=== PATIENT | female | born 1935 | race Caucasian/White ===

== ENCOUNTER 2020-01-01 08:32 | Day surgery (SDC) | payer OTHER ==
--- OUTSIDE RECORDS SUMMARY | 2020-01-01 08:39 | XMS ---
:1935 Author Organization [facility] Care Team Providers Name Role Phone Androne, Mare S Unavailable Unavailable Androne, S Unavailable Unavailable Androne, S Unavailable Unavailable Androne, S Unavailable Unavailable Androne, S Unavailable Unavailable Androne, S Unavailable Unavailable Androne, S Unavailable Unavailable Androne, S Unavailable Unavailable Digiorno Unavailable Unavailable Digiorno Unavailable Unavailable Digiorno Unavailable Unavailable Digiorno Unavailable Unavailable Re-disclosure Warning The records that you are about to access may contain information from federally- assisted alcohol or drug abuse programs. If such information is present, then the following federally mandated warning applies: This information has been disclosed to you from records protected by federal confidentiality rules (42 CFR part 2). The federal rules prohibit you from making any further disclosure of this information unless further disclosure is expressly permitted by the written consent of the person to whom it pertains or as otherwise permitted by 42 CFR part 2. A general authorization for the release of medical or other information is NOT sufficient for this purpose. The Federal rules restrict any use of the information to criminally investigate or prosecute any alcohol or drug abuse patient.The records that you are about to access may contain highly sensitive health information, the redisclosure of which is protected by Article 27-F of the [facility] Public Health law. If you continue you may haveaccess to information: Regarding HIV / AIDS; Provided by facilities licensed or operated by the [facility] Office of Mental Health; or Provided by the [place] State Office for People With Developmental Disabilities. If such information is present, then the following [facility] mandated warning applies: This information has been disclosed to you from confidential records which are protected by state law. State law prohibits you from making any further disclosure of this information without the specific written consent of the person to whom it pertains, or as otherwise permitted by law. Any unauthorized further disclosure in violation of state law may result in a fine or intermediate sentence or both. A general authorization for the release of medical or other information is NOT sufficient authorization for further disclosure. Encounters Encounter Providers Location Date Indications Data Source(s ) Attender: Mare 12/12/2019 [facility] ([facility] 12:00:00 AM EDT Medical, ) Office Attender: Mare Mcarthur 12/12/2019 12:00:00 AM ED T [facility] ([facility] [place], ) Office Outpatient 12/11/2019 10:16:00 AM RIGHT LUNG CA 230LBS [facility] EDT NOT DIABETIC RIGHT LUNG CA 230LBS NOT DIABETIC Outpatient 09/27/2019 10:33:00 AM LUNG MASS NOT DIABETIC [facility] EDT 230LBS LUNG MASS NOT DIABETIC 230LBS Attender: Carlos López 09/12/2019 12:00:00 AM EDT MEDGEN ([facility] [place], ) Office Attender: Carlos López 09/12/2019 12:00:00 AM EDT MEDGEN ([facility] [place], ) Office Attender: Carlos López 09/12/2019 12:00:00 AM EDT MEDGEN ([facility], ) Office Attender: Carlos López 09/12/2019 12:00:00 AM EDT MEDGEN ([facility] [place], ) Office Immunizations Vaccine Date Status Description Data Source(s) pneumococcal 12/12/2019 completed MEDGEN ([facility] polysaccharide PPV23 12:00:00 AM EDT [facility] kapil, ) Medications Medication Brand Start Product Dose Route Administrative Pharmacy [facility] Indications Reaction Description Data Name Date Form Instructions Instructions Source(s) homatropine HOMATR 07/31/ SYRUP 600 complet HOMAT ROPINE- MEDGEN ( methylbromi OPIN2019 ed HYDROCODONE [facility] de 0.3 HYDROC 12:00: Medical, MG/ML / ODONE: 00 AM PC) Hydrocodone [id number] EDT Bitartrate 1 MG/ML Oral Solution HOMATROPINE -HYDROCODON [id number] homatropine HOMATR 05/19/ SYRUP 600 complet HOMAT ROPINE- MEDGEN (St methylbromi OPINE2019 ed HYDROCODONE Rick's de 0.3 HYDROC 12:00: Medical, MG/ML / ODONE: 00 AM PC) Hydrocodone [id number] EDT Bitartrate 1 MG/ML Oral Solution HOMATROPINE -HYDROCODON [id number] Acetaminoph ACETAM 05/19/ TABLET 30 complet ACET AMINOPHE MEDGEN (St en 300 MG / INOPHE 2019 ed N-CODEINE J [facility] Codeine N-CODE 12:00: Medical, Phosphate INE:99 00 AM PC) 15 MG Oral 3770 EDT Tablet ACETAMINOPH EN-CODEINE: [id number] homatropine HOMATR 05/19/ SYRUP 1 complet HOMAT ROPINE- MEDGEN (St methylbromi OPINE2019 ed HYDROCODONE Rick's de 0.3 HYDROC 12:00: Medical, MG/ML / ODONE: 00 AM PC) Hydrocodone [id number] EDT Bitartrate 1 MG/ML Oral Solution HOMATROPINE -HYDROCODON E:[id number] Acetaminoph ACETAM 05/19/ TABLET 30 complet ACET AMINOPHE MED[facility] (St en 300 MG / INOPHE 2019 ed N-CODEINE J ohn's Codeine N-CODE 12:00: Medical, Phosphate INE:99 00 AM PC) 15 MG Oral 3770 EDT Tablet ACETAMINOPH EN-CODEINE: [id number] homatropine HOMATR 05/19/ SYRUP 1 complet HOMAT ROPINE- MEDGEN (St methylbromi OPINE2019 ed HYDROCODONE Rick's de 0.3 HYDROC 12:00: Medical, MG/ML / ODONE: 00 AM PC) Hydrocodone [id number] EDT Bitartrate 1 MG/ML Oral Solution HOMATROPINE -HYDROCODON E:[id number] homatropine HOMATR 05/19/ SYRUP 1 complet HOMAT ROPINE- MEDGEN (St methylbromi OPINE2019 ed HYDROCODONE Rick's de 0.3 HYDROC 12:00: Medical, MG/ML / ODONE: 00 AM PC) Hydrocodone [id number] EDT Bitartrate 1 MG/ML Oral Solution HOMATROPINE -HYDROCODON E:[id number] homatropine HOMATR 19/ SYRUP 1 complet HOMAT ROPINE- MEDGEN (St methylbromi OPINE2019 ed HYDROCODONE Rick's de 0.3 HYDROC 12:00: Medical, MG/ML / ODONE: 00 AM PC) Hydrocodone 199953 EDT Bitartrate 1 MG/ML Oral Solution HOMATROPINE -HYDROCODON E:[id number] homatropine HOMATR 19/ SYRUP 1 complet HOMAT ROPINE- MEDGEN (St methylbromi OPINE2019 ed HYDROCODONE Rick's de 0.3 HYDROC 12:00: Medical, MG/ML / ODONE: 00 AM PC) Hydrocodone 436385 EDT Bitartrate 1 MG/ML Oral Solution HOMATROPINE -HYDROCODON E:[id number] homatropine HOMATR 07/31/ SYRUP 1 complet HOMAT ROPINE- MEDGEN (St methylbromi OPINE2019 ed HYDROCODONE Rick's de 0.3 HYDROC 12:00: Medical, MG/ML / ODONE: 00 AM PC) Hydrocodone 580305 EDT Bitartrate 1 MG/ML Oral Solution HOMATROPINE -HYDROCODON E:[id number] Acetaminoph ACETAM 07/31/ TABLET 30 complet ACET AMINOPHE [facility] (St en 300 MG / INOPHE 2019 ed N-CODEINE J ohn's Codeine N-CODE 12:00: Medical, Phosphate INE:99 00 AM PC) 15 MG Oral 3770 EDT Tablet ACETAMINOPH EN-CODEINE: [id number] homatropine HOMATR 19/ SYRUP 600 complet HOMAT ROPINE- MEDGEN (St methylbromi OPINE2019 ed HYDROCODONE Rick's de 0.3 HYDROC 12:00: Medical, MG/ML / ODONE: 00 AM PC) Hydrocodone [id number] EDT Bitartrate 1 MG/ML Oral Solution HOMATROPINE -HYDROCODON E:[id number] Allopurinol ALLOPU 05/30/ TABLET 90 complet ALLO PURINOL [facility] (St 100 MG Oral RINOL: 2019 ed Rick's Tablet [id number] 12:00: Medical, ALLOPURINOL 00 AM PC) :[id number] EDT Allopurinol ALLOPU 05/30/ TABLET 90 complet ALLO PURINOL MED[facility] (St 100 MG Oral RINOL: 2019 ed Rick's Tablet [id number] 12:00: Medical, ALLOPURINOL 00 AM PC) :[id number] EDT Allopurinol ALLOPU 05/30/ TABLET 90 complet ALLO PURINOL MED[facility] (St 100 MG Oral RINOL: 2019 ed Rick's Tablet [id number] 12:00: Medical, ALLOPURINOL 00 AM PC) :[id number] EDT benzonatate BENZON 04/26/ CAPSULE 30 complet AMARIS ZONATATE [facility] (St 200 MG Oral ATATE: 2019 ed Rick's Capsule [id number] 12:00: Medical, BENZONATATE 00 AM PC) :[id number] EST benzonatate BENZON 04/26/ CAPSULE 30 complet AMARIS ZONATATE MED[facility] (St 200 MG Oral ATATE: 2019 ed Rick's Capsule [id number] 12:00: Medical, BENZONATATE 00 AM PC) :[id number] EST benzonatate BENZON 04/26/ CAPSULE 30 complet AMARIS ZONATATE MED[facility] (St 200 MG Oral ATATE: 2019 ed Rick's Capsule [id number] 12:00: Medical, BENZONATATE 00 AM PC) :[id number] EST Amoxicillin AMOXIC 01/18/ CAPSULE 10 complet RHETT XICILLIN [facility] (St 500 MG Oral ILLIN: 2018 ed Rick's Capsule [id number] 12:00: Medical, AMOXICILLIN 00 AM PC) :[id number] EST Amoxicillin AMOXIC 01/18/ CAPSULE 10 complet RHETT XICILLIN MED[facility] (St 500 MG Oral ILLIN: 2018 ed Rick's Capsule [id number] 12:00: Medical, AMOXICILLIN 00 AM PC) :[id number] EST Amoxicillin AMOXIC 01/18/ CAPSULE 10 complet RHETT XICILLIN MED[facility] (St 500 MG Oral ILLIN: 2018 ed Rick's Capsule [id number] 12:00: Medical, AMOXICILLIN 00 AM PC) :[id number] EST Insurance Providers Payer name Policy type Policy ID Covered Covered democrat's Policy P tonio / Coverage democrat ID relationship to Wylie Inf ormation type wylie TROY [id number] SP [id number] HEALTHCARE PPO MEDICARE [id number] SP [id number] TROY [id number] PT [id number] HEATHCARE OTHER MEDICARE [id number] PT [id number] [facility] [id number] CARE [place] [id number] PART B DOWNSTATE [facility] [id number] SP [id number] 999 CARE HMO/POS/EPO MEDICARE [id number] SP [id number] A [facility] [id number] SP [id number] 999 CARE HMO/POS/EPO MEDICARE [id number] SP [id number] [employer] [id number] PT [id number] OTHER [facility] [id number] CARE OPTIONS PPO Problems, Conditions, and Diagnoses Code Display Name Description Problem Type Effective Data Sour ce(s) Dates E78.5 Hyperlipidemia, HYPERLIPIDEMIA, Problem 08/01/2019 MEDG EN (St unspecified UNSPECIFIED 12:00:00 AM [facility], ) E66.9 Obesity, unspecified OBESITY, Problem 08/01/2019 MEDG EN (St UNSPECIFIED 12:00:00 AM [facility], ) 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 08/01/2019 MEDGEN (St uncertain behavior UNCERTAIN 12:00:00 AM Rick' s of trachea, bronchus BEHAVIOR OF [facility] ica, ) and lung TRACHEA, BRONCHUS AND LUNG M25.50 Pain in unspecified PAIN IN Problem 08/01/2019 MEDGE N (St joint UNSPECIFIED JOINT 12:00:00 AM [facility], ) I10 Essential (primary) ESSENTIAL Problem 08/01/2019 MEDGE N (St hypertension (PRIMARY) 12:00:00 AM [facility] HYPERTENSION [facility], ) E03.9 Hypothyroidism, HYPOTHYROIDISM, Problem 08/01/2019 MEDG EN (St unspecified UNSPECIFIED 12:00:00 AM [facility], ) E78.5 Hyperlipidemia, HYPERLIPIDEMIA, Problem 08/01/2019 MEDG EN (St unspecified UNSPECIFIED 12:00:00 AM [facility], ) E66.9 Obesity, unspecified OBESITY, Problem 08/01/2019 MEDG EN (St UNSPECIFIED 12:00:00 AM [facility], ) 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 08/01/2019 MEDGEN (St uncertain behavior UNCERTAIN 12:00:00 AM Rick' s of trachea, bronchus BEHAVIOR OF [facility], ) and lung TRACHEA, BRONCHUS AND LUNG M25.50 Pain in unspecified PAIN IN Problem 08/01/2019 MEDGE N (St joint UNSPECIFIED JOINT 12:00:00 AM [facility], ) I10 Essential (primary) ESSENTIAL Problem 08/01/2019 MEDGE N (St hypertension (PRIMARY) 12:00:00 AM [facility]'s HYPERTENSION [facility], ) E03.9 Hypothyroidism, HYPOTHYROIDISM, Problem 08/01/2019 MEDG EN (St unspecified UNSPECIFIED 12:00:00 AM [facility], ) E78.5 Hyperlipidemia, HYPERLIPIDEMIA, Problem 08/01/2019 MEDG EN (St unspecified UNSPECIFIED 12:00:00 AM [facility], ) E66.9 Obesity, unspecified OBESITY, Problem 08/01/2019 MEDG EN (St UNSPECIFIED 12:00:00 AM [facility], ) 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 08/01/2019 MEDGEN (St uncertain behavior UNCERTAIN 12:00:00 AM Rick' s of trachea, bronchus BEHAVIOR OF [facility], ) and lung TRACHEA, BRONCHUS AND LUNG M25.50 Pain in unspecified PAIN IN Problem 08/01/2019 MEDGE N (St joint UNSPECIFIED JOINT 12:00:00 AM [facility], ) I10 Essential (primary) ESSENTIAL Problem 08/01/2019 MEDGE N (St hypertension (PRIMARY) 12:00:00 AM Rick's HYPERTENSION [facility], ) E03.9 Hypothyroidism, HYPOTHYROIDISM, Problem 08/01/2019 MEDG EN (St unspecified UNSPECIFIED 12:00:00 AM [facility], ) R00.1 Bradycardia, BRADYCARDIA, Problem 04/04/2019 MEDGEN (St unspecified UNSPECIFIED 12:00:00 AM [facility], ) R00.1 Bradycardia, BRADYCARDIA, Problem 04/04/2019 MEDGEN (St unspecified UNSPECIFIED 12:00:00 AM [facility], ) R00.1 Bradycardia, BRADYCARDIA, Problem 04/04/2019 MEDGEN (St unspecified UNSPECIFIED 12:00:00 AM [facility], ) I51.7 Cardiomegaly I51.7 Diagnosis 12/11/2019 [facility] 10:16:00 AM Hospital EDT I70.0 Atherosclerosis of I70.0 Diagnosis 12/11/2019 [facility] aorta 10:16:00 AM Hospital EDT 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:00 AM [facility] 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 R91.8 Other nonspecific R91.8 Diagnosis 12/11/2019 [place] [facility] abnormal finding of 10:16:00 AM Hosp ital lung field EDT C34.90 Malignant neoplasm C34.90 Diagnosis 12/11/2019 [place] of unspecified part 10:16:00 AM Hosp ital of unspecified EDT bronchus or lung K57.30 Diverticulosis of K57.30 Diagnosis 09/27/2019 [facility] large intestine 10:33:00 AM Hospital without perforation EDT or abscess without bleeding K44.9 Diaphragmatic hernia K44.9 Diagnosis 09/27/2019 [place] without obstruction 10:33:00 AM Hosp ital or gangrene EDT Surgeries/Procedures Procedure Description Date Indications Data Source(s) Documentation of current 12/12/2019 MED GEN ([facility] medications (procedure) 12:00:00 AM EDT [facility], ) Administration of 12/12/2019 MEDGEN ([facility] pneumococcal vaccine 12:00:00 AM EDT [facility], ) OFFICE OUTPATIENT VISIT 10 12/12/2019 Gita NELSON ([facility] MINUTES 12:00:00 AM [facility] Medical, PC) Documentation of current 09/12/2019 MED GEN ([facility] medications (procedure) 12:00:00 AM EDT [facility], PC) Documentation of current 09/12/2019 MED GEN ([facility] medications (procedure) 12:00:00 AM EDT [facility], PC) Documentation of current 09/12/2019 MED GEN ([facility] medications (procedure) 12:00:00 AM EDT [facility], ) OFFICE OUTPATIENT VISIT 15 09/12/2019 Gita NELSON ([facility] MINUTES 12:00:00 AM [facility] Medical, PC) COLLECTION VENOUS BLOOD 09/12/2019 MEDG EN ([facility] VENIPUNCTURE 12:00:00 AM EDT Medical, ) Documentation of current 09/12/2019 MED GEN ([facility] medications (procedure) 12:00:00 AM EDT edical, ) Documentation of current 09/12/2019 MED GEN ([facility] medications (procedure) 12:00:00 AM EDT edical, ) Documentation of current 09/12/2019 MED GEN ([facility] medications (procedure) 12:00:00 AM EDT edical, ) OFFICE OUTPATIENT VISIT 15 09/12/2019 M EDGEN ([facility] MINUTES 12:00:00 AM EDT Medical, ) COLLECTION VENOUS BLOOD 09/12/2019 MEDG EN ([facility] VENIPUNCTURE 12:00:00 AM [facility] Medical, ) Documentation of current 09/12/2019 MED GEN ([facility] medications (procedure) 12:00:00 AM EDT edical, ) OFFICE OUTPATIENT VISIT 15 09/12/2019 M EDGEN ([facility] MINUTES 12:00:00 AM T Medical, ) COLLECTION VENOUS BLOOD 09/12/2019 MEDG EN ([facility] VENIPUNCTURE 12:00:00 AM [facility], ) Documentation of current 08/01/2019 MED GEN ([facility] medications (procedure) 12:00:00 AM EDT edical, PC) Documentation of current 08/01/2019 MED GEN ([facility] medications (procedure) 12:00:00 AM EDT edical, PC) Documentation of current 08/01/2019 MED GEN ([facility] medications (procedure) 12:00:00 AM EDT edical, PC) Documentation of current 08/01/2019 MED GEN ([facility] medications (procedure) 12:00:00 AM EDT edical, PC) Documentation of current 08/01/2019 MED GEN ([facility] medications (procedure) 12:00:00 AM EDT edical, PC) OFFICE OUTPATIENT VISIT 15 08/01/2019 M EDGEN ([facility] MINUTES 12:00:00 AM EDT Medical, ) Documentation of current 08/01/2019 MED GEN ([facility] medications (procedure) 12:00:00 AM EDT edical, ) Documentation of current 08/01/2019 MED GEN ([facility] medications (procedure) 12:00:00 AM EDT edical, PC) Documentation of current 08/01/2019 MED GEN ([facility] medications (procedure) 12:00:00 AM EDT edical, PC) Documentation of current 08/01/2019 MED GEN ([facility] medications (procedure) 12:00:00 AM EDT edical, PC) Documentation of current 08/01/2019 MED GEN ([facility] medications (procedure) 12:00:00 AM EDT edical, ) OFFICE OUTPATIENT VISIT 15 08/01/2019 Gita NELSON ([facility] MINUTES 12:00:00 AM EDT Medical, PC) Documentation of current 08/01/2019 MED GEN ([facility] medications (procedure) 12:00:00 AM EDT edical, PC) Documentation of current 08/01/2019 MED GEN ([facility] medications (procedure) 12:00:00 AM EDT ernaical, PC) Documentation of current 08/01/2019 MED GEN ([facility] medications (procedure) 12:00:00 AM EDT edical, PC) Documentation of current 08/01/2019 MED GEN ([facility] medications (procedure) 12:00:00 AM EDT ernaical, PC) Documentation of current 08/01/2019 MED GEN ([facility] medications (procedure) 12:00:00 AM EDT edical, PC) OFFICE OUTPATIENT VISIT 15 08/01/2019 Gita NELSON ([facility] MINUTES 12:00:00 AM EDT Medical, PC) Documentation of current 04/26/2019 MED GEN ([facility] medications (procedure) 12:00:00 AM EST edical, PC) OFFICE OUTPATIENT VISIT 15 04/26/2019 Gita NELSON ([facility] MINUTES 12:00:00 AM EST Medical, PC) Documentation of current 04/26/2019 MED GEN ([facility] medications (procedure) 12:00:00 AM EST edical, PC) OFFICE OUTPATIENT VISIT 15 04/26/2019 Gita NELSON ([facility] MINUTES 12:00:00 AM EST Medical, PC) Documentation of current 04/26/2019 MED GEN ([facility] medications (procedure) 12:00:00 AM EST Gita ross, ) OFFICE OUTPATIENT VISIT 15 04/26/2019 Gita LESLIE ([facility] MINUTES 12:00:00 AM EST Medical, ) Documentation of current 04/04/2019 MED GEN ([facility] medications (procedure) 12:00:00 AM EST [facility]orical, PC) Documentation of current 04/04/2019 MED GEN ([facility] medications (procedure) 12:00:00 AM EST Gita umanzorical, PC) Documentation of current 04/04/2019 MED GEN ([facility] medications (procedure) 12:00:00 AM EST Gita ross, PC) Documentation of current 04/04/2019 MED GEN ([facility] medications (procedure) 12:00:00 AM EST Gita ross, PC) Documentation of current 04/04/2019 MED GEN ([facility] medications (procedure) 12:00:00 AM EST Gita umanzorical, ) OFFICE OUTPATIENT VISIT 15 04/04/2019 Gita NELSON ([facility] MINUTES 12:00:00 AM [facility] Medical, ) ECG ROUTINE ECG W/LEAST 12 04/04/2019 Gita NELSON ([facility] LDS TRCG ONLY W/O I&R 12:00:00 AM EST [facility] ica, ) COLLECTION VENOUS BLOOD 04/04/2019 MEDG EN ([facility] VENIPUNCTURE 12:00:00 AM [facility] Medical, ) Documentation of current 04/04/2019 MED GEN ([facility] medications (procedure) 12:00:00 AM EST [facility] ross, PC) Documentation of current 04/04/2019 MED GEN ([facility] medications (procedure) 12:00:00 AM EST [facility]ita ross, PC) Documentation of current 04/04/2019 MED GEN ([facility] medications (procedure) 12:00:00 AM EST Gita ross, PC) Documentation of current 04/04/2019 MED GEN ([facility] medications (procedure) 12:00:00 AM EST [facility]ita um[facility]orical, PC) Documentation of current 04/04/2019 MED GEN ([facility] medications (procedure) 12:00:00 AM EST [facility] um[facility]orical, PC) OFFICE OUTPATIENT VISIT 15 04/04/2019 Gita NELSON ([facility] MINUTES 12:00:00 AM EST Medical, PC) ECG ROUTINE ECG W/LEAST 12 04/04/2019 Gita YOVANAN ([facility] LDS TRCG ONLY W/O I&R 12:00:00 AM EST [facility] ical, PC) COLLECTION VENOUS BLOOD 04/04/2019 MEDG EN ([facility] VENIPUNCTURE 12:00:00 AM EST Medical, PC) Documentation of current 04/04/2019 MED GEN ([facility] medications (procedure) 12:00:00 AM EST Gita umanzorical, PC) Documentation of current 04/04/2019 MED GEN ([facility] medications (procedure) 12:00:00 AM EST Gita umanzorical, PC) Documentation of current 04/04/2019 MED GEN ([facility] medications (procedure) 12:00:00 AM EST Gita umanzorical, PC) Documentation of current 04/04/2019 MED GEN ([facility] medications (procedure) 12:00:00 AM EST Gita umanzorical, PC) Documentation of current 04/04/2019 MED GEN ([facility] medications (procedure) 12:00:00 AM EST [facility]ita umanzorical, PC) OFFICE OUTPATIENT VISIT 15 04/04/2019 Gita LESLIE ([facility] MINUTES 12:00:00 AM EST Medical, PC) ECG ROUTINE ECG W/LEAST 12 04/04/2019 Gita LESLIE ([facility] LDS TRCG ONLY W/O I&R 12:00:00 AM EST [facility] ical, PC) COLLECTION VENOUS BLOOD 04/04/2019 MEDG EN ([facility] VENIPUNCTURE 12:00:00 AM EST Medical, PC) Documentation of current 01/18/2019 MED GEN ([facility] medications (procedure) 12:00:00 AM EST [facility]ita ross, PC) Documentation of current 01/18/2019 MED GEN ([facility] medications (procedure) 12:00:00 AM EST [facility]ita ross, PC) Documentation of current 01/18/2019 MED GEN ([facility] medications (procedure) 12:00:00 AM EST [facility]ita ross, PC) Documentation of current 01/18/2019 MED GEN ([facility] medications (procedure) 12:00:00 AM EST Gita ross, PC) Documentation of current 01/18/2019 MED GEN ([facility] medications (procedure) 12:00:00 AM EST Gita umanzorical, PC) Documentation of current 01/18/2019 MED GEN ([facility] medications (procedure) 12:00:00 AM [facility] ross, PC) Documentation of current 01/18/2019 MED GEN ([facility] medications (procedure) 12:00:00 AM [facility] ross PC) Documentation of current 01/18/2019 MED GEN ([facility] medications (procedure) 12:00:00 AM [facility] ross, PC) Documentation of current 01/18/2019 MED GEN ([facility] medications (procedure) 12:00:00 AM [facility] ross, PC) OFFICE OUTPATIENT VISIT 25 01/18/2019 Gita NELSON ([facility] MINUTES 12:00:00 AM [facility]NE Avilez, PC) Documentation of current 01/18/2019 MED GEN ([facility] medications (procedure) 12:00:00 AM LUANNE ross PC) Documentation of current 01/18/2019 MED GEN ([facility] medications (procedure) 12:00:00 AM [facility]ANNE ross PC) Documentation of current 01/18/2019 MED GEN ([facility] medications (procedure) 12:00:00 AM [facility]ANNE ross, PC) Documentation of current 01/18/2019 MED GEN ([facility] medications (procedure) 12:00:00 AM LUANNE ross, PC) Documentation of current 01/18/2019 MED GEN ([facility] medications (procedure) 12:00:00 AM LUANNE ross, PC) Documentation of current 01/18/2019 MED GEN ([facility] medications (procedure) 12:00:00 AM LUANNE ross PC) Documentation of current 01/18/2019 MED GEN ([facility] medications (procedure) 12:00:00 AM [facility]ANNE ross, PC) Documentation of current 01/18/2019 MED GEN ([facility] medications (procedure) 12:00:00 AM LUANNE ross, PC) Documentation of current 01/18/2019 MED GEN ([facility] medications (procedure) 12:00:00 AM [facility]NE ross, PC) OFFICE OUTPATIENT VISIT 25 01/18/2019 Gita YENN ([facility] MINUTES 12:00:00 AM LUANNE Avilez, PC) Documentation of current 01/18/2019 MED GEN ([facility] medications (procedure) 12:00:00 AM EST M edical, PC) Documentation of current 01/18/2019 MED GEN ([facility] medications (procedure) 12:00:00 AM EST Gita ross PC) Documentation of current 01/18/2019 MED GEN ([facility] medications (procedure) 12:00:00 AM WIL Wheatley) Documentation of current 01/18/2019 MED GEN ([facility] medications (procedure) 12:00:00 AM LUANNE ross PC) Documentation of current 01/18/2019 MED GEN ([facility] medications (procedure) 12:00:00 AM LUANNE ross, PC) Documentation of current 01/18/2019 MED GEN ([facility] medications (procedure) 12:00:00 AM LUANNE ross PC) Documentation of current 01/18/2019 MED GEN ([facility] medications (procedure) 12:00:00 AM LUANNE ross PC) Documentation of current 01/18/2019 MED GEN ([facility] medications (procedure) 12:00:00 AM LUANNE ross PC) Documentation of current 01/18/2019 MED GEN ([facility] medications (procedure) 12:00:00 AM WIL Wheatley) OFFICE OUTPATIENT VISIT 25 01/18/2019 Gita NELSON ([facility] MINUTES 12:00:00 AM LUANNE Avilez, PC) Documentation of current 12/06/2018 MED GEN ([facility] medications (procedure) 12:00:00 AM LÓPEZ ross, PC) Documentation of current 12/06/2018 MED GEN ([facility] medications (procedure) 12:00:00 AM LÓPEZ ross, PC) Documentation of current 12/06/2018 MED GEN ([facility] medications (procedure) 12:00:00 AM LÓPEZ ross, PC) OFFICE OUTPATIENT VISIT 15 12/06/2018 Gita YENN ([facility] MINUTES 12:00:00 AM [facility] COLLECTION VENOUS BLOOD 12/06/2018 MEDG EN ([facility] VENIPUNCTURE 12:00:00 AM EDT Medical, PC) Documentation of current 12/06/2018 MED GEN ([facility] medications (procedure) 12:00:00 AM EDMaria Teresa ross, PC) Documentation of current 12/06/2018 MED GEN ([facility] (procedure) 12:00:00 AM EDT edical, PC) Documentation of current 12/06/2018 MED GEN ([facility] medications (procedure) 12:00:00 AM EDT edical, PC) OFFICE OUTPATIENT VISIT 15 12/06/2018 Gita LESLIE ([facility] MINUTES 12:00:00 AM EDT Medical, ) COLLECTION VENOUS BLOOD 12/06/2018 MEDG EN ([facility] VENIPUNCTURE 12:00:00 AM EDT Medical, PC) Documentation of current 12/06/2018 MED GEN ([facility] medications (procedure) 12:00:00 AM EDT edical, PC) Documentation of current 12/06/2018 MED GEN ([facility] medications (procedure) 12:00:00 AM EDT edical, PC) Documentation of current 12/06/2018 MED GEN ([facility] medications (procedure) 12:00:00 AM EDT edical, PC) OFFICE OUTPATIENT VISIT 15 12/06/2018 Gita NELSON ([facility] MINUTES 12:00:00 AM EDT Medical, PC) COLLECTION VENOUS BLOOD 12/06/2018 MEDG EN ([facility] VENIPUNCTURE 12:00:00 AM EDT Medical, PC) Documentation of current 11/07/2018 MED GEN ([facility] medications (procedure) 12:00:00 AM EDT ernaical, PC) Documentation of current 11/07/2018 MED GEN ([facility] medications (procedure) 12:00:00 AM EDT erna[facility], PC) Documentation of current 11/07/2018 MED GEN ([facility] medications (procedure) 12:00:00 AM EDT edical, PC) Documentation of current 11/07/2018 MED GEN ([facility] medications (procedure) 12:00:00 AM EDT edical, PC) Documentation of current 11/07/2018 MED GEN ([facility] medications (procedure) 12:00:00 AM EDT edical, PC) OFFICE OUTPATIENT VISIT 25 11/07/2018 Gita NELSON ([facility] MINUTES 12:00:00 AM EDT Medical, PC) Documentation of current 11/07/2018 MED GEN ([facility] medications (procedure) 12:00:00 AM EDT edical, PC) Documentation of current 11/07/2018 MED GEN ([facility] medications (procedure) 12:00:00 AM EDT edical, PC) Documentation of current 11/07/2018 MED GEN ([facility] medications (procedure) 12:00:00 AM EDT edical, PC) Documentation of current 11/07/2018 MED GEN ([facility] medications (procedure) 12:00:00 AM EDT edical, PC) Documentation of current 11/07/2018 MED GEN ([facility] medications (procedure) 12:00:00 AM EDT edical, PC) OFFICE OUTPATIENT VISIT 25 11/07/2018 Gita EDGEN ([facility] MINUTES 12:00:00 AM EDT Medical, PC) Documentation of current 11/07/2018 MED GEN ([facility] medications (procedure) 12:00:00 AM EDT edical, PC) Documentation of current 11/07/2018 MED GEN ([facility] medications (procedure) 12:00:00 AM EDT edical, PC) Documentation of current 11/07/2018 MED GEN ([facility] medications (procedure) 12:00:00 AM EDT edical, PC) Documentation of current 11/07/2018 MED GEN ([facility] medications (procedure) 12:00:00 AM EDT edical, PC) Documentation of current 11/07/2018 MED GEN ([facility] medications (procedure) 12:00:00 AM EDT edical, PC) OFFICE OUTPATIENT VISIT 25 11/07/2018 Gita YOVANAN ([facility] MINUTES 12:00:00 AM EDT Medical, PC) Results ID Date Data Source [id number] 12/28/2019 10:05:00 AM EDT [facility] Name Value Range Interpretation Description Data Sup porting Code Source(s) Document(s ) SARS [facility] coronavirus 2 RNA This lab was ordered by [facility] and reported by [facility]. ID Date Data Source [id number] 10/26/2019 08:38:00 AM EDT [facility] Name Value Range Interpretation Description Data Sup porting Code Source(s) Document(s ) SARS [facility] Coronavirus 2 RNA Presence Respiratory Specimen DAWNA Probe Detection This lab was ordered by [place] and rep orted by [facility]. ID Date Data Source [id number] 09/12/2019 12:00:00 AM EDT [facility] ([facility] Name Value Range Interpretation Code Description Data Supporting Source(s) Document(s ) PTH, Intact 93 pg/mL Above high normal [facility] ([facility]) ID Date Data Source [id number] 09/12/2019 12:00:00 AM EDT [facility] ([facility] Name Value Range Interpretation Code Description Data Supporting Source(s) Document(s ) Ferritin, 235 ng/mL Above high normal [facility] ([facility], [facility]) ID Date Data Source [id number] 09/12/2019 12:00:00 AM EDT [facility] ([facility]) Name Value Range Interpretation Description Data Sup porting Code Source(s) Document(s ) Magnesium 1.8 mg/dL Normal (applies [facility] (St [Mass/volume] to non-numeric Rick's in Urine results) Medical, ) collected for unspecified duration ID Date Data Source [id number] 09/12/2019 12:00:00 AM EDT [facility] ([facility]) Name Value Range Interpretation Description Data Sup porting Code Source(s) Document(s ) Deprecated 3.3 mg/dL Normal (applies to [facility] (St Phosphorus non-numeric Rick's [Mass/time] in results) Medical, PC) 24 hour Urine ID Date Data Source [id number] 09/12/2019 12:00:00 AM EDT [facility] ([facility]) Name Value Range Interpretation Code Description Data Astrid rce(s) Supporting Document(s ) Uric Acid 6.6 mg/dL Normal (applies to [facility] (St non-numeric Rick's results) Medical, PC) ID Date Data Source [id number] 09/12/2019 12:00:00 AM EDT [facility] ([facility]) Name Value Range Interpretation Description Data Sup porting Code Source(s) Document(s ) Vitamin D, 41.2 Normal (applies to [facility] (St 25-Hydroxy ng/mL non-numeric Rick's results) Medical, PC) ID Date Data Source [id number] 09/12/2019 12:00:00 AM EDT [facility] Name Value Range Interpretation Code Description Data Supporting Source(s) Document(s ) Creatinine 70.3 mg/dL Normal (applies to [facility] (S t , Urine non-numeric [facility]'s results) Medical, ) Protein,To 6.5 mg/dL Normal (applies to [facility] (St baldemar,Urine non-numeric Rick's results) Medical, ) Protein/Cr 92 mg/g Normal (applies to [facility] (St eat Ratio creat non-numeric Rick's results) [facility], ) ID Date Data Source [id number] 09/12/2019 12:00:00 AM EDT [facility] ([facility], ) Name Value Range Interpretation Description Data Sup porting Code Source(s) Document(s ) Iron 237 ug/dL Below low normal [facility] (St Bind.Cap.(TIBC Rick's ) Medical, ) UIBC 163 ug/dL Normal (applies to [facility] (St non-numeric Rick's results) [facility], ) Iron 74 ug/dL Normal (applies to [facility] (St [Mass/volume] non-numeric Rick's in Serum or results) Medical, ) Plasma Iron 31 % Normal (applies to [facility] (St saturation non-numeric Rick's [Mass results) [facility], ) Fraction] in Serum or Plasma ID Date Data Source [id number] 09/12/2019 12:00:00 AM EDT [facility] ([facility], ) Name Value Range Interpretation Description Data Sup porting Code Source(s) Document(s ) WBC 0-5 Normal (applies to [facility] (St non-numeric [facility]'s results) Medical, ) RBC 0-2 Normal (applies to [facility] (St non-numeric Rick's results) [facility], ) Epithelial >10 Abnormal (applies [facility] (St Cells (non to non-numeric Rick's renal) results) [facility], ) Mucus Threads Present Normal (applies to [facility] (St non-numeric Rick's results) [facility], ) Bacteria Few Normal (applies to [facility] (St [Presence] in non-numeric Rick's Prostatic results) [facility], ) fluid by Light microscopy ID Date Data Source [id number] 09/12/2019 12:00:00 AM EDT [facility] ([facility]) Name Value Range Interpretation Description Data Sup porting Code Source(s) Document(s ) Specific gravity 1.015 Normal (applies [facility] (St of Pericardial to non-numeric Rick's fluid by results) Medical, Refractometry PC) pH of Lower 5.0 Normal (applies [facility] (St respiratory to non-numeric Rick's specimen results) Medical, PC) Urine-Color Yellow Normal (applies [facility] (St to non-numeric Rick's results) Medical, PC) Appearance of Clear Normal (applies [facility] (St Abdomen to non-numeric [facility]'s results) Medical, PC) WBC Esterase Negative Normal (applies [facility] (St to non-numeric [facility]'s results) Medical, PC) Protein Negative Normal (applies [facility] (St [Mass/volume] in to non-numeric Rick's Lower results) Medical, respiratory PC) specimen Glucose Negative Normal (applies [facility] (St [Mass/volume] in to non-numeric Rick's Urine collected results) Medical, for unspecified PC) duration Ketones Negative Normal (applies [facility] (St [Presence] in to non-numeric [facility]'s Blood by Tablet results) Medical, PC) Occult Blood Negative Normal (applies [facility] (St to non-numeric [facility]'s results) Medical, PC) Bilirubin Negative Normal (applies [facility] (St [Presence] in to non-numeric Rick's Peritoneal fluid results) Medical, PC) Urobilinogen,Sunil 0.2 mg/dL Normal (applies [facility] (St i-Qn to non-numeric Rick's results) Medical, PC) Nitrite, Urine Negative Normal (applies [facility] (S t to non-numeric [facility]'s results) Medical, PC) Microscopic Normal (applies [facility] (St Examination to non-numeric [facility]'s results) Medical, PC) Microscopic See below: Normal (applies [facility] (St Examination to non-numeric [facility]'s results) Medical, PC) ID Date Data Source [id number] 09/12/2019 12:00:00 AM EDT [facility] ([facility]) Name Value Range Interpretation Description Data Sup porting Code Source(s) Document(s ) Glucose 92 mg/dL Normal (applies [facility] (St [Mass/volume] in to non-numeric Rick's Urine collected for results) Medical, unspecified PC) duration Urea nitrogen 26 mg/dL Normal (applies [facility] (St [Mass/volume] in to non-numeric Rick's Serum or Plasma results) Medical, ) Creatinine 1.31 Above high [facility] (St [Interpretation] in mg/dL normal Rick's Urine Medical, ) eGFR If NonAfricn 38 Below low normal [facility] N (St Am mL/min/1 [facility]'s 73 [facility], ) eGFR If Africn Am 43 Below low normal [facility] N (St mL/min/1 [facility]'s .73 [facility], ) BUN/Creatinine 20 Normal (applies [facility] (S t Ratio to non-numeric Rick's results) Medical, ) Sodium 140 Normal (applies [facility] (St [Moles/volume] in mmol/L to non-numeric Rick's Serum or Plasma results) Medical, ) Potassium 4.1 Normal (applies [facility] (St [Mass/volume] in mmol/L to non-numeric Rick's Blood results) Medical, ) Chloride 106 Normal (applies [facility] (St [Moles/volume] in mmol/L to non-numeric Rick's Serum or Plasma results) Medical, ) Carbon dioxide, 23 Normal (applies [facility] ( St total mmol/L to non-numeric Rick's [Moles/volume] in results) Medical, Serum or Plasma PC) Calcium 9.6 Normal (applies [facility] (St [Moles/volume] in mg/dL to non-numeric Rick's Urine collected for results) Medical, unspecified PC) duration Protein 5.8 g/dL Below low normal [facility] (St [Mass/volume] in Rick's Serum or Plasma Medical, ) Microalbumin 3.7 g/dL Normal (applies [facility] (St [Mass/time] in to non-numeric Rick's Urine collected for results) Medical, unspecified PC) duration Globulin, Total 2.1 g/dL Normal (applies [facility] ( St to non-numeric Rick's results) Medical, ) A/G Ratio 1.8 Normal (applies [facility] (St to non-numeric Rick's results) Medical, ) Bilirubin.total 0.6 Normal (applies [facility] ( St [Mass/volume] in mg/dL to non-numeric Rick's Serum or Plasma results) Medical, ) Alkaline 66 IU/L Normal (applies [facility] (St phosphatase to non-numeric Rick's [Enzymatic results) Medical, activity/volume] in ) Serum, Plasma or Blood Aspartate 15 IU/L Normal (applies [facility] (St aminotransferase to non-numeric Rick's [Enzymatic results) Medical, activity/volume] in ) Serum or Plasma Alanine 14 IU/L Normal (applies [facility] (St aminotransferase to non-numeric Rick's [Enzymatic results) Medical, activity/volume] in ) Serum or Plasma ID Date Data Source [id number] 09/12/2019 12:00:00 AM EDT [facility] ([facility], ) Name Value Range Interpretation Description Data Sup porting Code Source(s) Document(s ) Leukocytes 6.9 Normal (applies [facility] (St [#/volume] in x10E3/uL to non-numeric Rick's Blood by results) [facility], ) Automated count Erythrocytes 3.48 Below low normal [facility] (St [#/volume] in x10E6/uL Rick's Blood by [facility], ) Automated count Hemoglobin 11.6 Normal (applies [facility] (St [Mass/volume] in g/dL to non-numeric Rick's Blood results) [facility], ) Hematocrit 34.7 % Normal (applies [facility] (St [Volume to non-numeric Rick's Fraction] of results) [facility], ) Blood by Automated count MCV 100 fL Above high normal [facility] ([facility], ) MCH 33.3 pg Above high normal [facility] ([facility], ) MCHC 33.4 Normal (applies [facility] (St g/dL to non-numeric Rick's results) [facility], ) RDW 13.7 % Normal (applies [facility] (St to non-numeric Rick's results) Medical, ) Platelets 191 Normal (applies [facility] (St [#/area] in x10E3/uL to non-numeric Rick's Blood by results) [facility], ) Microscopy high power field Neutrophils [#] 65 % Normal (applies [facility] ( St in Body fluid by to non-numeric Rick's Manual count results) [facility], ) Lymphs 22 % Normal (applies [facility] (St to non-numeric Rick's results) [facility], ) Monocytes 9 % Normal (applies [facility] (St [#/volume] in to non-numeric Rick's Cord blood results) [facility], ) Basos 1 % Normal (applies [facility] (St to non-numeric Rick's results) [facility], ) Eos 3 % Normal (applies [facility] (St to non-numeric Rick's results) [facility], ) Neutrophils 4.5 Normal (applies [facility] (St (Absolute) x10E3/uL to non-numeric Rick's results) [facility], ) Lymphs 1.5 Normal (applies [facility] (St (Absolute) x10E3/uL to non-numeric Rick's results) [facility], ) Monocytes(Absolu 0.6 Normal (applies [facility] (St te) x10E3/uL to non-numeric Rick's results) [facility], ) Eos (Absolute) 0.2 Normal (applies [facility] (S t x10E3/uL to non-numeric Rick's results) [facility], ) Immature 0 % Normal (applies [facility] (St Granulocytes to non-numeric Rick's results) [facility], ) Baso (Absolute) 0.1 Normal (applies [facility] ( St x10E3/uL to non-numeric Rick's results) [facility], ) Immature Grans 0.0 Normal (applies [facility] (S t (Abs) x10E3/uL to non-numeric Rick's results) [facility], ) NRBC 1 % Above high normal [facility] ([facility], ) ID Date Data Source [id number] 09/12/2019 12:00:00 AM EDT [facility] ([facility], ) Name Value Range Interpretation Code Description Data Supporting Source(s) Document(s ) PTH, Intact 93 pg/mL Above high normal [facility] ([facility], ) ID Date Data Source [id number] 09/12/2019 12:00:00 AM EDT [facility] ([facility], ) Name Value Range Interpretation Code Description Data Supporting Source(s) Document(s ) Ferritin, 235 ng/mL Above high normal [facility] ([facility], ) ID Date Data Source [id number] 09/12/2019 12:00:00 AM EDT [facility] ([facility], ) Name Value Range Interpretation Description Data Sup porting Code Source(s) Document(s ) Magnesium 1.8 mg/dL Normal (applies [facility] (St [Mass/volume] to non-numeric Rick's in Urine results) [facility], ) collected for unspecified duration ID Date Data Source [id number] 09/12/2019 12:00:00 AM EDT [facility] ([facility], ) Name Value Range Interpretation Description Data Sup porting Code Source(s) Document(s ) Deprecated 3.3 mg/dL Normal (applies to [facility] (St Phosphorus non-numeric Rick's [Mass/time] in results) [facility], ) 24 hour Urine ID Date Data Source [id number] 09/12/2019 12:00:00 AM EDT [facility] ([facility], ) Name Value Range Interpretation Code Description Data Astrid rce(s) Supporting Document(s ) Uric Acid 6.6 mg/dL Normal (applies to [facility] (St non-numeric Rick's results) [facility], ) ID Date Data Source [id number] 09/12/2019 12:00:00 AM EDT [facility] ([facility], ) Name Value Range Interpretation Description Data Sup porting Code Source(s) Document(s ) Vitamin D, 41.2 Normal (applies to [facility] (St 25-Hydroxy ng/mL non-numeric Rick's results) [facility], ) ID Date Data Source [id number] 09/12/2019 12:00:00 AM EDT [facility] ([facility], ) Name Value Range Interpretation Code Description Data Supporting Source(s) Document(s ) Creatinine 70.3 mg/dL Normal (applies to [facility] (S t , Urine non-numeric Rick's results) Medical, ) Protein,To 6.5 mg/dL Normal (applies to [facility] (St baldemar,Urine non-numeric Rick's results) [facility], ) Protein/Cr 92 mg/g Normal (applies to [facility] (St eat Ratio creat non-numeric Rick's results) [facility], ) ID Date Data Source [id number] 09/12/2019 12:00:00 AM EDT [facility] ([facility], ) Name Value Range Interpretation Description Data Sup porting Code Source(s) Document(s ) Iron 237 ug/dL Below low normal [facility] (St Bind.Cap.(TIBC Rick's ) [facility], ) UIBC 163 ug/dL Normal (applies to [facility] (St non-numeric Rick's results) Medical, PC) Iron 74 ug/dL Normal (applies to [facility] (St [Mass/volume] non-numeric Rick's in Serum or results) Medical, PC) Plasma Iron 31 % Normal (applies to [facility] (St saturation non-numeric Rick's [Mass results) Medical, PC) Fraction] in Serum or Plasma ID Date Data Source [id number] 09/12/2019 12:00:00 AM EDT [facility] ([facility], ) Name Value Range Interpretation Description Data Sup porting Code Source(s) Document(s ) WBC 0-5 Normal (applies to [facility] (St non-numeric Rick's results) Medical, PC) RBC 0-2 Normal (applies to [facility] (St non-numeric Rick's results) Medical, PC) Epithelial >10 Abnormal (applies [facility] (St Cells (non to non-numeric Rick's renal) results) Medical, PC) Mucus Threads Present Normal (applies to [facility] (St non-numeric Rick's results) Medical, PC) Bacteria Few Normal (applies to [facility] (St [Presence] in non-numeric Rick's Prostatic results) Medical, PC) fluid by Light microscopy ID Date Data Source [id number] 09/12/2019 12:00:00 AM EDT [facility], ) Name Value Range Interpretation Description Data Sup porting Code Source(s) Document(s ) Specific gravity 1.015 Normal (applies [facility] (St of Pericardial to non-numeric Rick's fluid by results) Medical, Refractometry PC) pH of Lower 5.0 Normal (applies [facility] (St respiratory to non-numeric Rick's specimen results) Medical, PC) Urine-Color Yellow Normal (applies [facility] (St to non-numeric Rick's results) Medical, PC) Appearance of Clear Normal (applies [facility] (St Abdomen to non-numeric Rick's results) Medical, PC) WBC Esterase Negative Normal (applies [facility] (St to non-numeric Rick's results) Medical, PC) Protein Negative Normal (applies [facility] (St [Mass/volume] in to non-numeric Rick's Lower results) Medical, respiratory PC) specimen Glucose Negative Normal (applies [facility] (St [Mass/volume] in to non-numeric Rick's Urine collected results) Medical, for unspecified PC) duration Ketones Negative Normal (applies [facility] (St [Presence] in to non-numeric Rick's Blood by Tablet results) Medical, ) Occult Blood Negative Normal (applies [facility] (St to non-numeric Rick's results) Medical, ) Bilirubin Negative Normal (applies [facility] (St [Presence] in to non-numeric Rick's Peritoneal fluid results) Medical, ) Urobilinogen,Sunil 0.2 mg/dL Normal (applies [facility] (St i-Qn to non-numeric Rick's results) Medical, ) Microscopic See below: Normal (applies [facility] (St Examination to non-numeric Rick's results) Medical, ) Nitrite, Urine Negative Normal (applies [facility] (S t to non-numeric Rick's results) Medical, ) ID Date Data Source [id number] 09/12/2019 12:00:00 AM EDT [facility] ([facility], ) Name Value Range Interpretation Description Data Sup porting Code Source(s) Document(s ) Glucose 92 mg/dL Normal (applies [facility] (St [Mass/volume] in to non-numeric Rick's Urine collected for results) Medical, unspecified PC) duration Urea nitrogen 26 mg/dL Normal (applies [facility] (St [Mass/volume] in to non-numeric Rick's Serum or Plasma results) Medical, ) Creatinine 1.31 Above high [facility] (St [Interpretation] in mg/dL normal Rick's Urine Medical, ) eGFR If NonAfricn 38 Below low normal [facility] N (St Am mL/min/1 [facility]'s .73 Medical, ) eGFR If Africn Am 43 Below low normal [facility] N (St mL/min/1 [facility]'s .73 Medical, ) BUN/Creatinine 20 Normal (applies [facility] (S t Ratio to non-numeric Rick's results) Medical, ) Sodium 140 Normal (applies [facility] (St [Moles/volume] in mmol/L to non-numeric Rick's Serum or Plasma results) Medical, ) Potassium 4.1 Normal (applies [facility] (St [Mass/volume] in mmol/L to non-numeric Rick's Blood results) Medical, ) Carbon dioxide, 23 Normal (applies [facility] ( St total mmol/L to non-numeric Rick's [Moles/volume] in results) Medical, Serum or Plasma PC) Chloride 106 Normal (applies [facility] (St [Moles/volume] in mmol/L to non-numeric Rick's Serum or Plasma results) Medical, ) Calcium 9.6 Normal (applies [facility] (St [Moles/volume] in mg/dL to non-numeric Rick's Urine collected for results) Medical, unspecified PC) duration Protein 5.8 g/dL Below low normal [facility] (St [Mass/volume] in Rick's Serum or Plasma Medical, ) Microalbumin 3.7 g/dL Normal (applies [facility] (St [Mass/time] in to non-numeric Rick's Urine collected for results) Medical, unspecified ) duration Globulin, Total 2.1 g/dL Normal (applies [facility] ( St to non-numeric Rick's results) Medical, ) Bilirubin.total 0.6 Normal (applies [facility] ( St [Mass/volume] in mg/dL to non-numeric Rick's Serum or Plasma results) Medical, ) A/G Ratio 1.8 Normal (applies [facility] (St to non-numeric Rick's results) Medical, ) Alkaline 66 IU/L Normal (applies [facility] (St phosphatase to non-numeric Rick's [Enzymatic results) Medical, activity/volume] in PC) Serum, Plasma or Blood Aspartate 15 IU/L Normal (applies [facility] (St aminotransferase to non-numeric Rick's [Enzymatic results) Medical, activity/volume] in PC) Serum or Plasma Alanine 14 IU/L Normal (applies [facility] (St aminotransferase to non-numeric Rick's [Enzymatic results) Medical, activity/volume] in PC) Serum or Plasma ID Date Data Source [id number] 09/12/2019 12:00:00 AM EDT [facility] ([facility], ) Name Value Range Interpretation Description Data Sup porting Code Source(s) Document(s ) Leukocytes 6.9 Normal (applies [facility] (St [#/volume] in x10E3/uL to non-numeric Rick's Blood by results) Medical, ) Automated count Hemoglobin 11.6 Normal (applies [facility] (St [Mass/volume] in g/dL to non-numeric Rick's Blood results) Medical, ) Erythrocytes 3.48 Below low normal [facility] (St [#/volume] in x10E6/uL Rick's Blood by [facility], ) Automated count Hematocrit 34.7 % Normal (applies [facility] (St [Volume to non-numeric Rick's Fraction] of results) [facility], ) Blood by Automated count MCV 100 fL Above high normal [facility] ([facility], ) MCH 33.3 pg Above high normal [facility] ([facility], ) MCHC 33.4 Normal (applies [facility] (St g/dL to non-numeric Rick's results) [facility], ) RDW 13.7 % Normal (applies [facility] (St to non-numeric Rick's results) [facility], ) Neutrophils [#] 65 % Normal (applies [facility] ( St in Body fluid by to non-numeric Rick's Manual count results) [facility], ) Platelets 191 Normal (applies [facility] (St [#/area] in x10E3/uL to non-numeric Rick's Blood by results) [facility], ) Microscopy high power field Lymphs 22 % Normal (applies [facility] (St to non-numeric Rick's results) [facility], ) Eos 3 % Normal (applies [facility] (St to non-numeric Rick's results) [facility], ) Monocytes 9 % Normal (applies [facility] (St [#/volume] in to non-numeric Rick's Cord blood results) [facility], ) Basos 1 % Normal (applies [facility] (St to non-numeric Rick's results) [facility], ) Lymphs 1.5 Normal (applies [facility] (St (Absolute) x10E3/uL to non-numeric Rick's results) [facility], ) Neutrophils 4.5 Normal (applies [facility] (St (Absolute) x10E3/uL to non-numeric Rick's results) [facility], ) Monocytes(Absolu 0.6 Normal (applies MEDGEN (St te) x10E3/uL to non-numeric Rick's results) [facility], ) Baso (Absolute) 0.1 Normal (applies MEDGEN ( St x10E3/uL to non-numeric Rick's results) [facility], ) Eos (Absolute) 0.2 Normal (applies MEDGEN (S t x10E3/uL to non-numeric Rick's results) [facility], ) Immature 0 % Normal (applies MEDGEN (St Granulocytes to non-numeric Rick's results) [facility], ) Immature Grans 0.0 Normal (applies MEDGEN (S t (Abs) x10E3/uL to non-numeric Rick's results) [facility], ) NRBC 1 % Above high normal MEDGEN ([facility]) ID Date Data Source [id number] 04/04/2019 12:00:00 AM EST MED[facility] ([facility]) Name Value Range Interpretation Code Description Data Supporting Source(s) Document(s ) PTH, Intact 99 pg/mL Above high normal MEDGEN ([facility]) ID Date Data Source [id number] 04/04/2019 12:00:00 AM EST [facility] ([facility]) Name Value Range Interpretation Description Data Sup porting Code Source(s) Document(s ) Magnesium 2.0 mg/dL Normal (applies MEDGEN (St [Mass/volume] to non-numeric Rick's in Urine results) [facility], ) collected for unspecified duration ID Date Data Source [id number] 04/04/2019 12:00:00 AM EST MEDGEN ([facility], ) Name Value Range Interpretation Description Data Sup porting Code Source(s) Document(s ) Deprecated 3.0 mg/dL Normal (applies to MEDGEN (St Phosphorus non-numeric Rick's [Mass/time] in results) [facility], ) 24 hour Urine ID Date Data Source [id number] 04/04/2019 12:00:00 AM EST MEDGEN ([facility]) Name Value Range Interpretation Code Description Data Astrid rce(s) Supporting Document(s ) Uric Acid 7.2 mg/dL Above high normal MEDGEN ([facility]) ID Date Data Source [id number] 04/04/2019 12:00:00 AM EST MEDGEN ([facility]) Name Value Range Interpretation Description Data Sup porting Code Source(s) Document(s ) Vitamin D, 49.4 Normal (applies to MEDGEN (St 25-Hydroxy ng/mL non-numeric Rick's results) [facility], ) ID Date Data Source [id number] 04/04/2019 12:00:00 AM EST MEDGEN ([facility]) Name Value Range Interpretation Code Description Data Supporting Source(s) Document(s ) Creatinine 98.7 mg/dL Normal (applies to MEDGEN (S t , Urine non-numeric Rick's results) [facility], PC) Protein,To 9.2 mg/dL Normal (applies to MEDGEN (St baldemar,Urine non-numeric Rick's results) [facility], PC) Protein/Cr 93 mg/g Normal (applies to MEDGEN (St eat Ratio creat non-numeric Rick's results) [facility], [facility]) ID Date Data Source [id number] 04/04/2019 12:00:00 AM EST [facility] ([facility], ) Name Value Range Interpretation Description Data Sup porting Code Source(s) Document(s ) WBC 0-5 Normal (applies MEDGEN (St to non-numeric Rick's results) [facility], PC) RBC 0-2 Normal (applies MEDGEN (St to non-numeric Rick's results) [facility], PC) Mucus Threads Present Normal (applies MEDGEN (St to non-numeric Rick's results) [facility], [facility]) Epithelial >10 Abnormal (applies MEDGEN (St Cells (non to non-numeric Rick's renal) results) [facility], PC) Bacteria None seen Normal (applies MEDGEN (St [Presence] in to non-numeric Rick's Prostatic results) Medical, PC) fluid by Light microscopy ID Date Data Source [id number] 04/04/2019 12:00:00 AM EST [facility] ([facility], ) Name Value Range Interpretation Description Data Sup porting Code Source(s) Document(s ) Specific gravity 1.013 Normal (applies MEDGEN (St of Pericardial to non-numeric Rick's fluid by results) Medical, Refractometry PC) pH of Lower 5.5 Normal (applies MEDGEN (St respiratory to non-numeric Rick's specimen results) [facility], PC) Urine-Color Yellow Normal (applies MEDGEN (St to non-numeric Rick's results) [facility], PC) Appearance of Clear Normal (applies MEDGEN (St Abdomen to non-numeric Rick's results) [facility], PC) WBC Esterase Negative Normal (applies MEDGEN (St to non-numeric Rick's results) [facility], PC) Protein Negative Normal (applies MEDGEN (St [Mass/volume] in to non-numeric Rick's Lower results) Medical, respiratory PC) specimen Glucose Negative Normal (applies MEDGEN (St [Mass/volume] in to non-numeric Rick's Urine collected results) Medical, for unspecified PC) duration Ketones Negative Normal (applies MEDGEN (St [Presence] in to non-numeric Rick's Blood by Tablet results) Medical, ) Occult Blood Negative Normal (applies MEDGEN (St to non-numeric Rick's results) Medical, ) Bilirubin Negative Normal (applies MEDGEN (St [Presence] in to non-numeric Rick's Peritoneal fluid results) Medical, ) Nitrite, Urine Negative Normal (applies MEDGEN (S t to non-numeric Rick's results) Medical, ) Urobilinogen,Sunil 0.2 mg/dL Normal (applies MEDGEN (St i-Qn to non-numeric Rick's results) Medical, ) Microscopic Normal (applies MEDGEN (St Examination to non-numeric Rick's results) Medical, ) Microscopic See below: Normal (applies MEDGEN (St Examination to non-numeric Rick's results) Medical, ) ID Date Data Source [id number] 04/04/2019 12:00:00 AM EST [facility] ([facility], ) Name Value Range Interpretation Description Data Sup porting Code Source(s) Document(s ) Glucose 92 mg/dL Normal (applies MEDGEN (St [Mass/volume] in to non-numeric Rick's Urine collected for results) Medical, unspecified PC) duration Urea nitrogen 20 mg/dL Normal (applies MEDGEN (St [Mass/volume] in to non-numeric Rick's Serum or Plasma results) Medical, ) Creatinine 1.42 Above high MEDGEN (St [Interpretation] in mg/dL normal Rick's Urine Medical, ) eGFR If NonAfricn 34 Below low normal MEDGE N (St Am mL/min/1 Rick's .73 [facility], ) eGFR If Africn Am 40 Below low normal MEDGE N (St mL/min/1 Rikc's .73 [facility], ) BUN/Creatinine 14 Normal (applies MEDGEN (S t Ratio to non-numeric Rick's results) Medical, ) Sodium 140 Normal (applies MEDGEN (St [Moles/volume] in mmol/L to non-numeric Rick's Serum or Plasma results) Medical, ) Potassium 4.6 Normal (applies MEDGEN (St [Mass/volume] in mmol/L to non-numeric Rick's Blood results) Medical, PC) Chloride 104 Normal (applies MEDGEN (St [Moles/volume] in mmol/L to non-numeric Rick's Serum or Plasma results) Medical, ) Carbon dioxide, 20 Normal (applies MEDGEN ( St total mmol/L to non-numeric Rick's [Moles/volume] in results) Medical, Serum or Plasma PC) Calcium 10.1 Normal (applies MEDGEN (St [Moles/volume] in mg/dL to non-numeric Rick's Urine collected for results) Medical, unspecified PC) duration Protein 6.1 g/dL Normal (applies MEDGEN (St [Mass/volume] in to non-numeric Rick's Serum or Plasma results) Medical, ) Microalbumin 3.9 g/dL Normal (applies MEDGEN (St [Mass/time] in to non-numeric Rick's Urine collected for results) Medical, unspecified PC) duration Globulin, Total 2.2 g/dL Normal (applies MEDGEN ( St to non-numeric Rick's results) Medical, PC) A/G Ratio 1.8 Normal (applies MEDGEN (St to non-numeric Rick's results) Medical, PC) Bilirubin.total 0.6 Normal (applies MEDGEN ( St [Mass/volume] in mg/dL to non-numeric Rick's Serum or Plasma results) Medical, PC) Alkaline 74 IU/L Normal (applies MEDGEN (St phosphatase to non-numeric Rick's [Enzymatic results) Medical, activity/volume] in PC) Serum, Plasma or Blood Alanine 18 IU/L Normal (applies MEDGEN (St aminotransferase to non-numeric Rick's [Enzymatic results) Medical, activity/volume] in PC) Serum or Plasma Aspartate 21 IU/L Normal (applies MEDGEN (St aminotransferase to non-numeric Rick's [Enzymatic results) Medical, activity/volume] in PC) Serum or Plasma ID Date Data Source [id number] 04/04/2019 12:00:00 AM EST [facility] ([facility], ) Name Value Range Interpretation Description Data Sup porting Code Source(s) Document(s ) Leukocytes 7.0 Normal (applies MEDGEN (St [#/volume] in x10E3/uL to non-numeric Rick's Blood by results) Medical, ) Automated count Erythrocytes 3.75 Below low normal MEDGEN (St [#/volume] in x10E6/uL Rick's Blood by [facility], ) Automated count Hemoglobin 12.3 Normal (applies MEDGEN (St [Mass/volume] in g/dL to non-numeric Rick's Blood results) [facility], ) Hematocrit 36.6 % Normal (applies MEDGEN (St [Volume to non-numeric Rick's Fraction] of results) [facility], ) Blood by Automated count MCV 98 fL Above high normal MEDGEN ([facility], ) MCH 32.8 pg Normal (applies MEDGEN (St to non-numeric Rick's results) [facility], ) MCHC 33.6 Normal (applies MEDGEN (St g/dL to non-numeric Rick's results) [facility], ) RDW 14.3 % Normal (applies MEDGEN (St to non-numeric Rick's results) [facility], ) Platelets 258 Normal (applies MEDGEN (St [#/area] in x10E3/uL to non-numeric Rick's Blood by results) [facility], ) Microscopy high power field Neutrophils [#] 69 % Normal (applies MEDGEN ( St in Body fluid by to non-numeric Rick's Manual count results) [facility], ) Lymphs 19 % Normal (applies MEDGEN (St to non-numeric Rick's results) [facility], ) Monocytes 9 % Normal (applies MEDGEN (St [#/volume] in to non-numeric Rick's Cord blood results) [facility], ) Eos 3 % Normal (applies MEDGEN (St to non-numeric Rick's results) [facility], ) Basos 0 % Normal (applies MEDGEN (St to non-numeric Rick's results) [facility], ) Lymphs 1.3 Normal (applies MEDGEN (St (Absolute) x10E3/uL to non-numeric Rick's results) [facility], ) Neutrophils 4.8 Normal (applies MEDGEN (St (Absolute) x10E3/uL to non-numeric Rick's results) [facility], ) Eos (Absolute) 0.2 Normal (applies MEDGEN (S t x10E3/uL to non-numeric Rick's results) [facility], ) Monocytes(Absolu 0.6 Normal (applies MEDGEN (St te) x10E3/uL to non-numeric Rick's results) [facility], ) Baso (Absolute) 0.0 Normal (applies MEDGEN ( St x10E3/uL to non-numeric Rick's results) [facility], ) Immature 0 % Normal (applies MEDGEN (St Granulocytes to non-numeric Rick's results) Medical, ) Immature Grans 0.0 Normal (applies MEDGEN (S t (Abs) x10E3/uL to non-numeric Rick's results) [facility], ) ID Date Data Source [id number] 04/04/2019 12:00:00 AM EST MED[facility] ([facility]) Name Value Range Interpretation Code Description Data Supporting Source(s) Document(s ) PTH, Intact 99 pg/mL Above high normal MEDGEN ([facility]) ID Date Data Source [id number] 04/04/2019 12:00:00 AM EST MEDGEN ([facility]) Name Value Range Interpretation Description Data Sup porting Code Source(s) Document(s ) Magnesium 2.0 mg/dL Normal (applies MEDGEN (St [Mass/volume] to non-numeric Rick's in Urine results) [facility], ) collected for unspecified duration ID Date Data Source [id number] 04/04/2019 12:00:00 AM EST MEDGEN ([facility]) Name Value Range Interpretation Description Data Sup porting Code Source(s) Document(s ) Deprecated 3.0 mg/dL Normal (applies to MEDGEN (St Phosphorus non-numeric Rick's [Mass/time] in results) Medical, ) 24 hour Urine ID Date Data Source [id number] 04/04/2019 12:00:00 AM EST MEDGEN ([facility]) Name Value Range Interpretation Code Description Data Astrid rce(s) Supporting Document(s ) Uric Acid 7.2 mg/dL Above high normal MEDGEN ([facility]) ID Date Data Source [id number] 04/04/2019 12:00:00 AM EST MED[facility] ([facility]) Name Value Range Interpretation Description Data Sup porting Code Source(s) Document(s ) Vitamin D, 49.4 Normal (applies to MEDGEN (St 25-Hydroxy ng/mL non-numeric Rick's results) [facility], ) ID Date Data Source [id number] 04/04/2019 12:00:00 AM EST [facility] ([facility], ) Name Value Range Interpretation Code Description Data Supporting Source(s) Document(s ) Creatinine 98.7 mg/dL Normal (applies to MEDGEN (S t , Urine non-numeric Rick's results) Medical, PC) Protein,To 9.2 mg/dL Normal (applies to MEDGEN (St baldemar,Urine non-numeric Rick's results) Medical, PC) Protein/Cr 93 mg/g Normal (applies to MEDGEN (St eat Ratio creat non-numeric Rick's results) Medical, PC) ID Date Data Source [id number] 04/04/2019 12:00:00 AM EST MEDGEN ([facility], ) Name Value Range Interpretation Description Data Sup porting Code Source(s) Document(s ) WBC 0-5 Normal (applies MEDGEN (St to non-numeric Rick's results) Medical, PC) RBC 0-2 Normal (applies MEDGEN (St to non-numeric Rick's results) Medical, PC) Epithelial >10 Abnormal (applies MEDGEN (St Cells (non to non-numeric Rick's renal) results) Medical, PC) Mucus Threads Present Normal (applies MEDGEN (St to non-numeric Rick's results) Medical, PC) Bacteria None seen Normal (applies MEDGEN (St [Presence] in to non-numeric Rick's Prostatic results) Medical, PC) fluid by Light microscopy ID Date Data Source [id number] 04/04/2019 12:00:00 AM EST [facility] ([facility], ) Name Value Range Interpretation Description Data Sup porting Code Source(s) Document(s ) Specific gravity 1.013 Normal (applies MEDGEN (St of Pericardial to non-numeric Rick's fluid by results) Medical, Refractometry PC) pH of Lower 5.5 Normal (applies MEDGEN (St respiratory to non-numeric Rick's specimen results) Medical, PC) Urine-Color Yellow Normal (applies MEDGEN (St to non-numeric Rick's results) Medical, PC) Appearance of Clear Normal (applies MEDGEN (St Abdomen to non-numeric Rick's results) Medical, PC) Protein Negative Normal (applies MEDGEN (St [Mass/volume] in to non-numeric Rick's Lower results) Medical, respiratory PC) specimen WBC Esterase Negative Normal (applies MEDGEN (St to non-numeric Rick's results) Medical, ) Glucose Negative Normal (applies MEDGEN (St [Mass/volume] in to non-numeric Rick's Urine collected results) [facility], for unspecified PC) duration Ketones Negative Normal (applies MEDGEN (St [Presence] in to non-numeric Rick's Blood by Tablet results) Medical, ) Occult Blood Negative Normal (applies MEDGEN (St to non-numeric Rick's results) Medical, ) Bilirubin Negative Normal (applies MEDGEN (St [Presence] in to non-numeric Rick's Peritoneal fluid results) Medical, ) Urobilinogen,Sunil 0.2 mg/dL Normal (applies MEDGEN (St i-Qn to non-numeric Rick's results) Medical, ) Nitrite, Urine Negative Normal (applies MEDGEN (S t to non-numeric Rick's results) Medical, ) Microscopic See below: Normal (applies MEDGEN (St Examination to non-numeric Rick's results) Medical, ) ID Date Data Source [id number] 04/04/2019 12:00:00 AM EST [facility] ([facility], ) Name Value Range Interpretation Description Data Sup porting Code Source(s) Document(s ) Glucose 92 mg/dL Normal (applies MEDGEN (St [Mass/volume] in to non-numeric Rick's Urine collected for results) [facility], unspecified ) duration Urea nitrogen 20 mg/dL Normal (applies MEDGEN (St [Mass/volume] in to non-numeric Irck's Serum or Plasma results) Medical, ) Creatinine 1.42 Above high MEDGEN (St [Interpretation] in mg/dL normal Rick's Urine Medical, ) eGFR If NonAfricn 34 Below low normal MEDGE N (St Am mL/min/1 Rick's .73 [facility], ) BUN/Creatinine 14 Normal (applies MEDGEN (S t Ratio to non-numeric Rick's results) Medical, ) eGFR If Africn Am 40 Below low normal MEDGE N (St mL/min/1 Rick's .73 [facility], ) Sodium 140 Normal (applies MEDGEN (St [Moles/volume] in mmol/L to non-numeric Rick's Serum or Plasma results) Medical, ) Chloride 104 Normal (applies MEDGEN (St [Moles/volume] in mmol/L to non-numeric Rick's Serum or Plasma results) Medical, ) Potassium 4.6 Normal (applies MEDGEN (St [Mass/volume] in mmol/L to non-numeric Rick's Blood results) Medical, ) Carbon dioxide, 20 Normal (applies MEDGEN ( St total mmol/L to non-numeric Rick's [Moles/volume] in results) Medical, Serum or Plasma PC) Calcium 10.1 Normal (applies MEDGEN (St [Moles/volume] in mg/dL to non-numeric Rick's Urine collected for results) Medical, unspecified PC) duration Protein 6.1 g/dL Normal (applies MEDGEN (St [Mass/volume] in to non-numeric Rick's Serum or Plasma results) Medical, ) Microalbumin 3.9 g/dL Normal (applies MEDGEN (St [Mass/time] in to non-numeric Rick's Urine collected for results) Medical, unspecified PC) duration Globulin, Total 2.2 g/dL Normal (applies MEDGEN ( St to non-numeric Rick's results) Medical, ) A/G Ratio 1.8 Normal (applies MEDGEN (St to non-numeric Rick's results) Medical, ) Bilirubin.total 0.6 Normal (applies MEDGEN ( St [Mass/volume] in mg/dL to non-numeric Rick's Serum or Plasma results) Medical, ) Aspartate 21 IU/L Normal (applies MEDGEN (St aminotransferase to non-numeric Rick's [Enzymatic results) Medical, activity/volume] in PC) Serum or Plasma Alkaline 74 IU/L Normal (applies MEDGEN (St phosphatase to non-numeric Rick's [Enzymatic results) Medical, activity/volume] in PC) Serum, Plasma or Blood Alanine 18 IU/L Normal (applies MEDGEN (St aminotransferase to non-numeric Rick's [Enzymatic results) Medical, activity/volume] in PC) Serum or Plasma ID Date Data Source [id number] 04/04/2019 12:00:00 AM EST [facility] ([facility], ) Name Value Range Interpretation Description Data Sup porting Code Source(s) Document(s ) Leukocytes 7.0 Normal (applies MEDGEN (St [#/volume] in x10E3/uL to non-numeric Rick's Blood by results) Medical, ) Automated count Erythrocytes 3.75 Below low normal MEDGEN (St [#/volume] in x10E6/uL Rick's Blood by [facility], ) Automated count Hemoglobin 12.3 Normal (applies MEDGEN (St [Mass/volume] in g/dL to non-numeric Rick's Blood results) [facility], ) Hematocrit 36.6 % Normal (applies MEDGEN (St [Volume to non-numeric Rick's Fraction] of results) [facility], ) Blood by Automated count MCV 98 fL Above high normal [facility] ([facility], ) MCHC 33.6 Normal (applies MEDGEN (St g/dL to non-numeric Rick's results) [facility], ) MCH 32.8 pg Normal (applies MEDGEN (St to non-numeric Rick's results) [facility], ) RDW 14.3 % Normal (applies MEDGEN (St to non-numeric Rick's results) [facility], ) Neutrophils [#] 69 % Normal (applies MEDGEN ( St in Body fluid by to non-numeric Rick's Manual count results) [facility], ) Platelets 258 Normal (applies MEDGEN (St [#/area] in x10E3/uL to non-numeric Rick's Blood by results) [facility], ) Microscopy high power field Lymphs 19 % Normal (applies MEDGEN (St to non-numeric Rick's results) [facility], ) Eos 3 % Normal (applies MEDGEN (St to non-numeric Rick's results) [facility], ) Monocytes 9 % Normal (applies MEDGEN (St [#/volume] in to non-numeric Rick's Cord blood results) [facility], ) Basos 0 % Normal (applies MEDGEN (St to non-numeric Rick's results) [facility], ) Neutrophils 4.8 Normal (applies MEDGEN (St (Absolute) x10E3/uL to non-numeric Rick's results) [facility], ) Lymphs 1.3 Normal (applies MEDGEN (St (Absolute) x10E3/uL to non-numeric Rick's results) [facility], ) Monocytes(Absolu 0.6 Normal (applies MEDGEN (St te) x10E3/uL to non-numeric Rick's results) [facility], ) Baso (Absolute) 0.0 Normal (applies MEDGEN ( St x10E3/uL to non-numeric Rick's results) Medical, ) Eos (Absolute) 0.2 Normal (applies MEDGEN (S t x10E3/uL to non-numeric Rick's results) Medical, ) Immature 0 % Normal (applies MEDGEN (St Granulocytes to non-numeric Rick's results) Medical, ) Immature Grans 0.0 Normal (applies MEDGEN (S t (Abs) x10E3/uL to non-numeric Rick's results) Medical, ) ID Date Data Source [id number] 04/04/2019 12:00:00 AM EST MEDGEN ([facility], ) Name Value Range Interpretation Code Description Data Supporting Source(s) Document(s ) PTH, Intact 99 pg/mL Above high normal [facility] ([facility], ) ID Date Data Source [id number] 04/04/2019 12:00:00 AM EST MEDGEN ([facility], ) Name Value Range Interpretation Description Data Sup porting Code Source(s) Document(s ) Magnesium 2.0 mg/dL Normal (applies MEDGEN (St [Mass/volume] to non-numeric Rick's in Urine results) Medical, ) collected for unspecified duration ID Date Data Source [id number] 04/04/2019 12:00:00 AM EST MEDGEN ([facility], ) Name Value Range Interpretation Description Data Sup porting Code Source(s) Document(s ) Deprecated 3.0 mg/dL Normal (applies to MEDGEN (St Phosphorus non-numeric Rick's [Mass/time] in results) Medical, ) 24 hour Urine ID Date Data Source [id number] 04/04/2019 12:00:00 AM EST MEDGEN ([facility], ) Name Value Range Interpretation Code Description Data Astrid rce(s) Supporting Document(s ) Uric Acid 7.2 mg/dL Above high normal [facility] ([facility], ) ID Date Data Source [id number] 04/04/2019 12:00:00 AM EST MEDGEN ([facility], ) Name Value Range Interpretation Description Data Sup porting Code Source(s) Document(s ) Vitamin D, 49.4 Normal (applies to MEDGEN (St 25-Hydroxy ng/mL non-numeric Rick's results) Medical, ) ID Date Data Source [id number] 04/04/2019 12:00:00 AM EST [facility] ([facility], ) Name Value Range Interpretation Code Description Data Supporting Source(s) Document(s ) Creatinine 98.7 mg/dL Normal (applies to MEDGEN (S t , Urine non-numeric Rick's results) Medical, PC) Protein,To 9.2 mg/dL Normal (applies to MEDGEN (St baldemar,Urine non-numeric Rick's results) Medical, PC) Protein/Cr 93 mg/g Normal (applies to MEDGEN (St eat Ratio creat non-numeric Rick's results) Medical, PC) ID Date Data Source [id number] 04/04/2019 12:00:00 AM EST [facility] ([facility], ) Name Value Range Interpretation Description Data Sup porting Code Source(s) Document(s ) WBC 0-5 Normal (applies MEDGEN (St to non-numeric Rick's results) Medical, PC) RBC 0-2 Normal (applies MEDGEN (St to non-numeric Rick's results) Medical, PC) Epithelial >10 Abnormal (applies MEDGEN (St Cells (non to non-numeric Rick's renal) results) Medical, PC) Bacteria None seen Normal (applies MEDGEN (St [Presence] in to non-numeric Rick's Prostatic results) Medical, PC) fluid by Light microscopy Mucus Threads Present Normal (applies MEDGEN (St to non-numeric Rick's results) Medical, ) ID Date Data Source [id number] 04/04/2019 12:00:00 AM EST [facility] ([facility], ) Name Value Range Interpretation Description Data Sup porting Code Source(s) Document(s ) Specific gravity 1.013 Normal (applies MEDGEN (St of Pericardial to non-numeric Rick's fluid by results) Medical, Refractometry PC) Urine-Color Yellow Normal (applies MEDGEN (St to non-numeric Rick's results) Medical, PC) pH of Lower 5.5 Normal (applies MEDGEN (St respiratory to non-numeric Rick's specimen results) Medical, PC) Appearance of Clear Normal (applies MEDGEN (St Abdomen to non-numeric Rick's results) Medical, PC) Protein Negative Normal (applies MEDGEN (St [Mass/volume] in to non-numeric Rick's Lower results) Medical, respiratory PC) specimen WBC Esterase Negative Normal (applies MEDGEN (St to non-numeric Rick's results) [facility], ) Ketones Negative Normal (applies MEDGEN (St [Presence] in to non-numeric Rick's Blood by Tablet results) [facility], ) Glucose Negative Normal (applies MEDGEN (St [Mass/volume] in to non-numeric Rick's Urine collected results) [facility], for unspecified PC) duration Occult Blood Negative Normal (applies MEDGEN (St to non-numeric Rick's results) [facility], ) Bilirubin Negative Normal (applies MEDGEN (St [Presence] in to non-numeric Rick's Peritoneal fluid results) Medical, ) Urobilinogen,Sunil 0.2 mg/dL Normal (applies MEDGEN (St i-Qn to non-numeric Rick's results) [facility], ) Microscopic See below: Normal (applies MEDGEN (St Examination to non-numeric Rcik's results) Medical, ) Nitrite, Urine Negative Normal (applies MEDGEN (S t to non-numeric Rick's results) [facility], ) ID Date Data Source [id number] 04/04/2019 12:00:00 AM EST [facility] ([facility], ) Name Value Range Interpretation Description Data Sup porting Code Source(s) Document(s ) Glucose 92 mg/dL Normal (applies [facility] (St [Mass/volume] in to non-numeric Rick's Urine collected for results) [facility], unspecified ) duration Urea nitrogen 20 mg/dL Normal (applies [facility] (St [Mass/volume] in to non-numeric Rick's Serum or Plasma results) Medical, ) Creatinine 1.42 Above high [facility] (St [Interpretation] in mg/dL normal Rick's Urine [facility], ) eGFR If NonAfricn 34 Below low normal MEDGE N (St Am mL/min/1 Rick's .73 [facility], ) BUN/Creatinine 14 Normal (applies [facility] (S t Ratio to non-numeric Rick's results) [facility], ) eGFR If Africn Am 40 Below low normal [facility] N (St mL/min/1 Rick's .73 [facility], ) Sodium 140 Normal (applies [facility] (St [Moles/volume] in mmol/L to non-numeric Rick's Serum or Plasma results) [facility], ) Potassium 4.6 Normal (applies [facility] (St [Mass/volume] in mmol/L to non-numeric Rick's Blood results) Medical, ) Chloride 104 Normal (applies [facility] (St [Moles/volume] in mmol/L to non-numeric Rick's Serum or Plasma results) Medical, ) Calcium 10.1 Normal (applies [facility] (St [Moles/volume] in mg/dL to non-numeric Rick's Urine collected for results) Medical, unspecified PC) duration Carbon dioxide, 20 Normal (applies [facility] ( St total mmol/L to non-numeric Rick's [Moles/volume] in results) Medical, Serum or Plasma PC) Microalbumin 3.9 g/dL Normal (applies [facility] (St [Mass/time] in to non-numeric Rick's Urine collected for results) Medical, unspecified PC) duration Protein 6.1 g/dL Normal (applies [facility] (St [Mass/volume] in to non-numeric Rick's Serum or Plasma results) Medical, ) Globulin, Total 2.2 g/dL Normal (applies [facility] ( St to non-numeric Rick's results) Medical, ) A/G Ratio 1.8 Normal (applies [facility] (St to non-numeric Rick's results) Medical, ) Bilirubin.total 0.6 Normal (applies [facility] ( St [Mass/volume] in mg/dL to non-numeric Rick's Serum or Plasma results) Medical, ) Alkaline 74 IU/L Normal (applies [facility] (St phosphatase to non-numeric Rick's [Enzymatic results) Medical, activity/volume] in PC) Serum, Plasma or Blood Aspartate 21 IU/L Normal (applies [facility] (St aminotransferase to non-numeric Rick's [Enzymatic results) Medical, activity/volume] in PC) Serum or Plasma Alanine 18 IU/L Normal (applies [facility] (St aminotransferase to non-numeric Rick's [Enzymatic results) Medical, activity/volume] in PC) Serum or Plasma ID Date Data Source [id number] 04/04/2019 12:00:00 AM EST [facility] ([facility], ) Name Value Range Interpretation Description Data Sup porting Code Source(s) Document(s ) Leukocytes 7.0 Normal (applies [facility] (St [#/volume] in x10E3/uL to non-numeric Rick's Blood by results) Medical, ) Automated count Hemoglobin 12.3 Normal (applies [facility] (St [Mass/volume] in g/dL to non-numeric Rick's Blood results) [facility], ) Erythrocytes 3.75 Below low normal [facility] (St [#/volume] in x10E6/uL Rick's Blood by [facility], ) Automated count Hematocrit 36.6 % Normal (applies [facility] (St [Volume to non-numeric Rick's Fraction] of results) [facility], ) Blood by Automated count MCV 98 fL Above high normal [facility] ([facility], ) MCH 32.8 pg Normal (applies [facility] (St to non-numeric Rick's results) [facility], ) RDW 14.3 % Normal (applies [facility] (St to non-numeric Rick's results) [facility], ) MCHC 33.6 Normal (applies [facility] (St g/dL to non-numeric Rick's results) [facility], ) Platelets 258 Normal (applies [facility] (St [#/area] in x10E3/uL to non-numeric Rick's Blood by results) [facility], ) Microscopy high power field Neutrophils [#] 69 % Normal (applies [facility] ( St in Body fluid by to non-numeric Rick's Manual count results) [facility], ) Lymphs 19 % Normal (applies [facility] (St to non-numeric Rick's results) [facility], ) Eos 3 % Normal (applies [facility] (St to non-numeric Rick's results) [facility], ) Monocytes 9 % Normal (applies [facility] (St [#/volume] in to non-numeric Rick's Cord blood results) [facility], ) Neutrophils 4.8 Normal (applies [facility] (St (Absolute) x10E3/uL to non-numeric Rick's results) [facility], ) Basos 0 % Normal (applies [facility] (St to non-numeric Rick's results) [facility], ) Lymphs 1.3 Normal (applies [facility] (St (Absolute) x10E3/uL to non-numeric Rick's results) [facility], ) Monocytes(Absolu 0.6 Normal (applies [facility] (St te) x10E3/uL to non-numeric Rick's results) [facility], ) Eos (Absolute) 0.2 Normal (applies [facility] (S t x10E3/uL to non-numeric Rick's results) [facility], ) Immature 0 % Normal (applies [facility] (St Granulocytes to non-numeric Rick's results) [facility]) Baso (Absolute) 0.0 Normal (applies [facility] ( St x10E3/uL to non-numeric Rick's results) [facility]) Immature Grans 0.0 Normal (applies [facility] (S t (Abs) x10E3/uL to non-numeric Rick's results) [facility]) ID Date Data Source [id number] 12/06/2018 12:00:00 AM EDT [facility] ([facility]) Name Value Range Interpretation Description Data Sup porting Code Source(s) Document(s ) PTH, Intact 131 pg/mL Above high normal [facility] ([facility]) ID Date Data Source [id number] 12/06/2018 12:00:00 AM EDT [facility] ([facility]) Name Value Range Interpretation Description Data Sup porting Code Source(s) Document(s ) Deprecated 3.1 mg/dL Normal (applies to [facility] (St Phosphorus non-numeric Rick's [Mass/time] in results) [facility], ) 24 hour Urine ID Date Data Source [id number] 12/06/2018 12:00:00 AM EDT [facility]) Name Value Range Interpretation Code Description Data Astrid rce(s) Supporting Document(s ) Uric Acid 7.4 mg/dL Above high normal [facility] ([facility]) ID Date Data Source [id number] 12/06/2018 12:00:00 AM EDT [facility] ([facility]) Name Value Range Interpretation Description Data Sup porting Code Source(s) Document(s ) Vitamin D, 47.3 Normal (applies to [facility] (St 25-Hydroxy ng/mL non-numeric Rick's results) [facility]) ID Date Data Source [id number] 12/06/2018 12:00:00 AM EDT [facility] ([facility]) Name Value Range Interpretation Code Description Data Supporting Source(s) Document(s ) Creatinine 55.9 mg/dL Normal (applies to [facility] (S t , Urine non-numeric Rick's results) [facility]) Protein,To 4.9 mg/dL Normal (applies to [facility] (St baldemar,Urine non-numeric Rick's results) Medical, ) Protein/Cr 88 mg/g Normal (applies to [facility] (St eat Ratio creat non-numeric Rick's results) [facility], ) ID Date Data Source [id number] 12/06/2018 12:00:00 AM EDT [facility] ([facility], ) Name Value Range Interpretation Description Data Sup porting Code Source(s) Document(s ) Iron 267 ug/dL Normal (applies to [facility] (St Bind.Cap.(TIBC non-numeric Rick's ) results) Medical, ) UIBC 169 ug/dL Normal (applies to [facility] (St non-numeric Rick's results) Medical, PC) Iron 98 ug/dL Normal (applies to [facility] (St [Mass/volume] non-numeric Rick's in Serum or results) Medical, ) Plasma Iron 37 % Normal (applies to [facility] (St saturation non-numeric Rick's [Mass results) Medical, ) Fraction] in Serum or Plasma ID Date Data Source [id number] 12/06/2018 12:00:00 AM EDT [facility] ([facility], ) Name Value Range Interpretation Description Data Sup porting Code Source(s) Document(s ) Platelets 204 Normal (applies to [facility] (St [#/area] in x10E3/uL non-numeric Rick's Blood by results) Medical, ) Microscopy high power field ID Date Data Source [id number] 12/06/2018 12:00:00 AM EDT [facility] ([facility], ) Name Value Range Interpretation Description Data Sup porting Code Source(s) Document(s ) Specific gravity 1.010 Normal (applies [facility] (St of Pericardial to non-numeric Rick's fluid by results) Medical, Refractometry ) pH of Lower 6.0 Normal (applies [facility] (St respiratory to non-numeric Rick's specimen results) [facility], ) Urine-Color Yellow Normal (applies [facility] (St to non-numeric Rick's results) Medical, ) Appearance of Clear Normal (applies [facility] (St Abdomen to non-numeric Rick's results) Medical, ) WBC Esterase Negative Normal (applies [facility] (St to non-numeric Rick's results) Medical, PC) Protein Negative Normal (applies [facility] (St [Mass/volume] in to non-numeric Rick's Lower results) Medical, respiratory PC) specimen Glucose Negative Normal (applies [facility] (St [Mass/volume] in to non-numeric Rick's Urine collected results) [facility], for unspecified PC) duration Ketones Negative Normal (applies [facility] (St [Presence] in to non-numeric Rick's Blood by Tablet results) Medical, ) Occult Blood Negative Normal (applies [facility] (St to non-numeric Rick's results) Medical, ) Bilirubin Negative Normal (applies [facility] (St [Presence] in to non-numeric Rick's Peritoneal fluid results) Medical, ) Urobilinogen,Sunil 0.2 mg/dL Normal (applies [facility] (St i-Qn to non-numeric Rick's results) Medical, ) Nitrite, Urine Negative Normal (applies [facility] (S t to non-numeric Rick's results) Medical, ) Microscopic Normal (applies [facility] (St Examination to non-numeric Rick's results) Medical, ) ID Date Data Source [id number] 12/06/2018 12:00:00 AM EDT [facility] ([facility], ) Name Value Range Interpretation Description Data Sup porting Code Source(s) Document(s ) Glucose 93 mg/dL Normal (applies [facility] (St [Mass/volume] in to non-numeric Rick's Urine collected for results) Medical, unspecified PC) duration Urea nitrogen 22 mg/dL Normal (applies [facility] (St [Mass/volume] in to non-numeric Rick's Serum or Plasma results) Medical, ) Creatinine 1.45 Above high [facility] (St [Interpretation] in mg/dL normal Rick's Urine Medical, ) eGFR If NonAfricn 34 Below low normal [facility] N (St Am mL/min/1 Rick's .73 [facility], ) eGFR If Africn Am 39 Below low normal [facility] N (St mL/min/1 Rick's .73 [facility], ) BUN/Creatinine 15 Normal (applies [facility] (S t Ratio to non-numeric Rick's results) Medical, ) Sodium 139 Normal (applies [facility] (St [Moles/volume] in mmol/L to non-numeric Rick's Serum or Plasma results) Medical, ) Potassium 4.6 Normal (applies [facility] (St [Mass/volume] in mmol/L to non-numeric Rick's Blood results) Medical, ) Chloride 103 Normal (applies [facility] (St [Moles/volume] in mmol/L to non-numeric Rick's Serum or Plasma results) Medical, ) Carbon dioxide, 21 Normal (applies [facility] ( St total mmol/L to non-numeric Rick's [Moles/volume] in results) Medical, Serum or Plasma PC) Calcium 10.3 Normal (applies [facility] (St [Moles/volume] in mg/dL to non-numeric Rick's Urine collected for results) Medical, unspecified PC) duration Protein 6.1 g/dL Normal (applies [facility] (St [Mass/volume] in to non-numeric Rick's Serum or Plasma results) Medical, ) Microalbumin 4.0 g/dL Normal (applies [facility] (St [Mass/time] in to non-numeric Rick's Urine collected for results) Medical, unspecified PC) duration Globulin, Total 2.1 g/dL Normal (applies [facility] ( St to non-numeric Rick's results) Medical, PC) A/G Ratio 1.9 Normal (applies [facility] (St to non-numeric Rick's results) Medical, ) Bilirubin.total 0.8 Normal (applies [facility] ( St [Mass/volume] in mg/dL to non-numeric Rick's Serum or Plasma results) Medical, PC) Alkaline 63 IU/L Normal (applies [facility] (St phosphatase to non-numeric Rick's [Enzymatic results) Medical, activity/volume] in PC) Serum, Plasma or Blood Aspartate 22 IU/L Normal (applies [facility] (St aminotransferase to non-numeric Rick's [Enzymatic results) Medical, activity/volume] in PC) Serum or Plasma Alanine 18 IU/L Normal (applies [facility] (St aminotransferase to non-numeric Rick's [Enzymatic results) Medical, activity/volume] in PC) Serum or Plasma ID Date Data Source [id number] 12/06/2018 12:00:00 AM EDT [facility] ([facility], ) Name Value Range Interpretation Description Data Sup porting Code Source(s) Document(s ) Leukocytes 7.3 Normal (applies [facility] (St [#/volume] in x10E3/uL to non-numeric Rick's Blood by results) Medical, ) Automated count Erythrocytes 3.78 Normal (applies [facility] (St [#/volume] in x10E6/uL to non-numeric Rick's Blood by results) [facility], ) Automated count Hemoglobin 12.9 Normal (applies [facility] (St [Mass/volume] in g/dL to non-numeric Rick's Blood results) [facility], ) Hematocrit 36.8 % Normal (applies [facility] (St [Volume to non-numeric Rick's Fraction] of results) [facility], ) Blood by Automated count MCV 97 fL Normal (applies [facility] (St to non-numeric Rick's results) [facility], ) MCH 34.1 pg Above high normal [facility] ([facility], ) MCHC 35.1 Normal (applies [facility] (St g/dL to non-numeric Rick's results) [facility], ) RDW 14.8 % Normal (applies [facility] (St to non-numeric Rick's results) [facility], ) Neutrophils [#] 67 % Normal (applies [facility] ( St in Body fluid by to non-numeric Rick's Manual count results) [facility], ) Lymphs 22 % Normal (applies [facility] (St to non-numeric Rick's results) [facility]) Monocytes 8 % Normal (applies [facility] (St [#/volume] in to non-numeric Rick's Cord blood results) [facility]) Eos 3 % Normal (applies [facility] (St to non-numeric Rick's results) [facility], ) Basos 0 % Normal (applies [facility] (St to non-numeric Rick's results) [facility], ) Neutrophils 4.8 Normal (applies [facility] (St (Absolute) x10E3/uL to non-numeric Rick's results) [facility]) Lymphs 1.6 Normal (applies [facility] (St (Absolute) x10E3/uL to non-numeric Rick's results) [facility], ) Eos (Absolute) 0.2 Normal (applies [facility] (S t x10E3/uL to non-numeric Rick's results) [facility], ) Monocytes(Absolu 0.6 Normal (applies [facility] (St te) x10E3/uL to non-numeric Rick's results) [facility], ) Baso (Absolute) 0.0 Normal (applies [facility] ( St x10E3/uL to non-numeric Rick's results) [facility], ) Immature 0 % Normal (applies [facility] (St Granulocytes to non-numeric Rick's results) [facility], ) Immature Grans 0.0 Normal (applies [facility] (S t (Abs) x10E3/uL to non-numeric Rick's results) [facility]) ID Date Data Source [id number] 12/06/2018 12:00:00 AM EDT [facility] ([facility], ) Name Value Range Interpretation Description Data Sup porting Code Source(s) Document(s ) PTH, Intact 131 pg/mL Above high normal [facility] ([facility], ) ID Date Data Source [id number] 12/06/2018 12:00:00 AM EDT [facility] ([facility]) Name Value Range Interpretation Description Data Sup porting Code Source(s) Document(s ) Deprecated 3.1 mg/dL Normal (applies to [facility] (St Phosphorus non-numeric Rick's [Mass/time] in results) [facility], ) 24 hour Urine ID Date Data Source [id number] 12/06/2018 12:00:00 AM EDT [facility] ([facility], ) Name Value Range Interpretation Code Description Data Astrid rce(s) Supporting Document(s ) Uric Acid 7.4 mg/dL Above high normal [facility] ([facility], ) ID Date Data Source [id number] 12/06/2018 12:00:00 AM EDT [facility] ([facility], ) Name Value Range Interpretation Description Data Sup porting Code Source(s) Document(s ) Vitamin D, 47.3 Normal (applies to [facility] (St 25-Hydroxy ng/mL non-numeric Rick's results) [facility], ) ID Date Data Source [id number] 12/06/2018 12:00:00 AM EDT [facility] [place] [place] [facility], ) Name Value Range Interpretation Code Description Data Supporting Source(s) Document(s ) Creatinine 55.9 mg/dL Normal (applies to [facility] (S t , Urine non-numeric Rick's results) [facility], ) Protein,To 4.9 mg/dL Normal (applies to [facility] (St baldemar,Urine non-numeric Rick's results) [facility], ) Protein/Cr 88 mg/g Normal (applies to [facility] (St eat Ratio creat non-numeric Rick's results) Medical, ) ID Date Data Source [id number] 12/06/2018 12:00:00 AM EDT [facility] ([facility], ) Name Value Range Interpretation Description Data Sup porting Code Source(s) Document(s ) Iron 267 ug/dL Normal (applies to [facility] (St Bind.Cap.(TIBC non-numeric Rick's ) results) Medical, ) UIBC 169 ug/dL Normal (applies to [facility] (St non-numeric Rick's results) Medical, PC) Iron 98 ug/dL Normal (applies to [facility] (St [Mass/volume] non-numeric Rick's in Serum or results) Medical, PC) Plasma Iron 37 % Normal (applies to [facility] (St saturation non-numeric Rick's [Mass results) Medical, ) Fraction] in Serum or Plasma ID Date Data Source [id number] 12/06/2018 12:00:00 AM EDT [facility] ([facility], ) Name Value Range Interpretation Description Data Sup porting Code Source(s) Document(s ) Platelets 204 Normal (applies to [facility] (St [#/area] in x10E3/uL non-numeric Rick's Blood by results) Medical, ) Microscopy high power field ID Date Data Source [id number] 12/06/2018 12:00:00 AM EDT [facility] ([facility], ) Name Value Range Interpretation Description Data Sup porting Code Source(s) Document(s ) Specific gravity 1.010 Normal (applies [facility] (St of Pericardial to non-numeric Rick's fluid by results) Medical, Refractometry ) pH of Lower 6.0 Normal (applies [facility] (St respiratory to non-numeric Rick's specimen results) Medical, ) Urine-Color Yellow Normal (applies [facility] (St to non-numeric Rick's results) Medical, ) WBC Esterase Negative Normal (applies [facility] (St to non-numeric Rick's results) Medical, ) Appearance of Clear Normal (applies [facility] (St Abdomen to non-numeric Rick's results) Medical, ) Protein Negative Normal (applies [facility] (St [Mass/volume] in to non-numeric Rick's Lower results) Medical, respiratory PC) specimen Glucose Negative Normal (applies [facility] (St [Mass/volume] in to non-numeric Rick's Urine collected results) [facility], for unspecified PC) duration Ketones Negative Normal (applies [facility] (St [Presence] in to non-numeric Rick's Blood by Tablet results) Medical, ) Occult Blood Negative Normal (applies [facility] (St to non-numeric Rick's results) Medical, ) Bilirubin Negative Normal (applies [facility] (St [Presence] in to non-numeric Rick's Peritoneal fluid results) Medical, ) Urobilinogen,Sunil 0.2 mg/dL Normal (applies [facility] (St i-Qn to non-numeric Rick's results) Medical, ) Nitrite, Urine Negative Normal (applies [facility] (S t to non-numeric Rick's results) [facility], ) ID Date Data Source [id number] 12/06/2018 12:00:00 AM EDT [facility] ([facility], ) Name Value Range Interpretation Description Data Sup porting Code Source(s) Document(s ) Glucose 93 mg/dL Normal (applies [facility] (St [Mass/volume] in to non-numeric Rick's Urine collected for results) Medical, unspecified PC) duration Urea nitrogen 22 mg/dL Normal (applies [facility] (St [Mass/volume] in to non-numeric Rick's Serum or Plasma results) [facility], ) Creatinine 1.45 Above high [facility] (St [Interpretation] in mg/dL normal Rick's Urine [facility], ) eGFR If NonAfricn 34 Below low normal MEDGE N (St Am mL/min/1 Rick's .73 [facility], ) BUN/Creatinine 15 Normal (applies [facility]GEN (S t Ratio to non-numeric Rick's results) Medical, ) eGFR If Africn Am 39 Below low normal [facility]GE N (St mL/min/1 Rick's .73 [facility], ) Sodium 139 Normal (applies [facility] (St [Moles/volume] in mmol/L to non-numeric Rick's Serum or Plasma results) Medical, ) Chloride 103 Normal (applies [facility] (St [Moles/volume] in mmol/L to non-numeric Rick's Serum or Plasma results) Medical, ) Potassium 4.6 Normal (applies [facility] (St [Mass/volume] in mmol/L to non-numeric Rick's Blood results) Medical, ) Carbon dioxide, 21 Normal (applies [facility] ( St total mmol/L to non-numeric Rick's [Moles/volume] in results) Medical, Serum or Plasma PC) Calcium 10.3 Normal (applies [facility] (St [Moles/volume] in mg/dL to non-numeric Rick's Urine collected for results) Medical, unspecified PC) duration Protein 6.1 g/dL Normal (applies [facility] (St [Mass/volume] in to non-numeric Rick's Serum or Plasma results) Medical, ) Microalbumin 4.0 g/dL Normal (applies [facility] (St [Mass/time] in to non-numeric Rick's Urine collected for results) Medical, unspecified PC) duration A/G Ratio 1.9 Normal (applies [facility] (St to non-numeric Rick's results) Medical, ) Globulin, Total 2.1 g/dL Normal (applies [facility] ( St to non-numeric Rick's results) Medical, ) Bilirubin.total 0.8 Normal (applies [facility] ( St [Mass/volume] in mg/dL to non-numeric Rick's Serum or Plasma results) Medical, ) Alkaline 63 IU/L Normal (applies [facility] (St phosphatase to non-numeric Rick's [Enzymatic results) Medical, activity/volume] in PC) Serum, Plasma or Blood Aspartate 22 IU/L Normal (applies [facility] (St aminotransferase to non-numeric Rick's [Enzymatic results) Medical, activity/volume] in PC) Serum or Plasma Alanine 18 IU/L Normal (applies [facility] (St aminotransferase to non-numeric Rick's [Enzymatic results) Medical, activity/volume] in PC) Serum or Plasma ID Date Data Source [id number] 12/06/2018 12:00:00 AM EDT [facility] ([facility], ) Name Value Range Interpretation Description Data Sup porting Code Source(s) Document(s ) Leukocytes 7.3 Normal (applies [facility] (St [#/volume] in x10E3/uL to non-numeric Rick's Blood by results) Medical, ) Automated count Erythrocytes 3.78 Normal (applies [facility] (St [#/volume] in x10E6/uL to non-numeric Rick's Blood by results) Medical, ) Automated count Hemoglobin 12.9 Normal (applies [facility] (St [Mass/volume] in g/dL to non-numeric Rick's Blood results) [facility], ) MCV 97 fL Normal (applies [facility] (St to non-numeric Rick's results) [facility], ) Hematocrit 36.8 % Normal (applies [facility] (St [Volume to non-numeric Rick's Fraction] of results) [facility], ) Blood by Automated count MCH 34.1 pg Above high normal [facility] ([facility], ) MCHC 35.1 Normal (applies [facility] (St g/dL to non-numeric Rick's results) [facility], ) RDW 14.8 % Normal (applies [facility] (St to non-numeric Rick's results) [facility], ) Neutrophils [#] 67 % Normal (applies [facility] ( St in Body fluid by to non-numeric Rick's Manual count results) [facility], ) Lymphs 22 % Normal (applies [facility] (St to non-numeric Rick's results) [facility], ) Monocytes 8 % Normal (applies [facility]GEN (St [#/volume] in to non-numeric Rick's Cord blood results) [facility], ) Eos 3 % Normal (applies [facility] (St to non-numeric Rick's results) [facility], ) Neutrophils 4.8 Normal (applies MEDGEN (St (Absolute) x10E3/uL to non-numeric Rick's results) [facility], ) Basos 0 % Normal (applies [facility]GEN (St to non-numeric Rick's results) [facility], ) Lymphs 1.6 Normal (applies MEDGEN (St (Absolute) x10E3/uL to non-numeric Rick's results) [facility], ) Monocytes(Absolu 0.6 Normal (applies MEDGEN (St te) x10E3/uL to non-numeric Rick's results) [facility], ) Baso (Absolute) 0.0 Normal (applies MEDGEN ( St x10E3/uL to non-numeric Rick's results) [facility], ) Eos (Absolute) 0.2 Normal (applies MEDGEN (S t x10E3/uL to non-numeric Rick's results) [facility], ) Immature 0 % Normal (applies [facility] (St Granulocytes to non-numeric Rick's results) [facility], ) Immature Grans 0.0 Normal (applies MEDGEN (S t (Abs) x10E3/uL to non-numeric Rick's results) [facility], ) ID Date Data Source [id number] 12/06/2018 12:00:00 AM EDT [facility] ([facility], ) Name Value Range Interpretation Description Data Sup porting Code Source(s) Document(s ) PTH, Intact 131 pg/mL Above high normal [facility] ([facility], ) ID Date Data Source [id number] 12/06/2018 12:00:00 AM EDT [facility] ([facility], ) Name Value Range Interpretation Description Data Sup porting Code Source(s) Document(s ) Deprecated 3.1 mg/dL Normal (applies to MEDGEN (St Phosphorus non-numeric Rick's [Mass/time] in results) [facility], ) 24 hour Urine ID Date Data Source [id number] 12/06/2018 12:00:00 AM EDT [facility], ) Name Value Range Interpretation Code Description Data Astrid rce(s) Supporting Document(s ) Uric Acid 7.4 mg/dL Above high normal [facility] ([facility], ) ID Date Data Source [id number] 12/06/2018 12:00:00 AM EDT [facility] ([facility], ) Name Value Range Interpretation Description Data Sup porting Code Source(s) Document(s ) Vitamin D, 47.3 Normal (applies to MEDGEN (St 25-Hydroxy ng/mL non-numeric Rick's results) [facility], ) ID Date Data Source [id number] 12/06/2018 12:00:00 AM EDT [facility] [place] [facility], ) Name Value Range Interpretation Code Description Data Supporting Source(s) Document(s ) Creatinine 55.9 mg/dL Normal (applies to MEDGEN (S t , Urine non-numeric Rick's results) [facility], ) Protein/Cr 88 mg/g Normal (applies to [facility] (St eat Ratio creat non-numeric Rick's results) [facility], ) Protein,To 4.9 mg/dL Normal (applies to MED[facility] (St baldemar,Urine non-numeric Rick's results) [facility], ) ID Date Data Source [id number] 12/06/2018 12:00:00 AM EDT [facility] ([facility] [facility], ) Name Value Range Interpretation Description Data Sup porting Code Source(s) Document(s ) Iron 267 ug/dL Normal (applies to MEDGEN (St Bind.Cap.(TIBC non-numeric Rick's ) results) Medical, ) UIBC 169 ug/dL Normal (applies to [facility] (St non-numeric Rick's results) Medical, PC) Iron 98 ug/dL Normal (applies to [facility] (St [Mass/volume] non-numeric Rick's in Serum or results) Medical, PC) Plasma Iron 37 % Normal (applies to [facility] (St saturation non-numeric Rick's [Mass results) Medical, ) Fraction] in Serum or Plasma ID Date Data Source [id number] 12/06/2018 12:00:00 AM EDT [facility] ([facility] [place], ) Name Value Range Interpretation Description Data Sup porting Code Source(s) Document(s ) Platelets 204 Normal (applies to MEDGEN (St [#/area] in x10E3/uL non-numeric [facility] Blood by results) Medical, ) Microscopy high power field ID Date Data Source [id number] 12/06/2018 12:00:00 AM EDT [facility] ([facility] [place], ) Name Value Range Interpretation Description Data Sup porting Code Source(s) Document(s ) pH of Lower 6.0 Normal (applies [facility] (St respiratory to non-numeric Rick's specimen results) Medical, PC) Specific gravity 1.010 Normal (applies [facility] (St of Pericardial to non-numeric Rick's fluid by results) Medical, Refractometry PC) Urine-Color Yellow Normal (applies [facility] (St to non-numeric Rick's results) Medical, PC) Appearance of Clear Normal (applies [facility] (St Abdomen to non-numeric Rick's results) Medical, PC) WBC Esterase Negative Normal (applies [facility] (St to non-numeric Rick's results) Medical, PC) Protein Negative Normal (applies [facility] (St [Mass/volume] in to non-numeric Rick's Lower results) Medical, respiratory PC) specimen Glucose Negative Normal (applies [facility] (St [Mass/volume] in to non-numeric Rick's Urine collected results) Medical, for unspecified PC) duration Occult Blood Negative Normal (applies [facility] (St to non-numeric Rick's results) Medical, PC) Ketones Negative Normal (applies [facility] (St [Presence] in to non-numeric Rick's Blood by Tablet results) Medical, PC) Bilirubin Negative Normal (applies [facility] (St [Presence] in to non-numeric Rick's Peritoneal fluid results) Medical, PC) Urobilinogen,Sunil 0.2 mg/dL Normal (applies [facility] (St i-Qn to non-numeric Rick's results) Medical, PC) Nitrite, Urine Negative Normal (applies [facility] (S t to non-numeric Rick's results) Medical, PC) ID Date Data Source [id number] 12/06/2018 12:00:00 AM EDT [facility] ([facility] ) Name Value Range Interpretation Description Data Sup porting Code Source(s) Document(s ) Glucose 93 mg/dL Normal (applies [facility] (St [Mass/volume] in to non-numeric Rick's Urine collected for results) Medical, unspecified PC) duration Urea nitrogen 22 mg/dL Normal (applies [facility] (St [Mass/volume] in to non-numeric Rick's Serum or Plasma results) Medical, PC) Creatinine 1.45 Above high MEDGEN (St [Interpretation] in mg/dL normal [facility] Urine Medical, PC) eGFR If Africn Am 39 Below low normal MEDGE N (St mL/min/1 [facility] .73 Medical, PC) eGFR If NonAfricn 34 Below low normal MEDGE N (St Am mL/min/1 [facility] .73 [facility], PC) Sodium 139 Normal (applies [facility] (St [Moles/volume] in mmol/L to non-numeric Rick's Serum or Plasma results) Medical, PC) BUN/Creatinine 15 Normal (applies [facility] (S t Ratio to non-numeric Rick's results) Medical, PC) Potassium 4.6 Normal (applies [facility] (St [Mass/volume] in mmol/L to non-numeric Rick's Blood results) Medical, PC) Chloride 103 Normal (applies [facility] (St [Moles/volume] in mmol/L to non-numeric Rick's Serum or Plasma results) Medical, PC) Carbon dioxide, 21 Normal (applies [facility] ( St total mmol/L to non-numeric Rick's [Moles/volume] in results) Medical, Serum or Plasma PC) Calcium 10.3 Normal (applies [facility] (St [Moles/volume] in mg/dL to non-numeric Rick's Urine collected for results) Medical, unspecified PC) duration Protein 6.1 g/dL Normal (applies [facility] (St [Mass/volume] in to non-numeric Rick's Serum or Plasma results) Medical, ) Microalbumin 4.0 g/dL Normal (applies [facility]GEN (St [Mass/time] in to non-numeric Rick's Urine collected for results) Medical, unspecified ) duration Globulin, Total 2.1 g/dL Normal (applies [facility]GEN ( St to non-numeric Rick's results) Medical, ) Bilirubin.total 0.8 Normal (applies [facility] ( St [Mass/volume] in mg/dL to non-numeric Rick's Serum or Plasma results) Medical, ) A/G Ratio 1.9 Normal (applies [facility] (St to non-numeric Rick's results) Medical, ) Alkaline 63 IU/L Normal (applies MEDGEN (St phosphatase to non-numeric Rick's [Enzymatic results) Medical, activity/volume] in PC) Serum, Plasma or Blood Aspartate 22 IU/L Normal (applies MEDGEN (St aminotransferase to non-numeric Rick's [Enzymatic results) Medical, activity/volume] in PC) Serum or Plasma Alanine 18 IU/L Normal (applies [facility] (St aminotransferase to non-numeric Rick's [Enzymatic results) Medical, activity/volume] in PC) Serum or Plasma ID Date Data Source [id number] 12/06/2018 12:00:00 AM EDT [facility] ([facility], ) Name Value Range Interpretation Description Data Sup porting Code Source(s) Document(s ) Erythrocytes 3.78 Normal (applies MEDGEN (St [#/volume] in x10E6/uL to non-numeric [facility] Blood by results) Medical, ) Automated count Leukocytes 7.3 Normal (applies MEDGEN (St [#/volume] in x10E3/uL to non-numeric [facility]'s Blood by results) Medical, ) Automated count Hemoglobin 12.9 Normal (applies [facility] (St [Mass/volume] in g/dL to non-numeric Rick's Blood results) Medical, ) MCV 97 fL Normal (applies [facility]GEN (St to non-numeric Rick's results) Medical, ) Hematocrit 36.8 % Normal (applies MEDGEN (St [Volume to non-numeric Rick's Fraction] of results) [facility], ) Blood by Automated count MCH 34.1 pg Above high normal [facility] ([facility], ) MCHC 35.1 Normal (applies MEDGEN (St g/dL to non-numeric Rick's results) [facility], ) Neutrophils [#] 67 % Normal (applies MEDGEN ( St in Body fluid by to non-numeric Rick's Manual count results) [facility], ) RDW 14.8 % Normal (applies [facility]GEN (St to non-numeric Rick's results) [facility], ) Lymphs 22 % Normal (applies [facility]GEN (St to non-numeric Rick's results) [facility], ) Monocytes 8 % Normal (applies MEDGEN (St [#/volume] in to non-numeric Rick's Cord blood results) [facility], ) Eos 3 % Normal (applies [facility]GEN (St to non-numeric Rick's results) [facility], ) Neutrophils 4.8 Normal (applies MEDGEN (St (Absolute) x10E3/uL to non-numeric Rick's results) [facility], ) Basos 0 % Normal (applies [facility] (St to non-numeric Rick's results) [facility], ) Lymphs 1.6 Normal (applies MEDGEN (St (Absolute) x10E3/uL to non-numeric Rick's results) [facility], ) Monocytes(Absolu 0.6 Normal (applies MEDGEN (St te) x10E3/uL to non-numeric Rick's results) [facility], ) Eos (Absolute) 0.2 Normal (applies [facility]GEN (S t x10E3/uL to non-numeric Rick's results) [facility], ) Baso (Absolute) 0.0 Normal (applies MEDGEN ( St x10E3/uL to non-numeric Rick's results) [facility], ) Immature 0 % Normal (applies [facility] (St Granulocytes to non-numeric Rick's results) [facility], ) Immature Grans 0.0 Normal (applies [facility]GEN (S t (Abs) x10E3/uL to non-numeric Rick's results) [facility], ) Procedure Social History Code Duration Value Status Description Data Source(s ) Smoking 12/12/2019 denies etoh, no completed denies etoh, no MEDG EN (St 12:00:00 AM EDT tob, no IVDU; tob, no IVDU; n o Rick[facility], no chemical chemical exposure; PC) exposure; average average estimated estimated fluid fluid intake 1-1.5 intake 1-1.5 L/daily, 1 cup L/daily, 1 cup coffee daily, coffee daily, follows follows lower sodium diet lower sodium 30 year pack diet history 30 year pack cigarettes: quit history 30 years ago. cigarettes: quit 30 years ago. Smoking 12/12/2019 Unknown if ever completed Unknown if ever MEDG EN (St 12:00:00 AM EDT smoked smoked [facility]) Smoking 09/14/2019 denies etoh, no completed denies etoh, no MEDG EN (St 12:00:00 AM EDT tob, no IVDU; tob, no IVDU; n o [facility], no chemical chemical exposure; PC) exposure; average average estimated estimated fluid fluid intake 1-1.5 intake 1-1.5 L/daily, 1 cup L/daily, 1 cup coffee daily, coffee daily, follows follows lower sodium diet lower sodium 30 year pack diet history 30 year pack cigarettes: quit history 30 years ago. cigarettes: quit 30 years ago. Smoking 09/14/2019 Unknown if ever completed Unknown if ever MEDG EN (St 12:00:00 AM EDT smoked smoked [facility]) Smoking 09/12/2019 denies etoh, no completed denies etoh, no MEDG EN (St 12:00:00 AM EDT tob, no IVDU; tob, no IVDU; n o [facility], no chemical chemical exposure; PC) exposure; average average estimated estimated fluid fluid intake 1-1.5 intake 1-1.5 L/daily, 1 cup L/daily, 1 cup coffee daily, coffee daily, follows follows lower sodium diet lower sodium 30 year pack diet history 30 year pack cigarettes: quit history 30 years ago. cigarettes: quit 30 years ago. Smoking 09/12/2019 Unknown if ever completed Unknown if ever MEDG EN (St 12:00:00 AM EDT smoked smoked [facility]) Vital Signs ID Date Data Source UNK Name Value Range Interpretation Code Description Data Source(s) Heart rate 80 /min 80 /min [facility] ([facility]) Respiratory rate 16 /min 16 /min [facility] ( [facility]) Body mass index 36 kg/m2 36 kg/m2 MEDGEN (S t (BMI) [Ratio] [facility] [place]) Diastolic blood 82 mm[Hg] 82 mm[Hg] MEDGEN (S t pressure [facility] [place] [place]) Systolic blood 126 mm[Hg] 126 mm[Hg] [facility] ([facility]) Body weight 230 lb 230 lb [facility] ([facility]) Body height 67 in 67 in [facility] ([facility]) Heart rate 59 /min 59 /min [facility] ([facility]) Inhaled oxygen 97 % 97 % [facility] ([facility]) Body mass index 36 kg/m2 36 kg/m2 [facility] (S t (BMI) [Ratio[place] [facility] [place] Diastolic blood 80 mm[Hg] 80 mm[Hg] MEDGEN (S t pressure [facility] [place] [place]) Systolic blood 128 mm[Hg] 128 mm[Hg] [facility] ([facility]) Body weight 230 lb 230 lb [facility] ([facility]) Body height 67 in 67 in [facility] ([facility]) Heart rate 59 /min 59 /min [facility] ([facility]) Inhaled oxygen 97 % 97 % [facility] ([facility]) Body mass index 36 kg/m2 36 kg/m2 [facility] (S t (BMI) [Ratio] [facility] [place] Diastolic blood 80 mm[Hg] 80 mm[Hg] MEDGEN (S t pressure [facility] [place] [place]) Systolic blood 128 mm[Hg] 128 mm[Hg] [facility] ([facility]) Body weight 230 lb 230 lb [facility] ([facility]) Body height 67 in 67 in [facility] ([facility]) Heart rate 59 /min 59 /min [facility] ([facility]) Inhaled oxygen 97 % 97 % [facility] ([facility], ) Body mass index 36 kg/m2 36 kg/m2 [facility] (S t (BMI) [Ratio] [facility] [place] [place] Diastolic blood 80 mm[Hg] 80 mm[Hg] MEDGEN (S t pressure [facility] [place] , ) Systolic blood 128 mm[Hg] 128 mm[Hg] [facility] ([facility] [place] , ) Body weight 230 lb 230 lb [facility] ([facility]) Body height 67 in 67 in [facility] ([facility]) Heart rate 103 /min 103 /min [facility] ([facility] , ) Respiratory rate 18 /min 18 /min [facility] ( [facility] , ) Body temperature 98 F 98 F [facility] ( [facility]) Inhaled oxygen 97 % 97 % [facility] ([facility], ) Body mass index 37.9 kg/m2 37.9 kg/m2 [facility] (S t (BMI) [Ratio[place] [facility] [place] Diastolic blood 84 mm[Hg] 84 mm[Hg] MEDGEN (S t pressure [facility] [place] , ) Systolic blood 126 mm[Hg] 126 mm[Hg] [facility] ([facility] [place] , ) Body weight 242 lb 242 lb [facility] ([facility]) Body height 67 in 67 in [facility] ([facility]) Heart rate 103 /min 103 /min [facility] ([facility] , ) Respiratory rate 18 /min 18 /min [facility] ( [facility] , ) Body temperature 98 F 98 F [facility] ( [facility]) Inhaled oxygen 97 % 97 % [facility] ([facility], ) Body mass index 37.9 kg/m2 37.9 kg/m2 [facility] (S t (BMI) [Ratio] [facility] [place] Diastolic blood 84 mm[Hg] 84 mm[Hg] MEDGEN (S t pressure [facility] [place] , ) Systolic blood 126 mm[Hg] 126 mm[Hg] [facility] ([facility] [place] , ) Body weight 242 lb 242 lb [facility] ([facility]) Body height 67 in 67 in [facility] ([facility]) Heart rate 103 /min 103 /min [facility] ([facility]) Respiratory rate 18 /min 18 /min [facility] ( [facility]) Body temperature 98 F 98 F [facility] ( [facility]) Inhaled oxygen 97 % 97 % [facility] ([facility]) Body mass index 37.9 kg/m2 37.9 kg/m2 [facility] (S t (BMI) [Ratio] [facility] [place] Diastolic blood 84 mm[Hg] 84 mm[Hg] MEDGEN (S t pressure [facility] [place] [place]) Systolic blood 126 mm[Hg] 126 mm[Hg] [facility] ([facility]) Body weight 242 lb 242 lb [facility] ([facility]) Body height 67 in in [facility] ([facility]) Heart rate 70 /min 70 /min [facility] ([facility]) Respiratory rate 12 /min 12 /min [facility] ( [facility]) Inhaled oxygen 95 % 95 % [facility] ([facility]) Body mass index 37.9 kg/m2 37.9 kg/m2 [facility] (S t (BMI) [Ratio] [facility] [place] Diastolic blood 70 mm[Hg] 70 mm[Hg] [facility] (S t [facility] [place] Systolic blood 122 mm[Hg] 122 mm[Hg] [facility] ([facility]) Body weight 242 lb 242 lb [facility] ([facility]) Body height 67 in in [facility] ([facility]) Heart rate 70 /min 70 /min [facility] ([facility]) Respiratory rate 12 /min 12 /min [facility] ( [facility]) Inhaled oxygen 95 % 95 % [facility] ([facility], ) Body mass index 37.9 kg/m2 37.9 kg/m2 MEDGEN (S t (BMI) [Ratio] [facility] [place] [place] Diastolic blood 70 mm[Hg] 70 mm[Hg] MEDGEN (S pressure [facility] [place] [place]) Systolic blood 122 mm[Hg] 122 mm[Hg] [facility] ([facility]) Body weight 242 lb 242 lb [facility] ([facility]) Body height 67 in 67 in [facility] ([facility]) Heart rate 70 /min 70 /min [facility] ([facility]) Respiratory rate 12 /min 12 /min [facility] ( [facility]) Inhaled oxygen 95 % 95 % [facility] ([facility]) Body mass index 37.9 kg/m2 37.9 kg/m2 [facility]GEN (S t (BMI) [Ratio] [facility] [place] [place] Diastolic blood 70 mm[Hg] 70 mm[Hg] MEDGEN (S t pressure [facility] [place] [place]) Systolic blood 122 mm[Hg] 122 mm[Hg] [facility] ([facility]) Body weight 242 lb 242 lb [facility] ([facility]) Body height 67 in 67 in [facility] ([facility]) Heart rate 46 /min 46 /min [facility] ([facility]) Body temperature 97.4 F 97.4 F [facility] ( [facility]) Inhaled oxygen 96 % 96 % [facility] ([facility]) Body mass index 37.9 kg/m2 37.9 kg/m2 MEDGEN (S t (BMI) [Ratio] [facility] [place]) Diastolic blood 88 mm[Hg] 88 mm[Hg] MEDGEN (S t pressure [facility] [place] [place]) Systolic blood 138 mm[Hg] 138 mm[Hg] [facility] ([facility]) Body weight 242 lb 242 lb [facility] ([facility]) Body height 67 in in [facility] ([facility]) Heart rate 46 /min 46 /min [facility] ([facility]) Body temperature 97.4 F 97.4 F [facility] ( [facility]) Inhaled oxygen 96 % 96 % [facility] ([facility]) Body mass index 37.9 kg/m2 37.9 kg/m2 MEDGEN (S t (BMI) [Ratio] [facility] [place]) Diastolic blood 88 mm[Hg] 88 mm[Hg] MEDGEN (S t pressure [facility] [place] [place]) Systolic blood 138 mm[Hg] 138 mm[Hg] [facility] ([facility]) Body weight 242 lb 242 lb [facility] ([facility]) Body height 67 in in [facility] ([facility]) Heart rate 46 /min 46 /min [facility] ([facility]) Body temperature 97.4 F 97.4 F MED[facility] ( [facility]) Inhaled oxygen 96 % 96 % [facility] ([facility]) Body mass index 37.9 kg/m2 37.9 kg/m2 MEDGEN (S t (BMI) [Ratio] [facility] [place] Diastolic blood 88 mm[Hg] 88 mm[Hg] MEDGEN (S t [facility] [place]) Systolic blood 138 mm[Hg] 138 mm[Hg] [facility] ([facility]) Body weight 242 lb 242 lb [facility] ([facility]) Body height 67 in in [facility] ([facility]) Heart rate 70 /min 70 /min [facility] ([facility]) Respiratory rate 12 /min 12 /min [facility] ( [facility]) Body mass index 38.2 kg/m2 38.2 kg/m2 MEDGEN (S t (BMI) [Ratio] [facility] [place]) Diastolic blood 90 mm[Hg] 90 mm[Hg] MEDGEN (S t [facility] [place]) Systolic blood 148 mm[Hg] 148 mm[Hg] [facility] ([facility]) Body weight 244 lb 244 lb [facility] ([facility]) Body height 67 in in [facility] ([facility]) Heart rate 70 /min 70 /min [facility] ([facility]) Respiratory rate 12 /min 12 /min [facility] ( [facility]) Body mass index 38.2 kg/m2 38.2 kg/m2 MEDGEN (S t (BMI) [Ratio] [facility] [place]) Diastolic blood 90 mm[Hg] 90 mm[Hg] MEDGEN (S t pressure [facility] [place] [place]) Systolic blood 148 mm[Hg] 148 mm[Hg] [facility] ([facility]) Body weight 244 lb 244 lb [facility] ([facility]) Body height 67 in 67 in [facility] ([facility]) Heart rate 70 /min 70 /min [facility] ([facility]) Respiratory rate 12 /min 12 /min [facility] ( [facility]) Body mass index 38.2 kg/m2 38.2 kg/m2 MEDGEN (S t (BMI) [Ratio] [facility] [place] Diastolic blood 90 mm[Hg] 90 mm[Hg] MEDGEN (S t pressure [facility] [place] [place]) Systolic blood 148 mm[Hg] 148 mm[Hg] [facility] ([facility]) Body weight 244 lb 244 lb [facility] ([facility]) Body height 67 in in [facility]GEN ([facility]) Heart rate 53 /min 53 /min [facility] ([facility]) Inhaled oxygen 95 % 95 % MEDGEN ([facility], ) Body mass index 38.2 kg/m2 38.2 kg/m2 MEDGEN (S t (BMI) [Ratio] [facility] [place] [place] Diastolic blood 76 mm[Hg] 76 mm[Hg] MEDGEN (S t pressure [facility] [place] [place]) Systolic blood 140 mm[Hg] 140 mm[Hg] MEDGEN ([facility]) Body weight 244 lb 244 lb [facility] ([facility]) Body height 67 in in [facility]GEN ([facility]) Heart rate 53 /min 53 /min [facility] ([facility]) Inhaled oxygen 95 % 95 % MEDGEN ([facility], ) Body mass index 38.2 kg/m2 38.2 kg/m2 MEDGEN (S t (BMI) [Ratio] [facility] [place] [place] Diastolic blood 76 mm[Hg] 76 mm[Hg] MEDGEN (S t [facility] [place]) Systolic blood 140 mm[Hg] 140 mm[Hg] [facility] ([facility]) Body weight 244 lb 244 lb [facility] ([facility]) Body height 67 in in [facility]GEN ([facility]) Heart rate 53 /min 53 /min [facility] ([facility]) Inhaled oxygen 95 % 95 % MEDGEN ([facility], ) Body mass index 38.2 kg/m2 38.2 kg/m2 MEDGEN (S t (BMI) [Ratio] [facility] [place] [place] Diastolic blood 76 mm[Hg] 76 mm[Hg] MEDGEN (S t pressure [facility] [place] [place]) Systolic blood 140 mm[Hg] 140 mm[Hg] [facility] ([facility]) Body weight 244 lb 244 lb [facility] ([facility]) Body height 67 in in [facility] ([facility]) Heart rate 53 /min 53 /min [facility] ([facility]) Inhaled oxygen 95 % 95 % MEDGEN ([facility], ) Body mass index 38.2 kg/m2 38.2 kg/m2 MEDGEN (S t (BMI) [Ratio] [facility] [place] [place] Diastolic blood 76 mm[Hg] 76 mm[Hg] MEDGEN (S t pressure [facility] [place] [place]) Systolic blood 140 mm[Hg] 140 mm[Hg] [facility] ([facility]) Body weight 244 lb 244 lb [facility] ([facility]) Body height 67 in in [facility]GEN ([facility]) Heart rate 53 /min 53 /min [facility] ([facility]) Inhaled oxygen 95 % 95 % MEDGEN ([facility], ) Body mass index 38.2 kg/m2 38.2 kg/m2 MEDGEN (S t (BMI) [Ratio] [facility] [place] [place] Diastolic blood 76 mm[Hg] 76 mm[Hg] MEDGEN (S t pressure [facility] [place] [place]) Systolic blood 140 mm[Hg] 140 mm[Hg] [facility] ([facility]) Body weight 244 lb 244 lb [facility] [facility] Body height 67 in 67 in [facility] ([facility]) Heart rate 53 /min 53 /min [facility] ([facility]) Inhaled oxygen 95 % 95 % [facility] ([facility], ) Body mass index 38.2 kg/m2 38.2 kg/m2 [facility] ([place]) [place] [facility] [place] [place] Diastolic blood 76 mm[Hg] 76 mm[Hg] [facility] (S t pressure [facility] [place], [place]) Systolic blood 140 mm[Hg] 140 mm[Hg] [facility] ([facility] [place]) Body weight 244 lb 244 lb [facility] ([facility]) Body height 67 in 67 in [facility] ([facility]) Heart rate 84 /min 84 /min [facility] ([facility]) Respiratory rate 12 /min 12 /min [facility] ( [facility]) Inhaled oxygen 97 % 97 % [facility] ([facility], ) Body mass index 40.4 kg/m2 40.4 kg/m2 [facility] ([place] ([place]) [place] [facility] [place] [place] Diastolic blood 80 mm[Hg] 80 mm[Hg] [facility] ([facility] [place]) Systolic blood 132 mm[Hg] 132 mm[Hg] [facility] ([facility] [place]) Body weight 258 lb 258 lb [facility] ([facility]) Body height 67 in in [facility] ([facility]) Systolic blood 132 mm[Hg] 132 mm[Hg] [facility] ([facility] [place]) Body weight 258 lb 258 lb [facility] ([facility]) Body height 67 in 67 in [facility] ([facility]) Heart rate 84 /min 84 /min [facility] ([facility]) Respiratory rate 12 /min 12 /min [facility] ( [facility]) Inhaled oxygen 97 % 97 % [facility] ([facility], ) Body mass index 40.4 kg/m2 40.4 kg/m2 [facility] ([place]BMI) [place] [facility] [place] Diastolic blood 80 mm[Hg] 80 mm[Hg] [facility] (S pressure [facility] [place] [place]) Heart rate 84 /min 84 /min [facility] ([facility]) Respiratory rate 12 /min 12 /min [facility] ( [facility]) Inhaled oxygen 97 % 97 % [facility] ([facility], ) Body mass index 40.4 kg/m2 40.4 kg/m2 [facility] ([facility] (BMI) [Ratio] [facility] [place]) Diastolic blood 80 mm[Hg] 80 mm[Hg] [facility] ([facility] [place]) Systolic blood 132 mm[Hg] 132 mm[Hg] [facility] ([facility] [place]) Body weight 258 lb 258 lb [facility] ([facility]) Body height 67 in 67 in [facility] ([facility])
[2020-01-01 10:38] VITALS: BMI 38.4
[2020-01-01 15:23] VITALS: BP 154/76; PULSE 86
[2020-01-01 16:27] VITALS: TEMP 98
== END 2020-01-01 16:29 | disposition home or self-care (01) ==
LOC: JRADIR 08:32
PROVIDERS: ATTEND Internal Medicine Hematology & Oncology
PROC: 02HV33Z Insertion of Infusion Device into Superior Vena Cava, Percutaneous Approach (ICD-10-PCS; principal; 2020-01-01)
PROC: B518ZZA Fluoroscopy of Superior Vena Cava, Guidance (ICD-10-PCS; 2020-01-01)
DX: C34.90 Malignant neoplasm of unspecified part of unspecified bronchus or lung (principal)
CPT/HCPCS: 36561; C1788; 77001-TC-FY

== ENCOUNTER 2020-01-03 07:04 | Day surgery (SDC) | payer OTHER ==
--- OUTSIDE RECORDS SUMMARY | 2020-01-03 07:11 | XMS ---
:1935 Author Organization [facility] Care Team Providers Name Role Phone Androne, [...] is protected by Article 27-F of the [facility] Public Health law. If you continue you may haveaccess to information: Regarding HIV / AIDS; Provided by facilities licensed or operated by the [facility] Office of Mental Health; or Provided by the [place] State Office for People With Developmental Disabilities. If such information is present, then the following [facility] mandated warning applies: This information has been [...] law may result in a fine or fci sentence or both. A general authorization for the release of medical or other information is NOT sufficient authorization for further disclosure. 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 NOT DIABETIC Outpatient 09/27/2019 10:33:00 AM LUNG MASS NOT DIABETIC [facility] EDT 230LBS LUNG MASS NOT DIABETIC 230LBS Attender: Carlos López 09/12/2019 12:00:00 AM EDT MEDGEN ([facility], ) Office Attender: Carlos López 09/12/2019 12:00:00 AM EDT MEDGEN ([facility], ) Office Attender: Carlos López 09/12/2019 12:00:00 AM EDT MEDGEN ([facility], ) Office Attender: Carlos López 09/12/2019 12:00:00 AM EDT MEDGEN ([facility], ) Office Immunizations Vaccine Date Status Description Data Source(s) pneumococcal 12/12/2019 completed MEDGEN ([facility] polysaccharide PPV23 12:00:00 AM EDT [facility] kapil, ) Medications Medication Brand Start Product Dose Route Administrative Pharmacy [facility] Indications Reaction Description Data Name Date Form Instructions Instructions Source(s) homatropine HOMATR 07/31/ SYRUP 600 complet HOMAT ROPINE- MEDGEN ( methylbromi OPIN2019 ed HYDROCODONE Rick's de 0.3 HYDROC 12:00: Medical, MG/ML / ODONE: 00 AM PC) Hydrocodone [id number] EDT Bitartrate 1 MG/ML Oral Solution HOMATROPINE -HYDROCODON [id number] homatropine HOMATR 05/19/ SYRUP 600 complet HOMAT ROPINE- MEDGEN (St methylbromi OPINE2019 ed HYDROCODONE Rick's de 0.3 HYDROC 12:00: Medical, MG/ML / ODONE: 00 AM PC) Hydrocodone [id number] EDT Bitartrate 1 MG/ML Oral Solution HOMATROPINE -HYDROCODON E:[id number] Acetaminoph ACETAM 05/19/ TABLET 30 complet ACET AMINOPHE MEDGEN (St en 300 MG / INOPHE 2019 ed N-CODEINE J ohn's Codeine N-CODE 12:00: Medical, Phosphate INE:99 00 AM PC) 15 MG Oral 3770 EDT Tablet ACETAMINOPH EN-CODEINE: [id number] homatropine HOMATR 05/19/ SYRUP 1 complet HOMAT ROPINE- MEDGEN (St methylbromi OPINE2019 ed HYDROCODONE Rick's de 0.3 HYDROC 12:00: Medical, MG/ML / ODONE: 00 AM PC) Hydrocodone 150223 EDT Bitartrate 1 MG/ML Oral Solution HOMATROPINE -HYDROCODON E:[id number] Acetaminoph ACETAM 05/19/ TABLET 30 complet ACET AMINOPHE MEDGEN (St en 300 MG / INOPHE 2019 ed N-CODEINE J ohn's Codeine N-CODE 12:00: Medical, Phosphate INE:99 00 AM PC) 15 MG Oral 3770 EDT Tablet ACETAMINOPH EN-CODEINE: 727697 homatropine HOMATR 05/19/ SYRUP 1 complet HOMAT ROPINE- MEDGEN (St methylbromi OPINE2019 ed HYDROCODONE Rick's de 0.3 HYDROC 12:00: Medical, MG/ML / ODONE: 00 AM PC) Hydrocodone 157874 EDT Bitartrate 1 MG/ML Oral Solution HOMATROPINE -HYDROCODON E:[id number] homatropine HOMATR 05/19/ SYRUP 1 complet HOMAT ROPINE- MEDGEN (St methylbromi OPINE2019 ed HYDROCODONE Rick's de 0.3 HYDROC 12:00: Medical, MG/ML / ODONE: 00 AM PC) Hydrocodone [id number] EDT Bitartrate 1 MG/ML Oral Solution HOMATROPINE -HYDROCODON E:[id number] homatropine HOMATR 19/ SYRUP 1 complet HOMAT ROPINE- MEDGEN (St methylbromi OPINE2019 ed HYDROCODONE Rick's de 0.3 HYDROC 12:00: Medical, MG/ML / ODONE: 00 AM PC) Hydrocodone 073610 EDT Bitartrate 1 MG/ML Oral Solution HOMATROPINE -HYDROCODON E:[id number] homatropine HOMATR 19/ SYRUP 1 complet HOMAT ROPINE- MEDGEN (St methylbromi OPINE2019 ed HYDROCODONE Rick's de 0.3 HYDROC 12:00: Medical, MG/ML / ODONE: 00 AM PC) Hydrocodone [id number] EDT Bitartrate 1 MG/ML Oral Solution HOMATROPINE -HYDROCODON E:[id number] homatropine HOMATR 07/31/ SYRUP 1 complet HOMAT ROPINE- MEDGEN (St methylbromi OPINE2019 ed HYDROCODONE Rick's de 0.3 HYDROC 12:00: Medical, MG/ML / ODONE: 00 AM PC) Hydrocodone 280591 EDT Bitartrate 1 MG/ML Oral Solution HOMATROPINE -HYDROCODON E:[id number] Acetaminoph ACETAM 07/31/ TABLET 30 complet ACET AMINOPHE MEDGEN (St en 300 MG / INOPHE 2019 ed N-CODEINE J ohn's Codeine N-CODE 12:00: Medical, Phosphate INE:99 00 AM PC) 15 MG Oral 3770 EDT Tablet ACETAMINOPH EN-CODEINE: [id number] homatropine HOMATR 19/ SYRUP 600 complet HOMAT ROPINE- MEDGEN (St methylbromi OPINE2019 ed HYDROCODONE Rick's de 0.3 HYDROC 12:00: Medical, MG/ML / ODONE: 00 AM PC) Hydrocodone [id number] EDT Bitartrate 1 MG/ML Oral Solution HOMATROPINE -HYDROCODON E:[id number] Allopurinol ALLOPU 05/30/ TABLET 90 complet ALLO [...] MG Oral ATATE: 2019 ed Rick's Capsule [id number] 12:00: Medical, BENZONATATE 00 AM PC) :[id number] EST benzonatate BENZON 04/26/ CAPSULE 30 complet AMARIS ZONATATE MEDGEN (St 200 MG Oral ATATE: 2019 ed Rick's Capsule [id number] 12:00: Medical, BENZONATATE 00 AM PC) :[id number] EST benzonatate BENZON 04/26/ CAPSULE 30 complet AMARIS ZONATATE MEDGEN (St 200 MG Oral ATATE: 2019 ed Rick's Capsule [id number] 12:00: Medical, BENZONATATE 00 AM PC) :[id number] EST Amoxicillin AMOXIC 01/18/ CAPSULE 10 complet RHETT XICILLIN MEDGEN (St 500 MG Oral ILLIN: 2018 ed Rick's Capsule 105339 12:00: Medical, AMOXICILLIN 00 AM PC) :[id number] EST Amoxicillin AMOXIC 01/18/ CAPSULE 10 complet RHETT XICILLIN MEDGEN (St 500 MG Oral ILLIN: 2018 ed Rick's Capsule [id number] 12:00: Medical, AMOXICILLIN 00 AM PC) :[id number] EST Amoxicillin AMOXIC 01/18/ CAPSULE 10 complet RHETT XICILLIN MEDGEN (St 500 MG Oral ILLIN: 2018 ed Rick's Capsule [id number] 12:00: Medical, AMOXICILLIN 00 AM PC) :[id number] EST Insurance Providers Payer name Policy type Policy ID Covered Covered libertarian's Policy P tonio / Coverage libertarian ID relationship to Wylie Inf ormation type wylie MEDICARE [id number] SP [id number] [id number] [facility] [id number] SP [id number] [id number] PT [id number] HEATHCARE OTHER MEDICARE [id number] PT [id number] [id number] [facility] [id number] [place] [place] [id number] PART B [facility] [id number] SP [id number] 999 CARE HMO/POS/EPO MEDICARE [id number] SP [id number] A [facility] [id number] SP [id number] 999 CARE HMO/POS/EPO MEDICARE [id number] SP [id number] [id number] [employer] [id number] PT [id number] OTHER [facility] [id number] CARE OPTIONS PPO Problems, Conditions, and Diagnoses Code Display Name Description Problem Type Effective Data Sour ce(s) Dates E78.5 Hyperlipidemia, HYPERLIPIDEMIA, Problem 08/01/2019 MEDG EN (St unspecified UNSPECIFIED 12:00:00 AM [facility], ) E66.9 Obesity, unspecified OBESITY, Problem 08/01/2019 MEDG EN (St UNSPECIFIED 12:00:00 AM [facility], ) 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 08/01/2019 MEDGEN (St uncertain behavior UNCERTAIN 12:00:00 AM Rick' s of trachea, bronchus BEHAVIOR OF EDT [facility], ) and lung TRACHEA, BRONCHUS AND LUNG M25.50 Pain in unspecified PAIN IN Problem 08/01/2019 MEDGE N (St joint UNSPECIFIED JOINT 12:00:00 AM [facility]'s [facility], ) I10 Essential (primary) ESSENTIAL Problem 08/01/2019 MEDGE N (St hypertension (PRIMARY) 12:00:00 AM [facility] HYPERTENSION [facility], ) E03.9 Hypothyroidism, HYPOTHYROIDISM, Problem 08/01/2019 MEDG EN (St unspecified UNSPECIFIED 12:00:00 AM [facility], ) E78.5 Hyperlipidemia, HYPERLIPIDEMIA, Problem 08/01/2019 MEDG EN (St unspecified UNSPECIFIED 12:00:00 AM [facility]'s [facility], ) E66.9 Obesity, unspecified OBESITY, Problem 08/01/2019 MEDG EN (St UNSPECIFIED 12:00:00 AM [facility]'s [facility], ) 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 08/01/2019 MEDGEN (St uncertain behavior UNCERTAIN 12:00:00 AM Rick' s of trachea, bronchus BEHAVIOR OF T [facility], ) and lung TRACHEA, BRONCHUS AND LUNG M25.50 Pain in unspecified PAIN IN Problem 08/01/2019 MEDGE N (St joint UNSPECIFIED JOINT 12:00:00 AM [facility]'s [facility], ) I10 Essential (primary) ESSENTIAL Problem 08/01/2019 MEDGE N (St hypertension (PRIMARY) 12:00:00 AM [facility] HYPERTENSION [facility], ) E03.9 Hypothyroidism, HYPOTHYROIDISM, Problem 08/01/2019 MEDG EN (St unspecified UNSPECIFIED 12:00:00 AM [facility]'s [facility], ) R00.1 Bradycardia, BRADYCARDIA, Problem 04/04/2019 MEDGEN (St unspecified UNSPECIFIED 12:00:00 AM [facility]'s [facility], ) R00.1 Bradycardia, BRADYCARDIA, Problem 04/04/2019 MEDGEN (St unspecified UNSPECIFIED 12:00:00 AM [facility], ) R00.1 Bradycardia, BRADYCARDIA, Problem 04/04/2019 MEDGEN (St unspecified UNSPECIFIED 12:00:00 AM [facility], ) I51.7 Cardiomegaly I51.7 Diagnosis 12/11/2019 [place] 10:16:00 AM Hospital EDT I70.0 Atherosclerosis of I70.0 Diagnosis 12/11/2019 [place] aorta 10:16:00 AM Hospital EDT 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:00 AM [facility] 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 R91.8 Other nonspecific R91.8 Diagnosis 12/11/2019 [place] abnormal finding of 10:16:00 AM Hosp ital lung field EDT C34.90 Malignant neoplasm C34.90 Diagnosis 12/11/2019 [place] of unspecified part 10:16:00 AM Hosp ital of unspecified EDT bronchus or lung K57.30 Diverticulosis of K57.30 Diagnosis 09/27/2019 [place] large intestine 10:33:00 AM Hospital without perforation EDT or abscess without bleeding K44.9 Diaphragmatic hernia K44.9 Diagnosis 09/27/2019 [place] without obstruction 10:33:00 AM Hosp ital or gangrene EDT Surgeries/Procedures Procedure Description Date Indications Data Source(s) Documentation of current 12/12/2019 MED GEN ([facility] medications (procedure) 12:00:00 AM EDT Gita ross, WIL) Administration of 12/12/2019 MEDGEN ([facility] pneumococcal vaccine 12:00:00 AM EDT [facility], ) OFFICE OUTPATIENT VISIT 10 12/12/2019 Gita NELSON ([facility] MINUTES 12:00:00 AM ED Medical, PC) Documentation of current 09/12/2019 MED GEN ([facility] medications (procedure) 12:00:00 AM EDT WIL [place]) Documentation of current 09/12/2019 MED GEN ([facility] medications (procedure) 12:00:00 AM EDT Gita ross PC) Documentation of current 09/12/2019 MED GEN ([facility] medications (procedure) 12:00:00 AM EDT WIL ross) OFFICE OUTPATIENT VISIT 15 09/12/2019 M EDGEN ([facility] MINUTES 12:00:00 AM EDT Medical, ) COLLECTION VENOUS BLOOD 09/12/2019 MEDG EN ([facility] VENIPUNCTURE 12:00:00 AM [facility], ) Documentation of current 09/12/2019 MED GEN ([facility] medications (procedure) [facility]00:00 [facility] Documentation of current 09/12/2019 MED GEN ([facility] medications (procedure) 12:00:00 [facility] Documentation of current 09/12/2019 MED GEN ([facility] medications (procedure) 12:00:00 AM EDT [facility], ) OFFICE OUTPATIENT VISIT 15 09/12/2019 Gita EDGEN ([facility] MINUTES 12:00:00 AM [facility] Medical, ) COLLECTION VENOUS BLOOD 09/12/2019 MEDG EN ([facility] VENIPUNCTURE 12:00:00 AM [facility], ) Documentation of current 09/12/2019 MED GEN ([facility] medications (procedure) 12:00:00 AM [facility] OFFICE OUTPATIENT VISIT 15 09/12/2019 Gita EDGEN ([facility] MINUTES 12:00:00 AM [facility] Medical, ) COLLECTION VENOUS BLOOD 09/12/2019 MEDG EN ([facility] VENIPUNCTURE 12:00:00 AM [facility], ) Documentation of current 08/01/2019 MED GEN ([facility] medications (procedure) 12:00:00 AM [facility] Documentation of current 08/01/2019 MED GEN ([facility] medications (procedure) 12:00:00 AM [facility] ) Documentation of current 08/01/2019 MED GEN ([facility] medications (procedure) 12:00:00 AM EDT edical, ) Documentation of current 08/01/2019 MED GEN ([facility] medications (procedure) 12:00:00 AM EDT edical, ) Documentation of current 08/01/2019 MED GEN ([facility] medications (procedure) 12:00:00 AM EDT edical, ) OFFICE OUTPATIENT VISIT 15 08/01/2019 M EDGEN ([facility] MINUTES 12:00:00 AM EDT Medical, PC) Documentation of current 08/01/2019 MED GEN ([facility] medications (procedure) 12:00:00 AM EDT edical, PC) Documentation of current 08/01/2019 MED GEN ([facility] medications (procedure) 12:00:00 AM EDT edical, PC) Documentation of current 08/01/2019 MED GEN ([facility] medications (procedure) 12:00:00 AM EDT edical, PC) Documentation of current 08/01/2019 MED GEN ([facility] medications (procedure) 12:00:00 AM EDT edical, PC) Documentation of current 08/01/2019 MED GEN ([facility] medications (procedure) 12:00:00 AM EDT edical, PC) OFFICE OUTPATIENT VISIT 15 08/01/2019 Gita YENN ([facility] MINUTES 12:00:00 AM EDT Medical, PC) [...] medications (procedure) 12:00:00 AM EDT ernaical, PC) OFFICE OUTPATIENT VISIT 15 08/01/2019 Gita YENN ([facility] MINUTES 12:00:00 AM EDT Medical, PC) Documentation of current 04/26/2019 MED GEN ([facility] medications (procedure) 12:00:00 AM EST edical, PC) OFFICE OUTPATIENT VISIT 15 04/26/2019 Gita YENN ([facility] MINUTES 12:00:00 AM EST Medical, PC) Documentation of current 04/26/2019 MED GEN ([facility] medications (procedure) 12:00:00 AM EST edical, PC) OFFICE OUTPATIENT VISIT 15 04/26/2019 Gita YENN ([facility] MINUTES 12:00:00 AM EST Medical, PC) Documentation of current 04/26/2019 MED GEN ([facility] medications (procedure) 12:00:00 AM EST ernaical, PC) OFFICE OUTPATIENT VISIT 15 04/26/2019 M LESLIE ([facility] MINUTES 12:00:00 AM EST Medical, PC) Documentation of current 04/04/2019 MED GEN ([facility] medications (procedure) 12:00:00 AM EST ernaical, PC) Documentation of current 04/04/2019 MED GEN ([facility] medications (procedure) 12:00:00 AM EST ernaical, PC) Documentation of current 04/04/2019 MED GEN ([facility] medications (procedure) 12:00:00 AM EST ernaical, PC) Documentation of current 04/04/2019 MED GEN ([facility] medications (procedure) 12:00:00 AM EST ernaical, PC) Documentation of current 04/04/2019 MED GEN ([facility] medications (procedure) 12:00:00 AM EST ernaical, ) OFFICE OUTPATIENT VISIT 15 04/04/2019 Gita LESLIE ([facility] MINUTES 12:00:00 AM [facility] Medical, PC) ECG ROUTINE ECG W/LEAST 12 04/04/2019 Gita NELSON ([facility] LDS TRCG ONLY W/O I&R 12:00:00 AM EST [facility] ica, ) COLLECTION VENOUS BLOOD 04/04/2019 MEDG EN ([facility] VENIPUNCTURE 12:00:00 AM [facility] Medical, PC) Documentation of current 04/04/2019 MED GEN ([facility] medications (procedure) 12:00:00 AM EST Gita ross, ) Documentation of current 04/04/2019 MED GEN ([facility] medications (procedure) 12:00:00 AM EST ernaical, PC) Documentation of current 04/04/2019 MED GEN ([facility] medications (procedure) 12:00:00 AM EST ernaical, PC) Documentation of current 04/04/2019 MED GEN ([facility] medications (procedure) 12:00:00 AM EST ernaical, PC) Documentation of current 04/04/2019 MED GEN ([facility] medications (procedure) 12:00:00 AM EST ernaical, PC) OFFICE OUTPATIENT VISIT 15 04/04/2019 Gita YENN ([facility] MINUTES 12:00:00 AM EST Medical, PC) ECG ROUTINE ECG W/LEAST 12 04/04/2019 Gita NELSON ([facility] LDS TRCG ONLY W/O I&R 12:00:00 AM EST [facility] ical, PC) COLLECTION VENOUS BLOOD 04/04/2019 MEDG EN ([facility] VENIPUNCTURE 12:00:00 AM EST Medical, PC) Documentation of current 04/04/2019 MED GEN ([facility] medications (procedure) 12:00:00 AM EST edical, PC) Documentation of current 04/04/2019 MED GEN ([facility] medications (procedure) 12:00:00 AM EST ernaical, PC) Documentation of current 04/04/2019 MED GEN ([facility] medications (procedure) 12:00:00 AM EST ernaical, PC) Documentation of current 04/04/2019 MED GEN ([facility] medications (procedure) 12:00:00 AM EST ernaical, PC) Documentation of current 04/04/2019 MED GEN ([facility] medications (procedure) 12:00:00 AM EST edical, PC) OFFICE OUTPATIENT VISIT 15 04/04/2019 Gita LESLIE ([facility] MINUTES 12:00:00 AM EST Medical, PC) ECG ROUTINE ECG W/LEAST 12 04/04/2019 Gtia NELSON ([facility] LDS TRCG ONLY W/O I&R 12:00:00 AM EST [facility] ica, PC) COLLECTION VENOUS BLOOD 04/04/2019 MEDG EN ([facility] VENIPUNCTURE 12:00:00 AM EST Medical, PC) Documentation of current 01/18/2019 MED GEN ([facility] medications (procedure) 12:00:00 AM EST v[facility]ana, PC) Documentation of current 01/18/2019 MED GEN ([facility] medications (procedure) 12:00:00 AM EST ernaical, PC) Documentation of current 01/18/2019 MED GEN ([facility] medications (procedure) 12:00:00 AM EST ernaical, PC) Documentation of current 01/18/2019 MED GEN ([facility] medications (procedure) 12:00:00 AM EST ernaical, PC) Documentation of current 01/18/2019 MED GEN [...] Gita NELSON ([facility] MINUTES 12:00:00 AM [facility] Medical, PC) Documentation of current 01/18/2019 MED [...] (procedure) 12:00:00 AM EST Gita ross, PC) OFFICE OUTPATIENT VISIT 25 01/18/2019 Gita NELSON ([facility] MINUTES 12:00:00 AM EST Medical, PC) Documentation of current 12/06/2018 MED GEN ([facility] medications (procedure) 12:00:00 AM EDMaria Teresa ross, PC) Documentation of current 12/06/2018 MED GEN ([facility] medications (procedure) 12:00:00 AM EDMaria Teresa ross, PC) Documentation of current 12/06/2018 MED GEN ([facility] medications (procedure) 12:00:00 AM EDMaria Teresa ross, PC) OFFICE OUTPATIENT VISIT 15 12/06/2018 Gita NELSON ([facility] MINUTES 12:00:00 AM ED Medical, PC) COLLECTION VENOUS BLOOD 12/06/2018 MEDG EN ([facility] VENIPUNCTURE 12:00:00 AM ED Medical, PC) Documentation of current 12/06/2018 MED GEN ([facility] medications (procedure) 12:00:00 AM EDT M edical, PC) Documentation of current 12/06/2018 MED GEN ([facility] medications (procedure) 12:00:00 AM EDT edical, PC) Documentation of current 12/06/2018 MED GEN ([facility] medications (procedure) 12:00:00 AM EDT edical, PC) OFFICE OUTPATIENT VISIT 15 12/06/2018 Gita LESLIE ([facility] MINUTES 12:00:00 AM EDT Medical, PC) COLLECTION VENOUS BLOOD 12/06/2018 MEDG EN ([facility] VENIPUNCTURE 12:00:00 AM EDT Medical, PC) Documentation of current 12/06/2018 MED GEN ([facility] medications (procedure) 12:00:00 AM EDT vandana, PC) Documentation of current 12/06/2018 MED GEN ([facility] medications (procedure) 12:00:00 AM EDT ernaical, PC) Documentation of current 12/06/2018 MED GEN ([facility] medications (procedure) 12:00:00 AM EDT avndana, PC) OFFICE OUTPATIENT VISIT 15 12/06/2018 Gita LESLIE ([facility] MINUTES 12:00:00 AM EDT Medical, PC) COLLECTION VENOUS BLOOD 12/06/2018 MEDG EN ([facility] VENIPUNCTURE 12:00:00 AM EDT Medical, PC) Documentation of current 11/07/2018 MED GEN ([facility] medications (procedure) 12:00:00 AM EDT vandana, PC) Documentation of current 11/07/2018 MED GEN ([facility] medications (procedure) 12:00:00 AM EDT vandana, PC) Documentation of current 11/07/2018 MED GEN ([facility] medications (procedure) 12:00:00 AM EDT edical, PC) Documentation of current 11/07/2018 MED GEN ([facility] medications (procedure) 12:00:00 AM EDT edical, PC) Documentation of current 11/07/2018 MED GEN ([facility] medications (procedure) 12:00:00 AM EDT ernaical, PC) OFFICE OUTPATIENT VISIT 25 11/07/2018 Gita LESLIE ([facility] MINUTES 12:00:00 AM EDT Medical, PC) [...] PC) OFFICE OUTPATIENT VISIT 25 11/07/2018 Gita LESLIE ([facility] MINUTES 12:00:00 AM EDT Medical, ) Documentation of current 11/07/2018 MED GEN ([facility] [...] PC) OFFICE OUTPATIENT VISIT 25 11/07/2018 Gita LESLIE ([facility] MINUTES 12:00:00 AM EDT Medical, ) Results ID Date Data Source [id number] 12/28/2019 10:05:00 AM EDT [facility] Name Value Range Interpretation Description Data Sup porting Code Source(s) Document(s ) SARS [facility] coronavirus 2 RNA This lab was ordered by [facility] and reported by [facility]. ID Date Data Source [id number] 10/26/2019 08:38:00 AM EDT [facility] Name Value Range Interpretation Description Data Sup porting Code Source(s) Document(s ) SARS [facility] Coronavirus 2 RNA Presence Respiratory Specimen DAWNA Probe Detection This lab was ordered by [place] and rep orted by [facility]. ID Date Data Source [id number] 09/12/2019 12:00:00 AM EDT [facility], ) Name Value Range Interpretation Code Description Data Supporting Source(s) Document(s ) PTH, Intact 93 pg/mL Above high normal MEDGEN ([facility], ) ID Date Data Source [id number] 09/12/2019 12:00:00 AM EDT [facility] ([facility], ) Name Value Range Interpretation Code Description Data Supporting Source(s) Document(s ) Ferritin, 235 ng/mL Above high normal MEDGEN ([facility], ) ID Date Data Source [id number] 09/12/2019 12:00:00 AM EDT [facility] ([facility], ) Name Value Range Interpretation Description Data Sup porting Code Source(s) Document(s ) Magnesium 1.8 mg/dL Normal (applies MEDGEN (St [Mass/volume] to non-numeric Rick's in Urine results) Medical, ) collected for unspecified duration ID Date Data Source [id number] 09/12/2019 12:00:00 AM EDT [facility] ([facility], ) Name Value Range Interpretation Description Data Sup porting Code Source(s) Document(s ) Deprecated 3.3 mg/dL Normal (applies to MEDGEN (St Phosphorus non-numeric Rick's [Mass/time] in results) Medical, ) 24 hour Urine ID Date Data Source [id number] 09/12/2019 12:00:00 AM EDT [facility] ([facility], ) Name Value Range Interpretation Code Description Data Astrid rce(s) Supporting Document(s ) Uric Acid 6.6 mg/dL Normal (applies to MEDGEN (St non-numeric Rick's results) Medical, ) ID Date Data Source [id number] 09/12/2019 12:00:00 AM EDT [facility] ([facility], ) Name Value Range Interpretation Description Data Sup porting Code Source(s) Document(s ) Vitamin D, 41.2 Normal (applies to MEDGEN (St 25-Hydroxy ng/mL non-numeric Rick's results) Medical, ) ID Date Data Source [id number] 09/12/2019 12:00:00 AM EDT [facility], ) Name Value Range Interpretation Code Description Data Supporting Source(s) Document(s ) Creatinine 70.3 mg/dL Normal (applies to MEDGEN (S t , Urine non-numeric Irck's results) [facility], ) Protein,To 6.5 mg/dL Normal (applies to MEDGEN (St baldemar,Urine non-numeric Rick's results) [facility], ) Protein/Cr 92 mg/g Normal (applies to [facility] (St eat Ratio creat non-numeric Rick's results) [facility], ) ID Date Data Source [id number] 09/12/2019 12:00:00 AM EDT [facility] ([facility], ) Name Value Range Interpretation Description Data Sup porting Code Source(s) Document(s ) Iron 237 ug/dL Below low normal [facility] (St Bind.Cap.(TIBC Rick's ) [facility], ) UIBC 163 ug/dL Normal (applies to [facility] (St non-numeric Rick's results) [facility], ) Iron 74 ug/dL Normal (applies to [facility] (St [Mass/volume] non-numeric Rick's in Serum or results) [facility], ) Plasma Iron 31 % Normal (applies to [facility] (St saturation non-numeric Rick's [Mass results) [facility], ) Fraction] in Serum or Plasma ID Date Data Source [id number] 09/12/2019 12:00:00 AM EDT [facility] ([facility], ) Name Value Range Interpretation Description Data Sup porting Code Source(s) Document(s ) WBC 0-5 Normal (applies to [facility] (St non-numeric Rick's results) Medical, ) RBC 0-2 Normal (applies to [facility] (St non-numeric Rick's results) [facility], ) Epithelial >10 Abnormal (applies [facility] (St Cells (non to non-numeric Rick's renal) results) [facility], ) Mucus Threads Present Normal (applies to [facility] (St non-numeric Rick's results) [facility], ) Bacteria Few Normal (applies to [facility] (St [Presence] in non-numeric Rick's Prostatic results) [facility], ) fluid by Light microscopy ID Date Data Source [id number] 09/12/2019 12:00:00 AM EDT [facility] ([facility] [...] results) [facility], PC) ID Date Data Source [id number] 09/12/2019 12:00:00 AM EDT [facility] ([facility] [...] low normal MEDGE N (St Am mL/min/1 [facility] .73 [facility], ) eGFR If Africn Am 43 Below low normal MEDGE N (St mL/min/1 [facility] .[facility], ) BUN/Creatinine 20 Normal (applies [facility] (S [...] Normal (applies [facility] (St aminotransferase to non-numeric Rikc's [Enzymatic results) Medical, activity/volume] in ) Serum or Plasma ID Date Data Source [id number] 09/12/2019 12:00:00 AM EDT [facility] ([facility], ) Name Value Range Interpretation Description Data Sup porting Code Source(s) Document(s ) Leukocytes 6.9 Normal (applies [facility] (St [#/volume] in x10E3/uL to non-numeric Rick's Blood by results) Medical, ) Automated count Erythrocytes 3.48 Below low normal [facility] (St [#/volume] in x10E6/uL Rick's Blood by [facility], ) Automated count Hemoglobin 11.6 Normal (applies [facility] (St [Mass/volume] in g/dL to non-numeric Rick's Blood results) [facility], ) Hematocrit 34.7 % Normal (applies [facility] (St [Volume to non-numeric Rick's Fraction] of results) [facility], ) Blood by Automated count MCV 100 fL Above high normal [facility] ([facility], ) MCH 33.3 pg Above high normal [facility] ([facility], ) MCHC 33.4 Normal (applies [facility] (St g/dL to non-numeric Rick's results) [facility], ) RDW 13.7 % Normal (applies [facility] (St to non-numeric Rick's results) [facility], ) Platelets 191 Normal (applies [facility] (St [#/area] in x10E3/uL to non-numeric Rick's Blood by results) [facility], ) Microscopy high power field Neutrophils [#] 65 % Normal (applies [facility] ( St in Body fluid by to non-numeric Rick's Manual count results) [facility], ) Lymphs 22 % Normal (applies [facility] (St to non-numeric Rick's results) [facility], ) Monocytes 9 % Normal (applies [facility] (St [#/volume] in to non-numeric Rick's Cord blood results) [facility], ) Basos 1 % Normal (applies [facility] (St to non-numeric Rick's results) [facility], ) Eos 3 % Normal (applies [facility] (St to non-numeric Rick's results) [facility], ) Neutrophils 4.5 Normal (applies [facility] (St (Absolute) x10E3/uL to non-numeric Rick's results) [facility], ) Lymphs 1.5 Normal (applies [facility] (St (Absolute) x10E3/uL to non-numeric Rick's results) [facility], ) Monocytes(Absolu 0.6 Normal (applies [facility] (St te) x10E3/uL to non-numeric Rick's results) [facility], ) Eos (Absolute) 0.2 Normal (applies [facility] (S t x10E3/uL to non-numeric Rick's results) [facility], ) Immature 0 % Normal (applies [facility] (St Granulocytes to non-numeric Rick's results) [facility], ) Baso (Absolute) 0.1 Normal (applies [facility] ( St x10E3/uL to non-numeric Rick's results) [facility], ) Immature Grans 0.0 Normal (applies [facility] (S t (Abs) x10E3/uL to non-numeric Rick's results) [facility], ) NRBC 1 % Above high normal [facility] ([facility], ) ID Date Data Source [id number] 09/12/2019 12:00:00 AM EDT [facility] ([facility], ) Name Value Range Interpretation Code Description Data Supporting Source(s) Document(s ) PTH, Intact 93 pg/mL Above high normal [facility] ([facility], ) ID Date Data Source [id number] 09/12/2019 12:00:00 AM EDT [facility] ([facility], ) Name Value Range Interpretation Code Description Data Supporting Source(s) Document(s ) Ferritin, 235 ng/mL Above high normal [facility] ([facility], ) ID Date Data Source [id number] 09/12/2019 12:00:00 AM EDT [facility] ([facility], ) Name Value Range Interpretation Description Data Sup porting Code Source(s) Document(s ) Magnesium 1.8 mg/dL Normal (applies [facility] (St [Mass/volume] to non-numeric Rick's in Urine results) Medical, ) collected for unspecified duration ID Date Data Source [id number] 09/12/2019 12:00:00 AM EDT [facility] ([facility], ) Name Value Range Interpretation Description Data Sup porting Code Source(s) Document(s ) Deprecated 3.3 mg/dL Normal (applies to [facility] (St Phosphorus non-numeric Rick's [Mass/time] in results) Medical, ) 24 hour Urine ID Date Data Source [id number] 09/12/2019 12:00:00 AM EDT [facility] ([facility], ) Name Value Range Interpretation Code Description Data Astrid rce(s) Supporting Document(s ) Uric Acid 6.6 mg/dL Normal (applies to [facility] (St non-numeric Rick's results) [facility], ) ID Date Data Source [id number] 09/12/2019 12:00:00 AM EDT [facility] ([facility], ) Name Value Range Interpretation Description Data Sup porting Code Source(s) Document(s ) Vitamin D, 41.2 Normal (applies to [facility] (St 25-Hydroxy ng/mL non-numeric Rick's results) Medical, ) ID Date Data Source [id number] 09/12/2019 12:00:00 AM EDT [facility] ([facility], ) Name Value Range Interpretation Code Description Data Supporting Source(s) Document(s ) Creatinine 70.3 mg/dL Normal (applies to [facility] (S t , Urine non-numeric Rick's results) Medical, ) Protein,To 6.5 mg/dL Normal (applies to [facility] (St baldemar,Urine non-numeric Rick's results) Medical, ) Protein/Cr 92 mg/g Normal (applies to [facility] (St eat Ratio creat non-numeric Rick's results) [facility], ) ID Date Data Source [id number] 09/12/2019 12:00:00 AM EDT [facility] ([facility], ) Name Value Range Interpretation Description Data Sup porting Code Source(s) Document(s ) Iron 237 ug/dL Below low normal [facility] (St Bind.Cap.(TIBC Rick's ) [facility], [facility]) UIBC 163 ug/dL Normal (applies to [facility] (St non-numeric Rick's results) [facility], [facility]) Iron 74 ug/dL Normal (applies to [facility] (St [Mass/volume] non-numeric Rick's in Serum or results) [facility], [facility]) Plasma Iron 31 % Normal (applies to [facility] (St saturation non-numeric Rick's [Mass results) [facility], PC) Fraction] in Serum or Plasma ID Date Data Source [id number] 09/12/2019 12:00:00 AM EDT [facility] ([facility] [...] by Light microscopy ID Date Data Source [id number] 09/12/2019 12:00:00 AM EDT [facility] ([facility] [...] in to non-numeric Rick's Urine collected results) [facility], for unspecified PC) duration Ketones Negative Normal [...] results) Medical, ) ID Date Data Source [id number] 09/12/2019 12:00:00 AM EDT [facility] ([facility], ) Name Value Range Interpretation Description Data [...] to non-numeric Rick's Blood results) [facility], PC) Carbon dioxide, 23 Normal (applies [facility] ( St total mmol/L to non-numeric Rick's [Moles/volume] in results) Medical, Serum or Plasma PC) Chloride 106 Normal (applies [facility] (St [Moles/volume] in mmol/L to non-numeric Rick's Serum or Plasma results) Medical, ) Calcium 9.6 Normal (applies [facility] (St [Moles/volume] in mg/dL to non-numeric Rick's Urine collected for results) Medical, unspecified ) duration Protein 5.8 g/dL Below low normal [facility] (St [Mass/volume] in Rick's Serum or Plasma Medical, ) Microalbumin 3.7 g/dL Normal (applies [facility] (St [Mass/time] in to non-numeric Rick's Urine collected for results) [facility], unspecified ) duration Globulin, Total 2.1 g/dL [...] Serum or Plasma ID Date Data Source [id number] 09/12/2019 12:00:00 AM EDT [facility] ([facility] [...] (St [#/volume] in x10E6/uL Rick's Blood by [facility], ) Automated count Hematocrit 34.7 % Normal (applies [facility] (St [Volume to non-numeric Rick's Fraction] of results) [facility], ) Blood by Automated count MCV 100 fL Above high normal [facility] ([facility], ) MCH 33.3 pg Above high normal [facility] ([facility], ) MCHC 33.4 Normal (applies [facility] (St g/dL to non-numeric Rick's results) [facility], ) RDW 13.7 % Normal (applies [facility] (St to non-numeric Rick's results) [facility], ) Neutrophils [#] 65 % Normal (applies [facility] ( St in Body fluid by to non-numeric Rick's Manual count results) [facility], ) Platelets 191 Normal (applies [facility] (St [#/area] in x10E3/uL to non-numeric Rick's Blood by results) [facility], ) Microscopy high power field Lymphs 22 % Normal (applies [facility] (St to non-numeric Rick's results) [facility], ) Eos 3 % Normal (applies [facility] (St to non-numeric Rick's results) [facility], ) Monocytes 9 % Normal (applies [facility] (St [#/volume] in to non-numeric Rick's Cord blood results) [facility], ) Basos 1 % Normal (applies [facility] (St to non-numeric Rick's results) [facility], ) Lymphs 1.5 Normal (applies [facility] (St (Absolute) x10E3/uL to non-numeric Rick's results) [facility], ) Neutrophils 4.5 Normal (applies [facility] (St (Absolute) x10E3/uL to non-numeric Rick's results) [facility], ) Monocytes(Absolu 0.6 Normal (applies [facility] (St te) x10E3/uL to non-numeric Rick's results) [facility], ) Baso (Absolute) 0.1 Normal (applies [facility] ( St x10E3/uL to non-numeric Rick's results) [facility], ) Eos (Absolute) 0.2 Normal (applies [facility] (S t x10E3/uL to non-numeric Rick's results) [facility], ) Immature 0 % Normal (applies [facility] (St Granulocytes to non-numeric Rick's results) Medical, ) Immature Grans 0.0 Normal (applies [facility] (S t (Abs) x10E3/uL to non-numeric Rick's results) [facility], ) NRBC 1 % Above high normal [facility] ([facility], ) ID Date Data Source [id number] 04/04/2019 12:00:00 AM EST [facility] ([facility], ) Name Value Range Interpretation Code Description Data Supporting Source(s) Document(s ) PTH, Intact 99 pg/mL Above high normal [facility] ([facility], ) ID Date Data Source [id number] 04/04/2019 12:00:00 AM EST [facility] ([facility], ) Name Value Range Interpretation Description Data Sup porting Code Source(s) Document(s ) Magnesium 2.0 mg/dL Normal (applies [facility] (St [Mass/volume] to non-numeric Rick's in Urine results) Medical, ) collected for unspecified duration ID Date Data Source [id number] 04/04/2019 12:00:00 AM EST [facility] ([facility], ) Name Value Range Interpretation Description Data Sup porting Code Source(s) Document(s ) Deprecated 3.0 mg/dL Normal (applies to [facility] (St Phosphorus non-numeric Rick's [Mass/time] in results) Medical, ) 24 hour Urine ID Date Data Source [id number] 04/04/2019 12:00:00 AM EST [facility] ([facility], ) Name Value Range Interpretation Code Description Data Astrid rce(s) Supporting Document(s ) Uric Acid 7.2 mg/dL Above high normal [facility] ([facility], ) ID Date Data Source [id number] 04/04/2019 12:00:00 AM EST [facility] ([facility], ) Name Value Range Interpretation Description Data Sup porting Code Source(s) Document(s ) Vitamin D, 49.4 Normal (applies to [facility] (St 25-Hydroxy ng/mL non-numeric Rick's results) Medical, ) ID Date Data Source [id number] 04/04/2019 12:00:00 AM EST [facility] ([facility], ) Name Value Range Interpretation Code Description Data Supporting Source(s) Document(s ) Creatinine 98.7 mg/dL Normal (applies to [facility] (S t , Urine non-numeric Rick's results) Medical, PC) Protein,To 9.2 mg/dL Normal (applies to [facility] (St baldemar,Urine non-numeric Rick's results) Medical, PC) Protein/Cr 93 mg/g Normal (applies to [facility] (St eat Ratio creat non-numeric Rick's results) [facility], PC) ID Date Data Source [id number] 04/04/2019 12:00:00 AM EST [facility] ([facility], ) Name Value Range Interpretation Description Data [...] by Light microscopy ID Date Data Source [id number] 04/04/2019 12:00:00 AM EST [facility] ([facility], ) Name Value Range Interpretation Description Data [...] results) Medical, ) ID Date Data Source [id number] 04/04/2019 12:00:00 AM EST [facility] ([facility] [...] .73 [facility], ) eGFR If Africn Am 40 Below low normal [facility] N (St mL/min/1 Rick's .73 [facility], ) BUN/Creatinine 14 Normal (applies [facility] (S [...] or Plasma results) Medical, PC) Carbon dioxide, 20 Normal (applies [facility] ( St total mmol/L to non-numeric Rick's [Moles/volume] in results) Medical, Serum or Plasma PC) Calcium 10.1 Normal (applies [facility] (St [Moles/volume] in mg/dL to non-numeric Rick's Urine collected for results) Medical, unspecified PC) duration Protein 6.1 g/dL Normal (applies [facility] (St [Mass/volume] in to non-numeric Rick's Serum or Plasma results) Medical, PC) Microalbumin 3.9 g/dL Normal (applies [facility] [...] Serum or Plasma ID Date Data Source [id number] 04/04/2019 12:00:00 AM EST [facility]) Name Value Range Interpretation Description Data Sup porting Code Source(s) Document(s ) Leukocytes 7.0 Normal (applies [facility] (St [#/volume] in x10E3/uL to non-numeric Rick's Blood by results) [facility], ) Automated count Erythrocytes 3.75 Below low normal [facility] (St [#/volume] in x10E6/uL Rick's Blood by [facility], ) Automated count Hemoglobin 12.3 Normal (applies [facility] (St [Mass/volume] in g/dL to non-numeric Rick's Blood results) [facility], ) Hematocrit 36.6 % Normal (applies [facility] (St [Volume to non-numeric Rick's Fraction] of results) [facility], ) Blood by Automated count MCV 98 fL Above high normal [facility] ([facility], ) MCH 32.8 pg Normal (applies [facility] (St to non-numeric Rick's results) [facility], ) MCHC 33.6 Normal (applies [facility] (St g/dL to non-numeric Rick's results) [facility], ) RDW 14.3 % Normal (applies [facility] (St to non-numeric Rick's results) [facility], ) Platelets 258 Normal (applies [facility] (St [#/area] in x10E3/uL to non-numeric Rick's Blood by results) [facility], ) Microscopy high power field Neutrophils [#] 69 % Normal (applies [facility] ( St in Body fluid by to non-numeric Rick's Manual count results) [facility], ) Lymphs 19 % Normal (applies [facility] (St to non-numeric Rick's results) [facility], ) Monocytes 9 % Normal (applies [facility] (St [#/volume] in to non-numeric Rick's Cord blood results) [facility], ) Eos 3 % Normal (applies [facility] (St to non-numeric Rick's results) [facility], ) Basos 0 % Normal (applies [facility] (St to non-numeric Rick's results) [facility], ) Lymphs 1.3 Normal (applies [facility] (St (Absolute) x10E3/uL to non-numeric Rick's results) [facility], ) Neutrophils 4.8 Normal (applies [facility] (St (Absolute) x10E3/uL to non-numeric Rick's results) [facility], ) Eos (Absolute) 0.2 Normal (applies [facility] (S t x10E3/uL to non-numeric Rick's results) [facility], ) Monocytes(Absolu 0.6 Normal (applies [facility] (St te) x10E3/uL to non-numeric Rick's results) Medical, ) Baso (Absolute) 0.0 Normal (applies [facility] ( St x10E3/uL to non-numeric Rick's results) Medical, ) Immature 0 % Normal (applies [facility] (St Granulocytes to non-numeric Rick's results) Medical, ) Immature Grans 0.0 Normal (applies [facility] (S t (Abs) x10E3/uL to non-numeric Rick's results) Medical, ) ID Date Data Source [id number] 04/04/2019 12:00:00 AM EST [facility] ([facility]) Name Value Range Interpretation Code Description Data Supporting Source(s) Document(s ) PTH, Intact 99 pg/mL Above high normal [facility] ([facility]) ID Date Data Source [id number] 04/04/2019 12:00:00 AM EST [facility] ([facility]) Name Value Range Interpretation Description Data Sup porting Code Source(s) Document(s ) Magnesium 2.0 mg/dL Normal (applies [facility] (St [Mass/volume] to non-numeric Rick's in Urine results) Medical, ) collected for unspecified duration ID Date Data Source [id number] 04/04/2019 12:00:00 AM EST [facility] ([facility]) Name Value Range Interpretation Description Data Sup porting Code Source(s) Document(s ) Deprecated 3.0 mg/dL Normal (applies to [facility] (St Phosphorus non-numeric Rick's [Mass/time] in results) Medical, ) 24 hour Urine ID Date Data Source [id number] 04/04/2019 12:00:00 AM EST [facility] ([facility]) Name Value Range Interpretation Code Description Data Astrid rce(s) Supporting Document(s ) Uric Acid 7.2 mg/dL Above high normal [facility] ([facility]) ID Date Data Source [id number] 04/04/2019 12:00:00 AM EST [facility] ([facility]) Name Value Range Interpretation Description Data Sup porting Code Source(s) Document(s ) Vitamin D, 49.4 Normal (applies to [facility] (St 25-Hydroxy ng/mL non-numeric Rick's results) Medical, ) ID Date Data Source [id number] 04/04/2019 12:00:00 AM EST [facility] ([facility], ) Name Value Range Interpretation Code Description Data Supporting Source(s) Document(s ) Creatinine 98.7 mg/dL Normal (applies to [facility] (S t , Urine non-numeric Rick's results) Medical, PC) Protein,To 9.2 mg/dL Normal (applies to [facility] (St baldemar,Urine non-numeric Rick's results) [facility], PC) Protein/Cr 93 mg/g Normal (applies to [facility] (St eat Ratio creat non-numeric Rick's results) [facility], PC) ID Date Data Source [id number] 04/04/2019 12:00:00 AM EST [facility] ([facility], ) Name Value Range Interpretation Description Data [...] by Light microscopy ID Date Data Source [id number] 04/04/2019 12:00:00 AM EST [facility] ([facility] [...] in to non-numeric Rick's Urine collected results) [facility], for unspecified PC) duration Ketones Negative Normal [...] results) Medical, ) ID Date Data Source [id number] 04/04/2019 12:00:00 AM EST [facility] ([facility] [...] (St Am mL/min/1 [facility] .73 [facility], PC) BUN/Creatinine 14 Normal (applies [facility] (S t Ratio to non-numeric Rick's results) Medical, ) eGFR If Africn Am 40 Below low normal [facility] N (St mL/min/1 [facility]'s .73 [facility], ) Sodium 140 Normal (applies [facility] (St [Moles/volume] in mmol/L to non-numeric Rick's Serum or Plasma results) Medical, PC) Chloride 104 Normal (applies [facility] (St [Moles/volume] in mmol/L to non-numeric Rick's Serum or Plasma results) Medical, PC) Potassium 4.6 Normal (applies [...] Serum or Plasma ID Date Data Source [id number] 04/04/2019 12:00:00 AM EST [facility] ([facility] ) Name Value Range Interpretation Description Data Sup porting Code Source(s) Document(s ) Leukocytes 7.0 Normal (applies [facility] (St [#/volume] in x10E3/uL to non-numeric Rick's Blood by results) [facility], ) Automated count Erythrocytes 3.75 Below low normal [facility] (St [#/volume] in x10E6/uL Rick's Blood by [facility], ) Automated count Hemoglobin 12.3 Normal (applies [facility] (St [Mass/volume] in g/dL to non-numeric Rick's Blood results) [facility], ) Hematocrit 36.6 % Normal (applies [facility] (St [Volume to non-numeric Rick's Fraction] of results) [facility], ) Blood by Automated count MCV 98 fL Above high normal [facility] ([facility], ) MCHC 33.6 Normal (applies [facility] (St g/dL to non-numeric Rick's results) [facility], ) MCH 32.8 pg Normal (applies [facility] (St to non-numeric Rick's results) [facility], ) RDW 14.3 % Normal (applies [facility] (St to non-numeric Rick's results) [facility], ) Neutrophils [#] 69 % Normal (applies [facility] ( St in Body fluid by to non-numeric Rick's Manual count results) [facility], ) Platelets 258 Normal (applies [facility] (St [#/area] in x10E3/uL to non-numeric Rick's Blood by results) [facility], ) Microscopy high power field Lymphs 19 % Normal (applies [facility] (St to non-numeric Rick's results) [facility], ) Eos 3 % Normal (applies [facility] (St to non-numeric Rick's results) [facility], ) Monocytes 9 % Normal (applies [facility] (St [#/volume] in to non-numeric Rick's Cord blood results) [facility], ) Basos 0 % Normal (applies [facility] (St to non-numeric Rick's results) [facility], ) Neutrophils 4.8 Normal (applies [facility] (St (Absolute) x10E3/uL to non-numeric Rick's results) [facility], ) Lymphs 1.3 Normal (applies [facility] (St (Absolute) x10E3/uL to non-numeric Rick's results) [facility], ) Monocytes(Absolu 0.6 Normal (applies [facility] (St te) x10E3/uL to non-numeric Rick's results) [facility], ) Baso (Absolute) 0.0 Normal (applies [facility] ( St x10E3/uL to non-numeric Rick's results) Medical, ) Eos (Absolute) 0.2 Normal (applies [facility] (S t x10E3/uL to non-numeric Rick's results) Medical, ) Immature 0 % Normal (applies [facility] (St Granulocytes to non-numeric Rick's results) Medical, ) Immature Grans 0.0 Normal (applies [facility] (S t (Abs) x10E3/uL to non-numeric Rick's results) [facility], ) ID Date Data Source [id number] 04/04/2019 12:00:00 AM EST [facility] ([facility]) Name Value Range Interpretation Code Description Data Supporting Source(s) Document(s ) PTH, Intact 99 pg/mL Above high normal [facility] ([facility], ) ID Date Data Source [id number] 04/04/2019 12:00:00 AM EST [facility] ([facility]) Name Value Range Interpretation Description Data Sup porting Code Source(s) Document(s ) Magnesium 2.0 mg/dL Normal (applies [facility] (St [Mass/volume] to non-numeric Rick's in Urine results) Medical, ) collected for unspecified duration ID Date Data Source [id number] 04/04/2019 12:00:00 AM EST [facility] ([facility], ) Name Value Range Interpretation Description Data Sup porting Code Source(s) Document(s ) Deprecated 3.0 mg/dL Normal (applies to [facility] (St Phosphorus non-numeric Rick's [Mass/time] in results) Medical, ) 24 hour Urine ID Date Data Source [id number] 04/04/2019 12:00:00 AM EST [facility] ([facility]) Name Value Range Interpretation Code Description Data Astrid rce(s) Supporting Document(s ) Uric Acid 7.2 mg/dL Above high normal [facility] ([facility]) ID Date Data Source [id number] 04/04/2019 12:00:00 AM EST [facility] ([facility]) Name Value Range Interpretation Description Data Sup porting Code Source(s) Document(s ) Vitamin D, 49.4 Normal (applies to [facility] (St 25-Hydroxy ng/mL non-numeric Rick's results) [facility], ) ID Date Data Source [id number] 04/04/2019 12:00:00 AM EST [facility] ([facility], ) Name Value Range Interpretation Code Description Data Supporting Source(s) Document(s ) Creatinine 98.7 mg/dL Normal (applies to [facility] (S t , Urine non-numeric Rick's results) Medical, PC) Protein,To 9.2 mg/dL Normal (applies to [facility] (St baldemar,Urine non-numeric Rick's results) Medical, PC) Protein/Cr 93 mg/g Normal (applies to [facility] (St eat Ratio creat non-numeric Rick's results) Medical, PC) ID Date Data Source [id number] 04/04/2019 12:00:00 AM EST MEDGEN ([facility], ) Name Value Range Interpretation Description Data [...] (St to non-numeric Rick's results) Medical, PC) ID Date Data Source [id number] 04/04/2019 12:00:00 AM EST MED[facility] ([facility] [...] (St to non-numeric Rick's results) Medical, ) Ketones Negative Normal (applies MEDGEN (St [Presence] in to non-numeric Rick's Blood by Tablet results) Medical, ) Glucose Negative Normal (applies MEDGEN (St [Mass/volume] in to non-numeric Rick's Urine collected results) [facility], for unspecified PC) duration Occult Blood Negative [...] results) Medical, ) ID Date Data Source [id number] 04/04/2019 12:00:00 AM EST [facility] ([facility] [...] (St Am mL/min/1 Rick's .73 Medical, ) BUN/Creatinine 14 Normal (applies MEDGEN (S [...] to non-numeric Rick's Urine collected for results) [facility], unspecified PC) duration Protein 6.1 g/dL Normal [...] Serum or Plasma ID Date Data Source [id number] 04/04/2019 12:00:00 AM EST [facility] ([facility], ) Name Value Range Interpretation Description Data Sup porting Code Source(s) Document(s ) Leukocytes 7.0 Normal (applies MEDGEN (St [#/volume] in x10E3/uL to non-numeric Rick's Blood by results) [facility], ) Automated count Hemoglobin 12.3 Normal (applies MEDGEN (St [Mass/volume] in g/dL to non-numeric Rick's Blood results) [facility], ) Erythrocytes 3.75 Below low normal MEDGEN (St [#/volume] in x10E6/uL Rick's Blood by [facility], ) Automated count Hematocrit 36.6 % Normal (applies MEDGEN (St [Volume to non-numeric Rick's Fraction] of results) [facility], ) Blood by Automated count MCV 98 fL Above high normal [facility] ([facility], ) MCH 32.8 pg Normal (applies MEDGEN (St to non-numeric Rick's results) [facility], ) RDW 14.3 % Normal (applies MEDGEN (St to non-numeric Rick's results) [facility], ) MCHC 33.6 Normal (applies MEDGEN (St g/dL to non-numeric Rick's results) [facility], ) Platelets 258 Normal (applies MEDGEN (St [#/area] in x10E3/uL to non-numeric Rick's Blood by results) [facility], ) Microscopy high power field Neutrophils [#] 69 % Normal (applies MEDGEN ( St in Body fluid by to non-numeric Rick's Manual count results) [facility], ) Lymphs 19 % Normal (applies MEDGEN (St to non-numeric Rick's results) [facility], ) Eos 3 % Normal (applies MEDGEN (St to non-numeric Rick's results) [facility], ) Monocytes 9 % Normal (applies MEDGEN (St [#/volume] in to non-numeric Rick's Cord blood results) [facility], ) Neutrophils 4.8 Normal (applies MEDGEN (St (Absolute) x10E3/uL to non-numeric Rick's results) [facility], ) Basos 0 % Normal (applies MEDGEN (St to non-numeric Rick's results) [facility], ) Lymphs 1.3 Normal (applies MEDGEN (St (Absolute) x10E3/uL to non-numeric Rick's results) [facility], ) Monocytes(Absolu 0.6 Normal (applies MEDGEN (St te) x10E3/uL to non-numeric Rick's results) [facility], ) Eos (Absolute) 0.2 Normal (applies MEDGEN (S t x10E3/uL to non-numeric Rick's results) [facility], ) Immature 0 % Normal (applies MEDGEN (St Granulocytes to non-numeric Rick's results) [facility], ) Baso (Absolute) 0.0 Normal (applies MEDGEN ( St x10E3/uL to non-numeric Rick's results) [facility], ) Immature Grans 0.0 Normal (applies MEDGEN (S t (Abs) x10E3/uL to non-numeric Rick's results) [facility], ) ID Date Data Source [id number] 12/06/2018 12:00:00 AM EDT [facility] ([facility], ) Name Value Range Interpretation Description Data Sup porting Code Source(s) Document(s ) PTH, Intact 131 pg/mL Above high normal MEDGEN ([facility], ) ID Date Data Source [id number] 12/06/2018 12:00:00 AM EDT [facility] ([facility], ) Name Value Range Interpretation Description Data Sup porting Code Source(s) Document(s ) Deprecated 3.1 mg/dL Normal (applies to MEDGEN (St Phosphorus non-numeric Rick's [Mass/time] in results) [facility], ) 24 hour Urine ID Date Data Source [id number] 12/06/2018 12:00:00 AM EDT [facility] ([facility], ) Name Value Range Interpretation Code Description Data Astrid rce(s) Supporting Document(s ) Uric Acid 7.4 mg/dL Above high normal MED[facility] ([facility], ) ID Date Data Source [id number] 12/06/2018 12:00:00 AM EDT [facility] ([facility], ) Name Value Range Interpretation Description Data Sup porting Code Source(s) Document(s ) Vitamin D, 47.3 Normal (applies to MEDGEN (St 25-Hydroxy ng/mL non-numeric Rick's results) [facility], ) ID Date Data Source [id number] 12/06/2018 12:00:00 AM EDT [facility] ([facility], ) Name Value Range Interpretation Code Description Data Supporting Source(s) Document(s ) Creatinine 55.9 mg/dL Normal (applies to MEDGEN (S t , Urine non-numeric Rick's results) [facility], ) Protein,To 4.9 mg/dL Normal (applies to MEDGEN (St baldemar,Urine non-numeric Rick's results) Medical, ) Protein/Cr 88 mg/g Normal (applies to MEDGEN (St eat Ratio creat non-numeric Rick's results) [facility], ) ID Date Data Source [id number] 12/06/2018 12:00:00 AM EDT [facility] ([facility], ) Name Value Range Interpretation Description Data Sup porting Code Source(s) Document(s ) Iron 267 ug/dL Normal (applies to MEDGEN (St Bind.Cap.(TIBC non-numeric Rick's ) results) Medical, ) UIBC 169 ug/dL Normal (applies to MEDGEN (St non-numeric Rick's results) [facility], ) Iron 98 ug/dL Normal (applies to MEDGEN (St [Mass/volume] non-numeric Rick's in Serum or results) Medical, ) Plasma Iron 37 % Normal (applies to MEDGEN (St saturation non-numeric Rick's [Mass results) Medical, ) Fraction] in Serum or Plasma ID Date Data Source [id number] 12/06/2018 12:00:00 AM EDT [facility] ([facility], ) Name Value Range Interpretation Description Data Sup porting Code Source(s) Document(s ) Platelets 204 Normal (applies to MEDGEN (St [#/area] in x10E3/uL non-numeric Rick's Blood by results) Medical, ) Microscopy high power field ID Date Data Source [id number] 12/06/2018 12:00:00 AM EDT [facility] ([facility], ) Name Value Range Interpretation Description Data Sup porting Code Source(s) Document(s ) Specific gravity 1.010 Normal (applies MEDGEN (St of Pericardial to non-numeric Rick's fluid by results) Medical, Refractometry ) pH of Lower 6.0 Normal (applies MEDGEN (St respiratory to non-numeric Rick's specimen results) [facility], ) Urine-Color Yellow Normal (applies MEDGEN (St to non-numeric Rick's results) [facility], ) Appearance of Clear Normal (applies MEDGEN (St Abdomen to non-numeric Rick's results) Medical, ) WBC Esterase Negative Normal (applies MEDGEN (St to non-numeric Rick's results) Medical, ) Protein Negative Normal (applies MEDGEN (St [Mass/volume] in to non-numeric Rick's Lower results) Medical, respiratory PC) specimen Glucose Negative Normal (applies MEDGEN (St [Mass/volume] in to non-numeric Rick's Urine collected results) [facility], for unspecified PC) duration Ketones Negative Normal [...] results) Medical, ) ID Date Data Source [id number] 12/06/2018 12:00:00 AM EDT [facility] ([facility], ) Name Value Range Interpretation Description Data [...] .73 Medical, ) eGFR If Africn Am 39 Below low normal MEDGE N (St mL/min/1 Rick's .73 [facility], ) BUN/Creatinine 15 Normal (applies MEDGEN (S t Ratio to non-numeric Rick's results) Medical, ) Sodium 139 Normal (applies MEDGEN (St [Moles/volume] in mmol/L to non-numeric Rick's Serum or Plasma results) Medical, PC) Potassium 4.6 Normal (applies [...] to non-numeric Rick's results) Medical, PC) Bilirubin.total 0.8 Normal (applies MEDGEN ( St [...] Serum or Plasma ID Date Data Source [id number] 12/06/2018 12:00:00 AM EDT [facility] ([facility], ) Name Value Range Interpretation Description Data Sup porting Code Source(s) Document(s ) Leukocytes 7.3 Normal (applies MEDGEN (St [#/volume] in x10E3/uL to non-numeric Rick's Blood by results) [facility], ) Automated count Erythrocytes 3.78 Normal (applies MEDGEN (St [#/volume] in x10E6/uL to non-numeric Rick's Blood by results) [facility], ) Automated count Hemoglobin 12.9 Normal (applies MEDGEN (St [Mass/volume] in g/dL to non-numeric Rick's Blood results) [facility], ) Hematocrit 36.8 % Normal (applies MEDGEN (St [Volume to non-numeric Rick's Fraction] of results) [facility], ) Blood by Automated count MCV 97 fL Normal (applies MEDGEN (St to non-numeric Rick's results) [facility], ) MCH 34.1 pg Above high normal [facility] ([facility], ) MCHC 35.1 Normal (applies MEDGEN (St g/dL to non-numeric Rick's results) [facility], ) RDW 14.8 % Normal (applies MEDGEN (St to non-numeric Rick's results) [facility], ) Neutrophils [#] 67 % Normal (applies MEDGEN ( St in Body fluid by to non-numeric Rick's Manual count results) [facility], ) Lymphs 22 % Normal (applies MEDGEN (St to non-numeric Rick's results) [facility], ) Monocytes 8 % Normal (applies MEDGEN (St [#/volume] in to non-numeric Rick's Cord blood results) [facility], ) Eos 3 % Normal (applies MEDGEN (St to non-numeric Rick's results) [facility], ) Basos 0 % Normal (applies MEDGEN (St to non-numeric Rick's results) [facility], ) Neutrophils 4.8 Normal (applies MEDGEN (St (Absolute) x10E3/uL to non-numeric Rick's results) [facility], ) Lymphs 1.6 Normal (applies MEDGEN (St (Absolute) x10E3/uL to non-numeric Rick's results) [facility], ) Eos (Absolute) 0.2 Normal (applies MEDGEN (S t x10E3/uL to non-numeric Rick's results) [facility], ) Monocytes(Absolu 0.6 Normal (applies MEDGEN (St te) x10E3/uL to non-numeric Rick's results) [facility], ) Baso (Absolute) 0.0 Normal (applies MEDGEN ( St x10E3/uL to non-numeric Rick's results) [facility], ) Immature 0 % Normal (applies MEDGEN (St Granulocytes to non-numeric Rick's results) [facility]) Immature Grans 0.0 Normal (applies MEDGEN (S t (Abs) x10E3/uL to non-numeric Rick's results) [facility]) ID Date Data Source [id number] 12/06/2018 12:00:00 AM EDT MED[facility] ([facility], ) Name Value Range Interpretation Description Data Sup porting Code Source(s) Document(s ) PTH, Intact 131 pg/mL Above high normal [facility] ([facility]) ID Date Data Source [id number] 12/06/2018 12:00:00 AM EDT [facility]) Name Value Range Interpretation Description Data Sup porting Code Source(s) Document(s ) Deprecated 3.1 mg/dL Normal (applies to MEDGEN (St Phosphorus non-numeric Rick's [Mass/time] in results) [facility], ) 24 hour Urine ID Date Data Source [id number] 12/06/2018 12:00:00 AM EDT [facility]) Name Value Range Interpretation Code Description Data Astrid rce(s) Supporting Document(s ) Uric Acid 7.4 mg/dL Above high normal [facility] ([facility]) ID Date Data Source [id number] 12/06/2018 12:00:00 AM EDT [facility] ([facility]) Name Value Range Interpretation Description Data Sup porting Code Source(s) Document(s ) Vitamin D, 47.3 Normal (applies to MEDGEN (St 25-Hydroxy ng/mL non-numeric Rick's results) [facility]) ID Date Data Source [id number] 12/06/2018 12:00:00 AM EDT [facility] ([facility]) Name Value Range Interpretation Code Description Data Supporting Source(s) Document(s ) Creatinine 55.9 mg/dL Normal (applies to MEDGEN (S t , Urine non-numeric Rick's results) [facility]) Protein,To 4.9 mg/dL Normal (applies to MEDGEN (St baldemar,Urine non-numeric Rick's results) Medical, ) Protein/Cr 88 mg/g Normal (applies to MEDGEN (St eat Ratio creat non-numeric Rick's results) Medical, ) ID Date Data Source [id number] 12/06/2018 12:00:00 AM EDT [facility] ([facility], ) Name Value Range Interpretation Description Data [...] Serum or Plasma ID Date Data Source [id number] 12/06/2018 12:00:00 AM EDT [facility] ( [facility], ) Name Value Range Interpretation Description Data Sup porting Code Source(s) Document(s ) Platelets 204 Normal (applies to MEDGEN (St [#/area] in x10E3/uL non-numeric Rick's Blood by results) Medical, ) Microscopy high power field ID Date Data Source [id number] 12/06/2018 12:00:00 AM EDT [facility] ([facility], ) Name Value Range Interpretation Description Data Sup porting Code Source(s) Document(s ) Specific gravity 1.010 Normal (applies MEDGEN (St of Pericardial to non-numeric Rick's fluid by results) Medical, Refractometry PC) pH of Lower 6.0 Normal (applies MEDGEN (St respiratory to non-numeric Rick's specimen results) Medical, PC) Urine-Color Yellow Normal (applies MEDGEN (St to non-numeric Rick's results) Medical, PC) WBC [...] results) Medical, ) ID Date Data Source [id number] 12/06/2018 12:00:00 AM EDT [facility] ([facility], ) Name [...] (St Am mL/min/1 Rick's .73 Medical, PC) BUN/Creatinine 15 Normal (applies MEDGEN (S t Ratio to non-numeric Rick's results) Medical, PC) eGFR If Africn Am 39 Below low normal MEDGE N (St mL/min/1 Rick's .73 Medical, PC) Sodium 139 Normal (applies MEDGEN (St [Moles/volume] in mmol/L to non-numeric Rick's Serum or Plasma results) Medical, PC) Chloride 103 Normal (applies MEDGEN (St [Moles/volume] in mmol/L to non-numeric Rick's Serum or Plasma results) Medical, PC) Potassium 4.6 Normal (applies [...] collected for results) Medical, unspecified ) duration A/G Ratio 1.9 Normal (applies MEDGEN [...] Serum or Plasma ID Date Data Source [id number] 12/06/2018 12:00:00 AM EDT [facility] ([facility], ) Name Value Range Interpretation Description Data Sup porting Code Source(s) Document(s ) Leukocytes 7.3 Normal (applies MEDGEN (St [#/volume] in x10E3/uL to non-numeric Rick's Blood by results) Medical, ) Automated count Erythrocytes 3.78 Normal (applies MEDGEN (St [#/volume] in x10E6/uL to non-numeric Rick's Blood by results) [facility], ) Automated count Hemoglobin 12.9 Normal (applies MEDGEN (St [Mass/volume] in g/dL to non-numeric Rick's Blood results) [facility], ) MCV 97 fL Normal (applies MEDGEN (St to non-numeric Rick's results) [facility], ) Hematocrit 36.8 % Normal (applies MEDGEN (St [Volume to non-numeric Rick's Fraction] of results) [facility], ) Blood by Automated count MCH 34.1 pg Above high normal [facility] ([facility], ) MCHC 35.1 Normal (applies MEDGEN (St g/dL to non-numeric Rick's results) [facility], ) RDW 14.8 % Normal (applies MEDGEN (St to non-numeric Rick's results) [facility], ) Neutrophils [#] 67 % Normal (applies MEDGEN ( St in Body fluid by to non-numeric Rick's Manual count results) [facility], ) Lymphs 22 % Normal (applies MEDGEN (St to non-numeric Rick's results) [facility], ) Monocytes 8 % Normal (applies MEDGEN (St [#/volume] in to non-numeric Rick's Cord blood results) [facility], ) Eos 3 % Normal (applies MEDGEN (St to non-numeric Rick's results) [facility], ) Neutrophils 4.8 Normal (applies MEDGEN (St (Absolute) x10E3/uL to non-numeric Rick's results) [facility], ) Basos 0 % Normal (applies MEDGEN (St to non-numeric Rick's results) [facility], ) Lymphs 1.6 Normal (applies MEDGEN (St (Absolute) x10E3/uL to non-numeric Rick's results) [facility], ) Monocytes(Absolu 0.6 Normal (applies MEDGEN (St te) x10E3/uL to non-numeric Rick's results) [facility], ) Baso (Absolute) 0.0 Normal (applies MEDGEN ( St x10E3/uL to non-numeric Rick's results) [facility], ) Eos (Absolute) 0.2 Normal (applies MEDGEN (S t x10E3/uL to non-numeric Rick's results) [facility], ) Immature 0 % Normal (applies MEDGEN (St Granulocytes to non-numeric Rick's results) [facility], ) Immature Grans 0.0 Normal (applies MEDGEN (S t (Abs) x10E3/uL to non-numeric Rick's results) [facility], ) ID Date Data Source [id number] 12/06/2018 12:00:00 AM EDT [facility]) Name Value Range Interpretation Description Data Sup porting Code Source(s) Document(s ) PTH, Intact 131 pg/mL Above high normal [facility] ([facility]) ID Date Data Source [id number] 12/06/2018 12:00:00 AM EDT [facility] ([facility]) Name Value Range Interpretation Description Data Sup porting Code Source(s) Document(s ) Deprecated 3.1 mg/dL Normal (applies to MEDGEN (St Phosphorus non-numeric Rick's [Mass/time] in results) [facility], ) 24 hour Urine ID Date Data Source [id number] 12/06/2018 12:00:00 AM EDT [facility] ([facility]) Name Value Range Interpretation Code Description Data Astrid rce(s) Supporting Document(s ) Uric Acid 7.4 mg/dL Above high normal [facility] ([facility]) ID Date Data Source [id number] 12/06/2018 12:00:00 AM EDT [facility] ([facility]) Name Value Range Interpretation Description Data Sup porting Code Source(s) Document(s ) Vitamin D, 47.3 Normal (applies to MEDGEN (St 25-Hydroxy ng/mL non-numeric Rick's results) Medical, ) ID Date Data Source [id number] 12/06/2018 12:00:00 AM EDT [facility] ([facility]) Name Value Range Interpretation Code Description Data Supporting Source(s) Document(s ) Creatinine 55.9 mg/dL Normal (applies to MEDGEN (S t , Urine non-numeric Rick's results) Medical, ) Protein/Cr 88 mg/g Normal (applies to MEDGEN (St eat Ratio creat non-numeric Rick's results) Medical, ) Protein,To 4.9 mg/dL Normal (applies to MEDGEN (St baldemar,Urine non-numeric Rick's results) [facility], ) ID Date Data Source [id number] 12/06/2018 12:00:00 AM EDT [facility] ([facility], ) Name Value Range Interpretation Description Data Sup porting Code Source(s) Document(s ) Iron 267 ug/dL Normal (applies to MEDGEN (St Bind.Cap.(TIBC non-numeric Rick's ) results) Medical, PC) UIBC 169 ug/dL Normal (applies to MEDGEN (St non-numeric Rick's results) Medical, PC) Iron 98 ug/dL Normal (applies to MEDGEN (St [Mass/volume] non-numeric Rick's in Serum or results) Medical, PC) Plasma Iron 37 % Normal (applies to MEDGEN (St saturation non-numeric Rick's [Mass results) Medical, ) Fraction] in Serum or Plasma ID Date Data Source [id number] 12/06/2018 12:00:00 AM EDT [facility] ([facility], ) Name Value Range Interpretation Description Data Sup porting Code Source(s) Document(s ) Platelets 204 Normal (applies to MEDGEN (St [#/area] in x10E3/uL non-numeric Rick's Blood by results) Medical, PC) Microscopy high power field ID Date Data Source [id number] 12/06/2018 12:00:00 AM EDT [facility] ([facility], ) Name Value Range Interpretation Description Data [...] (St to non-numeric Rick's results) Medical, ) Ketones Negative Normal (applies MEDGEN (St [Presence] in to non-numeric Rick's Blood by Tablet results) Medical, ) Bilirubin Negative Normal (applies MEDGEN (St [Presence] in to non-numeric Rick's Peritoneal fluid results) Medical, ) Urobilinogen,Sunil 0.2 mg/dL Normal (applies MEDGEN (St i-Qn to non-numeric Rick's results) Medical, ) Nitrite, Urine Negative Normal (applies MEDGEN (S t to non-numeric Rick's results) Medical, ) ID Date Data Source [id number] 12/06/2018 12:00:00 AM EDT [facility] ([facility], ) Name Value Range Interpretation Description Data Sup porting Code Source(s) Document(s ) Glucose 93 mg/dL Normal (applies MEDGEN (St [Mass/volume] in to non-numeric Rick's Urine collected for results) [facility], unspecified PC) duration Urea nitrogen 22 mg/dL Normal (applies MEDGEN (St [Mass/volume] in to non-numeric Rick's Serum or Plasma results) Medical, ) Creatinine 1.45 Above high MEDGEN (St [Interpretation] in mg/dL normal Rick's Urine [facility], ) eGFR If Africn Am 39 Below low normal MEDGE N (St mL/min/1 Rick's .73 [facility], ) eGFR If NonAfricn 34 Below low normal MEDGE N (St Am mL/min/1 [facility]'s .73 [facility], ) Sodium 139 Normal (applies MEDGEN (St [Moles/volume] in mmol/L to non-numeric Rick's Serum or Plasma results) Medical, ) BUN/Creatinine 15 Normal (applies MEDGEN (S t Ratio to non-numeric Rick's results) [facility], ) Potassium 4.6 Normal (applies MEDGEN (St [Mass/volume] in mmol/L to non-numeric Rick's Blood results) [facility], ) Chloride 103 Normal (applies MEDGEN (St [...] Serum or Plasma ID Date Data Source [id number] 12/06/2018 12:00:00 AM EDT [facility] ([facility] [...] [Volume to non-numeric Rick's Fraction] of results) [facility], ) Blood by Automated count MCH 34.1 pg Above high normal [facility] ([facility], ) MCHC 35.1 Normal (applies MEDGEN (St g/dL to non-numeric Rick's results) [facility], ) Neutrophils [#] 67 % Normal (applies MEDGEN ( St in Body fluid by to non-numeric Rick's Manual count results) [facility], ) RDW 14.8 % Normal (applies MEDGEN (St to non-numeric Rick's results) [facility], ) Lymphs 22 % Normal (applies MEDGEN (St to non-numeric Rick's results) [facility], ) Monocytes 8 % Normal (applies MEDGEN (St [#/volume] in to non-numeric Rick's Cord blood results) [facility], ) Eos 3 % Normal (applies MEDGEN (St to non-numeric Rick's results) [facility], ) Neutrophils 4.8 Normal (applies MEDGEN (St (Absolute) x10E3/uL to non-numeric Rick's results) Medical, ) Basos 0 % Normal (applies MEDGEN (St to non-numeric Rick's results) [facility], ) Lymphs 1.6 Normal (applies MEDGEN (St (Absolute) x10E3/uL to non-numeric Rick's results) Medical, ) Monocytes(Absolu 0.6 Normal (applies MEDGEN (St te) x10E3/uL to non-numeric Rick's results) [facility], ) Eos (Absolute) 0.2 Normal (applies MEDGEN (S t x10E3/uL to non-numeric Rick's results) Medical, ) Baso (Absolute) 0.0 Normal (applies MEDGEN ( St x10E3/uL to non-numeric Rick's results) [facility], ) Immature 0 % Normal (applies MEDGEN (St Granulocytes to non-numeric Rick's results) [facility], ) Immature Grans 0.0 Normal (applies MEDGEN (S t (Abs) x10E3/uL to non-numeric Rick's results) [facility], ) Procedure Social History Code Duration Value [...] Heart rate 80 /min 80 /min MED[facility] ([facility] , ) Respiratory rate 16 /min 16 /min [facility] ( [facility]) Body mass index 36 kg/m2 36 kg/m2 MEDGEN (S t (BMI) [Ratio] [facility], ) Diastolic blood 82 mm[Hg] 82 mm[Hg] MEDGEN (S t pressure [facility]) Systolic blood 126 mm[Hg] 126 mm[Hg] MEDGEN ([facility] , ) Body weight 230 lb 230 lb MED[facility] ([facility]) Body height 67 in 67 in MED[facility] ([facility]) Heart rate 59 /min 59 /min [facility] ([facility]) Inhaled oxygen 97 % 97 % MEDGEN ([facility], ) Body mass index 36 kg/m2 36 kg/m2 MEDGEN (S t (BMI) [Ratio] [facility], ) Diastolic blood 80 mm[Hg] 80 mm[Hg] MEDGEN (S t pressure [facility] , ) Systolic blood 128 mm[Hg] 128 mm[Hg] [facility] ([facility]) Body weight 230 lb 230 lb MED[facility] ([facility]) Body height 67 in 67 in MEDGEN ([facility]) Heart rate 59 /min 59 /min MED[facility] ([facility]) Inhaled oxygen 97 % 97 % MED[facility] ([facility], ) Body mass index 36 kg/m2 36 kg/m2 MEDGEN (S t (BMI) [Ratio] [facility], ) Diastolic blood 80 mm[Hg] 80 mm[Hg] [facility] (S t pressure [facility] [facility] [place] [facility] ) Systolic blood 128 mm[Hg] 128 mm[Hg] MED[facility] ([facility] , ) Body weight 230 lb 230 lb MED[facility] ([facility] [place]) Body height 67 in 67 in [facility] ([facility]) Heart rate 59 /min 59 /min [facility] ([facility] [place]) Inhaled oxygen 97 % 97 % [facility] ([facility], ) Body mass index 36 kg/m2 36 kg/m2 MED[facility] (S t (BMI) [Ratio] [facility], ) Diastolic blood 80 mm[Hg] 80 mm[Hg] MED[facility] (S t pressure [facility] [place]) Systolic blood 128 mm[Hg] 128 mm[Hg] [facility] ([facility]) Body weight 230 lb 230 lb [facility] ([facility]) Body height 67 in 67 in [facility] ([facility]) Heart rate 103 /min 103 /min [facility] ([facility]) Respiratory rate 18 /min 18 /min [facility] ( [facility]) Body temperature 98 F 98 F MED[facility] ( [facility]) Inhaled oxygen 97 % 97 % [facility] ([facility], ) Body mass index 37.9 kg/m2 37.9 kg/m2 MEDGEN (S t (BMI) [Ratio] [facility], ) Diastolic blood 84 mm[Hg] 84 mm[Hg] [facility] (S t [facility]) Systolic blood 126 mm[Hg] 126 mm[Hg] [facility] ([facility]) Body weight 242 lb 242 lb [facility] ([facility]) Body height 67 in 67 in [facility] ([facility]) Heart rate 103 /min 103 /min [facility] ([facility]) Respiratory rate 18 /min 18 /min MED[facility] ( [facility]) Body temperature 98 F 98 F MED[facility] ( [facility]) Inhaled oxygen 97 % 97 % MED[facility] ([facility], ) Body mass index 37.9 kg/m2 37.9 kg/m2 MEDGEN (S t (BMI) [Ratio] [facility], ) Diastolic blood 84 mm[Hg] 84 mm[Hg] [facility] (S t pressure [facility] [place]) Systolic blood 126 mm[Hg] 126 mm[Hg] [facility] ([facility]) Body weight 242 lb 242 lb MED[facility] ([facility]) Body height 67 in 67 in [facility] ([facility]) Heart rate 103 /min 103 /min [facility] ([facility]) Respiratory rate 18 /min 18 /min MED[facility] ( [facility]) Body temperature 98 F 98 F [facility] ( [facility]) Inhaled oxygen 97 % 97 % MED[facility] ([facility], ) Body mass index 37.9 kg/m2 37.9 kg/m2 MED[facility] (S t (BMI) [Ratio] [facility], ) Diastolic blood 84 mm[Hg] 84 mm[Hg] [facility] (S t pressure [facility]) Systolic blood 126 mm[Hg] 126 mm[Hg] [facility] ([facility]) Body weight 242 lb 242 lb [facility] ([facility]) Body height 67 in 67 in [facility] ([facility]) Heart rate 70 /min 70 /min [facility] ([facility]) Respiratory rate 12 /min 12 /min MED[facility] ( [facility]) Inhaled oxygen 95 % 95 % MED[facility] ([facility], ) Body mass index 37.9 kg/m2 37.9 kg/m2 MED[facility] (S t (BMI) [Ratio] [facility], ) Diastolic blood 70 mm[Hg] 70 mm[Hg] [facility] (S t [facility]) Systolic blood 122 mm[Hg] 122 mm[Hg] [facility] ([facility]) Body weight 242 lb 242 lb MED[facility] ([facility]) Body height 67 in 67 in [facility] ([facility]) Heart rate 70 /min 70 /min [facility] ([facility]) Respiratory rate 12 /min 12 /min MED[facility] ( [facility]) Inhaled oxygen 95 % 95 % MED[facility] ([facility], ) Body mass index 37.9 kg/m2 37.9 kg/m2 MEDGEN (S t (BMI) [Ratio] [facility], ) Diastolic blood 70 mm[Hg] 70 mm[Hg] [facility] (S t pressure [facility] [place]) Systolic blood 122 mm[Hg] 122 mm[Hg] [facility] ([facility]) Body weight 242 lb 242 lb MED[facility] ([facility]) Body height 67 in in [facility] ([facility]) Heart rate 70 /min 70 /min [facility] ([facility]) Respiratory rate 12 /min 12 /min MED[facility] ( [facility]) Inhaled oxygen 95 % 95 % MED[facility] ([facility]) Body mass index 37.9 kg/m2 37.9 kg/m2 MEDGEN (S t (BMI) [Ratio] [facility], ) Diastolic blood 70 mm[Hg] 70 mm[Hg] MED[facility] (S t pressure [facility] [place]) Systolic blood 122 mm[Hg] 122 mm[Hg] [facility] ([facility]) Body weight 242 lb 242 lb MED[facility] ([facility]) Body height 67 in in MED[facility] ([facility]) Heart rate 46 /min 46 /min [facility] ([facility]) Body temperature 97.4 F 97.4 F MED[facility] ( [facility]) Inhaled oxygen 96 % 96 % MED[facility] ([facility]) Body mass index 37.9 kg/m2 37.9 kg/m2 MED[facility] (S t (BMI) [Ratio] [facility], ) Diastolic blood 88 mm[Hg] 88 mm[Hg] MED[facility] (S t pressure [facility]) Systolic blood 138 mm[Hg] 138 mm[Hg] [facility] ([facility]) Body weight 242 lb 242 lb [facility] ([facility]) Body height 67 in in MED[facility] ([facility]) Heart rate 46 /min 46 /min [facility] ([facility]) Body temperature 97.4 F 97.4 F [facility] ( [facility]) Inhaled oxygen 96 % 96 % [facility] ([facility]) Body mass index 37.9 kg/m2 37.9 kg/m2 MED[facility] (S t (BMI) [Ratio] [facility], ) Diastolic blood 88 mm[Hg] 88 mm[Hg] MED[facility] (S t pressure [facility]) Systolic blood 138 mm[Hg] 138 mm[Hg] [facility] ([facility]) Body weight 242 lb 242 lb MED[facility] ([facility]) Body height 67 in in MED[facility] ([facility]) Heart rate 46 /min 46 /min [facility] ([facility]) Body temperature 97.4 F 97.4 F MED[facility] ( [facility]) Inhaled oxygen 96 % 96 % MED[facility] ([facility], ) Body mass index 37.9 kg/m2 37.9 kg/m2 MEDGEN (S t (BMI) [Ratio] [facility]) Diastolic blood 88 mm[Hg] 88 mm[Hg] [facility] (S t [facility]) Systolic blood 138 mm[Hg] 138 mm[Hg] [facility] ([facility]) Body weight 242 lb 242 lb MED[facility] ([facility]) Body height 67 in in MED[facility] ([facility]) Heart rate 70 /min 70 /min [facility] ([facility]) Respiratory rate 12 /min 12 /min [facility] ( [facility]) Body mass index 38.2 kg/m2 38.2 kg/m2 MED[facility] (S t (BMI) [Ratio] [facility]) Diastolic blood 90 mm[Hg] 90 mm[Hg] MED[facility] (S t [facility]) Systolic blood 148 mm[Hg] 148 mm[Hg] [facility] ([facility]) Body weight 244 lb 244 lb MED[facility] ([facility]) Body height 67 in in MED[facility] ([facility]) Heart rate 70 /min 70 /min [facility] ([facility]) Respiratory rate 12 /min 12 /min MED[facility] ( [facility]) Body mass index 38.2 kg/m2 38.2 kg/m2 MED[facility] (S t (BMI) [Ratio] [facility]) Diastolic blood 90 mm[Hg] 90 mm[Hg] MEDGEN (S t pressure [facility]) Systolic blood 148 mm[Hg] 148 mm[Hg] MED[facility] ([facility]) Body weight 244 lb 244 lb MED[facility] ([facility]) Body height 67 in in MED[facility] ([facility]) Heart rate 70 /min 70 /min [facility] ([facility]) Respiratory rate 12 /min 12 /min MED[facility] ( [facility]) Body mass index 38.2 kg/m2 38.2 kg/m2 MED[facility] (S t (BMI) [Ratio] [facility], ) Diastolic blood 90 mm[Hg] 90 mm[Hg] MEDGEN (S [facility]) Systolic blood 148 mm[Hg] 148 mm[Hg] MED[facility] ([facility]) Body weight 244 lb 244 lb MED[facility] ([facility]) Body height 67 in in MEDGEN ([facility]) Heart rate 53 /min 53 /min MED[facility] ([facility]) Inhaled oxygen 95 % 95 % MED[facility] ([facility], ) Body mass index 38.2 kg/m2 38.2 kg/m2 MEDGEN (S t (BMI) [Ratio] [facility], ) Diastolic blood 76 mm[Hg] 76 mm[Hg] MED[facility] (S [facility]) Systolic blood 140 mm[Hg] 140 mm[Hg] MED[facility] ([facility]) Body weight 244 lb 244 lb MED[facility] ([facility]) Body height 67 in in MEDGEN ([facility]) Heart rate 53 /min 53 /min MED[facility] ([facility]) Inhaled oxygen 95 % 95 % MED[facility] ([facility], ) Body mass index 38.2 kg/m2 38.2 kg/m2 MEDGEN (S t (BMI) [Ratio] [facility], ) Diastolic blood 76 mm[Hg] 76 mm[Hg] MED[facility] (S [facility]) Systolic blood 140 mm[Hg] 140 mm[Hg] MED[facility] ([facility]) Body weight 244 lb 244 lb MED[facility] ([facility]) Body height 67 in 67 in MED[facility] ([facility]) Heart rate 53 /min 53 /min MED[facility] ([facility]) Inhaled oxygen 95 % 95 % MEDGEN ( concentration [facility], ) Body mass index 38.2 kg/m2 38.2 kg/m2 MEDGEN (S t (BMI) [Ratio] [facility], ) Diastolic blood 76 mm[Hg] 76 mm[Hg] MEDGEN (S t pressure [facility] [place] , ) Systolic blood 140 mm[Hg] 140 mm[Hg] MEDGEN ([facility] , ) Body weight 244 lb 244 lb MEDGEN ([facility]) Body height 67 in in MEDGEN ([facility]) Heart rate 53 /min 53 /min MED[facility] ([facility]) Inhaled oxygen 95 % 95 % MED[facility] ([facility], ) Body mass index 38.2 kg/m2 38.2 kg/m2 MEDGEN (S t (BMI) [Ratio] [facility], ) Diastolic blood 76 mm[Hg] 76 mm[Hg] MEDGEN (S t pressure [facility]) Systolic blood 140 mm[Hg] 140 mm[Hg] MEDGEN ([facility] , ) Body weight 244 lb 244 lb MED[facility] ([facility]) Body height 67 in in MEDGEN ([facility]) Heart rate 53 /min 53 /min [facility] ([facility]) Inhaled oxygen 95 % 95 % MEDGEN ([facility], ) Body mass index 38.2 kg/m2 38.2 kg/m2 MEDGEN (S t (BMI) [Ratio] [facility], ) Diastolic blood 76 mm[Hg] 76 mm[Hg] MEDGEN (S t pressure [facility] [place] , ) Systolic blood 140 mm[Hg] 140 mm[Hg] MEDGEN ([facility] , ) Body weight 244 lb 244 lb MED[facility] ([facility]) Body height 67 in 67 in [facility] ([facility]) Heart rate 53 /min 53 /min [facility] ([facility]) Inhaled oxygen 95 % 95 % MED[facility] ([facility], ) Body mass index 38.2 kg/m2 38.2 kg/m2 MEDGEN (S t (BMI) [Ratio] [facility], ) Diastolic blood 76 mm[Hg] 76 mm[Hg] MEDGEN (S t pressure [facility] [place] , ) Systolic blood 140 mm[Hg] 140 mm[Hg] MEDGEN ([facility] , ) Body weight 244 lb 244 lb MED[facility] ([facility]) Body height 67 in 67 in MED[facility] ([facility]) Heart rate 84 /min 84 /min MED[facility] ([facility]) Respiratory rate 12 /min 12 /min MEDGEN ( [facility]) Inhaled oxygen 97 % 97 % MEDGEN ([facility], ) Body mass index 40.4 kg/m2 40.4 kg/m2 MEDGEN (S t (BMI) [Ratio] [facility], ) Diastolic blood 80 mm[Hg] 80 mm[Hg] MEDGEN (S t pressure [facility]) Systolic blood 132 mm[Hg] 132 mm[Hg] MEDGEN ([facility]) Body weight 258 lb 258 lb MED[facility] ([facility]) Body height 67 in 67 in MEDGEN ([facility]) Systolic blood 132 mm[Hg] 132 mm[Hg] [facility]GEN ([facility]) Body weight 258 lb 258 lb MED[facility] ([facility]) Body height 67 in 67 in MED[facility] ([facility]) Heart rate 84 /min 84 /min [facility] ([facility]) Respiratory rate 12 /min 12 /min MEDGEN ( [facility]) Inhaled oxygen 97 % 97 % MEDGEN ([facility], ) Body mass index 40.4 kg/m2 40.4 kg/m2 MEDGEN (S t (BMI) [Ratio] [facility], ) Diastolic blood 80 mm[Hg] 80 mm[Hg] MEDGEN (S t pressure [facility]) Heart rate 84 /min 84 /min MED[facility] ([facility]) Respiratory rate 12 /min 12 /min MED[facility] ( [facility]) Inhaled oxygen 97 % 97 % [facility] ([facility]) Body mass index 40.4 kg/m2 40.4 kg/m2 [facility] ([facility] (BMI) [Ratio] [facility]) Diastolic blood 80 mm[Hg] 80 mm[Hg] [facility] (S t pressure [facility]) Systolic blood 132 mm[Hg] 132 mm[Hg] [facility] ([facility]) Body weight 258 lb 258 lb [facility] ([facility]) Body height 67 in 67 in [facility] ([facility])
[2020-01-03] MEDS ORDERED: amLODIPine BESYLATE 10 MG TABLET (FP) PO ONE (09:45)
[2020-01-03] MEDS ORDERED: DEXAMETHASONE SODIUM PHOSPHATE IVPB ONE (10:00)
[2020-01-03] MEDS ORDERED: [UNRECOGNIZED DRUG - OTHER] IVPB ONE (10:00)
[2020-01-03] MEDS ORDERED: FAMOTIDINE 20 MG/50 ML IVPB 20 MG/50 ML MG IVPB ONE (10:00)
[2020-01-03] MEDS ORDERED: ACETAMINOPHEN 325 MG TABLET (FP) PO ONE (10:00)
[2020-01-03] MEDS ORDERED: ONDANSETRON IVPB ONE (10:00)
[2020-01-03] MEDS ORDERED: amLODIPine BESYLATE 5 MG TABLET (FP) PO ONE (10:00)
[2020-01-03 10:26] LABS: BASO % 0.7 % (0-2.0); EOS % 0.2 % (0-4.5); HEMATOCRIT 40.1 % (32.4-45.2); LYMPH % 10.5 % (8-40); MCH 32.8 pg (25.7-33.7); MCHC 32.5 g/dl (32.0-36.0); MEAN CELL VOLUME 100.9 fl (80-96); MEAN PLT VOLUME 7.9 fl (7.5-11.1); NEUT % 87.6 % (42.8-82.8); PLATELET COUNT 179 K/MM3 (134-434); RBC 3.97 M/mm3 (3.60-5.2); RDW 14.4 % (11.6-15.6); WHITE BLOOD COUNT 5.1 K/mm3 (4.0-10.0)
[2020-01-03] MEDS ORDERED: PEMBROLIZUMAB 200 MG in SODIUM CHLORIDE 50 ML IV ONE (10:30)
[2020-01-03 10:54] LABS: POTASSIUM 4.4 mmol/L (3.5-5.1)
[2020-01-03 10:56] LABS: ALBUMIN 3.4 g/dl (3.4-5.0); BLOOD UREA NITROGEN 31.3 mg/dL (7-18); MAGNESIUM 2.1 mg/dL (1.8-2.4)
[2020-01-03 10:59] LABS: BILIRUBIN,DIRECT 0.3 mg/dL (0.0-0.2); CREATININE 1.5 mg/dL (0.55-1.3)
[2020-01-03] MEDS ORDERED: PACLITAXEL IVPB ONE (11:00)
[2020-01-03] MEDS ORDERED: SODIUM CHLORIDE 0.9% IVPB ONE (11:00)
[2020-01-03 11:01] LABS: BILIRUBIN,TOTAL 0.7 mg/dL (0.2-1); TOT PROT 6.6 g/dl (6.4-8.2)
[2020-01-03] MEDS ORDERED: SODIUM CHLORIDE 0.9% 500 ML INFUS.BAG IV ONE (11:06)
[2020-01-03] MEDS ORDERED: INSULIN (NOVOLOG) ASPART 100 UNITS/ML 10ML VIAL SQ ONE (11:07)
[2020-01-03] MEDS ORDERED: CARBOPLATIN IVPB ONE (13:00)
[2020-01-03] MEDS ORDERED: SODIUM CHLORIDE IVPB ONE (13:00)
[2020-01-03 17:04] VITALS: TEMP 98.7
[2020-01-03 17:24] VITALS: BP 157/71; PULSE 89
== END 2020-01-03 17:34 | disposition home or self-care (01) ==
LOC: JONCCHEMO 07:04
PROVIDERS: ATTEND Internal Medicine Hematology & Oncology
DX: Z51.11 Encounter for antineoplastic chemotherapy (principal); C34.90 Malignant neoplasm of unspecified part of unspecified bronchus or lung
CPT/HCPCS: 36415; 80048; 80076; 82962; 83735; 85025; 96361; 96367; 96413; 96415; 96417; J9271

== ENCOUNTER 2020-01-31 07:54 | Day surgery (SDC) | payer OTHER ==
[2020-01-31] MEDS ORDERED: LORATADINE 10 MG TABLET PO ONE (10:41)
[2020-01-31] MEDS ORDERED: SODIUM CHLORIDE 250 ML IV ONE (12:15)
[2020-01-31] MEDS ORDERED: ACETAMINOPHEN 325 MG TABLET (FP) PO ONE (12:30)
[2020-01-31] MEDS ORDERED: ONDANSETRON IVPB ONE (12:30)
[2020-01-31] MEDS ORDERED: [UNRECOGNIZED DRUG - OTHER] IVPB ONE (12:30)
[2020-01-31] MEDS ORDERED: DEXAMETHASONE SODIUM PHOSPHATE IVPB ONE (12:30)
[2020-01-31] MEDS ORDERED: FAMOTIDINE 20 MG/50 ML IVPB 20 MG/50 ML MG IVPB ONE (12:30)
[2020-01-31] MEDS ORDERED: INSULIN SLIDING SCALE (NOVOLOG) 1 VIAL SQ SCH (12:45)
[2020-01-31] MEDS ORDERED: PACLITAXEL IVPB ONE (13:00)
[2020-01-31] MEDS ORDERED: SODIUM CHLORIDE IVPB ONE ×2 (13:00→16:00)
[2020-01-31] MEDS ORDERED: SODIUM CHLORIDE 0.45% 250 ML IVPB ONE (13:00)
[2020-01-31] MEDS ORDERED: DEXAMETHASONE INJECTION 20 MG in SODIUM CHLORIDE 50 ML IVPB ONE ×2 (13:00→15:00)
[2020-01-31 13:12] LABS: BASO % 0.7 % (0-2.0); EOS % 1.4 % (0-4.5); HEMATOCRIT 24.8 % (32.4-45.2); HEMOGLOBIN 8.3 GM/dL (10.7-15.3); LYMPH % 15.4 % (8-40); MCH 34.3 pg (25.7-33.7); MCHC 33.5 g/dl (32.0-36.0); MEAN CELL VOLUME 102.4 fl (80-96); MEAN PLT VOLUME 8.1 fl (7.5-11.1); MONO % 10.9 % (3.8-10.2); NEUT % 71.6 % (42.8-82.8); PLATELET COUNT 221 K/MM3 (134-434); RBC 2.43 M/mm3 (3.60-5.2); RDW 17.1 % (11.6-15.6); WHITE BLOOD COUNT 6.8 K/mm3 (4.0-10.0)
[2020-01-31 13:18] LABS: POTASSIUM 4.1 mmol/L (3.5-5.1)
[2020-01-31 13:20] LABS: CALCIUM 8.6 mg/dL (8.5-10.1)
[2020-01-31 13:21] LABS: ALBUMIN 2.7 g/dl (3.4-5.0)
[2020-01-31 13:22] LABS: BLOOD UREA NITROGEN 23.4 mg/dL (7-18); MAGNESIUM 1.7 mg/dL (1.8-2.4)
[2020-01-31 13:24] LABS: CREATININE 1.5 mg/dL (0.55-1.3)
[2020-01-31 13:25] LABS: BILIRUBIN,DIRECT 0.4 mg/dL (0.0-0.2)
[2020-01-31 13:27] LABS: TOT PROT 5.4 g/dl (6.4-8.2)
[2020-01-31] MEDS ORDERED: MAGNESIUM OXIDE 400 MG TABLET (FP) PO ONE (13:58)
[2020-01-31] MEDS ORDERED: SODIUM CHLORIDE 0.45% 150 ML IVPB ONE (15:15)
[2020-01-31] MEDS ORDERED: CARBOPLATIN IVPB ONE (16:00)
[2020-01-31 17:54] VITALS: TEMP 98.1
[2020-01-31] MEDS ORDERED: PORTA CATH FLUSH 10 ML IVPUSH ONE (17:54)
[2020-01-31 20:45] VITALS: BP 141/78; PULSE 79
== END 2020-01-31 20:48 | disposition home or self-care (01) ==
LOC: JINFUSION 07:54 → JONCCHEMO 07:54
PROVIDERS: ATTEND Internal Medicine Hematology & Oncology
DX: Z51.11 Encounter for antineoplastic chemotherapy (principal); C34.90 Malignant neoplasm of unspecified part of unspecified bronchus or lung
CPT/HCPCS: 36415; 80048; 80076; 82962; 83735; 85025; 96361; 96367; 96375; 96413; 96415; 96417; J1100; J2405

== ENCOUNTER 2020-02-01 07:17 | Day surgery (SDC) | payer OTHER ==
[2020-02-01] MEDS ORDERED: POTASSIUM CHLORIDE IV ONE (09:00)
[2020-02-01] MEDS ORDERED: [UNRECOGNIZED DRUG - OTHER] IV ONE (09:00)
[2020-02-01] MEDS ORDERED: MAGNESIUM SULFATE IV ONE (09:00)
[2020-02-01] MEDS ORDERED: DEXAMETHASONE SODIUM PHOSPHATE 8 MG, ONDANSETRON INJECTION 8 MG in SODIUM CHLORIDE 100 ML IVPB ONE ×2 (09:30→10:00)
[2020-02-01] MEDS ORDERED: LORATADINE 10 MG TABLET PO ONE (10:00)
[2020-02-01] MEDS ORDERED: FUROSEMIDE 40 MG/4 ML INJECTABLE VIAL IVPUSH SCH (10:30)
[2020-02-01] MEDS ORDERED: PEGFILGRASTIM-CBQV (UDENYCA) 6 MG/0.6 ML SYRINGE SQ ONE (12:00)
[2020-02-01 14:54] VITALS: BP 127/52; PULSE 48; TEMP 97.9
[2020-02-01 18:20] LABS: HEMATOCRIT 27.4 % (32.4-45.2); HEMOGLOBIN 9.3 GM/dL (10.7-15.3); MCH 33.7 pg (25.7-33.7); MCHC 33.9 g/dl (32.0-36.0); MEAN CELL VOLUME 99.3 fl (80-96); MEAN PLT VOLUME 8.8 fl (7.5-11.1); PLATELET COUNT 212 K/MM3 (134-434); RBC 2.75 M/mm3 (3.60-5.2); RDW 18.4 % (11.6-15.6)
== END 2020-02-01 16:29 | disposition home or self-care (01) ==
LOC: JONCCHEMO 07:17
PROVIDERS: ATTEND Internal Medicine Hematology & Oncology
PROC: 30233N1 Transfusion of Nonautologous Red Blood Cells into Peripheral Vein, Percutaneous Approach (ICD-10-PCS; principal; 2020-02-01)
DX: D69.6 Thrombocytopenia, unspecified (principal); C34.31 Malignant neoplasm of lower lobe, right bronchus or lung; D64.9 Anemia, unspecified
CPT/HCPCS: 36415; 36430; 85027; 86850; 86900; 86901; 86922; J2405; P9058

== ENCOUNTER 2020-02-02 07:11 | Day surgery (SDC) | payer OTHER ==
[2020-02-02] MEDS ORDERED: POTASSIUM CHLORIDE IV ONE (09:00)
[2020-02-02] MEDS ORDERED: MAGNESIUM SULFATE IV ONE (09:00)
[2020-02-02] MEDS ORDERED: [UNRECOGNIZED DRUG - OTHER] IV ONE (09:00)
[2020-02-02] MEDS ORDERED: LORATADINE 10 MG TABLET PO ONE (10:00)
[2020-02-02] MEDS ORDERED: DEXAMETHASONE SODIUM PHOSPHATE 6 MG, ONDANSETRON INJECTION 8 MG in SODIUM CHLORIDE 100 ML IVPB ONE (10:00)
[2020-02-02] MEDS ORDERED: PEGFILGRASTIM-CBQV (UDENYCA) 6 MG/0.6 ML SYRINGE SQ ONE (12:30)
[2020-02-02 16:23] VITALS: BP 116/47; PULSE 56; TEMP 98.2
[2020-02-02] MEDS ORDERED: PORTA CATH FLUSH 10 ML IVPUSH ONE (16:23)
== END 2020-02-02 16:37 | disposition home or self-care (01) ==
LOC: JONCCHEMO 07:11
PROVIDERS: ATTEND Internal Medicine Hematology & Oncology
PROC: 3E013GC Introduction of Other Therapeutic Substance into Subcutaneous Tissue, Percutaneous Approach (ICD-10-PCS; principal; 2020-02-02)
PROC: 3E0437Z Introduction of Electrolytic and Water Balance Substance into Central Vein, Percutaneous Approach (ICD-10-PCS; 2020-02-02)
DX: C34.90 Malignant neoplasm of unspecified part of unspecified bronchus or lung (principal); Z76.89 Persons encountering health services in other specified circumstances
CPT/HCPCS: 96361; 96365; 96372; J2405; Q5111

== ENCOUNTER 2020-02-15 05:07 | Day surgery (SDC) | payer OTHER ==
[2020-02-14 11:34] VITALS: BMI 38.2
[2020-02-15] MEDS ORDERED: MIDAZOLAM HCL 2 MG/2 ML SINGLE DOSE VIAL ONE (07:34)
[2020-02-15] MEDS ORDERED: PROPOFOL 20 ML ONE (07:34)
[2020-02-15] MEDS ORDERED: LIDOCAINE 1%/EPI 1:100000 (50 ML MULTI DOSE VIAL) ONE (07:52)
[2020-02-15] MEDS ORDERED: ceFAZolin SODIUM 1 GM VIAL ONE (08:07)
[2020-02-15] MEDS ORDERED: ACETAMINOPHEN 500 MG TABLET (FP) PO ONE (08:58)
[2020-02-15] MEDS ORDERED: LACTATED RINGERS SOLUTION 1,000 ML IV SCH (09:00)
[2020-02-15] MEDS ORDERED: ACETAMINOPHEN 325 MG TABLET (FP) ONE (09:27)
[2020-02-15] MEDS ORDERED: ACETAMINOPHEN 325 MG TABLET (FP) PO PRN (10:47)
[2020-02-15 11:01] VITALS: TEMP 97.8
[2020-02-15 11:15] VITALS: BP 120/60; PULSE 84
== END 2020-02-15 11:30 | disposition home or self-care (01) ==
LOC: JASU-SURG 05:07
PROVIDERS: ATTEND Orthopaedic Surgery
PROC: 0J9N0ZZ Drainage of Right Lower Leg Subcutaneous Tissue and Fascia, Open Approach (ICD-10-PCS; principal; 2020-02-15 08:00)
DX: S80.01XA Contusion of right knee, initial encounter (principal); X58.XXXA Exposure to other specified factors, initial encounter; Y93.9 Activity, unspecified; Y92.9 Unspecified place or not applicable; Y99.9 Unspecified external cause status
CPT/HCPCS: 94760

== ENCOUNTER 2020-02-20 05:41 | Day surgery (SDC) | payer OTHER ==
[2020-02-20] MEDS ORDERED: SODIUM CHLORIDE 250 ML IV ONE (09:00)
[2020-02-20] MEDS ORDERED: FAMOTIDINE 20 MG/50 ML IVPB 20 MG/50 ML MG IVPB ONE (10:00)
[2020-02-20] MEDS ORDERED: [UNRECOGNIZED DRUG - OTHER] IVPB ONE (10:00)
[2020-02-20] MEDS ORDERED: DEXAMETHASONE SODIUM PHOSPHATE IVPB ONE (10:00)
[2020-02-20] MEDS ORDERED: ACETAMINOPHEN 325 MG TABLET (FP) PO ONE (10:00)
[2020-02-20] MEDS ORDERED: LORATADINE 10 MG TABLET PO ONE (10:00)
[2020-02-20] MEDS ORDERED: ONDANSETRON IVPB ONE (10:00)
[2020-02-20] MEDS ORDERED: SODIUM CHLORIDE 0.9% IVPB ONE (10:30)
[2020-02-20] MEDS ORDERED: PACLITAXEL IVPB ONE (10:30)
[2020-02-20 11:38] LABS: BASO % 0.2 % (0-2.0); HEMATOCRIT 28.6 % (32.4-45.2); HEMOGLOBIN 9.4 GM/dL (10.7-15.3); LYMPH % 5.7 % (8-40); MCH 33.6 pg (25.7-33.7); MCHC 32.9 g/dl (32.0-36.0); MEAN CELL VOLUME 102.3 fl (80-96); MEAN PLT VOLUME 8.1 fl (7.5-11.1); MONO % 0.6 % (3.8-10.2); NEUT % 93.5 % (42.8-82.8); PLATELET COUNT 223 K/MM3 (134-434); RBC 2.79 M/mm3 (3.60-5.2); RDW 19.7 % (11.6-15.6); WHITE BLOOD COUNT 8.1 K/mm3 (4.0-10.0)
[2020-02-20 11:51] LABS: POTASSIUM 4.4 mmol/L (3.5-5.1)
[2020-02-20 11:52] LABS: CALCIUM 8.7 mg/dL (8.5-10.1)
[2020-02-20 11:53] LABS: ALBUMIN 2.7 g/dl (3.4-5.0); BLOOD UREA NITROGEN 25.3 mg/dL (7-18); MAGNESIUM 1.4 mg/dL (1.8-2.4)
[2020-02-20 11:56] LABS: BILIRUBIN,DIRECT 0.4 mg/dL (0.0-0.2); CREATININE 1.7 mg/dL (0.55-1.3)
[2020-02-20 11:58] LABS: BILIRUBIN,TOTAL 0.9 mg/dL (0.2-1); TOT PROT 5.8 g/dl (6.4-8.2)
[2020-02-20] MEDS ORDERED: MAGNESIUM 2GM/50ML STERILE WATER IVPB IVPB ONE (13:12)
[2020-02-20] MEDS ORDERED: POTASSIUM CHLORIDE TABS 20 MEQ TABLET.ER (FP) PO ONE (13:20)
[2020-02-20] MEDS ORDERED: FUROSEMIDE 40 MG/4 ML INJECTABLE VIAL IVPUSH ONE (13:20)
[2020-02-20] MEDS ORDERED: DEXTROSE 5% IVPB ONE (13:30)
[2020-02-20] MEDS ORDERED: MAGNESIUM OXIDE 400 MG TABLET (FP) PO ONE (13:30)
[2020-02-20] MEDS ORDERED: WATER IVPB ONE (13:30)
[2020-02-20] MEDS ORDERED: CARBOPLATIN IVPB ONE (13:30)
[2020-02-20 14:51] LABS: ANISOCYTOSIS 1+; MACROCYTOSIS 1+; PLATELET ESTIMATE NORMAL
[2020-02-20] MEDS ORDERED: INSULIN SLIDING SCALE (NOVOLOG) 1 VIAL SQ SCH (16:30)
[2020-02-20 18:32] VITALS: TEMP 97.5
[2020-02-20 18:34] VITALS: BP 131/78; PULSE 84
== END 2020-02-20 18:37 | disposition home or self-care (01) ==
LOC: JONCCHEMO 05:41
PROVIDERS: ATTEND Internal Medicine Hematology & Oncology
DX: Z51.11 Encounter for antineoplastic chemotherapy (principal); C34.90 Malignant neoplasm of unspecified part of unspecified bronchus or lung
CPT/HCPCS: 36415; 80048; 80076; 82962; 83735; 85025; 96361; 96366; 96367; 96413; 96415; 96417

== ENCOUNTER 2020-02-21 07:45 | Day surgery (SDC) | payer OTHER ==
[2020-02-21] MEDS ORDERED: LORATADINE 10 MG TABLET PO ONE (10:00)
[2020-02-21] MEDS ORDERED: MAGNESIUM SULFATE IVPB ONE (10:00)
[2020-02-21] MEDS ORDERED: DEXAMETHASONE SODIUM PHOSPHATE 8 MG, ONDANSETRON INJECTION 8 MG in SODIUM CHLORIDE 100 ML IVPB ONE (10:00)
[2020-02-21] MEDS ORDERED: [UNRECOGNIZED DRUG - OTHER] IVPB ONE (10:00)
[2020-02-21] MEDS ORDERED: DEXTROSE IVPB ONE (10:00)
[2020-02-21] MEDS ORDERED: PEGFILGRASTIM-CBQV (UDENYCA) 6 MG/0.6 ML SYRINGE SQ ONE (10:00)
[2020-02-21] MEDS ORDERED: POTASSIUM CHLORIDE IVPB ONE (10:00)
[2020-02-21 17:02] VITALS: BP 132/71; PULSE 88; TEMP 98.1
== END 2020-02-21 16:45 | disposition home or self-care (01) ==
LOC: JONCCHEMO 07:45
PROVIDERS: ATTEND Internal Medicine Hematology & Oncology
PROC: 3E043GC Introduction of Other Therapeutic Substance into Central Vein, Percutaneous Approach (ICD-10-PCS; principal; 2020-02-21)
PROC: 3E043GC Introduction of Other Therapeutic Substance into Central Vein, Percutaneous Approach (ICD-10-PCS; 2020-02-21)
PROC: 3E013GC Introduction of Other Therapeutic Substance into Subcutaneous Tissue, Percutaneous Approach (ICD-10-PCS; 2020-02-21)
DX: C34.90 Malignant neoplasm of unspecified part of unspecified bronchus or lung (principal); Z76.89 Persons encountering health services in other specified circumstances
CPT/HCPCS: 96361; 96365; 96372; Q5111

== ENCOUNTER 2020-02-22 13:21 | Day surgery (SDC) | payer OTHER ==
[~2020-02-22 13:21] MED LIST: DEXAMETHASONE SODIUM PHOSPHATE 6 MG, ONDANSETRON INJECTION 8 MG in SODIUM CHLORIDE 100 ML IVPB ONE; DEXTROSE IVPB ONE; LORATADINE 10 MG TABLET PO ONE; MAGNESIUM SULFATE IVPB ONE; POTASSIUM CHLORIDE IVPB ONE; [UNRECOGNIZED DRUG - OTHER] IVPB ONE
[2020-02-22 15:31] VITALS: BP 134/62; PULSE 78; TEMP 98.1
[2020-02-22] MEDS ORDERED: PORTA CATH FLUSH 10 ML IVPUSH ONE (15:31)
== END 2020-02-22 14:05 | disposition home or self-care (01) ==
LOC: JONCNONCHE 13:21
PROVIDERS: ATTEND Internal Medicine Hematology & Oncology
PROC: 3E043GC Introduction of Other Therapeutic Substance into Central Vein, Percutaneous Approach (ICD-10-PCS; principal; 2020-02-22)
PROC: 3E043GC Introduction of Other Therapeutic Substance into Central Vein, Percutaneous Approach (ICD-10-PCS; 2020-02-22)
DX: C34.90 Malignant neoplasm of unspecified part of unspecified bronchus or lung (principal); Z76.89 Persons encountering health services in other specified circumstances
CPT/HCPCS: 96365; 96366; 96367

== ENCOUNTER 2020-04-03 07:59 | Day surgery (SDC) | payer OTHER ==
[2020-04-03] MEDS ORDERED: SODIUM CHLORIDE 250 ML IV ONE ×2 (09:00→11:00)
[2020-04-03] MEDS ORDERED: DEXAMETHASONE SODIUM PHOSPHATE 4 MG, DIPHENHYDRAMINE 25 MG in SODIUM CHLORIDE 100 ML IVPB ONE (10:00)
[2020-04-03] MEDS ORDERED: NIVOLUMAB 240 MG in SODIUM CHLORIDE 100 ML IVPB ONE (10:30)
[2020-04-03 12:28] LABS: BASO % 1.2 % (0-2.0); EOS % 1.5 % (0-4.5); HEMATOCRIT 31.5 % (32.4-45.2); HEMOGLOBIN 10.6 GM/dL (10.7-15.3); LYMPH % 18.2 % (8-40); MCH 36.2 pg (25.7-33.7); MCHC 33.5 g/dl (32.0-36.0); MEAN CELL VOLUME 108.1 fl (80-96); MEAN PLT VOLUME 7.8 fl (7.5-11.1); MONO % 8.8 % (3.8-10.2); NEUT % 70.3 % (42.8-82.8); PLATELET COUNT 147 K/MM3 (134-434); RBC 2.92 M/mm3 (3.60-5.2); RDW 18.4 % (11.6-15.6); WHITE BLOOD COUNT 4.9 K/mm3 (4.0-10.0)
[2020-04-03 13:16] LABS: POTASSIUM 3.6 mmol/L (3.5-5.1)
[2020-04-03 13:17] LABS: MAGNESIUM 1.5 mg/dL (1.8-2.4)
[2020-04-03 13:18] LABS: CALCIUM 9.8 mg/dL (8.5-10.1)
[2020-04-03 13:19] LABS: ALBUMIN 3.4 g/dl (3.4-5.0); BLOOD UREA NITROGEN 25.5 mg/dL (7-18)
[2020-04-03 13:21] LABS: BILIRUBIN,DIRECT 0.4 mg/dL (0.0-0.2); CREATININE 1.5 mg/dL (0.55-1.3)
[2020-04-03 13:23] LABS: TOT PROT 5.7 g/dl (6.4-8.2)
[2020-04-03 13:24] LABS: BILIRUBIN,TOTAL 0.9 mg/dL (0.2-1)
[2020-04-03] MEDS ORDERED: MAGNESIUM SULF 50% (8.12 MEQ/2 ML-1 GM VIAL) IVPB ONE (13:46)
[2020-04-03] MEDS ORDERED: MAGNESIUM OXIDE 400 MG TABLET (FP) PO ONE (13:46)
[2020-04-03 18:21] VITALS: BP 162/87; PULSE 77; TEMP 97.6
== END 2020-04-03 17:45 | disposition home or self-care (01) ==
LOC: JONCCHEMO 07:59
PROVIDERS: ATTEND Internal Medicine Hematology & Oncology
DX: Z51.11 Encounter for antineoplastic chemotherapy (principal); C34.90 Malignant neoplasm of unspecified part of unspecified bronchus or lung
CPT/HCPCS: 36415; 80048; 80076; 82150; 83690; 83735; 84439; 84443; 85025; 86707; 86803; 87340; 96361; 96366; 96367; 96413; J9299

== ENCOUNTER 2020-04-24 07:39 | Day surgery (SDC) | payer OTHER ==
[2020-04-24] MEDS ORDERED: SODIUM CHLORIDE 250 ML IV ONE ×2 (09:00→11:00)
[2020-04-24] MEDS ORDERED: DEXAMETHASONE SODIUM PHOSPHATE 4 MG, DIPHENHYDRAMINE 25 MG in SODIUM CHLORIDE 100 ML IVPB ONE (10:00)
[2020-04-24] MEDS ORDERED: NIVOLUMAB 240 MG in SODIUM CHLORIDE 100 ML IVPB ONE (10:30)
[2020-04-24 11:09] LABS: BASO % 0.9 % (0-2.0); EOS % 1.8 % (0-4.5); HEMATOCRIT 32.6 % (32.4-45.2); HEMOGLOBIN 11.1 GM/dL (10.7-15.3); LYMPH % 21.1 % (8-40); MCH 36.1 pg (25.7-33.7); MEAN CELL VOLUME 106.2 fl (80-96); MEAN PLT VOLUME 7.4 fl (7.5-11.1); MONO % 8.4 % (3.8-10.2); NEUT % 67.8 % (42.8-82.8); PLATELET COUNT 165 K/MM3 (134-434); RBC 3.07 M/mm3 (3.60-5.2); RDW 15.5 % (11.6-15.6); WHITE BLOOD COUNT 5.1 K/mm3 (4.0-10.0)
[2020-04-24 11:37] LABS: MAGNESIUM 1.9 mg/dL (1.8-2.4)
[2020-04-24 11:38] LABS: CALCIUM 9.5 mg/dL (8.5-10.1)
[2020-04-24 11:39] LABS: ALBUMIN 3.1 g/dl (3.4-5.0); BLOOD UREA NITROGEN 27.4 mg/dL (7-18)
[2020-04-24 11:41] LABS: CREATININE 1.4 mg/dL (0.55-1.3)
[2020-04-24 11:42] LABS: TOT PROT 5.5 g/dl (6.4-8.2)
[2020-04-24 11:44] LABS: BILIRUBIN,TOTAL 0.6 mg/dL (0.2-1)
[2020-04-24 11:49] LABS: BILIRUBIN,DIRECT 0.3 mg/dL (0.0-0.2)
[2020-04-24 12:13] LABS: ANISOCYTOSIS 2+; MACROCYTOSIS 2+; PLATELET ESTIMATE NORMAL
[2020-04-24 17:35] VITALS: TEMP 98.1
[2020-04-24] MEDS ORDERED: PORTA CATH FLUSH 10 ML IVPUSH ONE (17:35)
[2020-04-24 18:01] VITALS: BP 147/68; PULSE 72
== END 2020-04-24 15:35 | disposition home or self-care (01) ==
LOC: JONCCHEMO 07:39
PROVIDERS: ATTEND Internal Medicine Hematology & Oncology
DX: Z51.11 Encounter for antineoplastic chemotherapy (principal); C34.90 Malignant neoplasm of unspecified part of unspecified bronchus or lung
CPT/HCPCS: 36415; 80053; 80076; 82150; 82533; 82607; 83690; 83735; 84439; 84443; 85025; 86704; 96361; 96367; 96413; J9299

== ENCOUNTER 2020-05-08 12:49 | Day surgery (SDC) | payer OTHER ==
[2020-05-08 10:22] LABS: BASO % 0.7 % (0-2.0); EOS % 2.2 % (0-4.5); HEMATOCRIT 33.3 % (32.4-45.2); LYMPH % 22.7 % (8-40); MCH 34.9 pg (25.7-33.7); MCHC 32.9 g/dl (32.0-36.0); MEAN CELL VOLUME 106.2 fl (80-96); MEAN PLT VOLUME 7.8 fl (7.5-11.1); NEUT % 66.4 % (42.8-82.8); PLATELET COUNT 174 K/MM3 (134-434); RBC 3.14 M/mm3 (3.60-5.2); RDW 15.1 % (11.6-15.6); WHITE BLOOD COUNT 4.3 K/mm3 (4.0-10.0)
[2020-05-08 10:39] LABS: POTASSIUM 4.3 mmol/L (3.5-5.1)
[2020-05-08 10:42] LABS: CALCIUM 9.1 mg/dL (8.5-10.1)
[2020-05-08 10:43] LABS: BLOOD UREA NITROGEN 27.4 mg/dL (7-18); MAGNESIUM 1.8 mg/dL (1.8-2.4)
[2020-05-08 10:45] LABS: BILIRUBIN,DIRECT 0.3 mg/dL (0.0-0.2); CREATININE 1.3 mg/dL (0.55-1.3)
[2020-05-08 10:47] LABS: BILIRUBIN,TOTAL 0.7 mg/dL (0.2-1); TOT PROT 5.8 g/dl (6.4-8.2)
[2020-05-08 12:16] LABS: ANISOCYTOSIS 2+; MACROCYTOSIS 2+; OVALOCYTE 1+; PLATELET ESTIMATE NORMAL
[~2020-05-08 12:49] MED LIST changes: +DEXAMETHASONE SODIUM PHOSPHATE 4 MG, DIPHENHYDRAMINE 25 MG in SODIUM CHLORIDE 100 ML IVPB ONE; -DEXAMETHASONE SODIUM PHOSPHATE 6 MG, ONDANSETRON INJECTION 8 MG in SODIUM CHLORIDE 100 ML IVPB ONE; -DEXTROSE IVPB ONE; -LORATADINE 10 MG TABLET PO ONE; -MAGNESIUM SULFATE IVPB ONE; +NIVOLUMAB 240 MG in SODIUM CHLORIDE 100 ML IVPB ONE; -POTASSIUM CHLORIDE IVPB ONE; +SODIUM CHLORIDE 250 ML IV ONE; -[UNRECOGNIZED DRUG - OTHER] IVPB ONE
[2020-05-08 14:24] VITALS: TEMP 98.2
[2020-05-08] MEDS ORDERED: PORTA CATH FLUSH 10 ML IVPUSH ONE (15:52)
[2020-05-08 16:08] VITALS: BP 136/67; PULSE 50
== END 2020-05-08 14:15 | disposition home or self-care (01) ==
LOC: JONCCHEMO 12:49
PROVIDERS: ATTEND Internal Medicine Hematology & Oncology
DX: Z51.11 Encounter for antineoplastic chemotherapy (principal); C34.90 Malignant neoplasm of unspecified part of unspecified bronchus or lung
CPT/HCPCS: 36415; 80048; 80076; 82150; 82378; 83690; 83735; 84439; 84443; 85025; 96361; 96367; 96413; J9299

== ENCOUNTER 2020-05-20 07:06 | Day surgery (SDC) | payer OTHER ==
[2020-05-20] MEDS ORDERED: SODIUM CHLORIDE 250 ML IV ONE ×2 (09:00→11:00)
[2020-05-20] MEDS ORDERED: DIPHENHYDRAMINE IVPB ONE (09:30)
[2020-05-20] MEDS ORDERED: DEXAMETHASONE SODIUM PHOSPHATE IVPB ONE (09:30)
[2020-05-20] MEDS ORDERED: SODIUM CHLORIDE IVPB ONE (09:30)
[2020-05-20] MEDS ORDERED: NIVOLUMAB 240 MG in SODIUM CHLORIDE 100 ML IVPB ONE (10:00)
[2020-05-20 12:27] LABS: BASO % 0.7 % (0-2.0); EOS % 1.6 % (0-4.5); HEMATOCRIT 33.1 % (32.4-45.2); HEMOGLOBIN 11.2 GM/dL (10.7-15.3); LYMPH % 24.5 % (8-40); MCH 35.3 pg (25.7-33.7); MCHC 33.7 g/dl (32.0-36.0); MEAN CELL VOLUME 104.5 fl (80-96); MONO % 8.7 % (3.8-10.2); NEUT % 64.5 % (42.8-82.8); PLATELET COUNT 200 K/MM3 (134-434); RBC 3.17 M/mm3 (3.60-5.2); RDW 14.8 % (11.6-15.6); WHITE BLOOD COUNT 4.5 K/mm3 (4.0-10.0)
[2020-05-20 12:44] LABS: POTASSIUM 3.9 mmol/L (3.5-5.1)
[2020-05-20 12:46] LABS: ALBUMIN 3.1 g/dl (3.4-5.0)
[2020-05-20 12:49] LABS: BILIRUBIN,DIRECT 0.3 mg/dL (0.0-0.2)
[2020-05-20 12:50] LABS: CREATININE 1.4 mg/dL (0.55-1.3)
[2020-05-20 12:51] LABS: BILIRUBIN,TOTAL 0.6 mg/dL (0.2-1); TOT PROT 5.8 g/dl (6.4-8.2)
[2020-05-20 13:06] LABS: CALCIUM 9.1 mg/dL (8.5-10.1)
[2020-05-20 16:03] VITALS: TEMP 98.1
[2020-05-20 16:29] VITALS: BP 135/72; PULSE 76
== END 2020-05-20 15:35 | disposition home or self-care (01) ==
LOC: JONCCHEMO 07:06
PROVIDERS: ATTEND Internal Medicine Hematology & Oncology
DX: Z51.11 Encounter for antineoplastic chemotherapy (principal); C34.90 Malignant neoplasm of unspecified part of unspecified bronchus or lung
CPT/HCPCS: 36415; 80048; 80076; 82150; 83690; 84439; 84443; 85025; 96361; 96367; 96413; J9299

== ENCOUNTER 2020-06-05 07:41 | Day surgery (SDC) | payer OTHER ==
[2020-06-05] MEDS ORDERED: SODIUM CHLORIDE 250 ML IV ONE ×2 (09:00→11:00)
[2020-06-05] MEDS ORDERED: DEXAMETHASONE SODIUM PHOSPHATE IVPB ONE (10:00)
[2020-06-05] MEDS ORDERED: SODIUM CHLORIDE IVPB ONE (10:00)
[2020-06-05] MEDS ORDERED: DIPHENHYDRAMINE IVPB ONE (10:00)
[2020-06-05] MEDS ORDERED: NIVOLUMAB 240 MG in SODIUM CHLORIDE 100 ML IVPB ONE (10:30)
[2020-06-05 10:47] LABS: BASO % 0.9 % (0-2.0); EOS % 2.6 % (0-4.5); HEMATOCRIT 32.8 % (32.4-45.2); MCH 34.8 pg (25.7-33.7); MCHC 33.7 g/dl (32.0-36.0); MEAN CELL VOLUME 103.3 fl (80-96); MEAN PLT VOLUME 7.9 fl (7.5-11.1); MONO % 9.4 % (3.8-10.2); NEUT % 61.1 % (42.8-82.8); PLATELET COUNT 196 K/MM3 (134-434); RBC 3.18 M/mm3 (3.60-5.2); RDW 15.2 % (11.6-15.6); WHITE BLOOD COUNT 4.2 K/mm3 (4.0-10.0)
[2020-06-05 11:11] LABS: ALBUMIN 3.1 g/dl (3.4-5.0); BLOOD UREA NITROGEN 36.2 mg/dL (7-18); CALCIUM 9.5 mg/dL (8.5-10.1); MAGNESIUM 1.8 mg/dL (1.8-2.4)
[2020-06-05 11:13] LABS: BILIRUBIN,DIRECT 0.3 mg/dL (0.0-0.2)
[2020-06-05 11:14] LABS: CREATININE 1.6 mg/dL (0.55-1.3)
[2020-06-05 11:15] LABS: BILIRUBIN,TOTAL 0.8 mg/dL (0.2-1); TOT PROT 5.7 g/dl (6.4-8.2)
[2020-06-05 16:26] VITALS: TEMP 98.2
[2020-06-05 16:38] VITALS: BP 148/78; PULSE 82
[2020-06-05] MEDS ORDERED: PORTA CATH FLUSH 10 ML IVPUSH ONE (16:38)
== END 2020-06-05 15:10 | disposition home or self-care (01) ==
LOC: JONCCHEMO 07:41
PROVIDERS: ATTEND Internal Medicine Hematology & Oncology
DX: Z51.11 Encounter for antineoplastic chemotherapy (principal); C34.90 Malignant neoplasm of unspecified part of unspecified bronchus or lung
CPT/HCPCS: 36415; 80048; 80076; 82150; 83690; 83735; 84439; 84443; 85025; 96361; 96367; 96413; J9299

== ENCOUNTER 2020-06-19 06:39 | Day surgery (SDC) | payer OTHER ==
[2020-06-19] MEDS ORDERED: SODIUM CHLORIDE 250 ML IV ONE ×2 (09:00→11:30)
[2020-06-19] MEDS ORDERED: DEXAMETHASONE SODIUM PHOSPHATE IVPB ONE (10:00)
[2020-06-19] MEDS ORDERED: DIPHENHYDRAMINE IVPB ONE (10:00)
[2020-06-19] MEDS ORDERED: SODIUM CHLORIDE IVPB ONE (10:00)
[2020-06-19] MEDS ORDERED: NIVOLUMAB 240 MG in SODIUM CHLORIDE 100 ML IVPB ONE (10:30)
[2020-06-19 10:42] LABS: BASO % 0.8 % (0-2.0); EOS % 2.6 % (0-4.5); HEMATOCRIT 31.5 % (32.4-45.2); HEMOGLOBIN 10.7 GM/dL (10.7-15.3); LYMPH % 22.8 % (8-40); MCH 34.2 pg (25.7-33.7); MCHC 33.9 g/dl (32.0-36.0); MEAN CELL VOLUME 100.9 fl (80-96); MEAN PLT VOLUME 7.6 fl (7.5-11.1); MONO % 9.3 % (3.8-10.2); NEUT % 64.5 % (42.8-82.8); PLATELET COUNT 163 K/MM3 (134-434); RBC 3.12 M/mm3 (3.60-5.2); RDW 15.1 % (11.6-15.6)
[2020-06-19 11:03] LABS: POTASSIUM 4.2 mmol/L (3.5-5.1)
[2020-06-19 11:06] LABS: ALBUMIN 2.9 g/dl (3.4-5.0); BLOOD UREA NITROGEN 27.5 mg/dL (7-18); CALCIUM 9.2 mg/dL (8.5-10.1); MAGNESIUM 1.7 mg/dL (1.8-2.4)
[2020-06-19 11:09] LABS: BILIRUBIN,DIRECT 0.3 mg/dL (0.0-0.2); CREATININE 1.4 mg/dL (0.55-1.3)
[2020-06-19 11:10] LABS: BILIRUBIN,TOTAL 0.6 mg/dL (0.2-1); TOT PROT 5.6 g/dl (6.4-8.2)
[2020-06-19] MEDS ORDERED: MAGNESIUM OXIDE 400 MG TABLET (FP) PO ONE (13:00)
[2020-06-19 18:01] VITALS: BP 135/66; PULSE 48
[2020-06-19] MEDS ORDERED: PORTA CATH FLUSH 10 ML IVPUSH ONE (18:01)
[2020-06-19 18:07] VITALS: TEMP 97.9
== END 2020-06-19 15:00 | disposition home or self-care (01) ==
LOC: JONCCHEMO 06:39
PROVIDERS: ATTEND Internal Medicine Hematology & Oncology
DX: Z51.11 Encounter for antineoplastic chemotherapy (principal); C34.90 Malignant neoplasm of unspecified part of unspecified bronchus or lung
CPT/HCPCS: 36415; 80048; 80076; 82150; 83690; 83735; 84439; 84443; 85025; 96361; 96367; 96413; J9299

== ENCOUNTER 2020-07-03 07:55 | Day surgery (SDC) | payer OTHER ==
[2020-07-03] MEDS ORDERED: SODIUM CHLORIDE 250 ML IV ONE ×2 (09:00→10:30)
[2020-07-03] MEDS ORDERED: DIPHENHYDRAMINE IVPB ONE (09:30)
[2020-07-03] MEDS ORDERED: SODIUM CHLORIDE IVPB ONE (09:30)
[2020-07-03] MEDS ORDERED: DEXAMETHASONE SODIUM PHOSPHATE IVPB ONE (09:30)
[2020-07-03] MEDS ORDERED: NIVOLUMAB 240 MG in SODIUM CHLORIDE 100 ML IVPB ONE (10:00)
[2020-07-03 10:46] LABS: BASO % 1.1 % (0-2.0); EOS % 2.3 % (0-4.5); HEMATOCRIT 32.1 % (32.4-45.2); HEMOGLOBIN 10.8 GM/dL (10.7-15.3); LYMPH % 22.3 % (8-40); MCH 33.9 pg (25.7-33.7); MCHC 33.8 g/dl (32.0-36.0); MEAN CELL VOLUME 100.4 fl (80-96); MEAN PLT VOLUME 7.8 fl (7.5-11.1); MONO % 7.9 % (3.8-10.2); NEUT % 66.4 % (42.8-82.8); PLATELET COUNT 203 K/MM3 (134-434); RDW 15.5 % (11.6-15.6); WHITE BLOOD COUNT 4.9 K/mm3 (4.0-10.0)
[2020-07-03 11:06] LABS: BLOOD UREA NITROGEN 29.4 mg/dL (7-18); CALCIUM 9.6 mg/dL (8.5-10.1)
[2020-07-03 11:07] LABS: ALBUMIN 3.1 g/dl (3.4-5.0); MAGNESIUM 1.8 mg/dL (1.8-2.4)
[2020-07-03 11:08] LABS: BILIRUBIN,DIRECT 0.3 mg/dL (0.0-0.2)
[2020-07-03 11:09] LABS: CREATININE 1.5 mg/dL (0.55-1.3)
[2020-07-03 11:10] LABS: BILIRUBIN,TOTAL 0.7 mg/dL (0.2-1); TOT PROT 5.8 g/dl (6.4-8.2)
[2020-07-03 17:26] VITALS: TEMP 98.6
[2020-07-03 17:49] VITALS: BP 133/60; PULSE 52
[2020-07-04 18:07] LABS: FREE KAPPA,SERUM 88.5 mg/L (3.3-19.4)
[2020-07-08 11:24] LABS: FREE KAP CHN UR 19.34; KAPPA LAMBDA RATIO URIN 7.53
== END 2020-07-03 14:20 | disposition home or self-care (01) ==
LOC: JONCCHEMO 07:55
PROVIDERS: ATTEND Internal Medicine Hematology & Oncology
DX: Z51.11 Encounter for antineoplastic chemotherapy (principal); C34.90 Malignant neoplasm of unspecified part of unspecified bronchus or lung
CPT/HCPCS: 36415; 80048; 80076; 82150; 82533; 83615; 83690; 83735; 83883; 84155; 84165; 84439; 84443; 84550; 85025; 96361; 96367; 96413; J9299

== ENCOUNTER 2020-07-18 07:37 | Day surgery (SDC) | payer OTHER ==
[~2020-07-18 07:37] MED LIST changes: -DEXAMETHASONE SODIUM PHOSPHATE 4 MG, DIPHENHYDRAMINE 25 MG in SODIUM CHLORIDE 100 ML IVPB ONE; +DEXAMETHASONE SODIUM PHOSPHATE IVPB ONE; +DIPHENHYDRAMINE IVPB ONE; -NIVOLUMAB 240 MG in SODIUM CHLORIDE 100 ML IVPB ONE; -SODIUM CHLORIDE 250 ML IV ONE; +SODIUM CHLORIDE IVPB ONE
[2020-07-18] MEDS ORDERED: SODIUM CHLORIDE 250 ML IV ONE ×2 (09:00→10:30)
[2020-07-18] MEDS ORDERED: DIPHENHYDRAMINE IVPB ONE (09:30)
[2020-07-18] MEDS ORDERED: SODIUM CHLORIDE IVPB ONE (09:30)
[2020-07-18] MEDS ORDERED: DEXAMETHASONE SODIUM PHOSPHATE IVPB ONE (09:30)
[2020-07-18] MEDS ORDERED: NIVOLUMAB 240 MG in SODIUM CHLORIDE 100 ML IVPB ONE (10:00)
[2020-07-18 11:56] LABS: BASO % 0.9 % (0-2.0); EOS % 2.4 % (0-4.5); HEMOGLOBIN 10.4 GM/dL (10.7-15.3); MCH 34.4 pg (25.7-33.7); MCHC 34.5 g/dl (32.0-36.0); MEAN CELL VOLUME 99.8 fl (80-96); MEAN PLT VOLUME 7.6 fl (7.5-11.1); MONO % 8.8 % (3.8-10.2); NEUT % 68.9 % (42.8-82.8); PLATELET COUNT 192 K/MM3 (134-434); RBC 3.01 M/mm3 (3.60-5.2); RDW 15.7 % (11.6-15.6); WHITE BLOOD COUNT 5.2 K/mm3 (4.0-10.0)
[2020-07-18 12:10] LABS: CALCIUM 9.5 mg/dL (8.5-10.1)
[2020-07-18 12:11] LABS: ALBUMIN 3.1 g/dl (3.4-5.0); BLOOD UREA NITROGEN 30.6 mg/dL (7-18); MAGNESIUM 1.7 mg/dL (1.8-2.4)
[2020-07-18 12:13] LABS: BILIRUBIN,DIRECT 0.3 mg/dL (0.0-0.2)
[2020-07-18 12:14] LABS: CREATININE 1.4 mg/dL (0.55-1.3)
[2020-07-18 12:15] LABS: BILIRUBIN,TOTAL 0.8 mg/dL (0.2-1); TOT PROT 5.8 g/dl (6.4-8.2)
[2020-07-18] MEDS ORDERED: MAGNESIUM OXIDE 400 MG TABLET (FP) PO ONE (12:48)
[2020-07-18 18:33] VITALS: TEMP 97.5
[2020-07-18 18:34] VITALS: BP 144/63; PULSE 72
== END 2020-07-18 15:45 | disposition home or self-care (01) ==
LOC: JONCCHEMO 07:37
PROVIDERS: ATTEND Internal Medicine Hematology & Oncology
DX: Z51.11 Encounter for antineoplastic chemotherapy (principal); C34.90 Malignant neoplasm of unspecified part of unspecified bronchus or lung
CPT/HCPCS: 36415; 80048; 80076; 82150; 82533; 83690; 83735; 84439; 84443; 85025; 96361; 96367; 96413; J9299

== ENCOUNTER 2020-08-06 07:20 | Day surgery (SDC) | payer OTHER ==
[2020-08-06] MEDS ORDERED: SODIUM CHLORIDE 250 ML IV ONE ×2 (09:00→11:00)
[2020-08-06] MEDS ORDERED: DEXAMETHASONE SODIUM PHOSPHATE IVPB ONE (10:00)
[2020-08-06] MEDS ORDERED: DIPHENHYDRAMINE IVPB ONE (10:00)
[2020-08-06] MEDS ORDERED: SODIUM CHLORIDE IVPB ONE (10:00)
[2020-08-06] MEDS ORDERED: NIVOLUMAB 240 MG in SODIUM CHLORIDE 100 ML IVPB ONE (10:30)
[2020-08-06 10:58] LABS: HEMATOCRIT 30.5 % (32.4-45.2); HEMOGLOBIN 10.1 GM/dL (10.7-15.3); LYMPH % 25.5 % (8-40); MCH 33.4 pg (25.7-33.7); MCHC 33.1 g/dl (32.0-36.0); MEAN PLT VOLUME 7.9 fl (7.5-11.1); MONO % 10.2 % (3.8-10.2); NEUT % 60.3 % (42.8-82.8); PLATELET COUNT 179 K/MM3 (134-434); RBC 3.02 M/mm3 (3.60-5.2); RDW 15.6 % (11.6-15.6)
[2020-08-06 11:26] LABS: ALBUMIN 3.1 g/dl (3.4-5.0); BLOOD UREA NITROGEN 34.8 mg/dL (7-18); MAGNESIUM 1.9 mg/dL (1.8-2.4)
[2020-08-06 11:28] LABS: BILIRUBIN,DIRECT 0.3 mg/dL (0.0-0.2)
[2020-08-06 11:29] LABS: CREATININE 1.6 mg/dL (0.55-1.3)
[2020-08-06 11:30] LABS: BILIRUBIN,TOTAL 0.8 mg/dL (0.2-1); TOT PROT 5.8 g/dl (6.4-8.2)
[2020-08-06 17:05] VITALS: BP 124/72; PULSE 86; TEMP 98.2
[2020-08-06] MEDS ORDERED: PORTA CATH FLUSH 10 ML IVPUSH ONE (17:05)
== END 2020-08-06 13:35 | disposition home or self-care (01) ==
LOC: JONCCHEMO 07:20
PROVIDERS: ATTEND Internal Medicine Hematology & Oncology
PROC: XW0DXR5 Introduction of Venetoclax Antineoplastic into Mouth and Pharynx, External Approach, New Technology Group 5 (ICD-10-PCS; principal; 2020-08-06)
DX: Z51.11 Encounter for antineoplastic chemotherapy (principal); C34.90 Malignant neoplasm of unspecified part of unspecified bronchus or lung
CPT/HCPCS: 36415; 80048; 80076; 82150; 82533; 83690; 83735; 84439; 84443; 84481; 85025; 96361; 96367; 96413; J9299

== ENCOUNTER 2020-08-20 07:18 | Day surgery (SDC) | payer OTHER ==
[2020-08-20] MEDS ORDERED: SODIUM CHLORIDE 250 ML IV ONE ×2 (09:00→10:30)
[2020-08-20] MEDS ORDERED: SODIUM CHLORIDE IVPB ONE (09:30)
[2020-08-20] MEDS ORDERED: DIPHENHYDRAMINE IVPB ONE (09:30)
[2020-08-20] MEDS ORDERED: DEXAMETHASONE SODIUM PHOSPHATE IVPB ONE (09:30)
[2020-08-20] MEDS ORDERED: NIVOLUMAB 240 MG in SODIUM CHLORIDE 100 ML IVPB ONE (10:00)
[2020-08-20 10:25] LABS: BASO % 0.9 % (0-2.0); EOS % 2.6 % (0-4.5); HEMATOCRIT 32.4 % (32.4-45.2); HEMOGLOBIN 10.9 GM/dL (10.7-15.3); LYMPH % 17.4 % (8-40); MCH 33.6 pg (25.7-33.7); MCHC 33.5 g/dl (32.0-36.0); MEAN CELL VOLUME 100.2 fl (80-96); MEAN PLT VOLUME 8.1 fl (7.5-11.1); MONO % 8.5 % (3.8-10.2); NEUT % 70.6 % (42.8-82.8); PLATELET COUNT 176 K/MM3 (134-434); RBC 3.23 M/mm3 (3.60-5.2); RDW 15.9 % (11.6-15.6); WHITE BLOOD COUNT 5.6 K/mm3 (4.0-10.0)
[2020-08-20 10:41] LABS: CALCIUM 9.4 mg/dL (8.5-10.1)
[2020-08-20 10:42] LABS: ALBUMIN 3.1 g/dl (3.4-5.0); BLOOD UREA NITROGEN 31.5 mg/dL (7-18)
[2020-08-20 10:44] LABS: BILIRUBIN,DIRECT 0.3 mg/dL (0.0-0.2)
[2020-08-20 10:45] LABS: CREATININE 1.4 mg/dL (0.55-1.3)
[2020-08-20 10:46] LABS: BILIRUBIN,TOTAL 0.7 mg/dL (0.2-1); TOT PROT 5.9 g/dl (6.4-8.2)
[2020-08-20 14:27] VITALS: TEMP 98
[2020-08-20 14:31] VITALS: BP 135/78; PULSE 94
== END 2020-08-20 14:30 | disposition home or self-care (01) ==
LOC: JONCCHEMO 07:18
PROVIDERS: ATTEND Internal Medicine Hematology & Oncology
DX: Z51.11 Encounter for antineoplastic chemotherapy (principal); C34.90 Malignant neoplasm of unspecified part of unspecified bronchus or lung
CPT/HCPCS: 36415; 80048; 80076; 82150; 82533; 83690; 83735; 84439; 84443; 85025; 96361; 96367; 96413; J9299

== ENCOUNTER 2020-09-03 07:52 | Day surgery (SDC) | payer OTHER ==
[2020-09-03] MEDS ORDERED: SODIUM CHLORIDE 250 ML IV ONE ×2 (09:00→10:30)
[2020-09-03] MEDS ORDERED: SODIUM CHLORIDE IVPB ONE (09:30)
[2020-09-03] MEDS ORDERED: DEXAMETHASONE SODIUM PHOSPHATE IVPB ONE (09:30)
[2020-09-03] MEDS ORDERED: DIPHENHYDRAMINE IVPB ONE (09:30)
[2020-09-03] MEDS ORDERED: NIVOLUMAB 240 MG in SODIUM CHLORIDE 100 ML IVPB ONE (10:00)
[2020-09-03 10:03] LABS: EOS % 3.6 % (0-4.5); HEMATOCRIT 30.9 % (32.4-45.2); HEMOGLOBIN 10.2 GM/dL (10.7-15.3); MCH 32.8 pg (25.7-33.7); MEAN CELL VOLUME 99.3 fl (80-96); MEAN PLT VOLUME 7.3 fl (7.5-11.1); MONO % 8.9 % (3.8-10.2); NEUT % 66.5 % (42.8-82.8); PLATELET COUNT 196 10^3/uL (134-434); RBC 3.12 M/mm3 (3.60-5.2); RDW 15.7 % (11.6-15.6); WHITE BLOOD COUNT 4.8 K/mm3 (4.0-10.0)
[2020-09-03 10:32] LABS: CALCIUM 9.2 mg/dL (8.5-10.1)
[2020-09-03 10:33] LABS: MAGNESIUM 1.9 mg/dL (1.8-2.4)
[2020-09-03 10:36] LABS: BILIRUBIN,DIRECT 0.2 mg/dL (0.0-0.2); CREATININE 1.5 mg/dL (0.55-1.3)
[2020-09-03 10:38] LABS: BILIRUBIN,TOTAL 0.5 mg/dL (0.2-1); TOT PROT 5.6 g/dl (6.4-8.2)
[2020-09-03 11:09] LABS: BLOOD UREA NITROGEN 33.4 mg/dL (7-18)
[2020-09-03 18:10] VITALS: BP 116/57; PULSE 72; TEMP 98.9
[2020-09-03] MEDS ORDERED: PORTA CATH FLUSH 10 ML IVPUSH ONE (18:42)
== END 2020-09-03 14:30 | disposition home or self-care (01) ==
LOC: JONCCHEMO 07:52
PROVIDERS: ATTEND Internal Medicine Hematology & Oncology
DX: Z51.11 Encounter for antineoplastic chemotherapy (principal); C34.90 Malignant neoplasm of unspecified part of unspecified bronchus or lung
CPT/HCPCS: 36415; 80048; 80076; 82150; 82533; 83690; 83735; 84439; 84443; 85025; 96361; 96367; 96413; J9299

== ENCOUNTER 2020-09-18 07:04 | Day surgery (SDC) | payer OTHER ==
[2020-09-18] MEDS ORDERED: SODIUM CHLORIDE 250 ML IV ONE ×2 (09:00→11:00)
[2020-09-18] MEDS ORDERED: SODIUM CHLORIDE IVPB ONE (10:00)
[2020-09-18] MEDS ORDERED: DEXAMETHASONE SODIUM PHOSPHATE IVPB ONE (10:00)
[2020-09-18] MEDS ORDERED: DIPHENHYDRAMINE IVPB ONE (10:00)
[2020-09-18] MEDS ORDERED: NIVOLUMAB 240 MG in SODIUM CHLORIDE 100 ML IVPB ONE (10:30)
[2020-09-18 11:04] LABS: EOS % 2.6 % (0-4.5); HEMATOCRIT 32.2 % (32.4-45.2); HEMOGLOBIN 10.6 GM/dL (10.7-15.3); LYMPH % 21.3 % (8-40); MCH 32.8 pg (25.7-33.7); MCHC 32.9 g/dl (32.0-36.0); MEAN CELL VOLUME 99.6 fl (80-96); MEAN PLT VOLUME 7.9 fl (7.5-11.1); MONO % 9.6 % (3.8-10.2); NEUT % 65.5 % (42.8-82.8); PLATELET COUNT 186 10^3/uL (134-434); RBC 3.24 M/mm3 (3.60-5.2); WHITE BLOOD COUNT 5.1 K/mm3 (4.0-10.0)
[2020-09-18 11:17] LABS: CALCIUM 9.4 mg/dL (8.5-10.1)
[2020-09-18 11:18] LABS: BLOOD UREA NITROGEN 38.9 mg/dL (7-18); MAGNESIUM 2.2 mg/dL (1.8-2.4)
[2020-09-18 11:20] LABS: ALBUMIN 3.1 g/dl (3.4-5.0)
[2020-09-18 11:21] LABS: CREATININE 1.6 mg/dL (0.55-1.3)
[2020-09-18 11:22] LABS: BILIRUBIN,DIRECT 0.2 mg/dL (0.0-0.2)
[2020-09-18 11:24] LABS: BILIRUBIN,TOTAL 0.8 mg/dL (0.2-1)
[2020-09-18 11:25] LABS: TOT PROT 5.8 g/dl (6.4-8.2)
[2020-09-18] MEDS ORDERED: PORTA CATH FLUSH 10 ML IVPUSH ONE (17:21)
[2020-09-18 17:22] VITALS: BP 135/67; PULSE 84; TEMP 98.4
== END 2020-09-18 14:15 | disposition home or self-care (01) ==
LOC: JONCCHEMO 07:04
PROVIDERS: ATTEND Internal Medicine Hematology & Oncology
DX: Z51.11 Encounter for antineoplastic chemotherapy (principal); C34.90 Malignant neoplasm of unspecified part of unspecified bronchus or lung
CPT/HCPCS: 36415; 80048; 80076; 82150; 82533; 83690; 83735; 84439; 84443; 85025; 96361; 96367; 96413; J9299

== ENCOUNTER 2020-10-08 06:40 | Day surgery (SDC) | payer OTHER ==
[2020-10-08] MEDS ORDERED: SODIUM CHLORIDE 250 ML IV ONE ×2 (09:00→11:00)
[2020-10-08] MEDS ORDERED: SODIUM CHLORIDE IVPB ONE (10:00)
[2020-10-08] MEDS ORDERED: DEXAMETHASONE SODIUM PHOSPHATE IVPB ONE (10:00)
[2020-10-08] MEDS ORDERED: DIPHENHYDRAMINE IVPB ONE (10:00)
[2020-10-08] MEDS ORDERED: NIVOLUMAB 240 MG in SODIUM CHLORIDE 100 ML IVPB ONE (10:30)
[2020-10-08 10:45] LABS: HEMATOCRIT 31.1 % (32.4-45.2); HEMOGLOBIN 10.5 GM/dL (10.7-15.3); LYMPH % 23.4 % (8-40); MCH 33.5 pg (25.7-33.7); MCHC 33.9 g/dl (32.0-36.0); MEAN CELL VOLUME 98.7 fl (80-96); MEAN PLT VOLUME 7.1 fl (7.5-11.1); MONO % 9.5 % (3.8-10.2); NEUT % 63.1 % (42.8-82.8); PLATELET COUNT 175 10^3/uL (134-434); RBC 3.15 M/mm3 (3.60-5.2); RDW 15.4 % (11.6-15.6); WHITE BLOOD COUNT 3.9 K/mm3 (4.0-10.0)
[2020-10-08 11:09] LABS: ALBUMIN 3.3 g/dl (3.4-5.0); CALCIUM 9.7 mg/dL (8.5-10.1)
[2020-10-08 11:10] LABS: BLOOD UREA NITROGEN 47.2 mg/dL (7-18)
[2020-10-08 11:12] LABS: BILIRUBIN,DIRECT 0.3 mg/dL (0.0-0.2)
[2020-10-08 11:13] LABS: CREATININE 1.7 mg/dL (0.55-1.3)
[2020-10-08 11:14] LABS: BILIRUBIN,TOTAL 0.6 mg/dL (0.2-1); TOT PROT 5.8 g/dl (6.4-8.2)
[2020-10-08 17:29] VITALS: TEMP 99.1
[2020-10-08 17:31] VITALS: BP 118/55; PULSE 82
== END 2020-10-08 15:40 | disposition home or self-care (01) ==
LOC: JONCCHEMO 06:40
PROVIDERS: ATTEND Internal Medicine Hematology & Oncology
DX: Z51.11 Encounter for antineoplastic chemotherapy (principal); C34.90 Malignant neoplasm of unspecified part of unspecified bronchus or lung
CPT/HCPCS: 36415; 80048; 80076; 82150; 82533; 82607; 82746; 83690; 83735; 84439; 84443; 85025; 96361; 96367; 96413; J9299

== ENCOUNTER 2020-10-23 07:35 | Day surgery (SDC) | payer OTHER ==
[2020-10-23] MEDS ORDERED: SODIUM CHLORIDE 250 ML IV ONE ×2 (09:00→11:00)
[2020-10-23] MEDS ORDERED: DEXAMETHASONE SODIUM PHOSPHATE IVPB ONE (09:30)
[2020-10-23] MEDS ORDERED: SODIUM CHLORIDE IVPB ONE (09:30)
[2020-10-23] MEDS ORDERED: CYANOCOBALAMIN (VITAMIN B-12) 1000 MCG/1 ML VIAL IM ONE (09:30)
[2020-10-23] MEDS ORDERED: DIPHENHYDRAMINE IVPB ONE (09:30)
[2020-10-23] MEDS ORDERED: NIVOLUMAB 240 MG in SODIUM CHLORIDE 100 ML IVPB ONE (10:00)
[2020-10-23 12:16] LABS: BASO % 0.8 % (0-2.0); HEMATOCRIT 31.4 % (32.4-45.2); HEMOGLOBIN 10.6 GM/dL (10.7-15.3); LYMPH % 21.8 % (8-40); MCH 33.6 pg (25.7-33.7); MCHC 33.9 g/dl (32.0-36.0); MEAN CELL VOLUME 99.1 fl (80-96); MEAN PLT VOLUME 7.7 fl (7.5-11.1); MONO % 9.2 % (3.8-10.2); NEUT % 65.2 % (42.8-82.8); PLATELET COUNT 184 10^3/uL (134-434); RBC 3.17 M/mm3 (3.60-5.2); RDW 15.5 % (11.6-15.6)
[2020-10-23 12:37] LABS: CALCIUM 9.1 mg/dL (8.5-10.1)
[2020-10-23 12:38] LABS: ALBUMIN 3.2 g/dl (3.4-5.0); BLOOD UREA NITROGEN 39.3 mg/dL (7-18); MAGNESIUM 1.8 mg/dL (1.8-2.4)
[2020-10-23 12:41] LABS: BILIRUBIN,DIRECT 0.2 mg/dL (0.0-0.2); CREATININE 1.7 mg/dL (0.55-1.3)
[2020-10-23 12:42] LABS: BILIRUBIN,TOTAL 0.6 mg/dL (0.2-1)
[2020-10-23 12:43] LABS: TOT PROT 5.7 g/dl (6.4-8.2)
[2020-10-23 17:09] VITALS: BP 140/60; PULSE 72; TEMP 98.2
[2020-10-23] MEDS ORDERED: PORTA CATH FLUSH 10 ML IVPUSH ONE (17:09)
== END 2020-10-23 17:00 | disposition home or self-care (01) ==
LOC: JONCCHEMO 07:35
PROVIDERS: ATTEND Internal Medicine Hematology & Oncology
PROC: 3E04305 Introduction of Other Antineoplastic into Central Vein, Percutaneous Approach (ICD-10-PCS; principal; 2020-10-23)
PROC: 3E013GC Introduction of Other Therapeutic Substance into Subcutaneous Tissue, Percutaneous Approach (ICD-10-PCS; 2020-10-23)
DX: Z51.11 Encounter for antineoplastic chemotherapy (principal); C34.90 Malignant neoplasm of unspecified part of unspecified bronchus or lung
CPT/HCPCS: 36415; 80048; 80076; 82150; 82533; 83690; 83735; 84439; 84443; 85025; 96361; 96367; 96372; 96413; J9299

== ENCOUNTER 2020-11-06 06:56 | Day surgery (SDC) | payer OTHER ==
[2020-11-06] MEDS ORDERED: SODIUM CHLORIDE 250 ML IV ONE ×2 (09:00→11:00)
[2020-11-06] MEDS ORDERED: DIPHENHYDRAMINE IVPB ONE (09:30)
[2020-11-06] MEDS ORDERED: DEXAMETHASONE SODIUM PHOSPHATE IVPB ONE (09:30)
[2020-11-06] MEDS ORDERED: SODIUM CHLORIDE IVPB ONE (09:30)
[2020-11-06] MEDS ORDERED: CYANOCOBALAMIN (VITAMIN B-12) 1000 MCG/1 ML VIAL IM ONE (09:30)
[2020-11-06] MEDS ORDERED: NIVOLUMAB 240 MG in SODIUM CHLORIDE 100 ML IVPB ONE (10:00)
[2020-11-06 10:40] LABS: BASO % 1.1 % (0-2.0); EOS % 3.1 % (0-4.5); HEMATOCRIT 32.1 % (32.4-45.2); HEMOGLOBIN 10.9 GM/dL (10.7-15.3); LYMPH % 20.7 % (8-40); MCH 34.1 pg (25.7-33.7); MCHC 33.9 g/dl (32.0-36.0); MEAN CELL VOLUME 100.3 fl (80-96); MEAN PLT VOLUME 7.4 fl (7.5-11.1); MONO % 8.8 % (3.8-10.2); NEUT % 66.3 % (42.8-82.8); PLATELET COUNT 208 10^3/uL (134-434); RBC 3.19 M/mm3 (3.60-5.2); RDW 15.1 % (11.6-15.6); WHITE BLOOD COUNT 4.8 K/mm3 (4.0-10.0)
[2020-11-06 11:04] LABS: CALCIUM 9.4 mg/dL (8.5-10.1)
[2020-11-06 11:05] LABS: ALBUMIN 3.2 g/dl (3.4-5.0); BLOOD UREA NITROGEN 43.8 mg/dL (7-18)
[2020-11-06 11:07] LABS: BILIRUBIN,DIRECT 0.2 mg/dL (0.0-0.2); CREATININE 1.6 mg/dL (0.55-1.3)
[2020-11-06 11:09] LABS: BILIRUBIN,TOTAL 0.5 mg/dL (0.2-1); TOT PROT 5.9 g/dl (6.4-8.2)
[2020-11-06 17:40] VITALS: TEMP 97.8
[2020-11-06 17:42] VITALS: BP 120/72; PULSE 79
== END 2020-11-06 14:30 | disposition home or self-care (01) ==
LOC: JONCCHEMO 06:56
PROVIDERS: ATTEND Internal Medicine Hematology & Oncology
DX: Z51.11 Encounter for antineoplastic chemotherapy (principal); C34.90 Malignant neoplasm of unspecified part of unspecified bronchus or lung
CPT/HCPCS: 36415; 80048; 80076; 82150; 82533; 83690; 83735; 84443; 85025; 96361; 96367; 96413; J9299

== ENCOUNTER 2020-11-20 07:54 | Day surgery (SDC) | payer OTHER ==
[2020-11-20] MEDS ORDERED: SODIUM CHLORIDE 250 ML IV ONE ×2 (09:00→11:00)
[2020-11-20] MEDS ORDERED: CYANOCOBALAMIN (VITAMIN B-12) 1000 MCG/1 ML VIAL IM ONE (10:00)
[2020-11-20] MEDS ORDERED: SODIUM CHLORIDE IVPB ONE (10:00)
[2020-11-20] MEDS ORDERED: DIPHENHYDRAMINE IVPB ONE (10:00)
[2020-11-20] MEDS ORDERED: DEXAMETHASONE SODIUM PHOSPHATE IVPB ONE (10:00)
[2020-11-20] MEDS ORDERED: NIVOLUMAB 240 MG in SODIUM CHLORIDE 100 ML IVPB ONE (10:30)
[2020-11-20 11:34] LABS: BASO % 1.1 % (0-2.0); EOS % 3.9 % (0-4.5); HEMATOCRIT 30.5 % (32.4-45.2); HEMOGLOBIN 10.7 GM/dL (10.7-15.3); LYMPH % 15.5 % (8-40); MCH 34.5 pg (25.7-33.7); MEAN CELL VOLUME 98.6 fl (80-96); MEAN PLT VOLUME 7.6 fl (7.5-11.1); MONO % 8.9 % (3.8-10.2); NEUT % 70.6 % (42.8-82.8); PLATELET COUNT 216 10^3/uL (134-434); RBC 3.09 M/mm3 (3.60-5.2); RDW 14.4 % (11.6-15.6); WHITE BLOOD COUNT 5.2 K/mm3 (4.0-10.0)
[2020-11-20 11:59] LABS: CALCIUM 9.3 mg/dL (8.5-10.1)
[2020-11-20 12:00] LABS: BLOOD UREA NITROGEN 46.6 mg/dL (7-18)
[2020-11-20 12:02] LABS: BILIRUBIN,DIRECT 0.2 mg/dL (0.0-0.2)
[2020-11-20 12:03] LABS: CREATININE 1.9 mg/dL (0.55-1.3)
[2020-11-20 12:04] LABS: BILIRUBIN,TOTAL 0.7 mg/dL (0.2-1); TOT PROT 5.9 g/dl (6.4-8.2)
[2020-11-20 16:34] VITALS: TEMP 98.2
[2020-11-20 16:41] VITALS: BP 130/61; PULSE 69
[2020-11-20] MEDS ORDERED: PORTA CATH FLUSH 10 ML IVPUSH ONE (16:41)
== END 2020-11-20 15:30 | disposition home or self-care (01) ==
LOC: JONCCHEMO 07:54
PROVIDERS: ATTEND Internal Medicine Hematology & Oncology
PROC: 3E04305 Introduction of Other Antineoplastic into Central Vein, Percutaneous Approach (ICD-10-PCS; principal; 2020-11-20)
PROC: 3E043GC Introduction of Other Therapeutic Substance into Central Vein, Percutaneous Approach (ICD-10-PCS; 2020-11-20)
PROC: 3E0437Z Introduction of Electrolytic and Water Balance Substance into Central Vein, Percutaneous Approach (ICD-10-PCS; 2020-11-20)
DX: Z51.11 Encounter for antineoplastic chemotherapy (principal); C34.31 Malignant neoplasm of lower lobe, right bronchus or lung
CPT/HCPCS: 36415; 80048; 80076; 82150; 82533; 83690; 83735; 84439; 84443; 85025; 96361; 96367; 96413; J9299

== ENCOUNTER 2020-12-03 07:43 | Day surgery (SDC) | payer OTHER ==
[2020-12-03] MEDS ORDERED: SODIUM CHLORIDE 250 ML IV ONE ×2 (09:00→11:00)
[2020-12-03] MEDS ORDERED: SODIUM CHLORIDE IVPB ONE (10:00)
[2020-12-03] MEDS ORDERED: CYANOCOBALAMIN (VITAMIN B-12) 1000 MCG/1 ML VIAL IM ONE (10:00)
[2020-12-03] MEDS ORDERED: DIPHENHYDRAMINE IVPB ONE (10:00)
[2020-12-03] MEDS ORDERED: DEXAMETHASONE SODIUM PHOSPHATE IVPB ONE (10:00)
[2020-12-03] MEDS ORDERED: NIVOLUMAB 240 MG in SODIUM CHLORIDE 100 ML IVPB ONE (10:30)
[2020-12-03 11:05] LABS: BASO % 1.3 % (0-2.0); EOS % 3.8 % (0-4.5); HEMATOCRIT 30.9 % (32.4-45.2); HEMOGLOBIN 10.5 GM/dL (10.7-15.3); LYMPH % 19.4 % (8-40); MCH 33.9 pg (25.7-33.7); MCHC 34.2 g/dl (32.0-36.0); MEAN CELL VOLUME 99.2 fl (80-96); MONO % 9.2 % (3.8-10.2); NEUT % 66.3 % (42.8-82.8); PLATELET COUNT 187 10^3/uL (134-434); RBC 3.11 M/mm3 (3.60-5.2); RDW 15.1 % (11.6-15.6)
[2020-12-03 11:35] LABS: CALCIUM 9.2 mg/dL (8.5-10.1)
[2020-12-03 11:36] LABS: MAGNESIUM 1.9 mg/dL (1.8-2.4)
[2020-12-03 11:38] LABS: BILIRUBIN,DIRECT 0.2 mg/dL (0.0-0.2); CREATININE 1.7 mg/dL (0.55-1.3)
[2020-12-03 11:39] LABS: BILIRUBIN,TOTAL 0.6 mg/dL (0.2-1)
[2020-12-03 16:19] VITALS: TEMP 98.5
[2020-12-03 16:25] VITALS: BP 140/55; PULSE 75
== END 2020-12-03 14:45 | disposition home or self-care (01) ==
LOC: JONCCHEMO 07:43
PROVIDERS: ATTEND Internal Medicine Hematology & Oncology
PROC: 3E04305 Introduction of Other Antineoplastic into Central Vein, Percutaneous Approach (ICD-10-PCS; principal; 2020-12-03)
PROC: 3E013GC Introduction of Other Therapeutic Substance into Subcutaneous Tissue, Percutaneous Approach (ICD-10-PCS; 2020-12-03)
DX: Z51.11 Encounter for antineoplastic chemotherapy (principal); C34.31 Malignant neoplasm of lower lobe, right bronchus or lung
CPT/HCPCS: 36415; 80048; 80076; 82150; 82533; 83690; 83735; 84439; 84443; 85025; 96361; 96367; 96372; 96413; J9299

== ENCOUNTER 2020-12-17 07:36 | Day surgery (SDC) | payer OTHER ==
[2020-12-17] MEDS ORDERED: DEXAMETHASONE IVPB ONE (10:00)
[2020-12-17] MEDS ORDERED: CYANOCOBALAMIN (VITAMIN B-12) 1000 MCG/1 ML VIAL IM ONE (10:00)
[2020-12-17] MEDS ORDERED: SODIUM CHLORIDE 250 ML IV ONE ×2 (10:00→11:30)
[2020-12-17] MEDS ORDERED: SODIUM CHLORIDE IVPB ONE (10:00)
[2020-12-17] MEDS ORDERED: DIPHENHYDRAMINE IVPB ONE (10:00)
[2020-12-17 10:46] LABS: BASO % 0.7 % (0-2.0); EOS % 2.9 % (0-4.5); HEMATOCRIT 32.1 % (32.4-45.2); HEMOGLOBIN 10.9 GM/dL (10.7-15.3); LYMPH % 17.6 % (8-40); MCH 34.2 pg (25.7-33.7); MCHC 34.1 g/dl (32.0-36.0); MEAN CELL VOLUME 100.4 fl (80-96); MEAN PLT VOLUME 7.9 fl (7.5-11.1); MONO % 9.1 % (3.8-10.2); NEUT % 69.7 % (42.8-82.8); PLATELET COUNT 199 10^3/uL (134-434); RDW 14.9 % (11.6-15.6); WHITE BLOOD COUNT 5.3 K/mm3 (4.0-10.0)
[2020-12-17] MEDS ORDERED: NIVOLUMAB 240 MG in SODIUM CHLORIDE 100 ML IVPB ONE (11:00)
[2020-12-17 11:05] LABS: ALBUMIN 3.1 g/dl (3.4-5.0); BLOOD UREA NITROGEN 41.2 mg/dL (7-18); CALCIUM 9.3 mg/dL (8.5-10.1); MAGNESIUM 1.7 mg/dL (1.8-2.4)
[2020-12-17 11:07] LABS: BILIRUBIN,DIRECT 0.2 mg/dL (0.0-0.2)
[2020-12-17 11:08] LABS: CREATININE 1.6 mg/dL (0.55-1.3)
[2020-12-17 11:09] LABS: BILIRUBIN,TOTAL 0.5 mg/dL (0.2-1)
[2020-12-17] MEDS ORDERED: MAGNESIUM OXIDE 400 MG TABLET (FP) PO ONE (11:40)
[2020-12-17 15:44] VITALS: BP 149/65; PULSE 77; TEMP 98.4
[2020-12-17] MEDS ORDERED: PORTA CATH FLUSH 10 ML IVPUSH ONE (15:44)
== END 2020-12-17 16:00 | disposition home or self-care (01) ==
LOC: JONCCHEMO 07:36
PROVIDERS: ATTEND Internal Medicine Hematology & Oncology
DX: Z51.11 Encounter for antineoplastic chemotherapy (principal); C34.31 Malignant neoplasm of lower lobe, right bronchus or lung
CPT/HCPCS: 36415; 80048; 80076; 82150; 82533; 83690; 83735; 84439; 84443; 85025; 96361; 96367; 96413; J9299

== ENCOUNTER 2020-12-31 07:40 | Day surgery (SDC) | payer OTHER ==
[2020-12-31] MEDS ORDERED: SODIUM CHLORIDE 250 ML IV ONE ×2 (09:00→11:00)
[2020-12-31] MEDS ORDERED: DIPHENHYDRAMINE IVPB ONE (09:30)
[2020-12-31] MEDS ORDERED: CYANOCOBALAMIN (VITAMIN B-12) 1000 MCG/1 ML VIAL IM ONE (09:30)
[2020-12-31] MEDS ORDERED: DEXAMETHASONE IVPB ONE (09:30)
[2020-12-31] MEDS ORDERED: SODIUM CHLORIDE IVPB ONE (09:30)
[2020-12-31] MEDS ORDERED: NIVOLUMAB 240 MG in SODIUM CHLORIDE 100 ML IVPB ONE (10:00)
[2020-12-31 11:26] LABS: BASO % 0.7 % (0-2.0); EOS % 3.1 % (0-4.5); HEMATOCRIT 32.5 % (32.4-45.2); HEMOGLOBIN 11.2 GM/dL (10.7-15.3); LYMPH % 17.6 % (8-40); MCH 34.2 pg (25.7-33.7); MCHC 34.5 g/dl (32.0-36.0); MEAN CELL VOLUME 99.3 fl (80-96); MEAN PLT VOLUME 7.2 fl (7.5-11.1); MONO % 9.8 % (3.8-10.2); NEUT % 68.8 % (42.8-82.8); PLATELET COUNT 208 10^3/uL (134-434); RBC 3.27 M/mm3 (3.60-5.2); RDW 15.1 % (11.6-15.6); WHITE BLOOD COUNT 5.3 K/mm3 (4.0-10.0)
[2020-12-31 11:46] LABS: CALCIUM 9.5 mg/dL (8.5-10.1)
[2020-12-31 11:47] LABS: BLOOD UREA NITROGEN 37.5 mg/dL (7-18)
[2020-12-31 11:49] LABS: MAGNESIUM 1.5 mg/dL (1.8-2.4)
[2020-12-31 11:50] LABS: BILIRUBIN,DIRECT 0.3 mg/dL (0.0-0.2); CREATININE 1.4 mg/dL (0.55-1.3)
[2020-12-31] MEDS ORDERED: MAGNESIUM SULF 50% (8.12 MEQ/2 ML-1 GM VIAL) IVPB ONE (11:50)
[2020-12-31 11:51] LABS: BILIRUBIN,TOTAL 0.7 mg/dL (0.2-1)
[2020-12-31] MEDS ORDERED: MAGNESIUM OXIDE 400 MG TABLET (FP) PO ONE (12:30)
[2020-12-31] MEDS ORDERED: MAGNESIUM SULFATE IN WATER 2 GM/50 ML IVPB IVPB ONE (12:30)
[2020-12-31 17:02] VITALS: TEMP 98.1
[2020-12-31 17:34] VITALS: BP 158/71; PULSE 91
== END 2020-12-31 17:15 | disposition home or self-care (01) ==
LOC: JONCCHEMO 07:40
PROVIDERS: ATTEND Internal Medicine Hematology & Oncology
DX: Z51.11 Encounter for antineoplastic chemotherapy (principal); C34.31 Malignant neoplasm of lower lobe, right bronchus or lung
CPT/HCPCS: 36415; 80048; 80076; 82150; 82533; 83690; 83735; 84439; 84443; 85025; 96361; 96367; 96372; 96413; J9299

== ENCOUNTER 2021-01-14 07:40 | Day surgery (SDC) | payer OTHER ==
[2021-01-14] MEDS ORDERED: SODIUM CHLORIDE 250 ML IV ONE ×2 (09:00→10:30)
[2021-01-14] MEDS ORDERED: DEXAMETHASONE SODIUM PHOSPHATE IVPB ONE (09:30)
[2021-01-14] MEDS ORDERED: DIPHENHYDRAMINE IVPB ONE (09:30)
[2021-01-14] MEDS ORDERED: SODIUM CHLORIDE IVPB ONE (09:30)
[2021-01-14] MEDS ORDERED: CYANOCOBALAMIN (VITAMIN B-12) 1000 MCG/1 ML VIAL IM ONE (09:30)
[2021-01-14] MEDS ORDERED: NIVOLUMAB 240 MG in SODIUM CHLORIDE 100 ML IVPB ONE (10:00)
[2021-01-14 10:59] LABS: BASO % 1.2 % (0-2.0); EOS % 2.9 % (0-4.5); HEMATOCRIT 33.7 % (32.4-45.2); HEMOGLOBIN 11.5 GM/dL (10.7-15.3); LYMPH % 19.9 % (8-40); MCH 33.8 pg (25.7-33.7); MCHC 34.1 g/dl (32.0-36.0); MEAN CELL VOLUME 99.2 fl (80-96); MEAN PLT VOLUME 7.6 fl (7.5-11.1); MONO % 8.8 % (3.8-10.2); NEUT % 67.2 % (42.8-82.8); PLATELET COUNT 204 10^3/uL (134-434); WHITE BLOOD COUNT 5.7 K/mm3 (4.0-10.0)
[2021-01-14 11:24] LABS: CALCIUM 9.5 mg/dL (8.5-10.1)
[2021-01-14 11:25] LABS: ALBUMIN 3.1 g/dl (3.4-5.0); BLOOD UREA NITROGEN 36.4 mg/dL (7-18)
[2021-01-14 11:27] LABS: BILIRUBIN,DIRECT 0.2 mg/dL (0.0-0.2)
[2021-01-14 11:28] LABS: CREATININE 1.8 mg/dL (0.55-1.3)
[2021-01-14 11:29] LABS: BILIRUBIN,TOTAL 0.6 mg/dL (0.2-1); TOT PROT 6.1 g/dl (6.4-8.2)
[2021-01-14 16:33] VITALS: TEMP 97.4
[2021-01-14 17:41] VITALS: BP 138/63; PULSE 84
== END 2021-01-14 15:50 | disposition home or self-care (01) ==
LOC: JONCCHEMO 07:40
PROVIDERS: ATTEND Internal Medicine Hematology & Oncology
DX: Z51.11 Encounter for antineoplastic chemotherapy (principal); C34.31 Malignant neoplasm of lower lobe, right bronchus or lung
CPT/HCPCS: 36415; 80048; 80076; 82150; 82378; 82533; 82607; 83690; 83735; 84439; 84443; 85025; 96361; 96367; 96413; J9299

== ENCOUNTER 2021-01-28 07:39 | Day surgery (SDC) | payer OTHER ==
[2021-01-28] MEDS ORDERED: SODIUM CHLORIDE 250 ML IV ONE ×2 (09:00→11:00)
[2021-01-28] MEDS ORDERED: SODIUM CHLORIDE IVPB ONE (10:00)
[2021-01-28] MEDS ORDERED: DEXAMETHASONE SODIUM PHOSPHATE IVPB ONE (10:00)
[2021-01-28] MEDS ORDERED: DIPHENHYDRAMINE IVPB ONE (10:00)
[2021-01-28] MEDS ORDERED: NIVOLUMAB 240 MG in SODIUM CHLORIDE 100 ML IVPB ONE (10:30)
[2021-01-28 12:15] LABS: BASO % 0.8 % (0-2.0); EOS % 3.4 % (0-4.5); HEMATOCRIT 31.3 % (32.4-45.2); HEMOGLOBIN 10.7 GM/dL (10.7-15.3); LYMPH % 20.8 % (8-40); MCHC 34.3 g/dl (32.0-36.0); MEAN CELL VOLUME 99.2 fl (80-96); MEAN PLT VOLUME 7.7 fl (7.5-11.1); MONO % 11.2 % (3.8-10.2); NEUT % 63.8 % (42.8-82.8); PLATELET COUNT 215 10^3/uL (134-434); RBC 3.16 M/mm3 (3.60-5.2); RDW 14.6 % (11.6-15.6); WHITE BLOOD COUNT 4.4 K/mm3 (4.0-10.0)
[2021-01-28 12:34] LABS: BLOOD UREA NITROGEN 40.4 mg/dL (7-18); CALCIUM 9.4 mg/dL (8.5-10.1)
[2021-01-28 12:35] LABS: MAGNESIUM 2.1 mg/dL (1.8-2.4)
[2021-01-28 12:37] LABS: BILIRUBIN,DIRECT 0.2 mg/dL (0.0-0.2); CREATININE 1.8 mg/dL (0.55-1.3)
[2021-01-28 12:39] LABS: BILIRUBIN,TOTAL 0.6 mg/dL (0.2-1); TOT PROT 5.8 g/dl (6.4-8.2)
[2021-01-28 16:50] VITALS: TEMP 98.1
[2021-01-28 17:05] VITALS: BP 133/60; PULSE 60
== END 2021-01-28 16:45 | disposition home or self-care (01) ==
LOC: JONCCHEMO 07:39
PROVIDERS: ATTEND Internal Medicine Hematology & Oncology
DX: Z51.11 Encounter for antineoplastic chemotherapy (principal); C34.31 Malignant neoplasm of lower lobe, right bronchus or lung
CPT/HCPCS: 36415; 80048; 80076; 82150; 82533; 82607; 83690; 83735; 84439; 84443; 85025; 96361; 96367; 96413; J9299

== ENCOUNTER 2021-02-11 07:00 | Day surgery (SDC) | payer OTHER ==
[2021-02-11] MEDS ORDERED: SODIUM CHLORIDE 250 ML IV ONE ×2 (10:00→11:30)
[2021-02-11] MEDS ORDERED: SODIUM CHLORIDE IVPB ONE (10:30)
[2021-02-11] MEDS ORDERED: DIPHENHYDRAMINE IVPB ONE (10:30)
[2021-02-11] MEDS ORDERED: DEXAMETHASONE SODIUM PHOSPHATE IVPB ONE (10:30)
[2021-02-11] MEDS ORDERED: NIVOLUMAB 240 MG in SODIUM CHLORIDE 100 ML IVPB ONE (11:00)
[2021-02-11 11:20] LABS: BASO % 1.1 % (0-2.0); EOS % 3.5 % (0-4.5); HEMATOCRIT 31.4 % (32.4-45.2); HEMOGLOBIN 10.6 GM/dL (10.7-15.3); LYMPH % 18.9 % (8-40); MCH 33.3 pg (25.7-33.7); MCHC 33.9 g/dl (32.0-36.0); MEAN CELL VOLUME 98.4 fl (80-96); MEAN PLT VOLUME 7.2 fl (7.5-11.1); MONO % 10.3 % (3.8-10.2); NEUT % 66.2 % (42.8-82.8); PLATELET COUNT 192 10^3/uL (134-434); RBC 3.19 M/mm3 (3.60-5.2); WHITE BLOOD COUNT 5.4 K/mm3 (4.0-10.0)
[2021-02-11 12:19] LABS: ALBUMIN 2.7 g/dl (3.4-5.0); BLOOD UREA NITROGEN 38.6 mg/dL (7-18); CALCIUM 9.1 mg/dL (8.5-10.1)
[2021-02-11 12:21] LABS: BILIRUBIN,DIRECT 0.2 mg/dL (0.0-0.2); CREATININE 1.6 mg/dL (0.55-1.3)
[2021-02-11 12:23] LABS: BILIRUBIN,TOTAL 0.7 mg/dL (0.2-1); TOT PROT 5.6 g/dl (6.4-8.2)
[2021-02-11 16:13] VITALS: TEMP 97.5
[2021-02-11 16:29] VITALS: BP 140/67; PULSE 80
== END 2021-02-11 16:00 | disposition home or self-care (01) ==
LOC: JONCCHEMO 07:00
PROVIDERS: ATTEND Internal Medicine Hematology & Oncology
DX: Z51.11 Encounter for antineoplastic chemotherapy (principal); C34.31 Malignant neoplasm of lower lobe, right bronchus or lung
CPT/HCPCS: 36415; 80048; 80076; 82150; 82378; 82533; 83690; 83735; 84439; 84443; 85025; 96361; 96367; 96413; J9299

== ENCOUNTER 2021-02-25 07:17 | Day surgery (SDC) | payer OTHER ==
[2021-02-25] MEDS ORDERED: SODIUM CHLORIDE 250 ML IV ONE ×2 (10:00→11:30)
[2021-02-25] MEDS ORDERED: SODIUM CHLORIDE IVPB ONE (10:30)
[2021-02-25] MEDS ORDERED: DIPHENHYDRAMINE IVPB ONE (10:30)
[2021-02-25] MEDS ORDERED: DEXAMETHASONE SODIUM PHOSPHATE IVPB ONE (10:30)
[2021-02-25] MEDS ORDERED: NIVOLUMAB 240 MG in SODIUM CHLORIDE 100 ML IVPB ONE (11:00)
[2021-02-25 11:27] LABS: BASO % 0.9 % (0-2.0); EOS % 3.2 % (0-4.5); HEMATOCRIT 33.8 % (32.4-45.2); HEMOGLOBIN 11.5 GM/dL (10.7-15.3); LYMPH % 17.6 % (8-40); MCH 33.7 pg (25.7-33.7); MCHC 33.9 g/dl (32.0-36.0); MEAN CELL VOLUME 99.2 fl (80-96); MEAN PLT VOLUME 7.5 fl (7.5-11.1); MONO % 9.5 % (3.8-10.2); NEUT % 68.8 % (42.8-82.8); PLATELET COUNT 202 10^3/uL (134-434); RBC 3.41 M/mm3 (3.60-5.2); RDW 14.6 % (11.6-15.6); WHITE BLOOD COUNT 5.2 K/mm3 (4.0-10.0)
[2021-02-25 11:50] LABS: BLOOD UREA NITROGEN 35.5 mg/dL (7-18); CALCIUM 9.6 mg/dL (8.5-10.1); MAGNESIUM 2.1 mg/dL (1.8-2.4)
[2021-02-25 11:51] LABS: BILIRUBIN,DIRECT 0.2 mg/dL (0.0-0.2)
[2021-02-25 11:52] LABS: CREATININE 1.7 mg/dL (0.55-1.3)
[2021-02-25 11:54] LABS: TOT PROT 6.1 g/dl (6.4-8.2)
[2021-02-25 11:58] LABS: BILIRUBIN,TOTAL 0.6 mg/dL (0.2-1)
[2021-02-25 17:42] VITALS: TEMP 98.2
[2021-02-25 17:56] VITALS: BP 135/59; PULSE 61
== END 2021-02-25 16:00 | disposition home or self-care (01) ==
LOC: JONCCHEMO 07:17
PROVIDERS: ATTEND Internal Medicine Hematology & Oncology
DX: Z51.11 Encounter for antineoplastic chemotherapy (principal); C34.31 Malignant neoplasm of lower lobe, right bronchus or lung
CPT/HCPCS: 36415; 80048; 80076; 82150; 82533; 83690; 83735; 84439; 84443; 85025; 96361; 96367; 96413; J9299

== ENCOUNTER 2021-03-19 07:16 | Day surgery (SDC) | payer OTHER ==
[2021-03-19] MEDS ORDERED: DIPHENHYDRAMINE IVPB ONE (10:00)
[2021-03-19] MEDS ORDERED: SODIUM CHLORIDE IVPB ONE (10:00)
[2021-03-19] MEDS ORDERED: SODIUM CHLORIDE 250 ML IV ONE ×2 (10:00→11:00)
[2021-03-19] MEDS ORDERED: DEXAMETHASONE SODIUM PHOSPHATE IVPB ONE (10:00)
[2021-03-19] MEDS ORDERED: NIVOLUMAB 240 MG in SODIUM CHLORIDE 100 ML IVPB ONE (10:30)
[2021-03-19 12:42] LABS: BASO % 1.1 % (0-2.0); EOS % 3.1 % (0-4.5); HEMATOCRIT 34.4 % (32.4-45.2); HEMOGLOBIN 11.1 GM/dL (10.7-15.3); LYMPH % 27.7 % (8-40); MCH 32.4 pg (25.7-33.7); MCHC 32.3 g/dl (32.0-36.0); MEAN CELL VOLUME 100.4 fl (80-96); MEAN PLT VOLUME 7.9 fl (7.5-11.1); MONO % 9.1 % (3.8-10.2); PLATELET COUNT 195 10^3/uL (134-434); RBC 3.42 M/mm3 (3.60-5.2); RDW 15.1 % (11.6-15.6); WHITE BLOOD COUNT 4.9 K/mm3 (4.0-10.0)
[2021-03-19 13:06] LABS: CALCIUM 9.6 mg/dL (8.5-10.1)
[2021-03-19 13:07] LABS: ALBUMIN 2.9 g/dl (3.4-5.0); BLOOD UREA NITROGEN 42.3 mg/dL (7-18); MAGNESIUM 2.1 mg/dL (1.8-2.4)
[2021-03-19 13:09] LABS: BILIRUBIN,DIRECT 0.2 mg/dL (0.0-0.2); CREATININE 1.7 mg/dL (0.55-1.3)
[2021-03-19 13:11] LABS: BILIRUBIN,TOTAL 0.6 mg/dL (0.2-1); TOT PROT 5.8 g/dl (6.4-8.2)
[2021-03-19 16:42] VITALS: BP 114/63; PULSE 73; TEMP 97.4
== END 2021-03-19 16:00 | disposition home or self-care (01) ==
LOC: JONCCHEMO 07:16
PROVIDERS: ATTEND Internal Medicine Hematology & Oncology
DX: Z51.11 Encounter for antineoplastic chemotherapy (principal); C34.31 Malignant neoplasm of lower lobe, right bronchus or lung
CPT/HCPCS: 36415; 80048; 80076; 82150; 82533; 83690; 83735; 84439; 84443; 85025; 96361; 96367; 96413; J9299

== ENCOUNTER 2021-04-01 08:19 | Day surgery (SDC) | payer OTHER ==
[2021-04-01] MEDS ORDERED: SODIUM CHLORIDE 250 ML IV ONE ×2 (10:00→11:30)
[2021-04-01] MEDS ORDERED: DIPHENHYDRAMINE IVPB ONE (10:30)
[2021-04-01] MEDS ORDERED: DEXAMETHASONE SODIUM PHOSPHATE IVPB ONE (10:30)
[2021-04-01] MEDS ORDERED: SODIUM CHLORIDE IVPB ONE (10:30)
[2021-04-01] MEDS ORDERED: NIVOLUMAB 240 MG in SODIUM CHLORIDE 100 ML IVPB ONE (11:00)
[2021-04-01 11:04] LABS: BASO % 1.3 % (0-2.0); EOS % 3.9 % (0-4.5); HEMATOCRIT 34.3 % (32.4-45.2); HEMOGLOBIN 11.1 GM/dL (10.7-15.3); LYMPH % 19.6 % (8-40); MCH 32.4 pg (25.7-33.7); MCHC 32.4 g/dl (32.0-36.0); MEAN PLT VOLUME 7.7 fl (7.5-11.1); MONO % 7.6 % (3.8-10.2); NEUT % 67.6 % (42.8-82.8); PLATELET COUNT 200 10^3/uL (134-434); RBC 3.43 M/mm3 (3.60-5.2); RDW 15.1 % (11.6-15.6); WHITE BLOOD COUNT 4.6 K/mm3 (4.0-10.0)
[2021-04-01 11:22] LABS: ALBUMIN 3.4 g/dl (3.4-5.0)
[2021-04-01 11:24] LABS: MAGNESIUM 2.1 mg/dL (1.8-2.4)
[2021-04-01 11:25] LABS: BILIRUBIN,DIRECT 0.3 mg/dL (0.0-0.2)
[2021-04-01 11:26] LABS: CREATININE 1.6 mg/dL (0.55-1.3)
[2021-04-01 11:28] LABS: BILIRUBIN,TOTAL 0.8 mg/dL (0.2-1)
[2021-04-01 17:09] VITALS: BP 128/57; PULSE 80; TEMP 97.3
== END 2021-04-01 16:00 | disposition home or self-care (01) ==
LOC: JONCCHEMO 08:19
PROVIDERS: ATTEND Internal Medicine Hematology & Oncology
DX: Z51.11 Encounter for antineoplastic chemotherapy (principal); C34.31 Malignant neoplasm of lower lobe, right bronchus or lung
CPT/HCPCS: 36415; 80048; 80076; 82150; 82533; 83690; 83735; 84439; 84443; 85025; 96361; 96367; 96413; J9299

== ENCOUNTER 2021-04-15 08:10 | Day surgery (SDC) | payer OTHER ==
[2021-04-15] MEDS ORDERED: SODIUM CHLORIDE 250 ML IV ONE ×2 (10:00→12:00)
[2021-04-15] MEDS ORDERED: SODIUM CHLORIDE IVPB ONE (10:30)
[2021-04-15] MEDS ORDERED: DEXAMETHASONE SODIUM PHOSPHATE IVPB ONE (10:30)
[2021-04-15] MEDS ORDERED: DIPHENHYDRAMINE IVPB ONE (10:30)
[2021-04-15] MEDS ORDERED: NIVOLUMAB 240 MG in SODIUM CHLORIDE 100 ML IVPB ONE (11:00)
[2021-04-15 11:47] LABS: EOS % 3.3 % (0-4.5); HEMATOCRIT 33.5 % (32.4-45.2); HEMOGLOBIN 11.2 GM/dL (10.7-15.3); LYMPH % 19.6 % (8-40); MCH 32.9 pg (25.7-33.7); MCHC 33.5 g/dl (32.0-36.0); MEAN CELL VOLUME 98.2 fl (80-96); MEAN PLT VOLUME 7.1 fl (7.5-11.1); NEUT % 66.1 % (42.8-82.8); PLATELET COUNT 210 10^3/uL (134-434); RBC 3.41 M/mm3 (3.60-5.2); RDW 15.1 % (11.6-15.6); WHITE BLOOD COUNT 5.3 K/mm3 (4.0-10.0)
[2021-04-15 12:36] LABS: ALBUMIN 3.3 g/dl (3.4-5.0); BILIRUBIN,DIRECT 0.3 mg/dL (0.0-0.2); BILIRUBIN,TOTAL 0.8 mg/dL (0.2-1); BLOOD UREA NITROGEN 37.4 mg/dL (7-18); CALCIUM 9.9 mg/dL (8.5-10.1); CREATININE 1.7 mg/dL (0.55-1.3)
[2021-04-15 14:58] VITALS: TEMP 98.2
[2021-04-15 15:08] VITALS: BP 122/66; PULSE 69
== END 2021-04-15 15:30 | disposition home or self-care (01) ==
LOC: JONCCHEMO 08:10
PROVIDERS: ATTEND Internal Medicine Hematology & Oncology
DX: Z51.11 Encounter for antineoplastic chemotherapy (principal); C34.31 Malignant neoplasm of lower lobe, right bronchus or lung
CPT/HCPCS: 36415; 80048; 80076; 82150; 82533; 83690; 83735; 84439; 84443; 85025; 96361; 96367; 96413; J9299

== ENCOUNTER 2021-04-29 06:44 | Day surgery (SDC) | payer OTHER ==
[2021-04-29] MEDS ORDERED: SODIUM CHLORIDE IVPB ONE (10:00)
[2021-04-29] MEDS ORDERED: SODIUM CHLORIDE 250 ML IV ONE ×2 (10:00→11:00)
[2021-04-29] MEDS ORDERED: DIPHENHYDRAMINE IVPB ONE (10:00)
[2021-04-29] MEDS ORDERED: DEXAMETHASONE SODIUM PHOSPHATE IVPB ONE (10:00)
[2021-04-29] MEDS ORDERED: NIVOLUMAB 240 MG in SODIUM CHLORIDE 100 ML IVPB ONE (10:30)
[2021-04-29 12:12] LABS: BASO % 1.6 % (0-2.0); HEMATOCRIT 33.9 % (32.4-45.2); HEMOGLOBIN 11.5 GM/dL (10.7-15.3); LYMPH % 17.4 % (8-40); MCH 33.5 pg (25.7-33.7); MCHC 33.9 g/dl (32.0-36.0); MEAN CELL VOLUME 98.7 fl (80-96); MEAN PLT VOLUME 7.4 fl (7.5-11.1); MONO % 8.9 % (3.8-10.2); NEUT % 67.1 % (42.8-82.8); PLATELET COUNT 190 10^3/uL (134-434); RBC 3.43 M/mm3 (3.60-5.2); RDW 15.4 % (11.6-15.6); WHITE BLOOD COUNT 5.1 K/mm3 (4.0-10.0)
[2021-04-29 13:47] LABS: CALCIUM 9.7 mg/dL (8.5-10.1)
[2021-04-29 13:48] LABS: ALBUMIN 3.2 g/dl (3.4-5.0); BLOOD UREA NITROGEN 42.7 mg/dL (7-18); MAGNESIUM 2.2 mg/dL (1.8-2.4)
[2021-04-29 13:50] LABS: BILIRUBIN,DIRECT 0.3 mg/dL (0.0-0.2); CREATININE 2.1 mg/dL (0.55-1.3)
[2021-04-29 13:52] LABS: BILIRUBIN,TOTAL 0.7 mg/dL (0.2-1); TOT PROT 5.8 g/dl (6.4-8.2)
[2021-04-29 16:49] VITALS: TEMP 97.9
[2021-04-29 17:55] VITALS: BP 117/60; PULSE 84
== END 2021-04-29 16:50 | disposition home or self-care (01) ==
LOC: JONCCHEMO 06:44
PROVIDERS: ATTEND Internal Medicine Hematology & Oncology
DX: Z51.11 Encounter for antineoplastic chemotherapy (principal); C34.31 Malignant neoplasm of lower lobe, right bronchus or lung
CPT/HCPCS: 36415; 80048; 80076; 82150; 82533; 83690; 83735; 84439; 84443; 85025; 96361; 96367; 96413; J9299

== ENCOUNTER 2021-05-13 07:34 | Day surgery (SDC) | payer OTHER ==
[2021-05-13] MEDS ORDERED: SODIUM CHLORIDE 250 ML IV ONE ×2 (09:00→11:00)
[2021-05-13] MEDS ORDERED: SODIUM CHLORIDE IVPB ONE (10:00)
[2021-05-13] MEDS ORDERED: DEXAMETHASONE SODIUM PHOSPHATE IVPB ONE (10:00)
[2021-05-13] MEDS ORDERED: DIPHENHYDRAMINE IVPB ONE (10:00)
[2021-05-13] MEDS ORDERED: NIVOLUMAB 240 MG in SODIUM CHLORIDE 100 ML IVPB ONE (10:30)
[2021-05-13 11:16] VITALS: TEMP 97.8
[2021-05-13 11:16] LABS: BASO % 0.9 % (0-2.0); EOS % 3.2 % (0-4.5); HEMATOCRIT 35.3 % (32.4-45.2); HEMOGLOBIN 11.8 GM/dL (10.7-15.3); LYMPH % 20.3 % (8-40); MCH 33.1 pg (25.7-33.7); MCHC 33.4 g/dl (32.0-36.0); MEAN CELL VOLUME 99.2 fl (80-96); MEAN PLT VOLUME 7.8 fl (7.5-11.1); MONO % 7.4 % (3.8-10.2); NEUT % 68.2 % (42.8-82.8); PLATELET COUNT 205 10^3/uL (134-434); RBC 3.56 M/mm3 (3.60-5.2); RDW 14.7 % (11.6-15.6); WHITE BLOOD COUNT 5.1 K/mm3 (4.0-10.0)
[2021-05-13 11:36] LABS: CALCIUM 9.6 mg/dL (8.5-10.1)
[2021-05-13 11:37] LABS: ALBUMIN 3.3 g/dl (3.4-5.0); MAGNESIUM 2.1 mg/dL (1.8-2.4)
[2021-05-13 11:39] LABS: BILIRUBIN,DIRECT 0.3 mg/dL (0.0-0.2)
[2021-05-13 11:40] LABS: CREATININE 1.8 mg/dL (0.55-1.3)
[2021-05-13 11:41] LABS: TOT PROT 5.9 g/dl (6.4-8.2)
[2021-05-13 11:42] LABS: BILIRUBIN,TOTAL 0.8 mg/dL (0.2-1)
[2021-05-13 16:56] VITALS: BP 132/69; PULSE 76
== END 2021-05-13 16:59 | disposition home or self-care (01) ==
LOC: JONCCHEMO 07:34
PROVIDERS: ATTEND Internal Medicine Hematology & Oncology
DX: Z51.11 Encounter for antineoplastic chemotherapy (principal); C34.31 Malignant neoplasm of lower lobe, right bronchus or lung
CPT/HCPCS: 36415; 80048; 80076; 82150; 83690; 83735; 84439; 84443; 85025; 96361; 96367; 96413; J9299

== ENCOUNTER 2021-05-27 06:27 | Day surgery (SDC) | payer OTHER ==
[2021-05-27] MEDS ORDERED: SODIUM CHLORIDE 250 ML IV ONE ×2 (10:00→11:30)
[2021-05-27] MEDS ORDERED: DEXAMETHASONE SODIUM PHOSPHATE IVPB ONE (10:30)
[2021-05-27] MEDS ORDERED: SODIUM CHLORIDE IVPB ONE (10:30)
[2021-05-27] MEDS ORDERED: DIPHENHYDRAMINE IVPB ONE (10:30)
[2021-05-27] MEDS ORDERED: NIVOLUMAB 240 MG in SODIUM CHLORIDE 100 ML IVPB ONE (11:00)
[2021-05-27 11:51] LABS: BASO % 1.2 % (0-2.0); HEMATOCRIT 34.6 % (32.4-45.2); HEMOGLOBIN 11.6 GM/dL (10.7-15.3); LYMPH % 21.1 % (8-40); MCH 33.3 pg (25.7-33.7); MCHC 33.5 g/dl (32.0-36.0); MEAN CELL VOLUME 99.4 fl (80-96); MEAN PLT VOLUME 7.8 fl (7.5-11.1); MONO % 7.2 % (3.8-10.2); NEUT % 62.5 % (42.8-82.8); PLATELET COUNT 219 10^3/uL (134-434); RBC 3.48 M/mm3 (3.60-5.2); RDW 14.9 % (11.6-15.6); WHITE BLOOD COUNT 4.9 K/mm3 (4.0-10.0)
[2021-05-27 12:21] LABS: CALCIUM 10.3 mg/dL (8.5-10.1)
[2021-05-27 12:22] LABS: ALBUMIN 3.4 g/dl (3.4-5.0); BLOOD UREA NITROGEN 43.5 mg/dL (7-18); MAGNESIUM 2.2 mg/dL (1.8-2.4)
[2021-05-27 12:24] LABS: BILIRUBIN,DIRECT 0.3 mg/dL (0.0-0.2)
[2021-05-27 12:25] LABS: CREATININE 1.7 mg/dL (0.55-1.3)
[2021-05-27 12:26] LABS: BILIRUBIN,TOTAL 0.8 mg/dL (0.2-1); TOT PROT 6.2 g/dl (6.4-8.2)
[2021-05-27 15:28] VITALS: TEMP 98.7
[2021-05-27 16:28] VITALS: BP 107/56; PULSE 80
== END 2021-05-27 17:55 | disposition home or self-care (01) ==
LOC: JONCCHEMO 06:27
PROVIDERS: ATTEND Internal Medicine Hematology & Oncology
DX: Z51.11 Encounter for antineoplastic chemotherapy (principal); C34.31 Malignant neoplasm of lower lobe, right bronchus or lung
CPT/HCPCS: 36415; 80048; 80076; 82150; 82378; 82533; 83690; 83735; 84439; 84443; 85025; 96361; 96367; 96413; J9299

== ENCOUNTER 2021-06-10 07:41 | Day surgery (SDC) | payer OTHER ==
[2021-06-10] MEDS ORDERED: SODIUM CHLORIDE 250 ML IV ONE ×2 (10:00→11:30)
[2021-06-10] MEDS ORDERED: DEXAMETHASONE SODIUM PHOSPHATE IVPB ONE (10:30)
[2021-06-10] MEDS ORDERED: DIPHENHYDRAMINE IVPB ONE (10:30)
[2021-06-10] MEDS ORDERED: SODIUM CHLORIDE IVPB ONE (10:30)
[2021-06-10] MEDS ORDERED: NIVOLUMAB 240 MG in SODIUM CHLORIDE 100 ML IVPB ONE (11:00)
[2021-06-10 11:01] LABS: BASO % 1.1 % (0-2.0); EOS % 4.9 % (0-4.5); HEMATOCRIT 34.3 % (32.4-45.2); HEMOGLOBIN 11.6 GM/dL (10.7-15.3); LYMPH % 15.9 % (8-40); MCH 33.8 pg (25.7-33.7); MCHC 33.9 g/dl (32.0-36.0); MEAN CELL VOLUME 99.7 fl (80-96); MEAN PLT VOLUME 7.4 fl (7.5-11.1); MONO % 7.1 % (3.8-10.2); PLATELET COUNT 205 10^3/uL (134-434); RBC 3.44 M/mm3 (3.60-5.2); RDW 15.3 % (11.6-15.6); WHITE BLOOD COUNT 5.3 K/mm3 (4.0-10.0)
[2021-06-10 11:22] LABS: ALBUMIN 3.3 g/dl (3.4-5.0); BLOOD UREA NITROGEN 32.8 mg/dL (7-18); CALCIUM 9.3 mg/dL (8.5-10.1); MAGNESIUM 2.1 mg/dL (1.8-2.4)
[2021-06-10 11:25] LABS: BILIRUBIN,DIRECT 0.3 mg/dL (0.0-0.2); CREATININE 1.7 mg/dL (0.55-1.3)
[2021-06-10 11:26] LABS: BILIRUBIN,TOTAL 0.6 mg/dL (0.2-1)
[2021-06-10 18:05] VITALS: BP 121/68; PULSE 60; TEMP 98.1
[2021-06-10] MEDS ORDERED: PORTA CATH FLUSH 10 ML IVPUSH ONE (18:05)
== END 2021-06-10 16:30 | disposition home or self-care (01) ==
LOC: JONCCHEMO 07:41
PROVIDERS: ATTEND Internal Medicine Hematology & Oncology
DX: Z51.11 Encounter for antineoplastic chemotherapy (principal); C34.31 Malignant neoplasm of lower lobe, right bronchus or lung
CPT/HCPCS: 36415; 80048; 80076; 82150; 82378; 82533; 83690; 83735; 84439; 84443; 85025; 96361; 96367; 96413; J9299

== ENCOUNTER 2021-07-22 06:58 | Day surgery (SDC) | payer OTHER ==
[~2021-07-22 06:58] MED LIST changes: +NIVOLUMAB 240 MG in SODIUM CHLORIDE 100 ML IVPB ONE; +SODIUM CHLORIDE 250 ML IV ONE
[2021-07-22] MEDS ORDERED: SODIUM CHLORIDE 250 ML IV ONE ×2 (09:00→10:30)
[2021-07-22] MEDS ORDERED: SODIUM CHLORIDE IVPB ONE (09:30)
[2021-07-22] MEDS ORDERED: DEXAMETHASONE SODIUM PHOSPHATE IVPB ONE (09:30)
[2021-07-22] MEDS ORDERED: DIPHENHYDRAMINE IVPB ONE (09:30)
[2021-07-22] MEDS ORDERED: NIVOLUMAB 240 MG in SODIUM CHLORIDE 100 ML IVPB ONE (10:00)
[2021-07-22 11:37] LABS: EOS % 7.7 % (0-4.5); HEMATOCRIT 31.9 % (32.4-45.2); HEMOGLOBIN 10.7 GM/dL (10.7-15.3); LYMPH % 15.4 % (8-40); MCH 33.1 pg (25.7-33.7); MCHC 33.7 g/dl (32.0-36.0); MEAN CELL VOLUME 98.1 fl (80-96); MEAN PLT VOLUME 7.5 fl (7.5-11.1); MONO % 6.8 % (3.8-10.2); NEUT % 69.1 % (42.8-82.8); PLATELET COUNT 218 10^3/uL (134-434); RBC 3.25 M/mm3 (3.60-5.2); RDW 15.3 % (11.6-15.6); WHITE BLOOD COUNT 5.2 K/mm3 (4.0-10.0)
[2021-07-22 12:01] LABS: CALCIUM 9.6 mg/dL (8.5-10.1)
[2021-07-22 12:02] LABS: ALBUMIN 3.2 g/dl (3.4-5.0); BLOOD UREA NITROGEN 33.3 mg/dL (7-18); MAGNESIUM 2.1 mg/dL (1.8-2.4)
[2021-07-22 12:04] LABS: BILIRUBIN,DIRECT 0.2 mg/dL (0.0-0.2); CREATININE 1.6 mg/dL (0.55-1.3)
[2021-07-22 12:06] LABS: BILIRUBIN,TOTAL 0.5 mg/dL (0.2-1); TOT PROT 5.9 g/dl (6.4-8.2)
[2021-07-22 17:30] VITALS: BP 106/56; PULSE 74; TEMP 97
[2021-07-22] MEDS ORDERED: PORTA CATH FLUSH 10 ML IVPUSH PRN (17:30)
== END 2021-07-22 15:40 | disposition home or self-care (01) ==
LOC: JONCCHEMO 06:58
PROVIDERS: ATTEND Internal Medicine Hematology & Oncology
DX: Z51.11 Encounter for antineoplastic chemotherapy (principal); C34.31 Malignant neoplasm of lower lobe, right bronchus or lung
CPT/HCPCS: 36415; 80048; 80076; 82150; 82378; 82533; 83690; 83735; 84439; 84443; 85025; 96367; 96413; J9299

== ENCOUNTER 2021-08-05 07:29 | Day surgery (SDC) | payer OTHER ==
[2021-08-05] MEDS ORDERED: SODIUM CHLORIDE 250 ML IV ONE ×2 (09:00→11:00)
[2021-08-05] MEDS ORDERED: SODIUM CHLORIDE IVPB ONE (09:30)
[2021-08-05] MEDS ORDERED: DEXAMETHASONE SODIUM PHOSPHATE IVPB ONE (09:30)
[2021-08-05] MEDS ORDERED: DIPHENHYDRAMINE IVPB ONE (09:30)
[2021-08-05] MEDS ORDERED: NIVOLUMAB 240 MG in SODIUM CHLORIDE 100 ML IVPB ONE (10:00)
[2021-08-05 11:20] LABS: BASO % 2.3 % (0-2.0); EOS % 10.4 % (0-4.5); HEMATOCRIT 31.4 % (32.4-45.2); HEMOGLOBIN 10.4 GM/dL (10.7-15.3); MCH 32.9 pg (25.7-33.7); MCHC 33.2 g/dl (32.0-36.0); MEAN CELL VOLUME 99.1 fl (80-96); MEAN PLT VOLUME 7.6 fl (7.5-11.1); MONO % 7.1 % (3.8-10.2); NEUT % 65.2 % (42.8-82.8); PLATELET COUNT 178 10^3/uL (134-434); RBC 3.17 M/mm3 (3.60-5.2); RDW 14.9 % (11.6-15.6); WHITE BLOOD COUNT 5.9 K/mm3 (4.0-10.0)
[2021-08-05 11:48] LABS: MAGNESIUM 2.3 mg/dL (1.8-2.4)
[2021-08-05 11:49] LABS: ALBUMIN 3.3 g/dl (3.4-5.0)
[2021-08-05 11:51] LABS: BILIRUBIN,DIRECT 0.3 mg/dL (0.0-0.2)
[2021-08-05 11:53] LABS: TOT PROT 5.9 g/dl (6.4-8.2)
[2021-08-05 12:07] LABS: BILIRUBIN,TOTAL 0.7 mg/dL (0.2-1)
[2021-08-05 12:07] LABS: CALCIUM 9.3 mg/dL (8.5-10.1)
[2021-08-05 12:08] LABS: BLOOD UREA NITROGEN 33.9 mg/dL (7-18)
[2021-08-05 12:10] LABS: CREATININE 1.7 mg/dL (0.55-1.3)
[2021-08-05] MEDS ORDERED: INSULIN (NOVOLOG) ASPART 100 UNITS/ML 10ML VIAL ONE (12:11)
[2021-08-05 17:59] VITALS: BP 125/59; PULSE 77; TEMP 98.4
[2021-08-05] MEDS ORDERED: PORTA CATH FLUSH 10 ML IVPUSH PRN (17:59)
== END 2021-08-05 15:00 | disposition home or self-care (01) ==
LOC: JONCCHEMO 07:29
PROVIDERS: ATTEND Internal Medicine Hematology & Oncology
DX: Z51.11 Encounter for antineoplastic chemotherapy (principal); C34.31 Malignant neoplasm of lower lobe, right bronchus or lung
CPT/HCPCS: 36415; 80048; 80076; 82150; 82378; 82533; 83690; 83735; 84439; 84443; 85025; 96361; 96367; 96413; J9299

== ENCOUNTER 2021-08-19 06:52 | Day surgery (SDC) | payer OTHER ==
[2021-08-19] MEDS ORDERED: SODIUM CHLORIDE 250 ML IV ONE ×2 (09:00→11:00)
[2021-08-19] MEDS ORDERED: DEXAMETHASONE SODIUM PHOSPHATE IVPB ONE (09:30)
[2021-08-19] MEDS ORDERED: DIPHENHYDRAMINE IVPB ONE (09:30)
[2021-08-19] MEDS ORDERED: SODIUM CHLORIDE IVPB ONE (09:30)
[2021-08-19] MEDS ORDERED: NIVOLUMAB 240 MG in SODIUM CHLORIDE 100 ML IVPB ONE (10:00)
[2021-08-19 11:55] LABS: BASO % 0.8 % (0-2.0); EOS % 3.6 % (0-4.5); HEMATOCRIT 31.7 % (32.4-45.2); HEMOGLOBIN 10.6 GM/dL (10.7-15.3); LYMPH % 15.3 % (8-40); MCH 32.7 pg (25.7-33.7); MCHC 33.5 g/dl (32.0-36.0); MEAN CELL VOLUME 97.6 fl (80-96); MEAN PLT VOLUME 7.2 fl (7.5-11.1); MONO % 8.3 % (3.8-10.2); PLATELET COUNT 210 10^3/uL (134-434); RBC 3.25 M/mm3 (3.60-5.2); RDW 15.5 % (11.6-15.6); WHITE BLOOD COUNT 5.1 K/mm3 (4.0-10.0)
[2021-08-19 12:14] LABS: BLOOD UREA NITROGEN 38.8 mg/dL (7-18); CALCIUM 9.8 mg/dL (8.5-10.1); MAGNESIUM 2.2 mg/dL (1.8-2.4)
[2021-08-19 12:15] LABS: ALBUMIN 3.3 g/dl (3.4-5.0)
[2021-08-19 12:16] LABS: URIC ACID 6.7 mg/dL (2.6-7.2)
[2021-08-19 12:17] LABS: BILIRUBIN,DIRECT 0.3 mg/dL (0.0-0.2); CREATININE 1.6 mg/dL (0.55-1.3)
[2021-08-19 12:18] LABS: BILIRUBIN,TOTAL 1.1 mg/dL (0.2-1)
[2021-08-19 18:38] VITALS: TEMP 98
[2021-08-19] MEDS ORDERED: PORTA CATH FLUSH 10 ML IVPUSH PRN (18:44)
[2021-08-19 18:46] VITALS: BP 138/88; PULSE 73
[2021-08-20 18:12] LABS: FREE KAPPA,SERUM 92.2 mg/L (3.3-19.4)
[2021-08-22 08:07] LABS: BETA-2-MICROGLOBULIN 5.2 mg/L (0.6-2.4)
== END 2021-08-19 16:15 | disposition home or self-care (01) ==
LOC: JONCCHEMO 06:52
PROVIDERS: ATTEND Internal Medicine Hematology & Oncology
DX: Z51.11 Encounter for antineoplastic chemotherapy (principal); C34.31 Malignant neoplasm of lower lobe, right bronchus or lung
CPT/HCPCS: 36415; 80048; 80076; 82150; 82232; 82533; 82784; 83615; 83690; 83735; 83883; 84155; 84165; 84439; 84443; 84550; 85025; 96361; 96367; 96413; J9299

== ENCOUNTER 2021-09-02 06:32 | Day surgery (SDC) | payer OTHER ==
[2021-09-02] MEDS ORDERED: DIPHENHYDRAMINE IVPB ONE (10:00)
[2021-09-02] MEDS ORDERED: DEXAMETHASONE SODIUM PHOSPHATE IVPB ONE (10:00)
[2021-09-02] MEDS ORDERED: SODIUM CHLORIDE 250 ML IV ONE (10:00)
[2021-09-02] MEDS ORDERED: SODIUM CHLORIDE IVPB ONE (10:00)
[2021-09-02] MEDS ORDERED: NIVOLUMAB 240 MG in SODIUM CHLORIDE 100 ML IVPB ONE (10:30)
[2021-09-02 10:57] LABS: BASO % 1.4 % (0-2.0); EOS % 2.4 % (0-4.5); HEMATOCRIT 30.4 % (32.4-45.2); HEMOGLOBIN 10.3 GM/dL (10.7-15.3); LYMPH % 18.1 % (8-40); MCH 33.6 pg (25.7-33.7); MCHC 33.9 g/dl (32.0-36.0); MEAN CELL VOLUME 99.3 fl (80-96); MEAN PLT VOLUME 7.5 fl (7.5-11.1); MONO % 7.7 % (3.8-10.2); NEUT % 70.4 % (42.8-82.8); PLATELET COUNT 192 10^3/uL (134-434); RBC 3.07 M/mm3 (3.60-5.2); RDW 15.4 % (11.6-15.6); WHITE BLOOD COUNT 4.8 K/mm3 (4.0-10.0)
[2021-09-02] MEDS: SODIUM CHLORIDE 250 ML IV ONE ×2 (11:06→14:19)
[2021-09-02 11:37] VITALS: TEMP 98.1
[2021-09-02 12:28] LABS: ALBUMIN 3.2 g/dl (3.4-5.0); BLOOD UREA NITROGEN 37.8 mg/dL (7-18); CALCIUM 9.5 mg/dL (8.5-10.1); MAGNESIUM 2.4 mg/dL (1.8-2.4)
[2021-09-02 12:31] LABS: BILIRUBIN,DIRECT 0.2 mg/dL (0.0-0.2)
[2021-09-02 12:32] LABS: CREATININE 1.7 mg/dL (0.55-1.3)
[2021-09-02 12:33] LABS: BILIRUBIN,TOTAL 0.5 mg/dL (0.2-1)
[2021-09-02 12:34] LABS: TOT PROT 5.7 g/dl (6.4-8.2)
[2021-09-02 15:35] VITALS: BP 139/77; PULSE 73
[2021-09-02] MEDS ORDERED: PORTA CATH FLUSH 10 ML IVPUSH PRN (15:35)
== END 2021-09-02 16:25 | disposition home or self-care (01) ==
LOC: JONCCHEMO 06:32
PROVIDERS: ATTEND Internal Medicine Hematology & Oncology
DX: Z51.11 Encounter for antineoplastic chemotherapy (principal); C34.31 Malignant neoplasm of lower lobe, right bronchus or lung
CPT/HCPCS: 36415; 80048; 80076; 82150; 82533; 83690; 83735; 84439; 84443; 85025; 96361; 96367; 96413; J9299

== ENCOUNTER 2021-09-16 06:49 | Day surgery (SDC) | payer OTHER ==
[2021-09-16] MEDS ORDERED: SODIUM CHLORIDE 250 ML IV ONE ×2 (09:00→11:00)
[2021-09-16] MEDS ORDERED: DIPHENHYDRAMINE IVPB ONE (09:30)
[2021-09-16] MEDS ORDERED: DEXAMETHASONE SODIUM PHOSPHATE IVPB ONE (09:30)
[2021-09-16] MEDS ORDERED: SODIUM CHLORIDE IVPB ONE (09:30)
[2021-09-16] MEDS ORDERED: NIVOLUMAB 240 MG in SODIUM CHLORIDE 100 ML IVPB ONE (10:00)
[2021-09-16 10:43] VITALS: TEMP 98.2
[2021-09-16 10:44] LABS: BASO % 1.2 % (0-2.0); EOS % 4.1 % (0-4.5); HEMATOCRIT 30.4 % (32.4-45.2); HEMOGLOBIN 10.3 GM/dL (10.7-15.3); LYMPH % 16.1 % (8-40); MCH 33.2 pg (25.7-33.7); MEAN CELL VOLUME 97.8 fl (80-96); MEAN PLT VOLUME 6.9 fl (7.5-11.1); NEUT % 69.6 % (42.8-82.8); PLATELET COUNT 202 10^3/uL (134-434); RBC 3.11 M/mm3 (3.60-5.2); RDW 16.1 % (11.6-15.6); WHITE BLOOD COUNT 5.2 K/mm3 (4.0-10.0)
[2021-09-16 11:06] LABS: ALBUMIN 3.3 g/dl (3.4-5.0); BLOOD UREA NITROGEN 37.7 mg/dL (7-18); CALCIUM 9.3 mg/dL (8.5-10.1); MAGNESIUM 2.3 mg/dL (1.8-2.4)
[2021-09-16 11:08] LABS: BILIRUBIN,DIRECT 0.3 mg/dL (0.0-0.2); CREATININE 1.6 mg/dL (0.55-1.3)
[2021-09-16 11:10] LABS: BILIRUBIN,TOTAL 0.6 mg/dL (0.2-1); TOT PROT 5.9 g/dl (6.4-8.2)
[2021-09-16] MEDS ORDERED: PORTA CATH FLUSH 10 ML IVPUSH PRN (13:11)
[2021-09-16 17:08] VITALS: BP 126/67; PULSE 70
== END 2021-09-16 15:30 | disposition home or self-care (01) ==
LOC: JONCCHEMO 06:49
PROVIDERS: ATTEND Internal Medicine Hematology & Oncology
PROC: 3E04305 Introduction of Other Antineoplastic into Central Vein, Percutaneous Approach (ICD-10-PCS; principal; 2021-09-16)
PROC: 3E043GC Introduction of Other Therapeutic Substance into Central Vein, Percutaneous Approach (ICD-10-PCS; 2021-09-16)
PROC: 3E0437Z Introduction of Electrolytic and Water Balance Substance into Central Vein, Percutaneous Approach (ICD-10-PCS; 2021-09-16)
DX: Z51.11 Encounter for antineoplastic chemotherapy (principal); C34.31 Malignant neoplasm of lower lobe, right bronchus or lung
CPT/HCPCS: 36415; 71046-TC-FY; 80048; 80076; 82150; 82378; 82533; 83690; 83735; 84439; 84443; 85025; 96361; 96367; 96413; J9299

== ENCOUNTER 2021-09-30 07:29 | Day surgery (SDC) | payer OTHER ==
[2021-09-30] MEDS ORDERED: SODIUM CHLORIDE 250 ML IV ONE ×2 (09:00→10:30)
[2021-09-30] MEDS ORDERED: SODIUM CHLORIDE IVPB ONE (09:30)
[2021-09-30] MEDS ORDERED: DIPHENHYDRAMINE IVPB ONE (09:30)
[2021-09-30] MEDS ORDERED: DEXAMETHASONE SODIUM PHOSPHATE IVPB ONE (09:30)
[2021-09-30] MEDS ORDERED: NIVOLUMAB 240 MG in SODIUM CHLORIDE 100 ML IVPB ONE (10:00)
[2021-09-30 11:05] LABS: BASO % 0.9 % (0-2.0); EOS % 3.7 % (0-4.5); HEMATOCRIT 30.8 % (32.4-45.2); HEMOGLOBIN 10.2 GM/dL (10.7-15.3); MCH 32.4 pg (25.7-33.7); MCHC 33.1 g/dl (32.0-36.0); MEAN CELL VOLUME 97.8 fl (80-96); MEAN PLT VOLUME 6.8 fl (7.5-11.1); MONO % 8.7 % (3.8-10.2); NEUT % 71.7 % (42.8-82.8); PLATELET COUNT 199 10^3/uL (134-434); RBC 3.15 M/mm3 (3.60-5.2); RDW 15.6 % (11.6-15.6); WHITE BLOOD COUNT 4.7 K/mm3 (4.0-10.0)
[2021-09-30 11:33] LABS: CALCIUM 9.2 mg/dL (8.5-10.1)
[2021-09-30 11:34] LABS: ALBUMIN 2.9 g/dl (3.4-5.0); BLOOD UREA NITROGEN 32.8 mg/dL (7-18); MAGNESIUM 2.4 mg/dL (1.8-2.4)
[2021-09-30 11:37] LABS: BILIRUBIN,DIRECT 0.2 mg/dL (0.0-0.2); CREATININE 1.7 mg/dL (0.55-1.3)
[2021-09-30 11:38] LABS: BILIRUBIN,TOTAL 0.5 mg/dL (0.2-1); TOT PROT 5.8 g/dl (6.4-8.2)
[2021-09-30 17:23] VITALS: TEMP 98.4
[2021-09-30 17:35] VITALS: BP 128/65; PULSE 72
[2021-09-30] MEDS ORDERED: PORTA CATH FLUSH 10 ML IVPUSH PRN (17:35)
== END 2021-09-30 16:00 | disposition home or self-care (01) ==
LOC: JONCCHEMO 07:29
PROVIDERS: ATTEND Internal Medicine Hematology & Oncology
DX: Z51.11 Encounter for antineoplastic chemotherapy (principal); C34.31 Malignant neoplasm of lower lobe, right bronchus or lung
CPT/HCPCS: 36415; 80048; 80076; 82150; 82378; 82533; 83690; 83735; 84439; 84443; 85025; 96361; 96367; 96413; J9299

== ENCOUNTER 2021-10-14 07:14 | Day surgery (SDC) | payer OTHER ==
[2021-10-14] MEDS ORDERED: SODIUM CHLORIDE 250 ML IV ONE ×2 (10:00→11:00)
[2021-10-14] MEDS ORDERED: DEXAMETHASONE SODIUM PHOSPHATE IVPB ONE (10:00)
[2021-10-14] MEDS ORDERED: SODIUM CHLORIDE IVPB ONE (10:00)
[2021-10-14] MEDS ORDERED: DIPHENHYDRAMINE IVPB ONE (10:00)
[2021-10-14] MEDS ORDERED: NIVOLUMAB 240 MG in SODIUM CHLORIDE 100 ML IVPB ONE (10:30)
[2021-10-14 10:46] LABS: BASO % 1.2 % (0-2.0); EOS % 3.4 % (0-4.5); HEMATOCRIT 31.7 % (32.4-45.2); HEMOGLOBIN 10.6 GM/dL (10.7-15.3); LYMPH % 18.4 % (8-40); MCH 32.1 pg (25.7-33.7); MCHC 33.5 g/dl (32.0-36.0); MEAN CELL VOLUME 95.9 fl (80-96); MEAN PLT VOLUME 7.7 fl (7.5-11.1); MONO % 7.5 % (3.8-10.2); NEUT % 69.5 % (42.8-82.8); PLATELET COUNT 222 10^3/uL (134-434); RDW 15.5 % (11.6-15.6); WHITE BLOOD COUNT 4.3 K/mm3 (4.0-10.0)
[2021-10-14 11:29] LABS: ALBUMIN 3.3 g/dl (3.4-5.0); BLOOD UREA NITROGEN 34.2 mg/dL (7-18); CALCIUM 9.5 mg/dL (8.5-10.1); MAGNESIUM 2.3 mg/dL (1.8-2.4)
[2021-10-14 11:32] LABS: BILIRUBIN,DIRECT 0.2 mg/dL (0.0-0.2); CREATININE 1.6 mg/dL (0.55-1.3)
[2021-10-14 11:34] LABS: BILIRUBIN,TOTAL 0.6 mg/dL (0.2-1); TOT PROT 6.3 g/dl (6.4-8.2)
[2021-10-14 13:25] VITALS: TEMP 98.5
[2021-10-14] MEDS ORDERED: PORTA CATH FLUSH 10 ML IVPUSH PRN (13:25)
[2021-10-14 13:47] VITALS: BP 127/73; PULSE 77; RESP 20
[2021-10-15 15:08] LABS: FREE KAPPA,SERUM 95.9 mg/L (3.3-19.4)
[2021-10-16 08:10] LABS: BETA-2-MICROGLOBULIN 5.7 mg/L (0.6-2.4)
[2021-10-17 12:09] LABS: FREE KAP CHN UR 36.99 mg/L (1.17-86.46); KAPPA LAMBDA RATIO URIN 5.71 (1.83-14.26)
== END 2021-10-14 14:30 | disposition home or self-care (01) ==
LOC: JONCCHEMO 07:14
PROVIDERS: ATTEND Internal Medicine Hematology & Oncology
DX: Z51.11 Encounter for antineoplastic chemotherapy (principal); C34.31 Malignant neoplasm of lower lobe, right bronchus or lung
CPT/HCPCS: 36415; 80048; 80076; 82150; 82232; 82378; 82533; 82784; 83690; 83735; 83883; 84155; 84165; 84439; 84443; 85025; 96361; 96367; 96413; J9299

== ENCOUNTER 2021-11-04 08:16 | Day surgery (SDC) | payer OTHER ==
[2021-11-04] MEDS ORDERED: SODIUM CHLORIDE IVPB ONE (10:00)
[2021-11-04] MEDS ORDERED: DEXAMETHASONE SODIUM PHOSPHATE IVPB ONE (10:00)
[2021-11-04] MEDS ORDERED: SODIUM CHLORIDE 250 ML IV ONE ×2 (10:00→11:00)
[2021-11-04] MEDS ORDERED: DIPHENHYDRAMINE IVPB ONE (10:00)
[2021-11-04] MEDS ORDERED: NIVOLUMAB 240 MG in SODIUM CHLORIDE 100 ML IVPB ONE (10:30)
[2021-11-04 12:36] LABS: BASO % 0.9 % (0-2.0); EOS % 3.7 % (0-4.5); HEMATOCRIT 31.5 % (32.4-45.2); HEMOGLOBIN 10.7 GM/dL (10.7-15.3); LYMPH % 23.2 % (8-40); MCH 32.7 pg (25.7-33.7); MCHC 33.8 g/dl (32.0-36.0); MEAN CELL VOLUME 96.8 fl (80-96); MEAN PLT VOLUME 7.5 fl (7.5-11.1); MONO % 8.7 % (3.8-10.2); NEUT % 63.5 % (42.8-82.8); PLATELET COUNT 201 10^3/uL (134-434); RBC 3.26 M/mm3 (3.60-5.2); RDW 15.6 % (11.6-15.6); WHITE BLOOD COUNT 4.3 K/mm3 (4.0-10.0)
[2021-11-04 12:57] LABS: ALBUMIN 3.3 g/dl (3.4-5.0); BLOOD UREA NITROGEN 43.2 mg/dL (7-18); CALCIUM 9.5 mg/dL (8.5-10.1); MAGNESIUM 2.5 mg/dL (1.8-2.4)
[2021-11-04 13:00] LABS: BILIRUBIN,DIRECT 0.3 mg/dL (0.0-0.2); CREATININE 1.9 mg/dL (0.55-1.3)
[2021-11-04 13:03] LABS: BILIRUBIN,TOTAL 0.7 mg/dL (0.2-1)
[2021-11-04 13:21] VITALS: TEMP 97.9
[2021-11-04] MEDS ORDERED: PORTA CATH FLUSH 10 ML IVPUSH PRN (14:42)
[2021-11-04 15:00] VITALS: BP 125/58; PULSE 59; RESP 20
== END 2021-11-04 15:53 | disposition home or self-care (01) ==
LOC: JONCCHEMO 08:16
PROVIDERS: ATTEND Internal Medicine Hematology & Oncology
DX: Z51.11 Encounter for antineoplastic chemotherapy (principal); C34.31 Malignant neoplasm of lower lobe, right bronchus or lung
CPT/HCPCS: 36415; 80048; 80076; 82150; 82533; 83690; 83735; 84439; 84443; 85025; 96361; 96367; 96413; J9299

== ENCOUNTER 2021-11-18 08:18 | Day surgery (SDC) | payer OTHER ==
[2021-11-18] MEDS ORDERED: SODIUM CHLORIDE 250 ML IV ONE ×2 (09:00→11:00)
[2021-11-18] MEDS ORDERED: DIPHENHYDRAMINE IVPB ONE (09:30)
[2021-11-18] MEDS ORDERED: SODIUM CHLORIDE IVPB ONE (09:30)
[2021-11-18] MEDS ORDERED: DEXAMETHASONE SODIUM PHOSPHATE IVPB ONE (09:30)
[2021-11-18] MEDS ORDERED: NIVOLUMAB 240 MG in SODIUM CHLORIDE 100 ML IVPB ONE (10:00)
[2021-11-18 12:12] LABS: EOS % 1.8 % (0-4.5); HEMATOCRIT 30.4 % (32.4-45.2); HEMOGLOBIN 10.3 GM/dL (10.7-15.3); LYMPH % 15.5 % (8-40); MCH 32.8 pg (25.7-33.7); MEAN CELL VOLUME 96.7 fl (80-96); MEAN PLT VOLUME 7.4 fl (7.5-11.1); MONO % 8.1 % (3.8-10.2); NEUT % 73.6 % (42.8-82.8); PLATELET COUNT 197 10^3/uL (134-434); RBC 3.14 M/mm3 (3.60-5.2); RDW 15.4 % (11.6-15.6); WHITE BLOOD COUNT 5.2 K/mm3 (4.0-10.0)
[2021-11-18 12:20] LABS: ALBUMIN 3.2 g/dl (3.4-5.0)
[2021-11-18 12:21] LABS: BLOOD UREA NITROGEN 40.3 mg/dL (7-18); CALCIUM 9.4 mg/dL (8.5-10.1); MAGNESIUM 2.2 mg/dL (1.8-2.4)
[2021-11-18 12:24] LABS: BILIRUBIN,DIRECT 0.2 mg/dL (0.0-0.2); CREATININE 1.6 mg/dL (0.55-1.3)
[2021-11-18 12:26] LABS: BILIRUBIN,TOTAL 0.8 mg/dL (0.2-1)
[2021-11-18 16:38] VITALS: BP 119/67; PULSE 85; RESP 20; TEMP 98.2
[2021-11-18] MEDS ORDERED: PORTA CATH FLUSH 10 ML IVPUSH PRN (16:38)
== END 2021-11-18 16:30 | disposition home or self-care (01) ==
LOC: JONCCHEMO 08:18
PROVIDERS: ATTEND Internal Medicine Hematology & Oncology
DX: Z51.11 Encounter for antineoplastic chemotherapy (principal); C34.31 Malignant neoplasm of lower lobe, right bronchus or lung
CPT/HCPCS: 36415; 80048; 80076; 82150; 82533; 83690; 83735; 84439; 84443; 85025; 96361; 96367; 96413; J9299

== ENCOUNTER 2021-12-02 11:02 | Day surgery (SDC) | payer OTHER ==
[~2021-12-02 11:02] MED LIST changes: +ALBUTEROL SO4 0.083% IH SOL 2.5 MG/3 ML VIAL.NEB. NEB ONE
[2021-12-02 11:43] LABS: BASO % 1.1 % (0-2.0); EOS % 2.5 % (0-4.5); HEMATOCRIT 27.4 % (32.4-45.2); HEMOGLOBIN 9.3 GM/dL (10.7-15.3); LYMPH % 16.7 % (8-40); MCH 32.6 pg (25.7-33.7); MCHC 33.8 g/dl (32.0-36.0); MEAN CELL VOLUME 96.5 fl (80-96); MEAN PLT VOLUME 6.9 fl (7.5-11.1); MONO % 7.7 % (3.8-10.2); PLATELET COUNT 185 10^3/uL (134-434); RBC 2.85 M/mm3 (3.60-5.2); RDW 16.2 % (11.6-15.6); WHITE BLOOD COUNT 5.5 K/mm3 (4.0-10.0)
[2021-12-02 12:11] LABS: CALCIUM 9.4 mg/dL (8.5-10.1)
[2021-12-02 12:12] LABS: BLOOD UREA NITROGEN 38.1 mg/dL (7-18)
[2021-12-02 12:14] LABS: IRON SERUM 37 ug/dL (50-175); TOTAL IRON BINDING CAPACITY 266 ug/dL (250-450)
[2021-12-02 12:14] LABS: BILIRUBIN,DIRECT 0.2 mg/dL (0.0-0.2); CREATININE 1.8 mg/dL (0.55-1.3); PHOSPHOROUS 3.5 mg/dL (2.5-4.9)
[2021-12-02 12:16] LABS: BILIRUBIN,TOTAL 0.4 mg/dL (0.2-1); TOT PROT 5.6 g/dl (6.4-8.2)
[2021-12-02 12:38] LABS: URINE APPEARANCE CLEAR; URINE BILIRUBIN NEGATIVE (NEGATIVE); URINE COLOR YELLOW; URINE GLUCOSE (UA) NEGATIVE (NEGATIVE); URINE KETONE NEGATIVE (NEGATIVE)
[2021-12-02 12:39] LABS: PH,URINE 5.5 (5.0-8.0); URINE LEUK ESTERASE 2+ (NEGATIVE); URINE NITRITE NEGATIVE (NEGATIVE); URINE PROTEIN NEGATIVE (NEGATIVE); URINE UROBILINOGEN 0.2 mg/dL (0.2-1.0)
[2021-12-02 12:52] LABS: EPI CELLS >36 /uL (0-25.1); HYALINE CASTS 3 /uL (0-3.1); URINE BACTERIA 229 /uL (0-1359); URINE WBC 151 /uL (0-25.8)
[2021-12-02 15:13] LABS: URINE RBC 93.8 /uL (0-23.9)
[2021-12-02 16:00] VITALS: RESP 18; TEMP 97
[2021-12-02] MEDS ORDERED: PORTA CATH FLUSH 10 ML IVPUSH PRN ×2 (16:10→16:16)
[2021-12-02 16:16] VITALS: BP 111/50; PULSE 63
[2021-12-03 18:07] LABS: FREE KAPPA,SERUM 106.2 mg/L (3.3-19.4)
[2021-12-04 07:06] LABS: BETA-2-MICROGLOBULIN 5.6 mg/L (0.6-2.4)
== END 2021-12-02 17:56 | disposition home or self-care (01) ==
LOC: JONCCHEMO 11:02
PROVIDERS: ATTEND Internal Medicine Hematology & Oncology
DX: Z51.11 Encounter for antineoplastic chemotherapy (principal); C34.31 Malignant neoplasm of lower lobe, right bronchus or lung
CPT/HCPCS: 36415; 80048; 80076; 81003; 82150; 82232; 82306; 82533; 82570; 82610; 82728; 82784; 83540; 83550; 83690; 83883; 83970; 84100; 84155; 84156; 84165; 84436; 84439; 84443; 84550; 85025; 86334; 86335; 94640; 96361; 96367; 96413; J9299

== ENCOUNTER 2021-12-16 10:34 | Day surgery (SDC) | payer OTHER ==
[~2021-12-16 10:34] MED LIST changes: -ALBUTEROL SO4 0.083% IH SOL 2.5 MG/3 ML VIAL.NEB. NEB ONE
[2021-12-16] MEDS ORDERED: SODIUM CHLORIDE 250 ML IV ONE (11:00)
[2021-12-16 11:30] LABS: EOS % 1.7 % (0-4.5); HEMATOCRIT 27.9 % (32.4-45.2); HEMOGLOBIN 9.4 GM/dL (10.7-15.3); MCH 32.3 pg (25.7-33.7); MCHC 33.7 g/dl (32.0-36.0); MEAN CELL VOLUME 95.9 fl (80-96); MEAN PLT VOLUME 7.2 fl (7.5-11.1); MONO % 8.6 % (3.8-10.2); NEUT % 74.7 % (42.8-82.8); PLATELET COUNT 187 10^3/uL (134-434); RBC 2.91 M/mm3 (3.60-5.2); RDW 16.4 % (11.6-15.6); WHITE BLOOD COUNT 5.9 K/mm3 (4.0-10.0)
[2021-12-16 11:44] LABS: ALBUMIN 3.4 g/dl (3.4-5.0); BLOOD UREA NITROGEN 42.3 mg/dL (7-18); CALCIUM 9.9 mg/dL (8.5-10.1)
[2021-12-16 11:45] LABS: MAGNESIUM 2.2 mg/dL (1.8-2.4)
[2021-12-16 11:49] LABS: BILIRUBIN,DIRECT 0.2 mg/dL (0.0-0.2); BILIRUBIN,TOTAL 0.6 mg/dL (0.2-1); CREATININE 1.8 mg/dL (0.55-1.3); TOT PROT 6.2 g/dl (6.4-8.2)
[2021-12-16 15:22] VITALS: RESP 20; TEMP 98.2
[2021-12-16 15:32] VITALS: BP 118/57; PULSE 82
[2021-12-16] MEDS ORDERED: PORTA CATH FLUSH 10 ML IVPUSH PRN (15:32)
== END 2021-12-16 15:45 | disposition home or self-care (01) ==
LOC: JONCCHEMO 10:34
PROVIDERS: ATTEND Internal Medicine Hematology & Oncology
DX: Z51.11 Encounter for antineoplastic chemotherapy (principal); C34.31 Malignant neoplasm of lower lobe, right bronchus or lung
CPT/HCPCS: 36415; 80048; 80076; 82150; 82533; 83690; 83735; 84439; 84443; 85025; 96361; 96367; 96413; J9299

== ENCOUNTER 2021-12-30 11:36 | Day surgery (SDC) | payer OTHER ==
[2021-12-30 12:18] LABS: BASO % 1.4 % (0-2.0); EOS % 4.9 % (0-4.5); HEMATOCRIT 28.8 % (32.4-45.2); HEMOGLOBIN 9.1 GM/dL (10.7-15.3); LYMPH % 15.4 % (8-40); MCH 29.9 pg (25.7-33.7); MCHC 31.7 g/dl (32.0-36.0); MEAN CELL VOLUME 94.4 fl (80-96); MEAN PLT VOLUME 7.3 fl (7.5-11.1); MONO % 7.8 % (3.8-10.2); NEUT % 70.5 % (42.8-82.8); PLATELET COUNT 189 10^3/uL (134-434); RBC 3.05 M/mm3 (3.60-5.2); RDW 16.4 % (11.6-15.6); WHITE BLOOD COUNT 5.8 K/mm3 (4.0-10.0)
[2021-12-30 12:34] LABS: CALCIUM 9.4 mg/dL (8.5-10.1)
[2021-12-30 12:35] LABS: ALBUMIN 3.1 g/dl (3.4-5.0); BLOOD UREA NITROGEN 36.6 mg/dL (7-18); MAGNESIUM 2.1 mg/dL (1.8-2.4)
[2021-12-30 12:37] LABS: BILIRUBIN,DIRECT 0.2 mg/dL (0.0-0.2); CREATININE 1.8 mg/dL (0.55-1.3)
[2021-12-30 12:39] LABS: BILIRUBIN,TOTAL 0.5 mg/dL (0.2-1); TOT PROT 5.8 g/dl (6.4-8.2)
[2021-12-30 17:49] VITALS: BP 122/65; PULSE 70; RESP 18; TEMP 97.9
[2021-12-30] MEDS ORDERED: PORTA CATH FLUSH 10 ML IVPUSH PRN (17:49)
== END 2021-12-30 15:30 | disposition home or self-care (01) ==
LOC: JONCCHEMO 11:36
PROVIDERS: ATTEND Internal Medicine Hematology & Oncology
DX: Z51.11 Encounter for antineoplastic chemotherapy (principal); C34.31 Malignant neoplasm of lower lobe, right bronchus or lung
CPT/HCPCS: 36415; 80048; 80076; 82150; 82533; 83690; 83735; 84439; 84443; 85025; 96367; 96413; J9299

== ENCOUNTER 2022-01-13 10:41 | Day surgery (SDC) | payer OTHER ==
[2022-01-13 11:09] LABS: BASO % 1.2 % (0-2.0); EOS % 3.1 % (0-4.5); HEMATOCRIT 28.5 % (32.4-45.2); LYMPH % 14.1 % (8-40); MCH 29.3 pg (25.7-33.7); MCHC 31.6 g/dl (32.0-36.0); MEAN CELL VOLUME 92.6 fl (80-96); MEAN PLT VOLUME 7.3 fl (7.5-11.1); MONO % 6.5 % (3.8-10.2); NEUT % 75.1 % (42.8-82.8); PLATELET COUNT 180 10^3/uL (134-434); RBC 3.08 M/mm3 (3.60-5.2); RDW 16.9 % (11.6-15.6); WHITE BLOOD COUNT 4.9 K/mm3 (4.0-10.0)
[2022-01-13 11:34] LABS: CALCIUM 9.7 mg/dL (8.5-10.1)
[2022-01-13 11:35] LABS: ALBUMIN 3.2 g/dl (3.4-5.0); BLOOD UREA NITROGEN 36.8 mg/dL (7-18); MAGNESIUM 2.2 mg/dL (1.8-2.4)
[2022-01-13 11:37] LABS: BILIRUBIN,DIRECT 0.2 mg/dL (0.0-0.2); CREATININE 1.7 mg/dL (0.55-1.3)
[2022-01-13 11:38] LABS: BILIRUBIN,TOTAL 0.5 mg/dL (0.2-1)
[2022-01-13 14:29] VITALS: RESP 18; TEMP 97.6
[2022-01-13] MEDS ORDERED: PORTA CATH FLUSH 10 ML IVPUSH PRN (14:33)
[2022-01-13 14:34] VITALS: BP 154/86; PULSE 75
== END 2022-01-13 15:20 | disposition home or self-care (01) ==
LOC: JONCCHEMO 10:41
PROVIDERS: ATTEND Internal Medicine Hematology & Oncology
DX: Z51.11 Encounter for antineoplastic chemotherapy (principal); C34.31 Malignant neoplasm of lower lobe, right bronchus or lung
CPT/HCPCS: 36415; 80048; 80076; 82150; 82533; 83690; 83735; 84439; 84443; 85025; 96367; 96413; J9299

== ENCOUNTER 2022-01-27 11:30 | Day surgery (SDC) | payer OTHER ==
[2022-01-27 11:16] LABS: BASO % 1.3 % (0-2.0); EOS % 10.3 % (0-4.5); HEMATOCRIT 29.8 % (32.4-45.2); HEMOGLOBIN 9.5 GM/dL (10.7-15.3); LYMPH % 12.5 % (8-40); MCH 29.2 pg (25.7-33.7); MCHC 31.7 g/dl (32.0-36.0); MONO % 7.8 % (3.8-10.2); NEUT % 68.1 % (42.8-82.8); PLATELET COUNT 196 10^3/uL (134-434); RBC 3.24 M/mm3 (3.60-5.2); RDW 17.5 % (11.6-15.6); WHITE BLOOD COUNT 5.5 K/mm3 (4.0-10.0)
[2022-01-27 11:28] LABS: CALCIUM 9.1 mg/dL (8.5-10.1)
[2022-01-27 11:29] LABS: ALBUMIN 3.2 g/dl (3.4-5.0); BLOOD UREA NITROGEN 38.8 mg/dL (7-18); MAGNESIUM 2.2 mg/dL (1.8-2.4)
[2022-01-27 11:31] LABS: BILIRUBIN,DIRECT 0.2 mg/dL (0.0-0.2)
[2022-01-27 11:32] LABS: CREATININE 1.6 mg/dL (0.55-1.3)
[2022-01-27 11:33] LABS: BILIRUBIN,TOTAL 0.6 mg/dL (0.2-1); TOT PROT 6.2 g/dl (6.4-8.2)
[2022-01-27 15:09] VITALS: BP 90/54; PULSE 76; RESP 20; TEMP 97.6
[2022-01-27] MEDS ORDERED: PORTA CATH FLUSH 10 ML IVPUSH PRN (15:09)
[2022-01-28 18:07] LABS: FREE KAPPA,SERUM 117.2 mg/L (3.3-19.4)
[2022-01-29 08:08] LABS: BETA-2-MICROGLOBULIN 4.9 mg/L (0.6-2.4)
== END 2022-01-27 14:35 | disposition home or self-care (01) ==
LOC: JONCCHEMO 11:30
PROVIDERS: ATTEND Internal Medicine Hematology & Oncology
DX: Z51.11 Encounter for antineoplastic chemotherapy (principal); C34.31 Malignant neoplasm of lower lobe, right bronchus or lung
CPT/HCPCS: 36415; 80048; 80076; 82150; 82232; 82533; 82784; 83690; 83735; 83883; 84439; 84443; 85025; 86335; 96367; 96413; J9299

== ENCOUNTER 2022-02-10 11:44 | Day surgery (SDC) | payer OTHER ==
[2022-02-10 11:45] LABS: BASO % 1.2 % (0-2.0); EOS % 1.7 % (0-4.5); HEMATOCRIT 31.1 % (32.4-45.2); HEMOGLOBIN 9.7 GM/dL (10.7-15.3); MCH 28.4 pg (25.7-33.7); MCHC 31.3 g/dl (32.0-36.0); MEAN CELL VOLUME 90.6 fl (80-96); MEAN PLT VOLUME 7.4 fl (7.5-11.1); MONO % 7.5 % (3.8-10.2); NEUT % 77.6 % (42.8-82.8); PLATELET COUNT 254 10^3/uL (134-434); RBC 3.43 M/mm3 (3.60-5.2); RDW 18.1 % (11.6-15.6); WHITE BLOOD COUNT 6.4 K/mm3 (4.0-10.0)
[2022-02-10 12:19] LABS: CALCIUM 9.8 mg/dL (8.5-10.1)
[2022-02-10 12:20] LABS: ALBUMIN 2.9 g/dl (3.4-5.0); BLOOD UREA NITROGEN 41.3 mg/dL (7-18); MAGNESIUM 2.3 mg/dL (1.8-2.4)
[2022-02-10 12:22] LABS: CREATININE 1.6 mg/dL (0.55-1.3)
[2022-02-10 12:24] LABS: BILIRUBIN,DIRECT 0.3 mg/dL (0.0-0.2); BILIRUBIN,TOTAL 0.5 mg/dL (0.2-1); TOT PROT 6.2 g/dl (6.4-8.2)
[2022-02-10 15:29] VITALS: RESP 20; TEMP 97.5
[2022-02-10 15:36] VITALS: BP 122/71; PULSE 84
[2022-02-10] MEDS ORDERED: PORTA CATH FLUSH 10 ML IVPUSH PRN (15:36)
== END 2022-02-10 14:40 | disposition home or self-care (01) ==
LOC: JONCCHEMO 11:44
PROVIDERS: ATTEND Internal Medicine Hematology & Oncology
DX: Z51.11 Encounter for antineoplastic chemotherapy (principal); C34.31 Malignant neoplasm of lower lobe, right bronchus or lung
CPT/HCPCS: 36415; 80048; 80076; 82150; 82378; 82533; 83690; 83735; 84439; 84443; 85025; 96361; 96367; 96413; J9299

== ENCOUNTER 2022-02-19 17:41 | Inpatient (IN) | payer OTHER ==
[2022-02-19] MEDS ORDERED: ALBUTEROL SO4 HFA INHALER IH ONE ×2 (19:45→22:02)
[2022-02-19] MEDS ORDERED: morphine CARPU-JECT 2 MG/1 ML DISP.SYRIN IVPUSH ONE (20:00)
[2022-02-19] MEDS ORDERED: FUROSEMIDE 40 MG/4 ML INJECTABLE VIAL IVPUSH ONE (20:03)
[2022-02-19] MEDS ORDERED: GABAPENTIN 300 MG CAPSULE PO ONE (20:04)
[2022-02-19] MEDS ORDERED: FUROSEMIDE 40 MG/4 ML INJECTABLE VIAL ONE (21:59)
[2022-02-19] MEDS ORDERED: GABAPENTIN 300 MG CAPSULE ONE (22:00)
[2022-02-19] MEDS ORDERED: ALBUTEROL SO4 0.083% IH SOL 2.5 MG/3 ML VIAL.NEB. NEB ONE (22:02)
[2022-02-19 22:29] LABS: HEMATOCRIT 31.1 % (32.4-45.2); HEMOGLOBIN 10.1 GM/dL (10.7-15.3); MCH 28.9 pg (25.7-33.7); MCHC 32.4 g/dl (32.0-36.0); MEAN CELL VOLUME 89.2 fl (80-96); MEAN PLT VOLUME 7.7 fl (7.5-11.1); PLATELET COUNT 250 10^3/uL (134-434); RBC 3.49 M/mm3 (3.60-5.2); RDW 17.9 % (11.6-15.6); WHITE BLOOD COUNT 7.2 K/mm3 (4.0-10.0)
[2022-02-19 22:42] LABS: ACTIVATED PTT 21.6 SECONDS (25.2-36.5); INR 1.18 (0.83-1.09); PROTHROMBIN TIME (PATIENT) 13.6 SEC (9.7-13.0)
[2022-02-19 22:51] LABS: CHLORIDE 106 mmol/L (98-107); SODIUM 141 mmol/L (136-145)
[2022-02-19 22:55] LABS: BLOOD UREA NITROGEN 50.1 mg/dL (7-18); CO2 26 mmol/L (21-32); GLUCOSE,RANDOM 73 mg/dL (74-106)
[2022-02-19 22:59] LABS: BILIRUBIN,TOTAL 1.2 mg/dL (0.2-1); CREATININE 1.9 mg/dL (0.55-1.3); SGOT/AST 71 U/L (15-37); SGPT/ALT 25 U/L (13-61); TOT PROT 6.4 g/dl (6.4-8.2)
[2022-02-19 23:02] LABS: ALK PHOS 89 U/L (45-117)
[2022-02-19 23:07] LABS: ANION GAP 9 MMOL/L (8-16)
[2022-02-19] MEDS ORDERED: morphine CARPU-JECT 4 MG/1 ML DISP.SYRIN IVPUSH ONE (23:41)
[2022-02-20] MEDS ORDERED: LEVOTHYROXINE NA 25 MCG TABLET (FP) ONE (07:49)
[2022-02-20] MEDS ORDERED: LEVOTHYROXINE NA 75 MCG TABLET (FP) ONE (07:49)
[2022-02-20] MEDS: LEVOTHYROXINE 100 MCG, LEVOTHYROXINE 75 MCG PO SCH (07:56)
[2022-02-20] MEDS ORDERED: LEVOTHYROXINE NA 25 MCG TABLET (FP) PO SCH (10:00)
[2022-02-20] MEDS: LOSARTAN POTASSIUM 50 MG TABLET PO SCH (12:20)
[2022-02-20] MEDS: FUROSEMIDE 40 MG TABLET (FP) PO SCH (12:20)
[2022-02-20] MEDS: ALLOPURINOL 100 MG TABLET (FP) PO SCH (12:20)
[2022-02-20] MEDS ORDERED: FUROSEMIDE 40 MG TABLET (FP) ONE (12:23)
[2022-02-20] MEDS ORDERED: LOSARTAN POTASSIUM 50 MG TABLET ONE (12:23)
[2022-02-20 18:13] LABS: BASO % 0.4 % (0-2.0); EOS % 0.6 % (0-4.5); HEMATOCRIT 32.5 % (32.4-45.2); HEMOGLOBIN 10.1 GM/dL (10.7-15.3); LYMPH % 8.6 % (8-40); MCH 27.9 pg (25.7-33.7); MCHC 31.2 g/dl (32.0-36.0); MEAN CELL VOLUME 89.4 fl (80-96); MEAN PLT VOLUME 7.8 fl (7.5-11.1); MONO % 8.4 % (3.8-10.2); PLATELET COUNT 246 10^3/uL (134-434); RBC 3.64 M/mm3 (3.60-5.2)
[2022-02-20 18:28] LABS: CALCIUM 9.6 mg/dL (8.5-10.1)
[2022-02-20 18:30] LABS: BLOOD UREA NITROGEN 55.7 mg/dL (7-18)
[2022-02-20 18:32] LABS: CREATININE 1.9 mg/dL (0.55-1.3)
[2022-02-20 18:33] LABS: BILIRUBIN,TOTAL 0.7 mg/dL (0.2-1)
[2022-02-20 18:37] LABS: N-TERMINAL BNP 7554.6 pg/ml (5-450)
[2022-02-20] MEDS ORDERED: PATIENT'S OWN MEDICATION (NON-FORMULARY) (Isosorbide Dinitrate [Isordil] 10 MG Tablet) PO SCH (22:00)
[2022-02-20] MEDS ORDERED: RIVAROXABAN 15 MG TABLET PO SCH (22:00)
[2022-02-20] MEDS ORDERED: ATORVASTATIN CA 10 MG TABLET (FP) ONE (22:45)
[2022-02-21] MEDS: ATORVASTATIN CA 10 MG TABLET (FP) PO SCH ×2 (01:55→21:29)
[2022-02-21] MEDS: LEVOTHYROXINE 100 MCG, LEVOTHYROXINE 75 MCG PO SCH (06:23)
[2022-02-21] MEDS ORDERED: oxyCODONE HCL 5 MG TABLET PO PRN (07:15)
[2022-02-21] MEDS ORDERED: LORazepam 2 MG/ML SDV VIAL IM ONE (10:17)
[2022-02-21] MEDS: FUROSEMIDE 40 MG TABLET (FP) PO SCH (11:25)
[2022-02-21] MEDS: ALLOPURINOL 100 MG TABLET (FP) PO SCH (11:25)
[2022-02-21] MEDS: CEFTRIAXONE 1 GM in DEXTROSE 5%-WATER - 50 ML IVPB SCH (11:25)
[2022-02-21] MEDS: AZITHROMYCIN IVPB 500 MG/250 ML BAG IVPB SCH (12:32)
[2022-02-21] MEDS: LOSARTAN POTASSIUM 50 MG TABLET PO SCH (12:38)
[2022-02-22] MEDS: ACETAMINOPHEN 325 MG TABLET (FP) PO PRN (03:39)
[2022-02-22] MEDS: LEVOTHYROXINE 100 MCG, LEVOTHYROXINE 75 MCG PO SCH ×2 (06:11→06:18)
[2022-02-22 08:00] LABS: BASO % 0.3 % (0-2.0); EOS % 1.9 % (0-4.5); HEMATOCRIT 32.6 % (32.4-45.2); HEMOGLOBIN 10.3 GM/dL (10.7-15.3); LYMPH % 8.2 % (8-40); MCH 28.4 pg (25.7-33.7); MCHC 31.7 g/dl (32.0-36.0); MEAN CELL VOLUME 89.8 fl (80-96); MEAN PLT VOLUME 8.1 fl (7.5-11.1); MONO % 8.3 % (3.8-10.2); NEUT % 81.3 % (42.8-82.8); PLATELET COUNT 236 10^3/uL (134-434); RBC 3.63 M/mm3 (3.60-5.2); RDW 18.2 % (11.6-15.6); WHITE BLOOD COUNT 7.3 K/mm3 (4.0-10.0)
[2022-02-22 08:31] LABS: ALBUMIN 2.7 g/dl (3.4-5.0); BILIRUBIN,TOTAL 0.4 mg/dL (0.2-1); BLOOD UREA NITROGEN 55.6 mg/dL (7-18)
[2022-02-22 08:33] LABS: TOT PROT 5.4 g/dl (6.4-8.2)
[2022-02-22 08:35] LABS: CALCIUM 9.7 mg/dL (8.5-10.1)
[2022-02-22 08:43] LABS: N-TERMINAL BNP 8403.9 pg/ml (5-450)
[2022-02-22] MEDS: AZITHROMYCIN IVPB 500 MG/250 ML BAG IVPB SCH (09:54)
[2022-02-22] MEDS: CEFTRIAXONE 1 GM in DEXTROSE 5%-WATER - 50 ML IVPB SCH (09:54)
[2022-02-22] MEDS: ALLOPURINOL 100 MG TABLET (FP) PO SCH (09:55)
[2022-02-22] MEDS: FAMOTIDINE 20 MG TABLET PO SCH (09:55)
[2022-02-22] MEDS: LOSARTAN POTASSIUM 50 MG TABLET PO SCH (09:55)
[2022-02-22] MEDS: FUROSEMIDE 40 MG TABLET (FP) PO SCH (09:55)
[2022-02-22] MEDS ORDERED: ALBUTEROL SO4 0.083% IH SOL 2.5 MG/3 ML VIAL.NEB. NEB ONE ×2 (10:22→10:45)
[2022-02-22] MEDS: LIDOCAINE 5% TOPICAL PATCH TP SCH (13:17)
[2022-02-22 18:24] LABS: URINE APPEARANCE CLEAR; URINE BILIRUBIN NEGATIVE (NEGATIVE); URINE COLOR YELLOW; URINE GLUCOSE (UA) NEGATIVE (NEGATIVE); URINE KETONE NEGATIVE (NEGATIVE); URINE LEUK ESTERASE NEGATIVE (NEGATIVE); URINE NITRITE NEGATIVE (NEGATIVE); URINE PROTEIN NEGATIVE (NEGATIVE); URINE UROBILINOGEN 0.2 mg/dL (0.2-1.0)
[2022-02-22] MEDS: ATORVASTATIN CA 10 MG TABLET (FP) PO SCH (21:57)
[2022-02-22] MEDS: LIDOCAINE PATCH REMOVAL MC SCH (21:59)
[2022-02-23] MEDS: LEVOTHYROXINE 100 MCG, LEVOTHYROXINE 75 MCG PO SCH (06:33)
[2022-02-23 07:51] LABS: HEMATOCRIT 31.3 % (32.4-45.2); HEMOGLOBIN 9.9 GM/dL (10.7-15.3); MCH 28.1 pg (25.7-33.7); MCHC 31.5 g/dl (32.0-36.0); MEAN CELL VOLUME 89.2 fl (80-96); MEAN PLT VOLUME 8.1 fl (7.5-11.1); PLATELET COUNT 200 10^3/uL (134-434); RBC 3.51 M/mm3 (3.60-5.2); RDW 17.6 % (11.6-15.6); WHITE BLOOD COUNT 7.9 K/mm3 (4.0-10.0)
[2022-02-23 08:19] LABS: BLOOD UREA NITROGEN 53.5 mg/dL (7-18)
[2022-02-23 08:21] LABS: MAGNESIUM 2.1 mg/dL (1.8-2.4); PHOSPHOROUS 2.8 mg/dL (2.5-4.9)
[2022-02-23 08:22] LABS: CALCIUM 9.4 mg/dL (8.5-10.1); CREATININE 1.9 mg/dL (0.55-1.3)
[2022-02-23 08:26] LABS: INR 1.09 (0.83-1.09); PROTHROMBIN TIME (PATIENT) 12.5 SEC (9.7-13.0)
[2022-02-23 08:30] LABS: ACTIVATED PTT 24.7 SECONDS (25.2-36.5)
[2022-02-23] MEDS: CEFTRIAXONE 1 GM in DEXTROSE 5%-WATER - 50 ML IVPB SCH (10:00)
[2022-02-23] MEDS: LIDOCAINE 5% TOPICAL PATCH TP SCH (10:03)
[2022-02-23] MEDS: ALLOPURINOL 100 MG TABLET (FP) PO SCH (10:03)
[2022-02-23] MEDS: FAMOTIDINE 20 MG TABLET PO SCH (10:03)
[2022-02-23] MEDS: AZITHROMYCIN IVPB 500 MG/250 ML BAG IVPB SCH (10:03)
[2022-02-23] MEDS: LOSARTAN POTASSIUM 50 MG TABLET PO SCH (10:03)
[2022-02-23] MEDS: FUROSEMIDE 40 MG TABLET (FP) PO SCH (10:03)
[2022-02-23] MEDS: PANTOPRAZOLE SODIUM 40 MG VIAL IVPUSH SCH (10:04)
[2022-02-23] MEDS ORDERED: ISOSORBIDE MONONITRATE 30 MG TAB.SR.24H (FP) PO SCH (11:15)
[2022-02-23] MEDS: ACETAMINOPHEN 325 MG TABLET (FP) PO PRN (14:41)
[2022-02-23] MEDS ORDERED: SODIUM CHLORIDE 1,000 ML IV ONE (16:00)
[2022-02-23 16:50] LABS: BF WBC & OTHER NUCLEATED CELLS 386 /mm3
[2022-02-23] MEDS: LORazepam 2 MG/ML SDV VIAL IM SCH (20:16)
[2022-02-23] MEDS: ATORVASTATIN CA 10 MG TABLET (FP) PO SCH (21:57)
[2022-02-23] MEDS: LIDOCAINE PATCH REMOVAL MC SCH (21:57)
[2022-02-24] MEDS: LEVOTHYROXINE 100 MCG, LEVOTHYROXINE 75 MCG PO SCH (07:36)
[2022-02-24] MEDS: LORazepam 2 MG/ML SDV VIAL IM SCH (08:10)
[2022-02-24] MEDS: PANTOPRAZOLE SODIUM 40 MG VIAL IVPUSH SCH (10:32)
[2022-02-24] MEDS: AZITHROMYCIN IVPB 500 MG/250 ML BAG IVPB SCH (10:32)
[2022-02-24] MEDS: LIDOCAINE 5% TOPICAL PATCH TP SCH (10:32)
[2022-02-24] MEDS: LOSARTAN POTASSIUM 50 MG TABLET PO SCH (10:33)
[2022-02-24] MEDS: ALLOPURINOL 100 MG TABLET (FP) PO SCH (10:33)
[2022-02-24] MEDS: FUROSEMIDE 40 MG TABLET (FP) PO SCH (10:33)
[2022-02-24] MEDS: FAMOTIDINE 20 MG TABLET PO SCH (10:33)
[2022-02-24] MEDS: CEFTRIAXONE 1 GM in DEXTROSE 5%-WATER - 50 ML IVPB SCH (10:33)
[2022-02-24] MEDS: ISOSORBIDE MONONITRATE 30 MG TAB.SR.24H (FP) PO SCH (10:33)
[2022-02-24] MEDS: ACETAMINOPHEN 325 MG TABLET (FP) PO PRN ×2 (13:57→22:15)
[2022-02-24] MEDS: RIVAROXABAN 15 MG TABLET PO SCH (18:51)
[2022-02-24] MEDS: ATORVASTATIN CA 10 MG TABLET (FP) PO SCH ×2 (22:16→22:48)
[2022-02-24] MEDS: LIDOCAINE PATCH REMOVAL MC SCH (22:16)
[2022-02-24] MEDS ORDERED: LORazepam 2 MG/ML SDV VIAL IVPUSH ONE (22:33)
[2022-02-24] MEDS: OLANZapine 5 MG TABLET PO SCH (22:47)
[2022-02-25] MEDS: OLANZapine 5 MG TABLET PO SCH (05:00)
[2022-02-25] MEDS: LEVOTHYROXINE 100 MCG, LEVOTHYROXINE 75 MCG PO SCH (06:21)
[2022-02-25 07:21] LABS: BASO % 0.6 % (0-2.0); EOS % 1.1 % (0-4.5); HEMATOCRIT 30.6 % (32.4-45.2); HEMOGLOBIN 9.7 GM/dL (10.7-15.3); LYMPH % 8.6 % (8-40); MCH 28.1 pg (25.7-33.7); MCHC 31.6 g/dl (32.0-36.0); MEAN CELL VOLUME 88.9 fl (80-96); MEAN PLT VOLUME 8.4 fl (7.5-11.1); MONO % 6.8 % (3.8-10.2); NEUT % 82.9 % (42.8-82.8); PLATELET COUNT 200 10^3/uL (134-434); RBC 3.45 M/mm3 (3.60-5.2); RDW 17.9 % (11.6-15.6); WHITE BLOOD COUNT 7.9 K/mm3 (4.0-10.0)
[2022-02-25 07:52] LABS: ALBUMIN 2.6 g/dl (3.4-5.0); BLOOD UREA NITROGEN 51.9 mg/dL (7-18)
[2022-02-25 07:55] LABS: CALCIUM 9.6 mg/dL (8.5-10.1); CREATININE 1.9 mg/dL (0.55-1.3)
[2022-02-25 07:56] LABS: BILIRUBIN,TOTAL 0.6 mg/dL (0.2-1); TOT PROT 5.3 g/dl (6.4-8.2)
[2022-02-25] MEDS: LIDOCAINE 5% TOPICAL PATCH TP SCH (09:48)
[2022-02-25] MEDS: LOSARTAN POTASSIUM 50 MG TABLET PO SCH (09:49)
[2022-02-25] MEDS: FUROSEMIDE 40 MG TABLET (FP) PO SCH (09:49)
[2022-02-25] MEDS: FAMOTIDINE 20 MG TABLET PO SCH (09:49)
[2022-02-25] MEDS: PANTOPRAZOLE SODIUM 40 MG VIAL IVPUSH SCH (09:50)
[2022-02-25] MEDS: ALLOPURINOL 100 MG TABLET (FP) PO SCH (09:50)
[2022-02-25] MEDS: ISOSORBIDE MONONITRATE 30 MG TAB.SR.24H (FP) PO SCH (09:50)
[2022-02-25] MEDS: CEFTRIAXONE 1 GM in DEXTROSE 5%-WATER - 50 ML IVPB SCH (09:51)
[2022-02-25 11:13] LABS: BODY FLUID ALBUMIN 1.9 g/dL (Not Estab.)
[2022-02-25] MEDS: ACETAMINOPHEN 325 MG TABLET (FP) PO PRN (14:18)
[2022-02-25] MEDS: RIVAROXABAN 15 MG TABLET PO SCH (18:50)
[2022-02-25] MEDS: ATORVASTATIN CA 10 MG TABLET (FP) PO SCH (21:59)
[2022-02-25] MEDS: OLANZapine 2.5 MG TABLET PO SCH (21:59)
[2022-02-25] MEDS: LIDOCAINE PATCH REMOVAL MC SCH (21:59)
[2022-02-26] MEDS: LEVOTHYROXINE 100 MCG, LEVOTHYROXINE 75 MCG PO SCH (06:09)
[2022-02-26] MEDS: LIDOCAINE 5% TOPICAL PATCH TP SCH (09:41)
[2022-02-26] MEDS: LOSARTAN POTASSIUM 50 MG TABLET PO SCH (09:41)
[2022-02-26] MEDS: PANTOPRAZOLE SODIUM 40 MG VIAL IVPUSH SCH (09:41)
[2022-02-26] MEDS: ISOSORBIDE MONONITRATE 30 MG TAB.SR.24H (FP) PO SCH (09:41)
[2022-02-26] MEDS: ALLOPURINOL 100 MG TABLET (FP) PO SCH (09:42)
[2022-02-26] MEDS: FAMOTIDINE 20 MG TABLET PO SCH (09:42)
[2022-02-26] MEDS: FUROSEMIDE 40 MG TABLET (FP) PO SCH (09:42)
[2022-02-26] MEDS: CEFTRIAXONE 1 GM in DEXTROSE 5%-WATER - 50 ML IVPB SCH (09:42)
[2022-02-26] MEDS: RIVAROXABAN 15 MG TABLET PO SCH (18:10)
[2022-02-26] MEDS: ATORVASTATIN CA 10 MG TABLET (FP) PO SCH (21:49)
[2022-02-26] MEDS: LIDOCAINE PATCH REMOVAL MC SCH (21:49)
[2022-02-26] MEDS: OLANZapine 2.5 MG TABLET PO SCH (21:49)
[2022-02-27] MEDS: LEVOTHYROXINE 100 MCG, LEVOTHYROXINE 75 MCG PO SCH (06:07)
[2022-02-27 07:53] LABS: BASO % 0.4 % (0-2.0); EOS % 1.3 % (0-4.5); HEMATOCRIT 31.6 % (32.4-45.2); HEMOGLOBIN 10.1 GM/dL (10.7-15.3); LYMPH % 7.5 % (8-40); MCH 28.4 pg (25.7-33.7); MCHC 31.9 g/dl (32.0-36.0); MEAN PLT VOLUME 7.9 fl (7.5-11.1); MONO % 7.6 % (3.8-10.2); NEUT % 83.2 % (42.8-82.8); PLATELET COUNT 190 10^3/uL (134-434); RBC 3.55 M/mm3 (3.60-5.2); RDW 17.9 % (11.6-15.6)
[2022-02-27 08:14] LABS: ALBUMIN 2.5 g/dl (3.4-5.0); BLOOD UREA NITROGEN 49.3 mg/dL (7-18)
[2022-02-27 08:16] LABS: CREATININE 1.9 mg/dL (0.55-1.3)
[2022-02-27 08:18] LABS: BILIRUBIN,TOTAL 0.6 mg/dL (0.2-1); TOT PROT 5.2 g/dl (6.4-8.2)
[2022-02-27] MEDS: FUROSEMIDE 40 MG TABLET (FP) PO SCH (09:20)
[2022-02-27] MEDS: LOSARTAN POTASSIUM 50 MG TABLET PO SCH (09:20)
[2022-02-27] MEDS: ISOSORBIDE MONONITRATE 30 MG TAB.SR.24H (FP) PO SCH (09:20)
[2022-02-27] MEDS: FAMOTIDINE 20 MG TABLET PO SCH (09:20)
[2022-02-27] MEDS: ALLOPURINOL 100 MG TABLET (FP) PO SCH (09:21)
[2022-02-27] MEDS: PANTOPRAZOLE SODIUM 40 MG VIAL IVPUSH SCH (10:04)
[2022-02-27] MEDS: LIDOCAINE 5% TOPICAL PATCH TP SCH (10:04)
[2022-02-27] MEDS: CEFTRIAXONE 1 GM in DEXTROSE 5%-WATER - 50 ML IVPB SCH (11:00)
[2022-02-27] MEDS: RIVAROXABAN 15 MG TABLET PO SCH (17:22)
[2022-02-27] MEDS: LIDOCAINE PATCH REMOVAL MC SCH (21:54)
[2022-02-27] MEDS: OLANZapine 2.5 MG TABLET PO SCH (21:54)
[2022-02-27] MEDS: ATORVASTATIN CA 10 MG TABLET (FP) PO SCH (21:54)
[2022-02-28] MEDS: LEVOTHYROXINE 100 MCG, LEVOTHYROXINE 75 MCG PO SCH (06:05)
[2022-02-28] MEDS: CEFTRIAXONE 1 GM in DEXTROSE 5%-WATER - 50 ML IVPB SCH (09:57)
[2022-02-28] MEDS: PANTOPRAZOLE SODIUM 40 MG VIAL IVPUSH SCH (09:59)
[2022-02-28] MEDS: LIDOCAINE 5% TOPICAL PATCH TP SCH (10:02)
[2022-02-28] MEDS: LOSARTAN POTASSIUM 50 MG TABLET PO SCH (10:03)
[2022-02-28] MEDS: ISOSORBIDE MONONITRATE 30 MG TAB.SR.24H (FP) PO SCH (10:03)
[2022-02-28] MEDS: ALLOPURINOL 100 MG TABLET (FP) PO SCH (10:05)
[2022-02-28] MEDS: FAMOTIDINE 20 MG TABLET PO SCH (10:05)
[2022-02-28] MEDS: FUROSEMIDE 40 MG TABLET (FP) PO SCH (10:05)
[2022-02-28] MEDS: LIDOCAINE PATCH REMOVAL MC SCH (23:15)
[2022-02-28] MEDS: ATORVASTATIN CA 10 MG TABLET (FP) PO SCH (23:25)
[2022-02-28] MEDS: OLANZapine 2.5 MG TABLET PO SCH (23:35)
[2022-03-01 07:29] LABS: CALCIUM 10.1 mg/dL (8.5-10.1)
[2022-03-01 07:30] LABS: ALBUMIN 2.6 g/dl (3.4-5.0); BLOOD UREA NITROGEN 39.3 mg/dL (7-18)
[2022-03-01 07:33] LABS: CREATININE 1.6 mg/dL (0.55-1.3)
[2022-03-01 07:35] LABS: BASO % 0.8 % (0-2.0); BILIRUBIN,TOTAL 0.7 mg/dL (0.2-1); HEMATOCRIT 32.8 % (32.4-45.2); HEMOGLOBIN 10.1 GM/dL (10.7-15.3); LYMPH % 6.7 % (8-40); MCH 27.8 pg (25.7-33.7); MCHC 30.7 g/dl (32.0-36.0); MEAN CELL VOLUME 90.6 fl (80-96); MEAN PLT VOLUME 8.1 fl (7.5-11.1); MONO % 7.9 % (3.8-10.2); NEUT % 83.6 % (42.8-82.8); PLATELET COUNT 208 10^3/uL (134-434); RBC 3.62 M/mm3 (3.60-5.2); RDW 17.9 % (11.6-15.6); TOT PROT 5.3 g/dl (6.4-8.2); WHITE BLOOD COUNT 8.2 K/mm3 (4.0-10.0)
[2022-03-01] MEDS: LEVOTHYROXINE 100 MCG, LEVOTHYROXINE 75 MCG PO SCH (08:12)
[2022-03-01] MEDS: ALLOPURINOL 100 MG TABLET (FP) PO SCH (09:24)
[2022-03-01] MEDS: LOSARTAN POTASSIUM 50 MG TABLET PO SCH (09:24)
[2022-03-01] MEDS: FUROSEMIDE 40 MG TABLET (FP) PO SCH (09:25)
[2022-03-01] MEDS: PANTOPRAZOLE SODIUM 40 MG VIAL IVPUSH SCH (09:25)
[2022-03-01] MEDS: ISOSORBIDE MONONITRATE 30 MG TAB.SR.24H (FP) PO SCH (09:25)
[2022-03-01] MEDS: LIDOCAINE 5% TOPICAL PATCH TP SCH (09:25)
[2022-03-01] MEDS: FAMOTIDINE 20 MG TABLET PO SCH (09:25)
[2022-03-01] MEDS: AMINO ACIDS 4.25%/D5W 1,000 ML IV SCH (16:04)
[2022-03-01] MEDS: OLANZapine 2.5 MG TABLET PO SCH (21:37)
[2022-03-01] MEDS: ATORVASTATIN CA 10 MG TABLET (FP) PO SCH (21:38)
[2022-03-01] MEDS: LIDOCAINE PATCH REMOVAL MC SCH (21:38)
[2022-03-02] MEDS: AMINO ACIDS 4.25%/D5W 1,000 ML IV SCH ×2 (04:16→17:47)
[2022-03-02] MEDS: LEVOTHYROXINE 100 MCG, LEVOTHYROXINE 75 MCG PO SCH (06:05)
[2022-03-02] MEDS: LIDOCAINE 5% TOPICAL PATCH TP SCH (10:39)
[2022-03-02] MEDS: ISOSORBIDE MONONITRATE 30 MG TAB.SR.24H (FP) PO SCH (10:39)
[2022-03-02] MEDS: FUROSEMIDE 40 MG TABLET (FP) PO SCH (10:40)
[2022-03-02] MEDS: LOSARTAN POTASSIUM 50 MG TABLET PO SCH (10:40)
[2022-03-02] MEDS: FAMOTIDINE 20 MG TABLET PO SCH (10:40)
[2022-03-02] MEDS: ALLOPURINOL 100 MG TABLET (FP) PO SCH (10:40)
[2022-03-02] MEDS: PANTOPRAZOLE SODIUM 40 MG VIAL IVPUSH SCH (10:40)
[2022-03-02] MEDS: LIDOCAINE PATCH REMOVAL MC SCH (22:16)
[2022-03-02] MEDS: ATORVASTATIN CA 10 MG TABLET (FP) PO SCH ×3 (22:16→22:45)
[2022-03-02] MEDS: OLANZapine 2.5 MG TABLET PO SCH ×3 (22:17→22:48)
[2022-03-03] MEDS: LEVOTHYROXINE 100 MCG, LEVOTHYROXINE 75 MCG PO SCH (07:04)
[2022-03-03] MEDS: LIDOCAINE 5% TOPICAL PATCH TP SCH (10:01)
[2022-03-03] MEDS: PANTOPRAZOLE SODIUM 40 MG VIAL IVPUSH SCH (10:01)
[2022-03-03] MEDS: ISOSORBIDE MONONITRATE 30 MG TAB.SR.24H (FP) PO SCH (10:01)
[2022-03-03] MEDS: FAMOTIDINE 20 MG TABLET PO SCH (10:02)
[2022-03-03] MEDS: FUROSEMIDE 40 MG TABLET (FP) PO SCH (10:02)
[2022-03-03] MEDS: AMINO ACIDS 4.25%/D5W 1,000 ML IV SCH ×3 (10:02→20:18)
[2022-03-03] MEDS: ALLOPURINOL 100 MG TABLET (FP) PO SCH (10:02)
[2022-03-03] MEDS: LOSARTAN POTASSIUM 50 MG TABLET PO SCH (10:02)
[2022-03-03] MEDS: ATORVASTATIN CA 10 MG TABLET (FP) PO SCH (21:01)
[2022-03-03] MEDS: LIDOCAINE PATCH REMOVAL MC SCH (21:02)
[2022-03-03] MEDS: OLANZapine 2.5 MG TABLET PO SCH (21:02)
[2022-03-04] MEDS: AMINO ACIDS 4.25%/D5W 1,000 ML IV SCH ×2 (03:59→18:44)
[2022-03-04] MEDS: LEVOTHYROXINE 100 MCG, LEVOTHYROXINE 75 MCG PO SCH (06:29)
[2022-03-04 08:54] LABS: BASO % 0.7 % (0-2.0); EOS % 2.2 % (0-4.5); HEMATOCRIT 30.6 % (32.4-45.2); HEMOGLOBIN 9.2 GM/dL (10.7-15.3); LYMPH % 8.1 % (8-40); MCH 27.5 pg (25.7-33.7); MCHC 30.2 g/dl (32.0-36.0); MEAN CELL VOLUME 90.9 fl (80-96); MEAN PLT VOLUME 8.2 fl (7.5-11.1); MONO % 7.9 % (3.8-10.2); NEUT % 81.1 % (42.8-82.8); PLATELET COUNT 136 10^3/uL (134-434); RBC 3.37 M/mm3 (3.60-5.2); RDW 18.3 % (11.6-15.6); WHITE BLOOD COUNT 7.8 K/mm3 (4.0-10.0)
[2022-03-04 09:21] LABS: CALCIUM 9.3 mg/dL (8.5-10.1)
[2022-03-04 09:25] LABS: CREATININE 1.3 mg/dL (0.55-1.3)
[2022-03-04 09:26] LABS: BILIRUBIN,TOTAL 0.5 mg/dL (0.2-1); TOT PROT 4.6 g/dl (6.4-8.2)
[2022-03-04 09:30] LABS: BLOOD UREA NITROGEN 64.3 mg/dL (7-18)
[2022-03-04] MEDS: ALLOPURINOL 100 MG TABLET (FP) PO SCH (10:55)
[2022-03-04] MEDS: PANTOPRAZOLE SODIUM 40 MG VIAL IVPUSH SCH (10:55)
[2022-03-04] MEDS: FAMOTIDINE 20 MG TABLET PO SCH (10:55)
[2022-03-04] MEDS: POTASSIUM CHLORIDE ORAL LIQUID 20 MEQ/15 ML PO SCH ×2 (10:55→21:47)
[2022-03-04] MEDS: LOSARTAN POTASSIUM 50 MG TABLET PO SCH (12:01)
[2022-03-04] MEDS: FUROSEMIDE 40 MG TABLET (FP) PO SCH (12:02)
[2022-03-04] MEDS: LIDOCAINE 5% TOPICAL PATCH TP SCH (12:02)
[2022-03-04] MEDS: ISOSORBIDE MONONITRATE 30 MG TAB.SR.24H (FP) PO SCH (12:05)
[2022-03-04 16:12] VITALS: BMI 29.7
[2022-03-04] MEDS: ATORVASTATIN CA 10 MG TABLET (FP) PO SCH (21:48)
[2022-03-04] MEDS: LIDOCAINE PATCH REMOVAL MC SCH (21:48)
[2022-03-05] MEDS: LEVOTHYROXINE 100 MCG, LEVOTHYROXINE 75 MCG PO SCH (06:14)
[2022-03-05] MEDS: AMINO ACIDS 4.25%/D5W 1,000 ML IV SCH ×2 (06:14→15:00)
[2022-03-05 08:42] LABS: BASO % 0.6 % (0-2.0); EOS % 1.4 % (0-4.5); HEMATOCRIT 33.1 % (32.4-45.2); HEMOGLOBIN 10.2 GM/dL (10.7-15.3); LYMPH % 7.7 % (8-40); MCHC 30.8 g/dl (32.0-36.0); MEAN CELL VOLUME 90.8 fl (80-96); MEAN PLT VOLUME 8.7 fl (7.5-11.1); MONO % 7.7 % (3.8-10.2); NEUT % 82.6 % (42.8-82.8); PLATELET COUNT 185 10^3/uL (134-434); RBC 3.64 M/mm3 (3.60-5.2); RDW 18.6 % (11.6-15.6); WHITE BLOOD COUNT 9.2 K/mm3 (4.0-10.0)
[2022-03-05 09:05] LABS: CALCIUM 9.7 mg/dL (8.5-10.1)
[2022-03-05 09:06] LABS: BLOOD UREA NITROGEN 69.4 mg/dL (7-18)
[2022-03-05 09:09] LABS: CREATININE 1.2 mg/dL (0.55-1.3)
[2022-03-05] MEDS: POTASSIUM CHLORIDE ORAL LIQUID 20 MEQ/15 ML PO SCH ×2 (10:05→21:04)
[2022-03-05] MEDS: FUROSEMIDE 40 MG TABLET (FP) PO SCH (10:06)
[2022-03-05] MEDS: ISOSORBIDE MONONITRATE 30 MG TAB.SR.24H (FP) PO SCH (10:06)
[2022-03-05] MEDS: FAMOTIDINE 20 MG TABLET PO SCH (10:06)
[2022-03-05] MEDS: LOSARTAN POTASSIUM 50 MG TABLET PO SCH (10:06)
[2022-03-05] MEDS: ALLOPURINOL 100 MG TABLET (FP) PO SCH (10:06)
[2022-03-05] MEDS: PANTOPRAZOLE SODIUM 40 MG VIAL IVPUSH SCH (10:07)
[2022-03-05] MEDS: LIDOCAINE 5% TOPICAL PATCH TP SCH (10:07)
[2022-03-05] MEDS: ATORVASTATIN CA 10 MG TABLET (FP) PO SCH (21:04)
[2022-03-05] MEDS: OLANZapine 2.5 MG TABLET PO SCH (21:04)
[2022-03-05] MEDS: LIDOCAINE PATCH REMOVAL MC SCH (22:32)
[2022-03-06] MEDS: LEVOTHYROXINE 100 MCG, LEVOTHYROXINE 75 MCG PO SCH (06:31)
[2022-03-06] MEDS: AMINO ACIDS 4.25%/D5W 1,000 ML IV SCH ×2 (06:32→15:30)
[2022-03-06] MEDS: PANTOPRAZOLE SODIUM 40 MG VIAL IVPUSH SCH (09:16)
[2022-03-06] MEDS: FAMOTIDINE 20 MG TABLET PO SCH (09:16)
[2022-03-06] MEDS: LOSARTAN POTASSIUM 50 MG TABLET PO SCH (09:16)
[2022-03-06] MEDS: POTASSIUM CHLORIDE ORAL LIQUID 20 MEQ/15 ML PO SCH ×2 (09:16→21:09)
[2022-03-06] MEDS: ALLOPURINOL 100 MG TABLET (FP) PO SCH (09:18)
[2022-03-06] MEDS: ISOSORBIDE MONONITRATE 30 MG TAB.SR.24H (FP) PO SCH (09:19)
[2022-03-06] MEDS: FUROSEMIDE 40 MG TABLET (FP) PO SCH (09:19)
[2022-03-06] MEDS: LIDOCAINE 5% TOPICAL PATCH TP SCH (09:21)
[2022-03-06] MEDS: LIDOCAINE PATCH REMOVAL MC SCH (21:09)
[2022-03-06] MEDS: ATORVASTATIN CA 10 MG TABLET (FP) PO SCH (21:09)
[2022-03-06] MEDS: OLANZapine 2.5 MG TABLET PO SCH (21:09)
[2022-03-07] MEDS: LEVOTHYROXINE 100 MCG, LEVOTHYROXINE 75 MCG PO SCH (06:36)
[2022-03-07] MEDS ORDERED: LACTATED RINGERS SOLUTION 1,000 ML/1,000 ML INFUS.BAG IV STA (09:23)
[2022-03-07] MEDS ORDERED: METOPROLOL TARTRATE 5 MG/5 ML VIAL IVPUSH SCH (09:30)
[2022-03-07] MEDS ORDERED: metoPROLOL SUCCINATE 25 MG TAB.SR.24H (FP) PO SCH (10:00)
[2022-03-07] MEDS: FAMOTIDINE 20 MG TABLET PO SCH (10:07)
[2022-03-07] MEDS: POTASSIUM CHLORIDE ORAL LIQUID 20 MEQ/15 ML PO SCH (10:07)
[2022-03-07] MEDS: ALLOPURINOL 100 MG TABLET (FP) PO SCH (10:08)
[2022-03-07] MEDS: AMINO ACIDS 4.25%/D5W 1,000 ML IV SCH ×2 (10:08→16:00)
[2022-03-07] MEDS: LIDOCAINE 5% TOPICAL PATCH TP SCH (10:11)
[2022-03-07] MEDS: PANTOPRAZOLE SODIUM 40 MG VIAL IVPUSH SCH (10:11)
[2022-03-07 10:57] LABS: HEMATOCRIT 31.1 % (32.4-45.2); HEMOGLOBIN 9.8 GM/dL (10.7-15.3); MEAN CELL VOLUME 89.7 fl (80-96); RBC 3.47 M/mm3 (3.60-5.2); WHITE BLOOD COUNT 8.2 K/mm3 (4.0-10.0)
[2022-03-07 10:58] LABS: BASO % 0.3 % (0-2.0); EOS % 0.9 % (0-4.5); LYMPH % 6.1 % (8-40); MCH 28.1 pg (25.7-33.7); MCHC 31.4 g/dl (32.0-36.0); MONO % 6.5 % (3.8-10.2); NEUT % 86.2 % (42.8-82.8); PLATELET COUNT 179 10^3/uL (134-434); RDW 18.1 % (11.6-15.6)
[2022-03-07 11:01] LABS: INR 0.97 (0.83-1.09); PROTHROMBIN TIME (PATIENT) 11.1 SEC (9.7-13.0)
[2022-03-07 11:03] LABS: ACTIVATED PTT 20.1 SECONDS (25.2-36.5)
[2022-03-07 11:21] LABS: ALBUMIN 2.4 g/dl (3.4-5.0); BLOOD UREA NITROGEN 92.9 mg/dL (7-18); MAGNESIUM 1.9 mg/dL (1.8-2.4)
[2022-03-07 11:24] LABS: CREATININE 1.7 mg/dL (0.55-1.3)
[2022-03-07 11:25] LABS: BILIRUBIN,TOTAL 0.5 mg/dL (0.2-1); TOT PROT 5.2 g/dl (6.4-8.2)
[2022-03-07] MEDS ORDERED: NOREPINEPHRINE BITARTRATE 4,000 MCG in DEXTROSE 5%-WATER - 496 ML IV SCH (13:45)
[2022-03-07 15:02] LABS: BASO % 0.3 % (0-2.0); EOS % 0.4 % (0-4.5); HEMATOCRIT 32.2 % (32.4-45.2); HEMOGLOBIN 9.8 GM/dL (10.7-15.3); MCH 27.5 pg (25.7-33.7); MCHC 30.5 g/dl (32.0-36.0); MEAN CELL VOLUME 90.4 fl (80-96); MEAN PLT VOLUME 8.2 fl (7.5-11.1); MONO % 6.1 % (3.8-10.2); NEUT % 88.2 % (42.8-82.8); PLATELET COUNT 180 10^3/uL (134-434); RBC 3.56 M/mm3 (3.60-5.2); RDW 18.7 % (11.6-15.6); WHITE BLOOD COUNT 9.5 K/mm3 (4.0-10.0)
[2022-03-07 15:09] LABS: INR 1.01 (0.83-1.09); PROTHROMBIN TIME (PATIENT) 11.6 SEC (9.7-13.0)
[2022-03-07 15:12] LABS: ACTIVATED PTT 41.6 SECONDS (25.2-36.5)
[2022-03-07 15:22] LABS: ALBUMIN 2.5 g/dl (3.4-5.0); CALCIUM 9.9 mg/dL (8.5-10.1); MAGNESIUM 1.8 mg/dL (1.8-2.4)
[2022-03-07 15:23] LABS: BLOOD UREA NITROGEN 92.6 mg/dL (7-18)
[2022-03-07 15:25] LABS: CREATININE 1.9 mg/dL (0.55-1.3)
[2022-03-07 15:27] LABS: BILIRUBIN,TOTAL 0.4 mg/dL (0.2-1); TOT PROT 5.4 g/dl (6.4-8.2)
[2022-03-07] MEDS: VASOPRESSIN 40 UNITS/100 ML BAG IV SCH (15:44)
[2022-03-07] MEDS: PIPERACILLIN/TAZOB 3.375 GM 3.375 GM in DEXTROSE 5%-WATER - 50 ML IVPB SCH ×2 (16:09→18:17)
[2022-03-07 17:48] LABS: ALLENS TEST POSITIVE; ARTERIAL BLD GAS O2 SATURATION 99.6 % (95-98); ARTERIAL BLOOD GAS BASE EXCESS -4.7 mmol/L (-2-2); ARTERIAL BLOOD GAS PO2 317.4 mmHg (80-100); ARTERIAL BLOOD GAS pH 7.203 (7.350-7.450)
[2022-03-07] MEDS: LEVOTHYROXINE SODIUM 100 MCG/ML 1 ML VIAL IVPUSH SCH (18:26)
[2022-03-07] MEDS: LIDOCAINE PATCH REMOVAL MC SCH (21:03)
[2022-03-07] MEDS: ATORVASTATIN CA 10 MG TABLET (FP) PO SCH (21:04)
[2022-03-07] MEDS ORDERED: MUPIROCIN 2% TOPICAL OINTMENT FOR DECOLONIZATION NS SCH (22:00)
[2022-03-07] MEDS ORDERED: CHLORHEXIDINE GLUCONATE 4% CLEANSER FOR DECOLONIZATION TP SCH (22:00)
[2022-03-07] MEDS ORDERED: PIPERACILLIN/TAZOB 4.5 GM 4.5 GM in DEXTROSE 5%-WATER 100 ML IVPB SCH (22:00)
[2022-03-08] MEDS: PIPERACILLIN/TAZOB 3.375 GM 3.375 GM in DEXTROSE 5%-WATER - 50 ML IVPB SCH ×2 (01:50→09:40)
[2022-03-08 07:25] LABS: HEMATOCRIT 31.1 % (32.4-45.2); HEMOGLOBIN 9.6 GM/dL (10.7-15.3); MCH 27.5 pg (25.7-33.7); MCHC 30.9 g/dl (32.0-36.0); MEAN PLT VOLUME 8.9 fl (7.5-11.1); PLATELET COUNT 186 10^3/uL (134-434); RDW 18.4 % (11.6-15.6); WHITE BLOOD COUNT 11.8 K/mm3 (4.0-10.0)
[2022-03-08 07:32] LABS: CALCIUM 10.3 mg/dL (8.5-10.1)
[2022-03-08 07:33] LABS: ALBUMIN 2.5 g/dl (3.4-5.0); BLOOD UREA NITROGEN 103.7 mg/dL (7-18)
[2022-03-08 07:36] LABS: CREATININE 2.2 mg/dL (0.55-1.3)
[2022-03-08 07:38] LABS: BILIRUBIN,TOTAL 0.7 mg/dL (0.2-1); TOT PROT 5.5 g/dl (6.4-8.2)
[2022-03-08] MEDS ORDERED: NOREPINEPHRINE BITARTRATE 4,000 MCG in DEXTROSE 5%-WATER - 496 ML IV SCH (08:35)
[2022-03-08] MEDS ORDERED: ACETAMINOPHEN 325 MG TABLET (FP) PO PRN (08:35)
[2022-03-08] MEDS: PANTOPRAZOLE SODIUM 40 MG VIAL IVPUSH SCH (09:40)
[2022-03-08] MEDS: LEVOTHYROXINE SODIUM 100 MCG/ML 1 ML VIAL IVPUSH SCH (10:00)
[2022-03-08] MEDS: LIDOCAINE 5% TOPICAL PATCH TP SCH (10:00)
[2022-03-08 10:15] LABS: ANISOCYTOSIS 0; HELMET CELLS 0; HOWELL-JOLLY BODIES 0; MACROCYTOSIS 0; OVALOCYTE 0; ROULEAU 0; SICKELED CELLS 0; TARGET CELLS 0; TEAR DROP CELLS 0; TOXIC GRANULATION 0
[2022-03-08] MEDS: MUPIROCIN 2% TOPICAL OINTMENT FOR DECOLONIZATION NS SCH ×2 (10:34→21:13)
[2022-03-08] MEDS: ALLOPURINOL 100 MG TABLET (FP) PO SCH (13:35)
[2022-03-08] MEDS: VASOPRESSIN 40 UNITS/100 ML BAG IV SCH ×2 (13:46→18:38)
[2022-03-08] MEDS: DEXMEDETOMIDINE PREMIX 400 MCG/100 ML BAG IVPB SCH (16:43)
[2022-03-08] MEDS: AMINO ACIDS 4.25%/D5W 1,000 ML IV SCH (17:09)
[2022-03-08] MEDS: NOREPINEPHRINE BITARTRATE/D5W 8 MG/250 ML BAG IVPB SCH (17:28)
[2022-03-08] MEDS ORDERED: ATORVASTATIN CA 10 MG TABLET (FP) PO SCH (22:00)
[2022-03-08] MEDS ORDERED: CHLORHEXIDINE GLUCONATE 4% CLEANSER FOR DECOLONIZATION TP SCH (22:00)
[2022-03-08] MEDS ORDERED: LIDOCAINE PATCH REMOVAL MC SCH (22:00)
[2022-03-09 07:10] LABS: HEMATOCRIT 30.9 % (32.4-45.2); HEMOGLOBIN 9.6 GM/dL (10.7-15.3); MCH 27.5 pg (25.7-33.7); MCHC 30.9 g/dl (32.0-36.0); MEAN CELL VOLUME 88.8 fl (80-96); MEAN PLT VOLUME 8.9 fl (7.5-11.1); PLATELET COUNT 188 10^3/uL (134-434); RBC 3.49 M/mm3 (3.60-5.2); RDW 18.2 % (11.6-15.6); WHITE BLOOD COUNT 11.5 K/mm3 (4.0-10.0)
[2022-03-09 07:32] LABS: CHLORIDE 97 mmol/L (98-107); SODIUM 132 mmol/L (136-145)
[2022-03-09 07:36] LABS: ANION GAP 11 MMOL/L (8-16); CALCIUM 9.9 mg/dL (8.5-10.1); CO2 24 mmol/L (21-32); GLUCOSE,RANDOM 149 mg/dL (74-106); MAGNESIUM 1.8 mg/dL (1.8-2.4)
[2022-03-09 07:39] LABS: PHOSPHOROUS 2.6 mg/dL (2.5-4.9)
[2022-03-09 07:40] LABS: CREATININE 2.5 mg/dL (0.55-1.3)
[2022-03-09 07:53] LABS: BLOOD UREA NITROGEN 117.9 mg/dL (7-18)
[2022-03-09] MEDS: MUPIROCIN 2% TOPICAL OINTMENT FOR DECOLONIZATION NS SCH (09:07)
[2022-03-09] MEDS: AMINO ACIDS 4.25%/D5W 1,000 ML IV SCH (09:07)
[2022-03-09] MEDS: LIDOCAINE 5% TOPICAL PATCH TP SCH (09:08)
[2022-03-09] MEDS: LEVOTHYROXINE SODIUM 100 MCG/ML 1 ML VIAL IVPUSH SCH (09:16)
[2022-03-09] MEDS: PANTOPRAZOLE SODIUM 40 MG VIAL IVPUSH SCH (09:18)
[2022-03-09] MEDS: ALLOPURINOL 100 MG TABLET (FP) PO SCH (09:18)
[2022-03-09] MEDS: PIPERACILLIN/TAZOB 3.375 GM 3.375 GM in DEXTROSE 5%-WATER - 50 ML IVPB SCH ×4 (09:18→19:27)
[2022-03-09] MEDS ORDERED: MORPHINE SULFATE/0.9% NACL/PF 100 MG/100 ML BAG IVPB SCH (09:30)
[2022-03-09] MEDS ORDERED: LORazepam 2 MG/ML SDV VIAL IVPUSH PRN (09:32)
[2022-03-09] MEDS: NOREPINEPHRINE BITARTRATE/D5W 8 MG/250 ML BAG IVPB SCH (16:45)
[2022-03-09] MEDS: VASOPRESSIN 40 UNITS/100 ML BAG IV SCH (19:10)
[2022-03-09] MEDS: DEXMEDETOMIDINE PREMIX 400 MCG/100 ML BAG IVPB SCH (19:26)
[2022-03-09 20:28] VITALS: BP 32/22; PULSE 41; RESP 0; TEMP 96.4
== END 2022-03-09 21:55 | disposition expired | DRG 291 ==
LOC: JER 17:41 → JERBED 23:31 → J2W 02-21 01:17 → J4W 03-07 05:52 → JICU 03-07 14:20
PROVIDERS: ADMIT Internal Medicine; ATTEND Internal Medicine
PROC: 0W993ZX Drainage of Right Pleural Cavity, Percutaneous Approach, Diagnostic (ICD-10-PCS; principal; 2022-02-23)
DX: I11.0 Hypertensive heart disease with heart failure (principal); A41.9 Sepsis, unspecified organism; I50.33 Acute on chronic diastolic (congestive) heart failure; J18.9 Pneumonia, unspecified organism; R65.21 Severe sepsis with septic shock; C34.90 Malignant neoplasm of unspecified part of unspecified bronchus or lung; I31.39 Other pericardial effusion (noninflammatory); R04.2 Hemoptysis; I48.19 Other persistent atrial fibrillation; N17.9 Acute kidney failure, unspecified; J90 Pleural effusion, not elsewhere classified; E87.0 Hyperosmolality and hypernatremia; J44.9 Chronic obstructive pulmonary disease, unspecified; R45.1 Restlessness and agitation; R41.0 Disorientation, unspecified; M17.11 Unilateral primary osteoarthritis, right knee; I46.9 Cardiac arrest, cause unspecified; E03.9 Hypothyroidism, unspecified; I34.0 Nonrheumatic mitral (valve) insufficiency
CPT/HCPCS: 0241U-QW; 36415; 36600; 70450-TC; 71045-TC-FY; 71250-TC; 73560-TC-LT-FY; 73560-TC-RT-FY; 76604-TC; 76942; 80048; 80053; 81003; 82042; 82150; 82803; 82945; 82962; 83605; 83615; 83735; 83880; 83986; 84100; 84132; 84157; 84478; 84484; 85025; 85027; 85610; 85730; 87040; 87070; 87075; 87086; 87102; 87116; 87186; 87205; 87206; 87210; 87804; 88108; 88305-TC; 93005; 93010; 94640; 94660; 97116-GP; 97162-GP; 99285-25; J3490